=== PATIENT | male | born 1945 | race Caucasian/White ===

== ENCOUNTER 2020-10-13 17:15 | Inpatient (IN) | payer OTHER, MEDICARE, SELFPAY ==
[2020-10-13] VITALS (7 sets, daily range): BP systolic 143–167; BP diastolic 74–78; PULSE 116–124; RESP 16–38; TEMP 36.3–37.1; O2SAT 94–97; BMI 29.7
[2020-10-13 17:55] LABS: Absolute Lymphocyte Count 0.58 X10^3/uL (0.83-4.51); Basophil# 0.07 X10^3/uL; Basophil% 0.2 % (0-1); Hematocrit 46.5 % (40-54); Hemoglobin 15.1 g/dL (13.0-16.5); Lymphocyte # 0.58 X10^3/ul (0.83-4.51); Lymphocyte % 1.7 % (19-41); Mean Corp Hgb Conc 32.5 g/dL (32-36); Mean Corpuscular Volume 89.4 fL (80-94); Mean Platelet Vol. 11.7 fl (6.2-12.0); Monocyte# 2.37 X10^3/uL; Monocyte% 7.1 % (0-10); NRBC Flagged by Analyzer 0 % (0-5); Neutrophil # 29.96 X10^3/uL (2.7-7.7); Neutrophil % 89.8 % (47-70); POSITIVE COUNT YES; POSITIVE DIFFERENTIAL YES; Platelet Count 415 K/mm3 (150-450); RBC Distribution Width CV 12.9 % (11.6-14.6); RBC Distribution Width SD 42.4 fl (35.1-43.9)
[2020-10-13 18:00] LABS: Differential Indicated SCAN CRITERIA MET; White Blood Count 33.4 K/mm3 (4.4-11.0)
[2020-10-13 18:11] LABS: Anion Gap 16 (5-15); BUN 18 mg/dL (7-18); BUN/Creat Ratio 15.3 RATIO (10-20); Calcium,Total 9.9 mg/dL (8.5-10.1); Chloride 101 mmol/L (98-107); Creatinine, Serum 1.18 mg/dL (0.70-1.30); EST Glomerular Filtration Rate 64 mL/min (>60); Est Glom Filt Rate - Afr Amer 77 mL/min (>60); Estimated Creatinine Clearance 54.99 ml/min; Glucose 288 mg/dL (74-106); Potassium 3.4 mmol/L (3.5-5.1); Sodium Level 136 mmol/L (136-145)
[2020-10-13 18:32] LABS: Platelet Estimate ADEQUATE (ADEQ); Red Cell Morphology NORM C+C NORMAL (NORM C&C)
--- NOTE | 2020-10-13 18:58 | US_ITS ---
INDICATION: RUQ pain EXAMINATION: US Abdomen RUQ (limited) TECHNIQUE: Dunn-scale and color Doppler imaging was performed of the abdomen. COMPARISON: None. Findings: The liver is homogenous and normal in echogenicity and echotexture. There is no evidence of contour nodularity. No focal hepatic mass is identified. The main portal vein is normal in size and patent demonstrating hepatopetal flow. The gallbladder is distended and remarkable for mobile, layering stones and sludge, however is without evidence of wall thickening or pericholecystic fluid. Sonographic Vickers''s tenderness is not appreciated. There is no evidence of intrahepatic biliary ductal dilatation. The CBD is nondilated measuring 4 mm at the level of the oleg hepatis. The pancreas is obscured by overlying bowel gas. The right kidney measures 14.7 cm in length. It is normal in echogenicity. 3.6 cm hypoechoic well-circumscribed cyst in the lower pole. There is no evidence of hydronephrosis. There is no free intraperitoneal fluid identified. US/Gallbladder IMPRESSION: Distended gallbladder with multiple large stones and sludge. No wall thickening, pericholecystic fluid or Vickers''s tenderness. Findings are equivocal for acute cholecystitis. 3.6 cm slightly complex cyst in the lower pole of the right kidney. Electronically Signed: Jj Estes MD at 21:14 EDT Tel , Service support ,
--- NOTE | 2020-10-13 18:59 | EKG12_ITS ---
Test Reason : ABD PAIN Blood Pressure : / mmHG Vent. Rate : 118 BPM Atrial Rate : 118 BPM P-R Int : 112 ms QRS Dur : 082 ms QT Int : 444 ms P-R-T Axes : 000 -06 058 degrees QTc Int : 622 ms Sinus tachycardia Low voltage QRS Prolonged QT Abnormal ECG Confirmed by FRANCISCO BOUCHER, PRAVEEN ([id number]), editorial director DIANA SIGALA ([id number]) on 10/15/2020 9:04:57 AM Referred By: RENEA BOUCHER Confirmed By:PRAVEEN SINGH MD
[2020-10-13 19:07] LABS: Bacteria 0 SEEN /hpf (None Seen); Mucous, Urine 0 SEEN /hpf (<or=2+); Red Blood Cells-Urine 0 SEEN /hpf (0-5); Squamous Epithelial Cells - UA 0 SEEN /hpf (0-5)
[2020-10-13 19:09] LABS: Color, Urine Yellow (Yellow); Glucose, Dipstick 1000 mg/dl (Normal); Leukocyte Esterase-Dipstick Negative /ul (Negative); Nitrite-Dipstick Negative (Negative); Occult Blood-Urine Negative /ul (Negative); Protein-Dipstick 30 mg/dl (Negative); Urine Bilirubin Dipstick Negative (Negative); Urine Clarity Clear (Clear); Urine Urobilinogen Normal (Normal)
[2020-10-13 19:20] LABS: Ketone-Dipstick 150 mg/dl (Negative)
[2020-10-13 19:23] LABS: White Blood Cells 0-5 SEEN /hpf (0-5)
[2020-10-13] MEDS: Morphine 4 MG/ML Syringe IV (19:49)
[2020-10-13] MEDS: Ondansetron 4 MG/2 ML Vial IV (19:50)
[2020-10-13 20:20] LABS: AST(SGOT) 17 U/L (15-37); Alanine Aminotransfer ALT/SGPT 18 U/L (16-61); Albumin, Serum 3.2 g/dL (3.2-5.0); Alkaline Phosphatase 112 U/L (45-117); Bilirubin, Direct 0.36 mg/dL (0.00-0.30); Globulin 5.1 g/dL (2.2-4.2); Lipase 50 U/L (73-393); Protein, Total 8.3 g/dL (6.4-8.2)
[2020-10-13 20:35] LABS: Lactic Acid 2.2 mmol/L (0.4-1.9)
--- NOTE | 2020-10-13 21:46 | RAD_ITS ---
INDICATION: sob EXAMINATION/TECHNIQUE: X-RAY - XR Chest 1 View COMPARISON: None. FINDINGS: Elevation of the right hemidiaphragm with right basilar atelectasis. The lungs are clear. The cardiomediastinal silhouette is unremarkable. No pleural effusion or pneumothorax. No acute osseous abnormalities. RAD/Chest 1 View (Portable) IMPRESSION: Elevation of the right hemidiaphragm with right basilar atelectasis. Electronically Signed: Jj Estes MD at 22:19 EDT Tel , Service support ,
--- NOTE | 2020-10-13 23:05 | CT_ITS ---
We are attempting to reach an attending provider to discuss findings. An addendum with communication details will be sent when the communication is complete. INDICATION: abd pain EXAMINATION: CT Abdomen And Pelvis W/ Contrast Injection TECHNIQUE: Helically acquired images were obtained of the abdomen and pelvis after IV contrast. A radiation dose optimization technique was used for this scan. IV Contrast dosage and agent: 100 cc [id number] Oral contrast: None. COMPARISON: None. FINDINGS: Visualized lung bases: Multiple tiny calcified granulomas in the lung bases. Liver: Multiple subcentimeter hypodensities are too small to characterize. The common bile duct is not dilated however there is a slight increase in wall enhancement. No stricture or stone seen. Gallbladder: Distended with pericholecystic fat stranding and multiple large intraluminal stones. Spleen: Large splenic granuloma. Pancreas: 5 mm calcification in the head of the pancreas near the ampulla. Adrenal Glands: Unremarkable Kidneys: Multiple bilateral renal cysts. Vasculature: Moderate aortoiliac atherosclerotic disease. GI Tract: Mild circumferential wall thickening of the second portion of the duodenum. Scattered diverticula throughout the colon without evidence of inflammation. Lymphadenopathy: None Peritoneum: No ascites. Bladder: Unremarkable Reproductive organs: The prostate is mildly enlarged and contains several intraparenchymal calcifications. Bones/Soft tissues: Mild scattered degenerative changes of the visualized spine. CT/Abdomen/Pelvis WITH Contrast IMPRESSION: Acute cholecystitis with secondary inflammation of the duodenum (duodenitis) and possible ascending cholangitis. There is a 5 mm calcification in the head of the pancreas adjacent to where the ampulla is expected to be, however, there is no extra or intrahepatic biliary ductal dilation or definite choledocholithiasis. Mild prostatomegaly. Recommend correlation with PSA levels. Electronically Signed: Jj Estes MD at 23:46 EDT Tel , Service support ,
--- NOTE | 2020-10-13 23:32 | EDS_ITS ---
HPI HPI - GI History of Present Illness Chief Complaint: Abd Pain Informant: patient Narrative Narrative: 75-year-old male presenting with abdominal pain. He states this started on Tuesday. He went to urgent care and they advised him it may be his gallbladder and he would need further testing. He did not come to the ED at that time. His pain worsened throughout the weekend. Pain is worsened with eating. He complains of decreased appetite. He denies fever. He has mild shortness of breath. Denies vomiting or diarrhea. His last bowel movement was 3 days ago. Denies urinary complaints. Denies chest pain. Prior similar symptoms: No Recent Illness/Hospitalization: No PFSH PFSH Medical History Diabetes Former smoker Hypertension Non-smoker Home Medications alogliptin 25 mg DAILY 10/13/20 [History Last Taken Unknown] aspirin 81 mg PO DAILY 10/13/20 [History Last Taken Unknown] betamethasone dipropionate 1 applic TOPICAL DAILY 10/13/20 [History Last Taken Unknown] empagliflozin 25 mg PO DAILY 10/13/20 [History Last Taken Unknown] ezetimibe [Zetia] 10 mg DAILY 10/13/20 [History Last Taken Unknown] glimepiride 8 mg PO DAILY 10/13/20 [History Last Taken Unknown] hydrochlorothiazide 25 mg PO DAILY 10/13/20 [History Last Taken Unknown] lisinopril 40 mg PO DAILY 10/13/20 [History Last Taken Unknown] lovastatin 20 mg PO DAILY 10/13/20 [History Last Taken Unknown] metoprolol tartrate 50 mg PO BID 10/13/20 [History Last Taken Unknown] [id number]-[id number]-[id number] [Centrum Silver] 1 tab PO DAILY 10/13/20 [History Last Taken Unknown] niacinamide 1,000 mg PO DAILY 10/13/20 [History Last Taken Unknown] nifedipine [Nifediac CC] 90 mg PO BID 10/13/20 [History Last Taken Unknown] nitroglycerin 0.4 mg SUBLINGUAL Q5M PRN 10/13/20 [History Last Taken Unknown] Allergy/AdvReac Type Severity Reaction Status Date / Time No Known Allergies Allergy Verified 10/13/20 17:21 Surgical History (Updated 10/13/20 @ 19:56 by Bibi Dickens RN) History of coronary artery stent placement Social History Smoking Status: Former smoker ROS ROS ED Constitutional Constitutional ED: Denies fever(s) Eyes Eyes: Denies change in vision ENT ENT ED: Denies rhinorrhea or sore throat Cardiovascular Cardiovascular: Denies chest pain or palpitations Respiratory/Chest Respiratory/Chest: Denies cough or dyspnea Gastrointestinal Gastrointestinal: Reports abdominal pain and constipation; Denies diarrhea, nausea or vomiting Genitourinary Genitourinary ED: Denies dysuria Musculoskeletal Musculoskeletal: Denies myalgias Integumentary Denies rash Neurologic Neurologic: Denies headache(s) Psychiatric Psychiatric: Denies suicidal thoughts EXAM Physical Exam Const Vital Signs: 10/13/20 17:17 10/13/20 19:50 10/13/20 20:07 Temperature 97.3 F L 98.3 F 98.3 F Temperature Source Temporal Oral Oral Pulse Rate 124 H 119 H 117 H Respiratory Rate 16 29 H 28 H Blood Pressure 167/74 H 156/78 H 164/76 H Blood Pressure Mean 105 104 105 Pulse Ox 95 95 97 Oxygen Delivery Method Room Air Room Air Room Air 10/13/20 21:11 10/13/20 21:13 10/13/20 22:36 Temperature 97.6 F L 98.8 F Temperature Source Oral Oral Pulse Rate 123 H 116 H Respiratory Rate 19 H 26 H 30 H Blood Pressure 164/74 H 143/74 H Blood Pressure Mean 104 97 Pulse Ox 95 94 Oxygen Delivery Method Room Air Room Air 10/13/20 22:38 Temperature Temperature Source Pulse Rate Respiratory Rate Blood Pressure 143/74 H Blood Pressure Mean 97 Pulse Ox Oxygen Delivery Method Positive well nourished and well developed General Appearance ED: well developed HEENT Reports normocephalic and head/scalp atraumatic Eyes PERRL and EOMs intact bilaterally Neck supple General: Negative for tenderness Chest Wall inspection of chest normal Resp normal respiratory effort and clear to auscultation bilaterally Cardio regular rate and regular rhythm GI non-distended GI Narrative: Right upper quadrant tenderness Palpation: soft; Negative for guarding or rebound tenderness present no CVA tenderness Extremity normal to inspection Neuro oriented x3 Sensorium / Orientation: alert Psych mental status grossly normal MDM MDM MDM Narrative Medical decision making narrative: Patient was given morphine, Zofran, IV fluids. He was given Zosyn IV. Ultrasound and CT scan were reviewed per Dr. Baig. Discussed with hospitalist. Patient will be admitted for IV antibiotics and possible percutaneous drain. Lab Data Attestation: I reviewed the patient's lab results. Labs: Laboratory Results - last 24 hr 10/13/20 10/13/20 10/13/20 17:27 17:27 17:27 WBC 33.4 H* RBC 5.20 Hgb 15.1 Hct 46.5 MCV 89.4 MCH 29.0 MCHC 32.5 RDW Std Deviation 42.4 RDW Coeff of Oskar 12.9 Plt Count 415 MPV 11.7 Immature Gran % (Auto) 1.200 H Neut % (Auto) 89.8 H Lymph % (Auto) 1.7 L [place] % (Auto) 7.1 Eos % (Auto) 0.0 Baso % (Auto) 0.2 Absolute Neuts (auto) 30.0 H Absolute Lymphs (auto) 0.58 L Nucleated RBC % 0 Differential Comment Diff Path Review May foll Platelet Estimate ADEQUATE RBC Morphology NORM C+C Sodium 136 Potassium 3.4 L Chloride 101 Carbon Dioxide 19.0 L Anion Gap 16 H BUN 18 Creatinine 1.18 Estim Creat Clear Calc 54.99 Est GFR (MDRD) Af Amer 77 Est GFR (MDRD) Non-Af 64 BUN/Creatinine Ratio 15.3 Glucose 288 H Lactic Acid Calcium 9.9 Total Bilirubin 0.90 Direct Bilirubin 0.36 H AST 17 ALT 18 Alkaline Phosphatase 112 Troponin I < 0.015 Total Protein 8.3 H Albumin 3.2 Globulin 5.1 H Lipase 50 L Urine Color Urine Clarity Urine pH Ur Specific [place] Urine Protein Urine Glucose (UA) Urine Ketones Urine Occult Blood Urine Nitrite Urine Bilirubin Urine Urobilinogen Ur Leukocyte Esterase Urine RBC Urine WBC Ur Squamous Epith Cells Urine Bacteria Urine Mucus 10/13/20 10/13/20 19:00 19:30 WBC RBC Hgb Hct MCV MCH MCHC RDW Std Deviation RDW Coeff of Oskar Plt Count MPV Immature Gran % (Auto) Neut % (Auto) Lymph % (Auto) [place] % (Auto) Eos % (Auto) Baso % (Auto) Absolute Neuts (auto) Absolute Lymphs (auto) Nucleated RBC % Differential Comment Diff Path Review Platelet Estimate RBC Morphology Sodium Potassium Chloride Carbon Dioxide Anion Gap BUN Creatinine Estim Creat Clear Calc Est GFR (MDRD) Af Amer Est GFR (MDRD) Non-Af BUN/Creatinine Ratio Glucose Lactic Acid 2.2 H* Calcium Total Bilirubin Direct Bilirubin AST ALT Alkaline Phosphatase Troponin I Total Protein Albumin Globulin Lipase Urine Color Yellow Urine Clarity Clear Urine pH 6.0 Ur Specific [place] 1.010 Urine Protein 30 H Urine Glucose (UA) 1000 H Urine Ketones 150 A* Urine Occult Blood Negative Urine Nitrite Negative Urine Bilirubin Negative Urine Urobilinogen Normal Ur Leukocyte Esterase Negative Urine RBC 0 SEEN Urine WBC 0-5 SEEN Ur Squamous Epith Cells 0 SEEN Urine Bacteria 0 SEEN Urine Mucus 0 SEEN Radiography Diagnostic Testing: Radiology Impression Gallbladder Ultrasound 10/13/20 18:58 IMPRESSION: Distended gallbladder with multiple large stones and sludge. No wall thickening, pericholecystic fluid or Vickers''s tenderness. Findings are equivocal for acute cholecystitis. 3.6 cm slightly complex cyst in the lower pole of the right kidney. Electronically Signed: Jj Estes MD at 21:14 EDT Tel , Service support , Chest X-Ray 10/13/20 21:46 IMPRESSION: Elevation of the right hemidiaphragm with right basilar atelectasis. Electronically Signed: Jj Estes MD at 22:19 EDT Tel , Service support , Abdomen/Pelvis CT 10/13/20 23:05 IMPRESSION: Acute cholecystitis with secondary inflammation of the duodenum (duodenitis) and possible ascending cholangitis. There is a 5 mm calcification in the head of the pancreas adjacent to where the ampulla is expected to be, however, there is no extra or intrahepatic biliary ductal dilation or definite choledocholithiasis. Mild prostatomegaly. Recommend correlation with PSA levels. Electronically Signed: Jj Estes MD at 23:46 EDT Tel , Service support , EKG Initial EKG: Interpretation: Sinus Rhythm, No Acute Injury Pattern and Sinus Tachycardia Prior EKG tracings: not available for review Discharge Plan Dx/Rx/DC Orders Clinical Impression: Acute cholecystitis, Leukocytosis Disposition Disposition: Acute Care [facility]
[2020-10-13 23:54] LABS: Reflex Lactate? Y
--- NOTE | 2020-10-13 23:59 | HP.PCM_ITS ---
HPI - General HPI Narrative ALEXX RICHARDS, is a 75 M who presents to the emergency room with right upper quadrant abdominal pain. Onset of symptoms began this past May when he had a bout of cholecystitis that was treated medically and resolved. This last weekend he was seen in urgent care for recurrent right upper quadrant abdominal pain and was told if his pain did not resolve to seek help at the emergency room. Patient states he has been unable to eat solid food for the past 3 days and has significant pain in the right upper quadrant of the abdomen associated with nausea. Laboratory studies remarkable for elevated white blood cell count greater than 30,000 with a left shift. Gallbladder ultrasound is significant for distention. Surgeon was notified by ER physician and patient will be admitted with surgical consult. Patient will be n.p.o. after midnight. [facility] Medical History Diabetes Former smoker Hypertension Non-smoker Home Medications alogliptin 25 mg DAILY 10/13/20 [History Last Taken Unknown] aspirin 81 mg PO DAILY 10/13/20 [History Last Taken Unknown] betamethasone dipropionate 1 applic TOPICAL DAILY 10/13/20 [History Last Taken Unknown] empagliflozin 25 mg PO DAILY 10/13/20 [History Last Taken Unknown] ezetimibe [Zetia] 10 mg DAILY 10/13/20 [History Last Taken Unknown] glimepiride 8 mg PO DAILY 10/13/20 [History Last Taken Unknown] hydrochlorothiazide 25 mg PO DAILY 10/13/20 [History Last Taken Unknown] lisinopril 40 mg PO DAILY 10/13/20 [History Last Taken Unknown] lovastatin 20 mg PO DAILY 10/13/20 [History Last Taken Unknown] metoprolol tartrate 50 mg PO BID 10/13/20 [History Last Taken Unknown] [id number]-dacthykg-xqlfaj [Centrum Silver] 1 tab PO DAILY 10/13/20 [History Last Taken Unknown] niacinamide 1,000 mg PO DAILY 10/13/20 [History Last Taken Unknown] nifedipine [Nifediac CC] 90 mg PO BID 10/13/20 [History Last Taken Unknown] nitroglycerin 0.4 mg SUBLINGUAL Q5M PRN 10/13/20 [History Last Taken Unknown] Allergy/AdvReac Type Severity Reaction Status Date / Time No Known Allergies Allergy Verified 10/13/20 17:21 Surgical History (Updated 10/13/20 @ 19:56 by Bibi Dickens RN) History of coronary artery stent placement Social History Smoking Status: Former smoker ROS Constitutional Constitutional: Reports anorexia, fatigue and weakness ENT HEENT: Denies headache(s) Cardiovascular Cardiovascular: Denies chest pain Respiratory/Chest Respiratory/Chest: Denies shortness of breath at rest Gastrointestinal Gastrointestinal: Reports abdominal pain and nausea Genitourinary Genitourinary: Denies dysuria Musculoskeletal Musculoskeletal: Denies back pain Psychiatric Psychiatric: Denies anxiety Hematologic/Lymphatic Hematologic/Lymphatic: Denies easy bleeding Vital Signs Vital Signs Vital Signs: 10/13/20 17:17 10/13/20 19:50 10/13/20 20:07 Temperature 97.3 F L 98.3 F 98.3 F Temperature Source Temporal Oral Oral Pulse Rate 124 H 119 H 117 H Respiratory Rate 16 29 H 28 H Blood Pressure 167/74 H 156/78 H 164/76 H Blood Pressure Mean 105 104 105 Pulse Ox 95 95 97 Oxygen Delivery Method Room Air Room Air Room Air 10/13/20 21:11 10/13/20 21:13 10/13/20 22:36 Temperature 97.6 F L 98.8 F Temperature Source Oral Oral Pulse Rate 123 H 116 H Respiratory Rate 19 H 26 H 30 H Blood Pressure 164/74 H 143/74 H Blood Pressure Mean 104 97 Pulse Ox 95 94 Oxygen Delivery Method Room Air Room Air 10/13/20 22:38 Temperature Temperature Source Pulse Rate Respiratory Rate Blood Pressure 143/74 H Blood Pressure Mean 97 Pulse Ox Oxygen Delivery Method Physical Exam Const alert and oriented x3 HEENT normocephalic and head/scalp atraumatic Eyes PERRL Neck supple Lymph Lymphatic: no lymphadenopathy noted Resp normal respiratory effort and clear to auscultation bilaterally Cardio regular rhythm, S1 normal heart sound and S2 normal heart sound GI Inspection: abdominal distention Auscultation: hypoactive bowel sounds Palpation: tender RUQ Extremity normal capillary refill Skin General Skin Exam: no breakdown Neuro no sensory deficits noted Psych affect normal Lab / Micro Data Result Diagrams: 10/13/20 17:27 10/13/20 17:27 Labs: Laboratory Results - last 24 hr 10/13/20 10/13/20 10/13/20 17:27 17:27 17:27 WBC 33.4 H* RBC 5.20 Hgb 15.1 Hct 46.5 MCV 89.4 MCH 29.0 MCHC 32.5 RDW Std Deviation 42.4 RDW Coeff of Oskar 12.9 Plt Count 415 MPV 11.7 Immature Gran % (Auto) 1.200 H Neut % (Auto) 89.8 H Lymph % (Auto) 1.7 L [place] % (Auto) 7.1 Eos % (Auto) 0.0 Baso % (Auto) 0.2 Absolute Neuts (auto) 30.0 H Absolute Lymphs (auto) 0.58 L Nucleated RBC % 0 Differential Comment Diff Path Review May foll Platelet Estimate ADEQUATE RBC Morphology NORM C+C Sodium 136 Potassium 3.4 L Chloride 101 Carbon Dioxide 19.0 L Anion Gap 16 H BUN 18 Creatinine 1.18 Estim Creat Clear Calc 54.99 Est GFR (MDRD) Af Amer 77 Est GFR (MDRD) Non-Af 64 BUN/Creatinine Ratio 15.3 Glucose 288 H Lactic Acid Calcium 9.9 Total Bilirubin 0.90 Direct Bilirubin 0.36 H AST 17 ALT 18 Alkaline Phosphatase 112 Troponin I < 0.015 Total Protein 8.3 H Albumin 3.2 Globulin 5.1 H Lipase 50 L Urine Color Urine Clarity Urine pH Ur Specific [place] Urine Protein Urine Glucose (UA) Urine Ketones Urine Occult Blood Urine Nitrite Urine Bilirubin Urine Urobilinogen Ur Leukocyte Esterase Urine RBC Urine WBC Ur Squamous Epith Cells Urine Bacteria Urine Mucus 10/13/20 10/13/20 19:00 19:30 WBC RBC Hgb Hct MCV MCH MCHC RDW Std Deviation RDW Coeff of Oskar Plt Count MPV Immature Gran % (Auto) Neut % (Auto) Lymph % (Auto) [place] % (Auto) Eos % (Auto) Baso % (Auto) Absolute Neuts (auto) Absolute Lymphs (auto) Nucleated RBC % Differential Comment Diff Path Review Platelet Estimate RBC Morphology Sodium Potassium Chloride Carbon Dioxide Anion Gap BUN Creatinine Estim Creat Clear Calc Est GFR (MDRD) Af Amer Est GFR (MDRD) Non-Af BUN/Creatinine Ratio Glucose Lactic Acid 2.2 H* Calcium Total Bilirubin Direct Bilirubin AST ALT Alkaline Phosphatase Troponin I Total Protein Albumin Globulin Lipase Urine Color Yellow Urine Clarity Clear Urine pH 6.0 Ur Specific [place] 1.010 Urine Protein 30 H Urine Glucose (UA) 1000 H Urine Ketones 150 A* Urine Occult Blood Negative Urine Nitrite Negative Urine Bilirubin Negative Urine Urobilinogen Normal Ur Leukocyte Esterase Negative Urine RBC 0 SEEN Urine WBC 0-5 SEEN Ur Squamous Epith Cells 0 SEEN Urine Bacteria 0 SEEN Urine Mucus 0 SEEN Micro: Microbiology 10/13/20 19:29 SARS-CoV-2 Antigen (Rapid) - Final Interface Orders Radiology Impression Gallbladder Ultrasound 10/13/20 18:58 IMPRESSION: Distended gallbladder with multiple large stones and sludge. No wall thickening, pericholecystic fluid or Vickers''s tenderness. Findings are equivocal for acute cholecystitis. 3.6 cm slightly complex cyst in the lower pole of the right kidney. Electronically Signed: Jj Estes MD at 21:14 EDT Tel , Service support , Chest X-Ray 10/13/20 21:46 IMPRESSION: Elevation of the right hemidiaphragm with right basilar atelectasis. Electronically Signed: Jj Estes MD at 22:19 EDT Tel , Service support , Abdomen/Pelvis CT 10/13/20 23:05 IMPRESSION: Acute cholecystitis with secondary inflammation of the duodenum (duodenitis) and possible ascending cholangitis. There is a 5 mm calcification in the head of the pancreas adjacent to where the ampulla is expected to be, however, there is no extra or intrahepatic biliary ductal dilation or definite choledocholithiasis. Mild prostatomegaly. Recommend correlation with PSA levels. Electronically Signed: Jj Estes MD at 23:46 EDT Tel , Service support , ADDENDUM: 10/13/20 0399 IMPRESSION: Acute cholecystitis with secondary inflammation of the duodenum (duodenitis) and possible ascending cholangitis. There is a 5 mm calcification in the head of the pancreas adjacent to where the ampulla is expected to be, however, there is no extra or intrahepatic biliary ductal dilation or definite choledocholithiasis. Mild prostatomegaly. Recommend correlation with PSA levels. N.B. : The above information has been verbally conveyed by Jj Estes MD to Swapna Bean MD, on 10/13/2020 23:48:22 (ET). Electronically Signed: Jj Estes MD at 23:46 EDT Tel , Service support , Assessment & Plan Assessment/Plan (1) Acute cholecystitis: Status: Acute Code(s): K81.0 - Acute cholecystitis Plan: Admit patient to general medical floor, n.p.o. after midnight, consult Dr. Baig, Dilaudid 1 mg IV every 3 hours as needed pain, Zofran 4 mg IV every 4 hours as needed nausea, normal saline 125 cc/h, CBC CMP and lipase in the mo rning, IV Zosyn 3.375 mg IV every 6 hours (2) Leukocytosis: Status: Acute Code(s): D72.829 - Elevated white blood cell count, unspecified Plan: As above (3) DVT prophylaxis: Status: Acute Code(s): Z29.9 - Encounter for prophylactic measures, unspecified Plan: Low molecular weight heparin Visit Charges Inpatient E&M: 00056 Init Hosp L3
[2020-10-14] VITALS (21 sets, daily range): BP systolic 127–163; BP diastolic 53–78; PULSE 24–114; RESP 18–37; TEMP 36.4–37; O2SAT 93–97; BMI 28.5
[2020-10-14] MEDS: 0.9% Normal Saline 1,000 ML 999 ML IV (00:09)
[2020-10-14] MEDS: 0.9% Normal Saline 1,000 ML 125 ML IV ×3 (01:42→17:53)
--- NOTE | 2020-10-14 01:56 | EX.PCM.CON.S ---
Assessment & Plan Assessment/Plan (1) Acute cholecystitis: Status: Acute Code(s): K81.0 - Acute cholecystitis (2) Leukocytosis: Status: Acute Code(s): D72.829 - Elevated white blood cell count, unspecified Plan: Discussed with patient that due to increased inflammation of the gallbladder seen on CT as well as pain beginning on Tuesday he would be at increased risk for complication for surgery currently. Recommend placing a cholecystostomy tube by IR and would plan to do a laparoscopic cholecystectomy in a few weeks once inflammation has improved. Patient is agreeable with plan. Patient was started on Zosyn IV. Kamini Baig M.D. Pager: [phone] [facility] [address] [place] [address], [facility] [place], [address] [place] [address] Office: [phone] HPI Consult Data Date of Consult: 10/14/20 HPI Narrative HPI Narrative: ALEXX RICHARDS, is a 75 M who presents due to right upper quadrant pain which began on Tuesday. Patient states he has not been able to eat as much due to the pain states when he takes a deep breath his pain is a 10/10. Patient denies any right upper quadrant pain after eating prior to this. Patient's white blood cell count was 33.4 on admission and ultrasound of the gallbladder did show gallstones but did not show any wall thickening or call pericholecystic fluid with a normal common bile duct. Patient's CT abdomen pelvis did show inflammation surrounding the gallbladder. [facility] Medical History Diabetes Former smoker Hypertension Non-smoker Home Medications alogliptin 25 mg PO DAILY 10/13/20 [History Last Taken 10/13/20] aspirin 81 mg PO DAILY 10/13/20 [History Last Taken 10/13/20] betamethasone dipropionate 1 applic TOPICAL DAILY 10/13/20 [History Last Taken Unknown] empagliflozin 25 mg PO DAILY 10/13/20 [History Last Taken 10/13/20] ezetimibe [Zetia] 10 mg DAILY 10/13/20 [History Last Taken 10/13/20] glimepiride 8 mg PO DAILY 10/13/20 [History Last Taken Unknown] hydrochlorothiazide 25 mg PO DAILY 10/13/20 [History Last Taken 10/13/20] lisinopril 40 mg PO DAILY 10/13/20 [History Last Taken 10/13/20] lovastatin 20 mg PO DAILY 10/13/20 [History Last Taken Unknown] metoprolol tartrate 50 mg PO BID 10/13/20 [History Last Taken 10/13/20 0800] [id number] [Centrum Silver] 1 tab PO DAILY 10/13/20 [History Last Taken 10/13/20] niacinamide 1,000 mg PO DAILY 10/13/20 [History Last Taken Unknown] nifedipine [Nifediac CC] 90 mg PO BID 10/13/20 [History Last Taken Unknown] nitroglycerin 0.4 mg SUBLINGUAL Q5M PRN 10/13/20 [History Last Taken 06/06/20] Allergy/AdvReac Type Severity Reaction Status Date / Time No Known Allergies Allergy Verified 10/13/20 17:21 Surgical History History of coronary artery stent placement Social History Smoking Status: Former smoker ROS Constitutional Constitutional: Denies fever(s) ENT HEENT: Denies dizziness Cardiovascular Cardiovascular: Denies chest pain Respiratory/Chest Respiratory/Chest: Denies shortness of breath at rest Gastrointestinal Gastrointestinal: Reports abdominal pain and anorexia; Denies constipation, diarrhea, dysphagia, heartburn, hematemesis or melena Genitourinary Genitourinary: Denies burning urination Musculoskeletal Musculoskeletal: Denies joint pain Integumentary Integumentary: Denies rash Neurologic Neurologic: Denies focal weakness Endocrine Endocrinology: Denies palpitations Hematologic/Lymphatic Hematologic/Lymphatic: Reports anemia; Denies easy bleeding or easy bruising Physical Exam Const alert, oriented x3 and no apparent distress HEENT normocephalic and head/scalp atraumatic Resp normal respiratory effort Cardio Rate: tachycardic GI soft to palpation; Negative for non-distended Palpation: tender RUQ; Negative for guarding Extremity no clubbing, cyanosis or edema Neuro CN's II-XII intact bilaterally Psych mental status grossly normal Lab / Micro Data Result Diagrams: 10/14/20 05:25 10/14/20 05:25 Labs: Laboratory Results - last 24 hr 10/13/20 10/13/20 10/13/20 17:27 17:27 17:27 WBC 33.4 H* RBC 5.20 Hgb 15.1 Hct 46.5 MCV 89.4 MCH 29.0 MCHC 32.5 RDW Std Deviation 42.4 RDW Coeff of Oskar 12.9 Plt Count 415 MPV 11.7 Immature Gran % (Auto) 1.200 H Neut % (Auto) 89.8 H Lymph % (Auto) 1.7 L Cobb % (Auto) 7.1 Eos % (Auto) 0.0 Baso % (Auto) 0.2 Absolute Neuts (auto) 30.0 H Absolute Lymphs (auto) 0.58 L Nucleated RBC % 0 Differential Comment Diff Path Review May foll Platelet Estimate ADEQUATE RBC Morphology NORM C+C Sodium 136 Potassium 3.4 L Chloride 101 Carbon Dioxide 19.0 L Anion Gap 16 H BUN 18 Creatinine 1.18 Estim Creat Clear Calc 54.99 Est GFR (MDRD) Af Amer 77 Est GFR (MDRD) Non-Af 64 BUN/Creatinine Ratio 15.3 Glucose 288 H Lactic Acid Calcium 9.9 Total Bilirubin 0.90 Direct Bilirubin 0.36 H AST 17 ALT 18 Alkaline Phosphatase 112 Troponin I < 0.015 Total Protein 8.3 H Albumin 3.2 Globulin 5.1 H Lipase 50 L Urine Color Urine Clarity Urine pH Ur Specific [place] Urine Protein Urine Glucose (UA) Urine Ketones Urine Occult Blood Urine Nitrite Urine Bilirubin Urine Urobilinogen Ur Leukocyte Esterase Urine RBC Urine WBC Ur Squamous Epith Cells Urine Bacteria Urine Mucus 10/13/20 10/13/20 10/14/20 19:00 19:30 00:15 WBC RBC Hgb Hct MCV MCH MCHC RDW Std Deviation RDW Coeff of Oskar Plt Count MPV Immature Gran % (Auto) Neut % (Auto) Lymph % (Auto) Cobb % (Auto) Eos % (Auto) Baso % (Auto) Absolute Neuts (auto) Absolute Lymphs (auto) Nucleated RBC % Differential Comment Diff Path Review Platelet Estimate RBC Morphology Sodium Potassium Chloride Carbon Dioxide Anion Gap BUN Creatinine Estim Creat Clear Calc Est GFR (MDRD) Af Amer Est GFR (MDRD) Non-Af BUN/Creatinine Ratio Glucose Lactic Acid 2.2 H* 2.0 Calcium Total Bilirubin Direct Bilirubin AST ALT Alkaline Phosphatase Troponin I Total Protein Albumin Globulin Lipase Urine Color Yellow Urine Clarity Clear Urine pH 6.0 Ur Specific [place] 1.010 Urine Protein 30 H Urine Glucose (UA) 1000 H Urine Ketones 150 A* Urine Occult Blood Negative Urine Nitrite Negative Urine Bilirubin Negative Urine Urobilinogen Normal Ur Leukocyte Esterase Negative Urine RBC 0 SEEN Urine WBC 0-5 SEEN Ur Squamous Epith Cells 0 SEEN Urine Bacteria 0 SEEN Urine Mucus 0 SEEN Micro: Microbiology 10/13/20 19:29 SARS-CoV-2 Antigen (Rapid) - Final Interface Orders Radiology Impression Gallbladder Ultrasound 10/13/20 18:58 IMPRESSION: Distended gallbladder with multiple large stones and sludge. No wall thickening, pericholecystic fluid or Vickers''s tenderness. Findings are equivocal for acute cholecystitis. 3.6 cm slightly complex cyst in the lower pole of the right kidney. Electronically Signed: Jj Estes MD at 21:14 EDT Tel , Service support , Chest X-Ray 10/13/20 21:46 IMPRESSION: Elevation of the right hemidiaphragm with right basilar atelectasis. Electronically Signed: Jj Estes MD at 22:19 EDT Tel , Service support , Abdomen/Pelvis CT 10/13/20 23:05 IMPRESSION: Acute cholecystitis with secondary inflammation of the duodenum (duodenitis) and possible ascending cholangitis. There is a 5 mm calcification in the head of the pancreas adjacent to where the ampulla is expected to be, however, there is no extra or intrahepatic biliary ductal dilation or definite choledocholithiasis. Mild prostatomegaly. Recommend correlation with PSA levels. Electronically Signed: Jj Estes MD at 23:46 EDT Tel , Service support , ADDENDUM: 10/13/20 [id number] IMPRESSION: Acute cholecystitis with secondary inflammation of the duodenum (duodenitis) and possible ascending cholangitis. There is a 5 mm calcification in the head of the pancreas adjacent to where the ampulla is expected to be, however, there is no extra or intrahepatic biliary ductal dilation or definite choledocholithiasis. Mild prostatomegaly. Recommend correlation with PSA levels. N.B. : The above information has been verbally conveyed by Jj Estes MD to Swapna Bean MD, on 10/13/2020 23:48:22 (ET). Electronically Signed: Jj Estes MD at 23:46 EDT Tel , Service support , Charges/Coding Visit Charges Inpatient E&M: 50045 Init Hosp L3
[2020-10-14 05:55] LABS: Absolute Lymphocyte Count 0.77 X10^3/uL (0.83-4.51); Absolute Neutrophil Count 27.2 X10^3/uL (2.0-7.7); Basophil# 0.06 X10^3/uL; Basophil% 0.2 % (0-1); Hematocrit 44.4 % (40-54); Lymphocyte # 0.77 X10^3/ul (0.83-4.51); Lymphocyte % 2.5 % (19-41); Mean Corp Hgb Conc 31.5 g/dL (32-36); Mean Corpuscular Hgb 28.5 pg (27.0-32.0); Mean Corpuscular Volume 90.2 fL (80-94); Mean Platelet Vol. 11.5 fl (6.2-12.0); Monocyte% 6.6 % (0-10); NRBC Flagged by Analyzer 0 % (0-5); Neutrophil # 27.15 X10^3/uL (2.7-7.7); Neutrophil % 89.2 % (47-70); POSITIVE COUNT YES; POSITIVE DIFFERENTIAL YES; Platelet Count 342 K/mm3 (150-450); RBC Distribution Width CV 13.2 % (11.6-14.6); Red Blood Count 4.92 M/mm3 (4.6-6.2); White Blood Count 30.4 K/mm3 (4.4-11.0)
[2020-10-14 06:19] LABS: Differential Indicated SCAN CRITERIA MET
[2020-10-14 06:29] LABS: ALB/GLOB Ratio 0.6 RATIO (0.9-2.4); AST(SGOT) 23 U/L (15-37); Alanine Aminotransfer ALT/SGPT 15 U/L (16-61); Albumin, Serum 2.6 g/dL (3.2-5.0); Alkaline Phosphatase 101 U/L (45-117); Anion Gap 13 (5-15); BUN 18 mg/dL (7-18); BUN/Creat Ratio 19.5 RATIO (10-20); Calcium,Total 8.9 mg/dL (8.5-10.1); Chloride 109 mmol/L (98-107); Creatinine, Serum 0.92 mg/dL (0.70-1.30); EST Glomerular Filtration Rate 84 mL/min (>60); Est Glom Filt Rate - Afr Amer 102 mL/min (>60); Estimated Creatinine Clearance 70.53 ml/min; Globulin 4.4 g/dL (2.2-4.2); Glucose 159 mg/dL (74-106); Lipase 29 U/L (73-393); Potassium 3.3 mmol/L (3.5-5.1); Sodium Level 141 mmol/L (136-145)
--- NOTE | 2020-10-14 06:50 | PCM.PN.HOSP ---
Subjective Subjective: Patient with ongoing right upper quadrant pain although notes mildly decreased since initial presentation. Planned placement of cholecystostomy tube this a.m. per recommendation of general surgery who is been consulted and evaluated patient. Surgery had noted secondary to significant inflammation therapy risk for surgical intervention with likely planned upcoming cholecystectomy once the inflammation is improved. Patient notes mild nausea but denies any emesis. Patient denies fevers, chills, chest pain or dyspnea. Objective Data Objective Data Vital Signs: Vital Signs Temp Pulse Resp BP Pulse Ox 98.6 F 102 H 24 H 155/62 H 94 10/14/20 04:42 10/14/20 04:42 10/14/20 04:42 10/14/20 04:42 10/14/20 04:42 Oxygen Delivery Method Room Air Weight: 199 lb Body Mass Index (BMI) 28.5 Intake & Output: Intake and Output for Last 24 Hours 10/12/20 10/13/20 10/14/20 23:59 23:59 23:59 Intake Total 500 / 500 1690 / 1690 Output Total 675 / 675 Balance 500 / 500 1015 / 1015 Lab / Micro Data Result Diagrams: 10/14/20 05:25 10/14/20 05:25 Labs: Laboratory Results - last 24 hr 10/13/20 10/13/20 10/13/20 17:27 17:27 17:27 WBC 33.4 H* RBC 5.20 Hgb 15.1 Hct 46.5 MCV 89.4 MCH 29.0 MCHC 32.5 RDW Std Deviation 42.4 RDW Coeff of Oskar 12.9 Plt Count 415 MPV 11.7 Immature Gran % (Auto) 1.200 H Neut % (Auto) 89.8 H Lymph % (Auto) 1.7 L Wilcox % (Auto) 7.1 Eos % (Auto) 0.0 Baso % (Auto) 0.2 Absolute Neuts (auto) 30.0 H Absolute Lymphs (auto) 0.58 L Nucleated RBC % 0 Differential Comment Diff Path Review May foll Platelet Estimate ADEQUATE RBC Morphology NORM C+C Sodium 136 Potassium 3.4 L Chloride 101 Carbon Dioxide 19.0 L Anion Gap 16 H BUN 18 Creatinine 1.18 Estim Creat Clear Calc 54.99 Est GFR (MDRD) Af Amer 77 Est GFR (MDRD) Non-Af 64 BUN/Creatinine Ratio 15.3 Glucose 288 H Lactic Acid Calcium 9.9 Total Bilirubin 0.90 Direct Bilirubin 0.36 H AST 17 ALT 18 Alkaline Phosphatase 112 Troponin I < 0.015 Total Protein 8.3 H Albumin 3.2 Globulin 5.1 H Albumin/Globulin Ratio Lipase 50 L Urine Color Urine Clarity Urine pH Ur Specific Calcium Urine Protein Urine Glucose (UA) Urine Ketones Urine Occult Blood Urine Nitrite Urine Bilirubin Urine Urobilinogen Ur Leukocyte Esterase Urine RBC Urine WBC Ur Squamous Epith Cells Urine Bacteria Urine Mucus 10/13/20 10/13/20 10/14/20 19:00 19:30 00:15 WBC RBC Hgb Hct MCV MCH MCHC RDW Std Deviation RDW Coeff of Oskar Plt Count MPV Immature Gran % (Auto) Neut % (Auto) Lymph % (Auto) Wilcox % (Auto) Eos % (Auto) Baso % (Auto) Absolute Neuts (auto) Absolute Lymphs (auto) Nucleated RBC % Differential Comment Diff Path Review Platelet Estimate RBC Morphology Sodium Potassium Chloride Carbon Dioxide Anion Gap BUN Creatinine Estim Creat Clear Calc Est GFR (MDRD) Af Amer Est GFR (MDRD) Non-Af BUN/Creatinine Ratio Glucose Lactic Acid 2.2 H* 2.0 Calcium Total Bilirubin Direct Bilirubin AST ALT Alkaline Phosphatase Troponin I Total Protein Albumin Globulin Albumin/Globulin Ratio Lipase Urine Color Yellow Urine Clarity Clear Urine pH 6.0 Ur Specific Calcium 1.010 Urine Protein 30 H Urine Glucose (UA) 1000 H Urine Ketones 150 A* Urine Occult Blood Negative Urine Nitrite Negative Urine Bilirubin Negative Urine Urobilinogen Normal Ur Leukocyte Esterase Negative Urine RBC 0 SEEN Urine WBC 0-5 SEEN Ur Squamous Epith Cells 0 SEEN Urine Bacteria 0 SEEN Urine Mucus 0 SEEN 10/14/20 10/14/20 05:25 05:25 WBC 30.4 H* RBC 4.92 Hgb 14.0 Hct 44.4 MCV 90.2 MCH 28.5 MCHC 31.5 L RDW Std Deviation 44.0 H RDW Coeff of Oskar 13.2 Plt Count 342 MPV 11.5 Immature Gran % (Auto) 1.500 H Neut % (Auto) 89.2 H Lymph % (Auto) 2.5 L Wilcox % (Auto) 6.6 Eos % (Auto) 0.0 Baso % (Auto) 0.2 Absolute Neuts (auto) 27.2 H Absolute Lymphs (auto) 0.77 L Nucleated RBC % 0 Differential Comment Diff Path Review May foll Platelet Estimate RBC Morphology Sodium 141 Potassium 3.3 L Chloride 109 H Carbon Dioxide 19.0 L Anion Gap 13 BUN 18 Creatinine 0.92 Estim Creat Clear Calc 70.53 Est GFR (MDRD) Af Amer 102 Est GFR (MDRD) Non-Af 84 BUN/Creatinine Ratio 19.5 Glucose 159 H Lactic Acid Calcium 8.9 Total Bilirubin 0.80 Direct Bilirubin AST 23 ALT 15 L Alkaline Phosphatase 101 Troponin I Total Protein 7.0 Albumin 2.6 L Globulin 4.4 H Albumin/Globulin Ratio 0.6 L Lipase 29 L Urine Color Urine Clarity Urine pH Ur Specific Calcium Urine Protein Urine Glucose (UA) Urine Ketones Urine Occult Blood Urine Nitrite Urine Bilirubin Urine Urobilinogen Ur Leukocyte Esterase Urine RBC Urine WBC Ur Squamous Epith Cells Urine Bacteria Urine Mucus Micro: Microbiology 10/13/20 19:29 Interface Orders SARS-CoV-2 Antigen (Rapid) - Final Radiography Diagnostic Testing: Radiology Impression Gallbladder Ultrasound 10/13/20 18:58 IMPRESSION: Distended gallbladder with multiple large stones and sludge. No wall thickening, pericholecystic fluid or Vickers''s tenderness. Findings are equivocal for acute cholecystitis. 3.6 cm slightly complex cyst in the lower pole of the right kidney. Electronically Signed: Jj Estes MD at 21:14 EDT Tel , Service support , Chest X-Ray 10/13/20 21:46 IMPRESSION: Elevation of the right hemidiaphragm with right basilar atelectasis. Electronically Signed: Jj Estes MD at 22:19 EDT Tel , Service support , Abdomen/Pelvis CT 10/13/20 23:05 IMPRESSION: Acute cholecystitis with secondary inflammation of the duodenum (duodenitis) and possible ascending cholangitis. There is a 5 mm calcification in the head of the pancreas adjacent to where the ampulla is expected to be, however, there is no extra or intrahepatic biliary ductal dilation or definite choledocholithiasis. Mild prostatomegaly. Recommend correlation with PSA levels. Electronically Signed: Jj Estes MD at 23:46 EDT Tel , Service support , ADDENDUM: 10/13/20 [id number] IMPRESSION: Acute cholecystitis with secondary inflammation of the duodenum (duodenitis) and possible ascending cholangitis. There is a 5 mm calcification in the head of the pancreas adjacent to where the ampulla is expected to be, however, there is no extra or intrahepatic biliary ductal dilation or definite choledocholithiasis. Mild prostatomegaly. Recommend correlation with PSA levels. N.B. : The above information has been verbally conveyed by Jj Estes MD to Swapna Bean MD, on 10/13/2020 23:48:22 (ET). Electronically Signed: Jj Estes MD at 23:46 EDT Tel , Service support , Physical Exam Narrative Physical Examination: General: awake, alert, oriented x 3 and cooperative, seated upright in medical surgical bed, uncomfortable appearing, fatigued. Skin: normal color, turgor, no icterus, cyanosis. HEENT: AT/NC, EOMI, PERRLA, dry MM. Lungs: Mildly diminished, greater bases, appropriate effort, no rales, ronchi or wheezing. Heart: Mildly tachycardic with regular rhythm; no gallop, rub audible. Abdomen: soft, significant discomfort to palpation right upper quadrant with rebound, no obvious distention, distant normal bowel sounds. Extremities: no cyanosis, clubbing, or edema. Neurological: patient awake, alert, oriented as noted; cognitive function intact; pupils equally reactive to light and accomodation; cranial nerves II-XII grossly normal, moving all 4 extremities, no focal deficits, strength moderately to severely global decrease secondary to acute presentation and pain. Psychiatric: affect appears uncomfortable, fatigued, no acute evidence of depressive or anxiety feelings. Assessment & Plan Assessment/Plan (1) Acute cholecystitis: Status: Acute Code(s): K81.0 - Acute cholecystitis (2) Leukocytosis: Status: Acute Code(s): D72.829 - Elevated white blood cell count, unspecified Qualifiers: Leukocytosis type: unspecified Qualified Code(s): D72.829 - Elevated white blood cell count, unspecified (3) Diabetes: Status: Acute Code(s): E11.9 - Type 2 diabetes mellitus without complications Qualifiers: Diabetes mellitus type: type 2 Diabetes mellitus terminal makeup operator insulin use: without senior living use Diabetes mellitus complication status: without complication Qualified Code(s): E11.9 - Type 2 diabetes mellitus without complications (4) Hypertension: Status: Chronic Code(s): I10 - Essential (primary) hypertension Qualifiers: Hypertension type: essential hypertension Qualified Code(s): I10 - Essential (primary) hypertension (5) Former smoker: Status: Acute Code(s): Z87.891 - Personal history of nicotine dependence Plan: The patient is a 75 y/o M w/ PMHx: Diabetes mellitus type II, HTN, HLD, Former Tobacco use who presents to the [facility] ED on 10/13/20 with onset of significant right upper quadrant pain beginning the Tuesday prior with poor ability for oral intake secondary to discomfort prompting eventual ED presentation. 1. Acute severe sepsis secondary to acute cholecystitis: ED evaluation with admission CBC with WC 33.4, hemoglobin 14, platelet 342 with left shift, CMP with total bilirubin 0.80, direct bilirubin 0.36, AST/LT 17/18, lactic acid 2.2, CT abdomen pelvis with evidence of acute cholecystitis with secondary inflammation the duodenum and possibly sending cholangitis, 5 mm calcification head of the pancreas adjacent to where the ampulla is expected to be with no extra or intrahepatic biliary ductal dilatation or definitive choledocholithiasis, evident mild prostamegaly. Follow-up GB US w/ distended gallbladder with multiple large stones and sludge with no specific wall thickening, pericholecystic fluid or Vickers's tenderness however findings are consistent with equivocal nature of acute cholecystitis, incidental 3.6 cm slightly complex cyst lower pole the right kidney. Patient mated to medical surgical floor, judiciously hydrated, initial n.p.o. status, given significant concern for inflammation in the general region general surgery was consulted and following ordered cholecystostomy tube placement which was performed, clear liquids initiated following, continue pain regimen, as needed antiemetic, IV Zosyn therapy. We will continue to trend CBC, lactic acid has normalized, will eventually need cholecystectomy once inflammation is decreased per surgery discretion. 2. Hypokalemia: Admission K+ 3.3, magnesium level 2.4, supplementation given, repeat level in AM. 3. Incidental 3.6 cm slightly complex cyst lower pole of the right kidney: Noted on CT abdomen and pelvis, will need further imaging follow-up and urology evaluation if felt appropriate at that time. 4. Incidental prostamegaly: Noted on CT abdomen and pelvis, given acute presentation PSA would inappropriate order at this time but would recommend follow-up PSA at discharge once acute infection has resolved. 5. Diabetes mellitus type II: Hold oral home regimen, initially n.p.o. status, currently transition to clears, accu checks w/ ISS. 6. Hypertension: Continue home regimen including lisinopril, metoprolol, nifedipine, hydrochlorothiazide with hold parameters given #1 however these were held upon initial presentation, PRN hydralazine. 7. Hyperlipidemia: Continue home statin regimen. 8. DVT prophylaxis: SCDs, Lovenox to be reinitiated 10/15/2020 given recent cholecystostomy tube placement. 9. CODE STATUS: Full code. Visit Charges Inpatient E&M: 84553 Subs Hosp L3
--- NOTE | 2020-10-14 08:00 | CT_ITS ---
PROCEDURE: CT GUIDED percutaneous cholecystostomy. DATE: 10/14/2020. INDICATION: Male, 75 years old. Acute cholecystitis. PHYSICIAN: Nathen Sanchez M.D. RADIATION DOSAGE (If Supplied By Facility): CTDIvol = ( 27 ) mGy, DLP = ( 1017.93 ) mGycm. Individualized dose optimization techniques were utilized. PROCEDURE: The risks, benefits, and alternatives to the procedure were explained to the patient. The specific risk of hemorrhage requiring further treatment or intervention was detailed and accepted. Follow-up instructions were discussed with the patient as well. Written informed consent was obtained. The patient was brought into the CT suite and placed in the supine position. . An appropriate entry site was identified. The overlying skin was prepped and draped in the usual sterile fashion. 1% lidocaine was administered subcutaneously for local anesthesia. Conscious sedation was performed. The patient received 2 mg of VERSED and 50 mcg of FENTANYL intravenously. Conscious sedation was started 9:23 AM and demonstrate at 10:03 AM. The patient was independently monitored by the department nurse. Under CT guidance, a percutaneous cholecystostomy was performed utilizing a 8 Khmer drainage catheter. 140 cc of dark bile was removed. The catheter was secured to the patient''s skin. The patient tolerated the procedure well. Hemostasis was obtained. The patient tolerated the procedure well without immediate complications. CT/CT Guidance Abscess Drg w/Cath IMPRESSION: Successful CT guided percutaneous cholecystostomy with placement of an 8 Khmer all-purpose drainage catheter, as described above. The conscious sedation protocol was followed. Electronically Signed: Nathen Sanchez MD at 12:18 EDT , Service support ,
[2020-10-14 08:22] LABS: International Normalized Ratio 1.4; Prothrombin Time (Protime)PT. 16.5 SECONDS (11.7-14.9)
[2020-10-14 08:37] LABS: Partial Thromboplast Time 32.2 Seconds (24.1-36.2)
[2020-10-14] MEDS: Midazolam 2 MG/2 ML Syringe IV (09:53)
[2020-10-14] MEDS: fentaNYL 100 MCG/2 ML Ampul IV (09:54)
--- NOTE | 2020-10-14 10:45 | CASEMGMT ---
MICHELE CM Face to Face with patient for initial transition planning/care coordination assessment. Patient out of room at procedure, Jessica at bedside. RN ANA introduced self and role at [facility]. willing to participate in assessment and is able to answer all questions appropriately. Care providers, pharmacy, and demographics verified. wishes for patient to discharge home, denies need for home health at this time. states she has no further needs or concerns at this time. CM to follow for discharge planning needs that may arise. PCP: Sivan Specialists: [place] Chief Revenue Officer Preferred Pharmacy: [facility] Insurance: [place], [facility], [employer] Prescription Benefit: yes Living Will/HPOA: none LNOK: Living Arrangements: Patient lives with in a single story home with 3 steps and railing or ramp to enter the home. states patient is independent at home. Transportation: patient/3 sons DME/HHC: Patient has cane and walker at home. No previosu HHC or SNF Disposition Plan: Patient to discharge home with family support and follow-up plans in place. Lyndsay WONG, RN, CM
[2020-10-14 13:03] LABS: Pathologist Review Reviewed
[2020-10-14 13:07] LABS: Magnesium 2.4 mg/dL (1.6-2.6)
[2020-10-14 13:12] LABS: Pathologist Review Reviewed
[2020-10-14] MEDS: Metoprolol Tartrate 50 MG Tablet PO ×2 (13:51→22:20)
[2020-10-14] MEDS: Lisinopril 40 MG Tablet PO (13:51)
[2020-10-14] MEDS: Potassium Chloride Oral Tablet 20 MEQ 40 MEQ PO (13:55)
[2020-10-14 16:40] LABS: Bedside Glucose 137 mg/dL (70-110)
[2020-10-14] MEDS: Ensure Clear 120 ML Liquid PO (16:50)
[2020-10-14] MEDS: Ezetimibe 10 MG Tablet PO (16:51)
[2020-10-14] MEDS: NIFEdipine 90 MG Tablet PO (22:20)
[2020-10-14] MEDS: Atorvastatin Calcium 10 MG Tablet 5 MG PO (22:20)
[2020-10-14 22:46] LABS: Bedside Glucose 117 mg/dL (70-110)
[2020-10-15] VITALS (8 sets, daily range): BP systolic 119–147; BP diastolic 56–74; PULSE 74–91; RESP 18–22; TEMP 36.3–36.5; O2SAT 91–95
[2020-10-15] MEDS: 0.9% Normal Saline 1,000 ML 125 ML IV ×3 (01:34→16:39)
[2020-10-15 06:04] LABS: Absolute Lymphocyte Count 0.91 X10^3/uL (0.83-4.51); Absolute Neutrophil Count 15.1 X10^3/uL (2.0-7.7); Basophil# 0.03 X10^3/uL; Basophil% 0.2 % (0-1); Eosinophil# 0.08 X10^3/uL; Eosinophils% 0.5 % (0-5); Hematocrit 39.2 % (40-54); Hemoglobin 12.5 g/dL (13.0-16.5); Lymphocyte # 0.91 X10^3/ul (0.83-4.51); Lymphocyte % 5.3 % (19-41); Mean Corp Hgb Conc 31.9 g/dL (32-36); Mean Corpuscular Hgb 29.1 pg (27.0-32.0); Mean Corpuscular Volume 91.2 fL (80-94); Mean Platelet Vol. 11.5 fl (6.2-12.0); Monocyte# 0.98 X10^3/uL; Monocyte% 5.7 % (0-10); NRBC Flagged by Analyzer 0 % (0-5); Neutrophil # 15.06 X10^3/uL (2.7-7.7); Neutrophil % 87.4 % (47-70); Platelet Count 315 K/mm3 (150-450); RBC Distribution Width CV 13.4 % (11.6-14.6); RBC Distribution Width SD 45.9 fl (35.1-43.9); White Blood Count 17.2 K/mm3 (4.4-11.0)
[2020-10-15] MEDS: Acetaminophen 325 MG Tablet 650 MG PO (06:27)
--- NOTE | 2020-10-15 06:31 | PCM.PN.HOSP ---
Subjective Subjective: Patient overnight with no acute events per self and per nursing report. Patient status post cholecystostomy tube with serosanguineous drainage. Patient remains afebrile. Patient notes less abdominal discomfort to the right upper quadrant and appetite has improved, currently on clears which been tolerated and requesting transition. Discussed patient status with general surgery and plan to continue clear liquids until 10/17/2019 AM and at that time transition to more broad diet with possible discharge to home pending clinical reevaluation. Patient denies fevers, chills, nausea, emesis, chest pain or dyspnea. Objective Data Objective Data Vital Signs: Vital Signs Temp Pulse Resp BP Pulse Ox 97.6 F L 85 22 H 137/65 H 93 10/15/20 04:27 10/15/20 04:27 10/15/20 04:27 10/15/20 04:27 10/15/20 04:27 Oxygen Flow Rate (L/min) [3] 2 Oxygen Flow Rate (L/min) 2 Oxygen Delivery Method [3] Nasal Cannula Oxygen Delivery Method [2] Room Air Oxygen Delivery Method [1 ( Room Air Initial Baseline)] Oxygen Delivery Method Room Air Weight: 199 lb Body Mass Index (BMI) 28.5 Intake & Output: Intake and Output for Last 24 Hours 10/13/20 10/14/20 10/15/20 23:59 23:59 23:59 Intake Total 500 / 500 4785.84 / 5105.84 1330.42 / 1330.42 Output Total 1435 / 1465 30 / 30 Balance 500 / 500 3350.84 / 3640.84 1300.42 / 1300.42 Lab / Micro Data Result Diagrams: 10/15/20 05:50 10/15/20 05:50 Labs: Laboratory Results - last 24 hr 10/13/20 10/14/20 10/14/20 17:27 05:25 05:25 WBC RBC Hgb Hct MCV MCH MCHC RDW Std Deviation RDW Coeff of Oskar Plt Count MPV Immature Gran % (Auto) Neut % (Auto) Lymph % (Auto) [place] % (Auto) Eos % (Auto) Baso % (Auto) Absolute Neuts (auto) Absolute Lymphs (auto) Nucleated RBC % Diff Path Review Reviewed Reviewed PT INR APTT Magnesium 2.4 POC Glucose 10/14/20 10/14/20 10/14/20 08:00 16:22 22:14 WBC RBC Hgb Hct MCV MCH MCHC RDW Std Deviation RDW Coeff of Oskar Plt Count MPV Immature Gran % (Auto) Neut % (Auto) Lymph % (Auto) [place] % (Auto) Eos % (Auto) Baso % (Auto) Absolute Neuts (auto) Absolute Lymphs (auto) Nucleated RBC % Diff Path Review PT 16.5 H INR 1.4 APTT 32.2 Magnesium POC Glucose 137 H 117 H 10/15/20 05:50 WBC 17.2 H RBC 4.30 L Hgb 12.5 L Hct 39.2 L MCV 91.2 MCH 29.1 MCHC 31.9 L RDW Std Deviation 45.9 H RDW Coeff of Oskar 13.4 Plt Count 315 MPV 11.5 Immature Gran % (Auto) 0.900 Neut % (Auto) 87.4 H Lymph % (Auto) 5.3 L [place] % (Auto) 5.7 Eos % (Auto) 0.5 Baso % (Auto) 0.2 Absolute Neuts (auto) 15.1 H Absolute Lymphs (auto) 0.91 Nucleated RBC % 0 Diff Path Review PT INR APTT Magnesium POC Glucose Micro: Microbiology 10/13/20 19:29 Interface Orders SARS-CoV-2 Antigen (Rapid) - Final Radiography Diagnostic Testing: Radiology Impression Abscess Drainage CT 10/14/20 08:00 IMPRESSION: Successful CT guided percutaneous cholecystostomy with placement of an 8 Lithuanian all-purpose drainage catheter, as described above. The conscious sedation protocol was followed. Electronically Signed: Nathen Sanchez MD at 12:18 EDT , Service support , Physical Exam Narrative Physical Examination: General: awake, alert, oriented x 3 and cooperative, seated upright in the medical surgical bed in no apparent distress, significantly improved appearance and more comfortable appearing the day prior. Skin: normal color, turgor, no icterus, cyanosis except noted recent placement cholecystostomy tube, see abdomen. HEENT: AT/NC, EOMI, PERRLA, MMM, no carotid bruits or JVD noted. Lungs: Mildly diminished, greater bases, appropriate effort, no rales, ronchi or wheezing. Heart: Improved, currently regular rate and rhythm; no gallop, rub audible. Abdomen: soft, still some discomfort in the right upper quadrant but no rebound or guarding as prior, cholecystostomy tube in place with serosanguineous drainage, still mildly distended, mildly hyperactive bowel sounds. Extremities: no cyanosis, clubbing, or edema. Neurological: patient awake, alert, oriented as noted; cognitive function intact; pupils equally reactive to light and accomodation; cranial nerves II-XII grossly normal, moving all 4 extremities, no focal deficits, strength improved, moderately global decrease. Psychiatric: affect appears more comfortable, less fatigued, no acute evidence of depressive or anxiety feelings. Assessment & Plan Assessment/Plan (1) Acute cholecystitis: Status: Acute Code(s): K81.0 - Acute cholecystitis (2) Leukocytosis: Status: Acute Code(s): D72.829 - Elevated white blood cell count, unspecified Qualifiers: Leukocytosis type: unspecified Qualified Code(s): D72.829 - Elevated white blood cell count, unspecified (3) Diabetes: Status: Acute Code(s): E11.9 - Type 2 diabetes mellitus without complications Qualifiers: Diabetes mellitus type: type 2 Diabetes mellitus ad terminal makeup operator insulin use: without ad terminal makeup operator use Diabetes mellitus complication status: without complication Qualified Code(s): E11.9 - Type 2 diabetes mellitus without complications (4) Hypertension: Status: Chronic Code(s): I10 - Essential (primary) hypertension Qualifiers: Hypertension type: essential hypertension Qualified Code(s): I10 - Essential (primary) hypertension (5) Former smoker: Status: Acute Code(s): Z87.891 - Personal history of nicotine dependence Plan: The patient is a 75 y/o M w/ PMHx: Diabetes mellitus type II, HTN, HLD, Former Tobacco use who presents to the [facility] ED on 10/13/20 with onset of significant right upper quadrant pain beginning the Tuesday prior with poor ability for oral intake secondary to discomfort prompting eventual ED presentation. 1. Acute severe sepsis secondary to acute cholecystitis: ED evaluation with admission CBC with WC 33.4, hemoglobin 14, platelet 342 with left shift, CMP with total bilirubin 0.80, direct bilirubin 0.36, AST/LT 17/18, lactic acid 2.2, CT abdomen pelvis with evidence of acute cholecystitis with secondary inflammation the duodenum and possibly sending cholangitis, 5 mm calcification head of the pancreas adjacent to where the ampulla is expected to be with no extra or intrahepatic biliary ductal dilatation or definitive choledocholithiasis, evident mild prostamegaly. Follow-up GB US w/ distended gallbladder with multiple large stones and sludge with no specific wall thickening, pericholecystic fluid or Vickers's tenderness however findings are consistent with equivocal nature of acute cholecystitis, incidental 3.6 cm slightly complex cyst lower pole the right kidney. Patient admitted to [place], continued on IVFs, PRN pain/antiemetic regimen, maintained on IV zosyn, 10/14/20 cholecystostomy tube placed per recommendation of general surgeon, 10/14/2020 following the procedure initiated on clear liquids which has been well-tolerated. CBC, lactic acid continue to improve, 10/15/2020 CBC with WBC 17.2, hemoglobin 12.5, platelet 315 with improving shift. Patient has remained afebrile. Per discussion with general surgery will plan possible transition to regular diet 10/17/2019 AM, if well tolerated and continue WBC resolution with no significant fevers transition from Zosyn to Augmentin to complete 10-day course with continued PARKER drain in place to gravity with follow-up with general surgery in 1 week with discharge pending clinical reevaluation. 2. Hypokalemia: Admission K+ 3.3, magnesium level 2.4, supplementation given, repeat level 10/15/20 K 3.5. 3. Incidental 3.6 cm slightly complex cyst lower pole of the right kidney: Noted on CT abdomen and pelvis, will need further imaging follow-up and urology evaluation if felt appropriate at that time. 4. Incidental prostamegaly: Noted on CT abdomen and pelvis, given acute presentation PSA would inappropriate order at this time but would recommend follow-up PSA at discharge once acute infection has resolved. 5. Diabetes mellitus type II: Hold oral home regimen, currently on clears, possible 10/16/20 ADA transition, accu checks w/ ISS. 6. Hypertension: Continue home regimen including lisinopril, metoprolol, nifedipine, hydrochlorothiazide with hold parameters, PRN hydralazine. 7. Hyperlipidemia: Continue home statin regimen. 8. DVT prophylaxis: SCDs, Lovenox. 9. CODE STATUS: Full code. Visit Charges Inpatient E&M: 55158 Subs Hosp L2
[2020-10-15 06:35] LABS: Bedside Glucose 133 mg/dL (70-110)
[2020-10-15 06:35] LABS: ALB/GLOB Ratio 0.5 RATIO (0.9-2.4); AST(SGOT) 32 U/L (15-37); Alanine Aminotransfer ALT/SGPT 23 U/L (16-61); Albumin, Serum 2.1 g/dL (3.2-5.0); Alkaline Phosphatase 87 U/L (45-117); Anion Gap 7 (5-15); BUN 22 mg/dL (7-18); BUN/Creat Ratio 33.7 RATIO (10-20); Calcium,Total 8.1 mg/dL (8.5-10.1); Chloride 114 mmol/L (98-107); Creatinine, Serum 0.65 mg/dL (0.70-1.30); EST Glomerular Filtration Rate 126 mL/min (>60); Est Glom Filt Rate - Afr Amer 153 mL/min (>60); Estimated Creatinine Clearance 64.89 ml/min; Glucose 132 mg/dL (74-106); Potassium 3.5 mmol/L (3.5-5.1); Protein, Total 6.1 g/dL (6.4-8.2); Sodium Level 143 mmol/L (136-145)
--- NOTE | 2020-10-15 07:44 | PN.SURG_ITS ---
Subjective Subjective: Patient did get cholecystostomy tube yesterday. Patient states pain is improved still has some epigastric discomfort. Patient is tolerating clears. Objective Data Objective Data Vital Signs: Vital Signs Temp Pulse Resp BP Pulse Ox 97.6 F L 85 22 H 137/65 H 93 10/15/20 04:27 10/15/20 04:27 10/15/20 04:27 10/15/20 04:27 10/15/20 04:27 Oxygen Flow Rate (L/min) [3] 2 Oxygen Flow Rate (L/min) 2 Oxygen Delivery Method [3] Nasal Cannula Oxygen Delivery Method [2] Room Air Oxygen Delivery Method [1 ( Room Air Initial Baseline)] Oxygen Delivery Method Room Air Weight: 199 lb Body Mass Index (BMI) 28.5 Intake & Output: Intake and Output for Last 24 Hours 10/13/20 10/14/20 10/15/20 23:59 23:59 23:59 Intake Total 500 / 500 4785.84 / 5105.84 1543.42 / 1543.42 Output Total 1435 / 1465 45 / 45 Balance 500 / 500 3350.84 / 3640.84 1498.42 / 1498.42 Lab / Micro Data Result Diagrams: 10/15/20 05:50 10/15/20 05:50 Labs: Laboratory Results - last 24 hr 10/13/20 10/14/20 10/14/20 17:27 05:25 05:25 WBC RBC Hgb Hct MCV MCH MCHC RDW Std Deviation RDW Coeff of Oskar Plt Count MPV Immature Gran % (Auto) Neut % (Auto) Lymph % (Auto) [place] % (Auto) Eos % (Auto) Baso % (Auto) Absolute Neuts (auto) Absolute Lymphs (auto) Nucleated RBC % Diff Path Review Reviewed Reviewed PT INR APTT Sodium Potassium Chloride Carbon Dioxide Anion Gap BUN Creatinine Estim Creat Clear Calc Est GFR (MDRD) Af Amer Est GFR (MDRD) Non-Af BUN/Creatinine Ratio Glucose Calcium Magnesium 2.4 Total Bilirubin AST ALT Alkaline Phosphatase Total Protein Albumin Globulin Albumin/Globulin Ratio POC Glucose 10/14/20 10/14/20 10/14/20 08:00 16:22 22:14 WBC RBC Hgb Hct MCV MCH MCHC RDW Std Deviation RDW Coeff of Oskar Plt Count MPV Immature Gran % (Auto) Neut % (Auto) Lymph % (Auto) [place] % (Auto) Eos % (Auto) Baso % (Auto) Absolute Neuts (auto) Absolute Lymphs (auto) Nucleated RBC % Diff Path Review PT 16.5 H INR 1.4 APTT 32.2 Sodium Potassium Chloride Carbon Dioxide Anion Gap BUN Creatinine Estim Creat Clear Calc Est GFR (MDRD) Af Amer Est GFR (MDRD) Non-Af BUN/Creatinine Ratio Glucose Calcium Magnesium Total Bilirubin AST ALT Alkaline Phosphatase Total Protein Albumin Globulin Albumin/Globulin Ratio POC Glucose 137 H 117 H 10/15/20 10/15/20 10/15/20 05:50 05:50 06:22 WBC 17.2 H RBC 4.30 L Hgb 12.5 L Hct 39.2 L MCV 91.2 MCH 29.1 MCHC 31.9 L RDW Std Deviation 45.9 H RDW Coeff of Oskar 13.4 Plt Count 315 MPV 11.5 Immature Gran % (Auto) 0.900 Neut % (Auto) 87.4 H Lymph % (Auto) 5.3 L [place] % (Auto) 5.7 Eos % (Auto) 0.5 Baso % (Auto) 0.2 Absolute Neuts (auto) 15.1 H Absolute Lymphs (auto) 0.91 Nucleated RBC % 0 Diff Path Review PT INR APTT Sodium 143 Potassium 3.5 Chloride 114 H Carbon Dioxide 22.0 Anion Gap 7 BUN 22 H Creatinine 0.65 L Estim Creat Clear Calc 64.89 Est GFR (MDRD) Af Amer 153 Est GFR (MDRD) Non-Af 126 BUN/Creatinine Ratio 33.7 H Glucose 132 H Calcium 8.1 L Magnesium Total Bilirubin 0.40 AST 32 ALT 23 Alkaline Phosphatase 87 Total Protein 6.1 L Albumin 2.1 L Globulin 4.0 Albumin/Globulin Ratio 0.5 L POC Glucose 133 H Micro: Microbiology 10/13/20 19:29 Interface Orders SARS-CoV-2 Antigen (Rapid) - Final Radiography Diagnostic Testing: Radiology Impression Abscess Drainage CT 10/14/20 08:00 IMPRESSION: Successful CT guided percutaneous cholecystostomy with placement of an 8 Romanian all-purpose drainage catheter, as described above. The conscious sedation protocol was followed. Electronically Signed: Nathen Sanchez MD at 12:18 EDT , Service support , Physical Exam Const oriented x3 and no apparent distress GI soft to palpation GI Narrative: PARKER in place draining bilious fluid Palpation: tender epigastric and RUQ Assessment & Plan Assessment/Plan (1) Acute cholecystitis: Status: Acute Code(s): K81.0 - Acute cholecystitis (2) Leukocytosis: Status: Acute Code(s): D72.829 - Elevated white blood cell count, unspecified Qualifiers: Leukocytosis type: unspecified Qualified Code(s): D72.829 - Elevated white blood cell count, unspecified Plan: Continue clears for today Patient did get cholecystostomy tube. Continue drainage will change to gravity later today. Continue IV Zosyn. Kamini Baig M.D. Pager: [phone] [facility] [address] [place] [address], [facility] [address], [address] [place] [address] Office: [phone] Visit Charges Inpatient E&M: 15657 Subs Hosp L2
[2020-10-15] MEDS: Aspirin 81 MG TAB.CHEW PO (08:45)
[2020-10-15] MEDS: Ensure Clear 120 ML Liquid PO ×3 (08:47→17:25)
[2020-10-15] MEDS: NIFEdipine 90 MG Tablet PO ×2 (09:38→21:38)
[2020-10-15] MEDS: Metoprolol Tartrate 50 MG Tablet PO ×2 (09:38→21:38)
[2020-10-15] MEDS: hydroCHLOROthiazide 25 MG Tablet PO (09:38)
[2020-10-15] MEDS: Enoxaparin 40 MG/0.4 ML Syringe SC ×2 (09:38→21:39)
[2020-10-15] MEDS: Lisinopril 40 MG Tablet PO (09:38)
[2020-10-15] MEDS: Insulin Lispro 100 UNIT/ML INSULN.PEN SC (11:47)
[2020-10-15] MEDS: Potassium Chloride Oral Tablet 20 MEQ 40 MEQ PO (11:48)
[2020-10-15 12:11] LABS: Bedside Glucose 217 mg/dL (70-110)
[2020-10-15 17:00] LABS: Bedside Glucose 135 mg/dL (70-110)
[2020-10-15] MEDS: Ezetimibe 10 MG Tablet PO (17:25)
[2020-10-15] MEDS: oxyCODONE 5 MG Tablet PO (19:59)
[2020-10-15] MEDS: Atorvastatin Calcium 10 MG Tablet 5 MG PO (21:38)
[2020-10-15 21:55] LABS: Bedside Glucose 108 mg/dL (70-110)
[2020-10-16] MEDS: 0.9% Normal Saline 1,000 ML 125 ML IV (00:34)
[2020-10-16] MEDS: oxyCODONE 5 MG Tablet PO (00:39)
[2020-10-16 03:13] VITALS: BP 150/72; PULSE 87; RESP 18; TEMP 36.7; O2SAT 94
[2020-10-16 06:42] LABS: Absolute Lymphocyte Count 1.31 X10^3/uL (0.83-4.51); Basophil# 0.03 X10^3/uL; Basophil% 0.3 % (0-1); Eosinophil# 0.27 X10^3/uL; Eosinophils% 2.6 % (0-5); Hematocrit 41.1 % (40-54); Hemoglobin 13.2 g/dL (13.0-16.5); Lymphocyte # 1.31 X10^3/ul (0.83-4.51); Lymphocyte % 12.5 % (19-41); Mean Corp Hgb Conc 32.1 g/dL (32-36); Mean Corpuscular Hgb 29.3 pg (27.0-32.0); Mean Corpuscular Volume 91.3 fL (80-94); Mean Platelet Vol. 11.6 fl (6.2-12.0); Monocyte% 6.7 % (0-10); NRBC Flagged by Analyzer 0 % (0-5); Neutrophil # 8.03 X10^3/uL (2.7-7.7); Neutrophil % 76.6 % (47-70); Platelet Count 365 K/mm3 (150-450); RBC Distribution Width CV 13.3 % (11.6-14.6); RBC Distribution Width SD 45.3 fl (35.1-43.9); White Blood Count 10.5 K/mm3 (4.4-11.0)
[2020-10-16 06:51] LABS: Bedside Glucose 133 mg/dL (70-110)
[2020-10-16 07:07] LABS: ALB/GLOB Ratio 0.6 RATIO (0.9-2.4); AST(SGOT) 38 U/L (15-37); Alanine Aminotransfer ALT/SGPT 36 U/L (16-61); Albumin, Serum 2.2 g/dL (3.2-5.0); Alkaline Phosphatase 94 U/L (45-117); Anion Gap 8 (5-15); BUN 14 mg/dL (7-18); BUN/Creat Ratio 20.6 RATIO (10-20); Calcium,Total 7.8 mg/dL (8.5-10.1); Chloride 113 mmol/L (98-107); Creatinine, Serum 0.68 mg/dL (0.70-1.30); EST Glomerular Filtration Rate 121 mL/min (>60); Est Glom Filt Rate - Afr Amer 146 mL/min (>60); Estimated Creatinine Clearance 64.89 ml/min; Globulin 3.9 g/dL (2.2-4.2); Glucose 130 mg/dL (74-106); Potassium 3.4 mmol/L (3.5-5.1); Protein, Total 6.1 g/dL (6.4-8.2); Sodium Level 142 mmol/L (136-145)
[2020-10-16 07:11] VITALS: O2SAT 92
--- NOTE | 2020-10-16 07:38 | PCM.DC ---
Discharge Instructions Diet Discharge Diet: - (1800 ADA diet/low fat and low cholesterol) Activity Discharge Activity: - (Avoid activity which may cause your drain to be compromised. Regular movement encouraged.) May resume sexual activity in: 10-14 days Weight Bearing Status: Weight bearing as tolerated Dressing / Incision Call your doctor if your incision/area has: Continuous Slow Oozing, Sudden Increased Bleeding, Increased Pain/ Swelling, Increased Redness, Foul Smelling Discharge and Swelling at the incision site Call your doctor if you observe: Fever of 101 or Higher, Shortness of breath, Dizziness, Chest pain, Uncontrolled pain and - (Any change in drainage from your PARKER drain.) Drain: [place] (Please continue the PARKER drainage care per nursing staff education while inpatient. If any concerns or questions call .) Discharge Plan Admission Admit Date/Time: 10/14/20 00:16 Primary Reason for Your Visit: Acute Cholecystitis Attending Provider: Jaclyn Nickerson Primary Care Provider: Santino Finnegan Consulting Providers: Kamini Baig Instructions Patient Instructions: Caring for a Drainage Tube, Caring for Your Miko Hoang Drainage Tube, ED Cholecystitis, Confirmed Additional Instructions / Restrictions: During your admission incidental findings that will need to be followed with your primary care physician included: 1.? Incidental 3.6 cm slightly complex cyst lower pole of the right kidney: Noted on CT abdomen and pelvis, will need further imaging follow-up and urology evaluation if felt appropriate at that time. 2.? Incidental prostamegaly: Noted on CT abdomen and pelvis, given acute presentation PSA would inappropriate order at this time but would recommend follow-up PSA at discharge once acute infection has resolved. Discharge Orders/Prescriptions Prescriptions: New oxycodone 5 mg Tablet 5 mg PO Q4H PRN PRN (Reason: Pain Score 4-5) 5 Days Qty: 30 RF: 0 amoxicillin-pot clavulanate [Augmentin] 875-125 mg tablet 1 tab PO BID 10 Days Qty: 20 RF: 0 ondansetron HCl [Zofran] 4 mg tablet 4 mg PO Q8H PRN (Reason: nausea and vomiting) Qty: 20 RF: 0 Continued betamethasone dipropionate 0.05 % Cream 1 applic TOPICAL DAILY RF: 0 ezetimibe [Zetia] 10 mg Tablet 10 mg DAILY RF: 0 nifedipine 90 mg Tablet Extended Release 90 mg PO BID RF: 0 niacinamide 500 mg Tablet 1,000 mg PO DAILY RF: 0 [id number] Tablet 1 tab PO DAILY RF: 0 metoprolol tartrate 50 mg Tablet 50 mg PO BID RF: 0 lisinopril 40 mg Tablet 40 mg PO DAILY RF: 0 glimepiride 4 mg Tablet 8 mg PO DAILY RF: 0 nitroglycerin 0.4 mg Tablet, Sublingual 0.4 mg SUBLINGUAL Q5M PRN (Reason: Chest Pain) RF: 0 aspirin 81 mg Tablet 81 mg PO DAILY RF: 0 hydrochlorothiazide 25 mg Tablet 25 mg PO DAILY RF: 0 lovastatin 20 mg Tablet 20 mg PO DAILY RF: 0 alogliptin 25 mg Tablet 25 mg PO DAILY RF: 0 empagliflozin 25 mg Tablet 25 mg PO DAILY RF: 0 Referrals / Follow Up: Santino Finnegan MD [Primary Care Provider] - (Follow-up in 3-5 days to review admission.) Kamini Baig MD [STAFF PHYSICIAN] - (Follow-up 1 week.) Disposition Disposition (needs filled in before D/C Order can be placed): Home, self care
--- NOTE | 2020-10-16 07:48 | DS.PCM_ITS ---
Providers Date of Admission: 10/14/20 Primary Care Physician: Dr. Santino Finnegan MD Consultations 10/14/20 01:33 Consult: General Surgery Routine Consulting Provider: Kamini Baig Reason for Consult: RUQ abdominal pain EMERGENT Consult: Yes MD Notified: Yes Date Notified:: 10/14/20 Time Notified: 00:15 Method of Notification: Verbal Reason For Visit: CHOLECYSTITIS Diagnosis Discharge Diagnosis (1) Acute cholecystitis: Status: Acute Code(s): K81.0 - Acute cholecystitis (2) Leukocytosis: Status: Acute Code(s): D72.829 - Elevated white blood cell count, unspecified Qualifiers: Leukocytosis type: unspecified Qualified Code(s): D72.829 - Elevated white blood cell count, unspecified Plan: Discharge Diagnoses: 1.? Acute severe sepsis secondary to acute cholecystitis 2.? Hypokalemia 3.? Incidental 3.6 cm slightly complex cyst lower pole of the right kidney 4.? Incidental prostamegaly 5.? Diabetes mellitus type II 6.? Hypertension 7.? Hyperlipidemia Medications at Discharge Home Medications alogliptin 25 mg PO DAILY 10/13/20 aspirin 81 mg PO DAILY 10/13/20 betamethasone dipropionate 1 applic TOPICAL DAILY 10/13/20 empagliflozin 25 mg PO DAILY 10/13/20 ezetimibe [Zetia] 10 mg DAILY 10/13/20 glimepiride 8 mg PO DAILY 10/13/20 hydrochlorothiazide 25 mg PO DAILY 10/13/20 lisinopril 40 mg PO DAILY 10/13/20 lovastatin 20 mg PO DAILY 10/13/20 metoprolol tartrate 50 mg PO BID 10/13/20 zkyevyyrhunt-qybbnzkl-awthor 1 tab PO DAILY 10/13/20 niacinamide 1,000 mg PO DAILY 10/13/20 nifedipine 90 mg PO BID 10/13/20 nitroglycerin 0.4 mg SUBLINGUAL Q5M PRN 10/13/20 amoxicillin-pot clavulanate [Augmentin] 1 tab PO BID 10 Days #20 tab 10/16/20 ondansetron HCl [Zofran] 4 mg PO Q8H PRN #20 tab 10/16/20 oxycodone 5 mg PO Q4H PRN PRN 5 Days #30 tab 10/16/20 Hospital Course Operations - (Cholecystostomy tube placement.) Procedures - (Cholecystostomy tube placement.) Summary of Care Provided Minutes Spent on Discharge: 35 Hospital Course: The patient is a 75 y/o M w/ PMHx: Diabetes mellitus type II, HTN, HLD, Former Tobacco use who presented to the [facility] ED on 10/13/20 with onset of significant right upper quadrant pain beginning the Tuesday prior with poor ability for oral intake secondary to discomfort prompting eventual ED presentation. ED evaluation with admission CBC with WC 33.4, hemoglobin 14, platelet 342 with left shift, CMP with total bilirubin 0.80, direct bilirubin 0.36, AST/LT 17/18, lactic acid 2.2, CT abdomen pelvis with evidence of acute cholecystitis with secondary inflammation the duodenum and possibly sending cholangitis, 5 mm calcification head of the pancreas adjacent to where the ampulla is expected to be with no extra or intrahepatic biliary ductal dilatation or definitive choledocholithiasis, evident mild prostamegaly. Follow- up GB US w/ distended gallbladder with multiple large stones and sludge with no specific wall thickening, pericholecystic fluid or Vickers's tenderness however findings are consistent with equivocal nature of acute cholecystitis, incidental 3.6 cm slightly complex cyst lower pole the right kidney. Patient admitted to OR, continued on IVFs, PRN pain/antiemetic regimen, maintained on IV zosyn, 10/14/20 cholecystostomy tube placed per recommendation of general surgeon, 10/14/2020 following the procedure initiated on clear liquids which has been well-tolerated.? CBC, lactic acid continue to improve, 10/15/2020 CBC with WBC 17.2, hemoglobin 12.5, platelet 315 with improving shift.? Given WBC improvement, tolerated clears, pain improved, patient 10/16/20 per discussion with Surgery transitioned to ADA/cardiac diet w/ discharge transition from Zosyn to Augmentin to complete 10-day course with continued PARKER drain in place to gravity with follow-up with general surgery in 1 week with discharge pending clinical reevaluation as well as close PCP follow-up. DAY OF DISCHARGE PROGRESS NOTE: Subjective: Patient without acute event overnight per self and nursing report. Patient with improved RUQ discomfort, tolerated clears and amenable to transition. No marked PARKER drainage noted. Patient denies fever, chills, nausea, emesis, abdominal pain, chest pain or dyspnea. Patient agreeable to discharge to home. Patient will be discharged with follow-up with primary care physician within 3-5 days in addition to follow-up with surgery in 1 week. Objective: T 98.1, heart rate 87, BP 150/72, respiratory rate 18, 94% on room air. Physical Examination: General: awake, alert, oriented x 3 and cooperative, seated upright in the medical surgical bed, improved appearance. Skin: normal color, turgor, no icterus, cyanosis except noted recent placement cholecystostomy tube, see abdomen. HEENT: AT/NC, EOMI, PERRLA, MMM. Lungs: Mildly diminished, greater bases, appropriate effort, no rales, ronchi or wheezing. Heart: Improved, currently regular rate and rhythm; no gallop, rub audible. Abdomen: soft, notably lessened abdominal discomfort without rebound or gua rding, moving in bed without grimacing, cholecystostomy tube in place with minimal serosanguineous drainage, non-distended, normalized bowel sounds. Extremities: no cyanosis, clubbing, or edema. Neurological: patient awake, alert, oriented as noted; cognitive function intact; pupils equally reactive to light and accomodation; cranial nerves II-XII grossly normal, moving all 4 extremities, no focal deficits, strength improved, mildly globally decreased. Psychiatric: affect appears normal, no acute evidence of depressive or anxiety feelings. Assessment and Plan: Please see hospital summary above. ABG / Lab / Microbiology Data Result Diagrams: 10/16/20 06:33 10/16/20 06:33 Laboratory: Laboratory Results - last 24 hr 10/15/20 10/15/20 10/15/20 11:44 16:41 21:37 WBC RBC Hgb Hct MCV MCH MCHC RDW Std Deviation RDW Coeff of Oskar Plt Count MPV Immature Gran % (Auto) Neut % (Auto) Lymph % (Auto) [place] % (Auto) Eos % (Auto) Baso % (Auto) Absolute Neuts (auto) Absolute Lymphs (auto) Nucleated RBC % Sodium Potassium Chloride Carbon Dioxide Anion Gap BUN Creatinine Estim Creat Clear Calc Est GFR (MDRD) Af Amer Est GFR (MDRD) Non-Af BUN/Creatinine Ratio Glucose Calcium Total Bilirubin AST ALT Alkaline Phosphatase Total Protein Albumin Globulin Albumin/Globulin Ratio POC Glucose 217 H 135 H 108 0510/16/20 10/16/20 06:33 06:33 06:46 WBC 10.5 RBC 4.50 L Hgb 13.2 Hct 41.1 MCV 91.3 MCH 29.3 MCHC 32.1 RDW Std Deviation 45.3 H RDW Coeff of Oskar 13.3 Plt Count 365 MPV 11.6 Immature Gran % (Auto) 1.300 H Neut % (Auto) 76.6 H Lymph % (Auto) 12.5 L [place] % (Auto) 6.7 Eos % (Auto) 2.6 Baso % (Auto) 0.3 Absolute Neuts (auto) 8.0 H Absolute Lymphs (auto) 1.31 Nucleated RBC % 0 Sodium 142 Potassium 3.4 L Chloride 113 H Carbon Dioxide 21.0 Anion Gap 8 BUN 14 Creatinine 0.68 L Estim Creat Clear Calc 64.89 Est GFR (MDRD) Af Amer 146 Est GFR (MDRD) Non-Af 121 BUN/Creatinine Ratio 20.6 H Glucose 130 H Calcium 7.8 L Total Bilirubin 0.60 AST 38 H ALT 36 Alkaline Phosphatase 94 Total Protein 6.1 L Albumin 2.2 L Globulin 3.9 Albumin/Globulin Ratio 0.6 L POC Glucose 133 H Microbiology: Microbiology 10/13/20 19:29 Interface Orders SARS-CoV-2 Antigen (Rapid) - Final D/C Instructions Discharge Diet: - (1800 ADA diet/low fat and low cholesterol) Discharge Activity: - (Avoid activity which may cause your drain to be compromised. Regular movement encouraged.) May resume sexual activity in: 10-14 days Weight Bearing Status: Weight bearing as tolerated Call your doctor if your incision/area has: Continuous Slow Oozing, Sudden Increased Bleeding, Increased Pain/ Swelling, Increased Redness, Foul Smelling Discharge and Swelling at the incision site Call your doctor if you observe: Fever of 101 or Higher, Shortness of breath, Dizziness, Chest pain, Uncontrolled pain and - (Any change in drainage from your PARKER drain.) Drain: [place] (Please continue the PARKER drainage care per nursing staff education while inpatient. If any concerns or questions call .) Meaningful Use Info Meaningful Use Diagnoses (Choose all that apply): None applicable Discharge Plan Admission Admit Date/Time: 10/14/20 00:16 Primary Reason for Your Visit: Acute Cholecystitis Attending Provider: Jaclyn Nickerson Primary Care Provider: Santino Finnegan Consulting Providers: Kamini Baig Instructions Patient Instructions: Caring for a Drainage Tube, Caring for Your Miko Hoang Drainage Tube, ED Cholecystitis, Confirmed Additional Instructions / Restrictions: During your admission incidental findings that will need to be followed with your primary care physician included: 1.? Incidental 3.6 cm slightly complex cyst lower pole of the right kidney: Noted on CT abdomen and pelvis, will need further imaging follow-up and urology evaluation if felt appropriate at that time. 2.? Incidental prostamegaly: Noted on CT abdomen and pelvis, given acute presentation PSA would inappropriate order at this time but would recommend follow-up PSA at discharge once acute infection has resolved. Discharge Orders/Prescriptions Prescriptions: New oxycodone 5 mg Tablet 5 mg PO Q4H PRN PRN (Reason: Pain Score 4-5) 5 Days Qty: 30 RF: 0 amoxicillin-pot clavulanate [Augmentin] 875-125 mg tablet 1 tab PO BID 10 Days Qty: 20 RF: 0 ondansetron HCl [Zofran] 4 mg tablet 4 mg PO Q8H PRN (Reason: nausea and vomiting) Qty: 20 RF: 0 Continued betamethasone dipropionate 0.05 % Cream 1 applic TOPICAL DAILY RF: 0 ezetimibe [Zetia] 10 mg Tablet 10 mg DAILY RF: 0 nifedipine 90 mg Tablet Extended Release 90 mg PO BID RF: 0 niacinamide 500 mg Tablet 1,000 mg PO DAILY RF: 0 bcatnmsgssxx-qsppjaya-syusiu Tablet 1 tab PO DAILY RF: 0 metoprolol tartrate 50 mg Tablet 50 mg PO BID RF: 0 lisinopril 40 mg Tablet 40 mg PO DAILY RF: 0 glimepiride 4 mg Tablet 8 mg PO DAILY RF: 0 nitroglycerin 0.4 mg Tablet, Sublingual 0.4 mg SUBLINGUAL Q5M PRN (Reason: Chest Pain) RF: 0 aspirin 81 mg Tablet 81 mg PO DAILY RF: 0 hydrochlorothiazide 25 mg Tablet 25 mg PO DAILY RF: 0 lovastatin 20 mg Tablet 20 mg PO DAILY RF: 0 alogliptin 25 mg Tablet 25 mg PO DAILY RF: 0 empagliflozin 25 mg Tablet 25 mg PO DAILY RF: 0 Referrals / Follow Up: Santino Finnegan MD [Primary Care Provider] - (Follow-up in 3-5 days to review admission.) Kamini Baig MD [STAFF PHYSICIAN] - (Follow-up 1 week.) Disposition Disposition (needs filled in before D/C Order can be placed): Home, self care Visit Charges Inpatient E&M: 41754 Disch Hosp
[2020-10-16 08:06] VITALS: BP 146/73; PULSE 87; RESP 18; TEMP 36.6; O2SAT 95
[2020-10-16] MEDS: Ensure Clear 120 ML Liquid PO (08:10)
[2020-10-16] MEDS: Lisinopril 40 MG Tablet PO (08:10)
[2020-10-16] MEDS: Aspirin 81 MG TAB.CHEW PO (08:11)
--- NOTE | 2020-10-16 09:57 | PN.SURG_ITS ---
Subjective Subjective: pt doing well ko PO, +BM, WBC 10.5 Objective Data Objective Data Vital Signs: Vital Signs Temp Pulse Resp BP Pulse Ox 97.8 F 87 18 146/73 H 95 10/16/20 08:06 10/16/20 08:06 10/16/20 08:06 10/16/20 08:06 10/16/20 08:06 Oxygen Flow Rate (L/min) [3] 2 Oxygen Flow Rate (L/min) 2 Oxygen Delivery Method [3] Nasal Cannula Oxygen Delivery Method [2] Room Air Oxygen Delivery Method [1 ( Room Air Initial Baseline)] Oxygen Delivery Method Room Air Weight: 199 lb Body Mass Index (BMI) 28.5 Intake & Output: Intake and Output for Last 24 Hours 10/14/20 10/15/20 10/16/20 23:59 23:59 23:59 Intake Total 4785.84 / 5105.84 5443.84 / 5443.84 1701.83 / 1701.83 Output Total 1435 / 1465 85 / 85 10 / 10 Balance 3350.84 / 3640.84 5358.84 / 5358.84 1691.83 / 1691.83 Lab / Micro Data Result Diagrams: 10/16/20 06:33 10/16/20 06:33 Labs: Laboratory Results - last 24 hr 10/15/20 10/15/20 10/15/20 11:44 16:41 21:37 WBC RBC Hgb Hct MCV MCH MCHC RDW Std Deviation RDW Coeff of Oskar Plt Count MPV Immature Gran % (Auto) Neut % (Auto) Lymph % (Auto) [place] % (Auto) Eos % (Auto) Baso % (Auto) Absolute Neuts (auto) Absolute Lymphs (auto) Nucleated RBC % Sodium Potassium Chloride Carbon Dioxide Anion Gap BUN Creatinine Estim Creat Clear Calc Est GFR (MDRD) Af Amer Est GFR (MDRD) Non-Af BUN/Creatinine Ratio Glucose Calcium Total Bilirubin AST ALT Alkaline Phosphatase Total Protein Albumin Globulin Albumin/Globulin Ratio POC Glucose 217 H 135 H 108 10/16/20 10/16/20 10/16/20 06:33 06:33 06:46 WBC 10.5 RBC 4.50 L Hgb 13.2 Hct 41.1 MCV 91.3 MCH 29.3 MCHC 32.1 RDW Std Deviation 45.3 H RDW Coeff of Oskar 13.3 Plt Count 365 MPV 11.6 Immature Gran % (Auto) 1.300 H Neut % (Auto) 76.6 H Lymph % (Auto) 12.5 L [place] % (Auto) 6.7 Eos % (Auto) 2.6 Baso % (Auto) 0.3 Absolute Neuts (auto) 8.0 H Absolute Lymphs (auto) 1.31 Nucleated RBC % 0 Sodium 142 Potassium 3.4 L Chloride 113 H Carbon Dioxide 21.0 Anion Gap 8 BUN 14 Creatinine 0.68 L Estim Creat Clear Calc 64.89 Est GFR (MDRD) Af Amer 146 Est GFR (MDRD) Non-Af 121 BUN/Creatinine Ratio 20.6 H Glucose 130 H Calcium 7.8 L Total Bilirubin 0.60 AST 38 H ALT 36 Alkaline Phosphatase 94 Total Protein 6.1 L Albumin 2.2 L Globulin 3.9 Albumin/Globulin Ratio 0.6 L POC Glucose 133 H Micro: Microbiology 10/13/20 19:34 Blood Culture (Wb) - Anticubital Left Blood Culture - Preliminary No growth in 48 hours. 10/13/20 19:30 Blood Culture (Wb) - Anticubital Right Blood Culture - Prel iminary No growth in 48 hours. 10/13/20 19:29 Interface Orders SARS-CoV-2 Antigen (Rapid) - Final Physical Exam Const alert, oriented x3 and no apparent distress Resp normal respiratory effort Cardio regular rate GI soft to palpation; Negative for non-distended Inspection: other Other Details: PARKER bilious Palpation: Negative for tender or guarding Psych mental status grossly normal Assessment & Plan Assessment/Plan (1) Acute cholecystitis: (2) Leukocytosis: QUALIFIERS: Leukocytosis type: unspecified Qualified Code(s): D72.829 - Elevated white blood cell count, unspecified PLAN: ko PO, ok for d/c minimal bilious drainage Change to augmentin for d/c x 10 days.f/u in office in 1 week Kamini Baig M.D. Pager: [phone] [facility] [address] [place] [address], Outpatient [facility]ilion, [address] [place] [address] Office: [phone]
[2020-10-16 10:18] VITALS: BP 146/71; PULSE 90
[2020-10-16] MEDS: Metoprolol Tartrate 50 MG Tablet PO (10:18)
[2020-10-16] MEDS: hydroCHLOROthiazide 25 MG Tablet PO (10:18)
[2020-10-16] MEDS: NIFEdipine 90 MG Tablet PO (10:21)
[2020-10-16 11:45] VITALS: BP 148/78; PULSE 86; RESP 18; TEMP 36.5; O2SAT 97
[2020-10-16 11:50] LABS: Bedside Glucose 195 mg/dL (70-110)
== END 2020-10-16 12:20 | disposition home or self-care (01) | DRG 872 ==
LOC: ED 23:46 → MS3 10-14 00:47
PROVIDERS: Admitting Provider Family Medicine; Emergency Provider Emergency Medicine; PCP Family Medicine; Visit Provider Family Medicine
DX: A41.9 Sepsis, unspecified organism (principal); K83.09 Other cholangitis; K80.00 Calculus of gallbladder with acute cholecystitis without obstruction; K29.80 Duodenitis without bleeding; R65.20 Severe sepsis without septic shock; E87.6 Hypokalemia; N28.1 Cyst of kidney, acquired; E11.9 Type 2 diabetes mellitus without complications; I10 Essential (primary) hypertension; E78.5 Hyperlipidemia, unspecified; N40.0 Benign prostatic hyperplasia without lower urinary tract symptoms; Z95.5 Presence of coronary angioplasty implant and graft; Z79.84 Long term (current) use of oral hypoglycemic drugs; Z79.82 Long term (current) use of aspirin; Z79.899 Other long term (current) drug therapy; Z87.891 Personal history of nicotine dependence
CPT/HCPCS: 36415; 71045; 74177; 75989; 76705; 80048; 80053; 80076; 81001; 82962; 83605; 83690; 83735; 84484; 85025; 85610; 85730; 87040; 87426; 93005; 99155; 99156; 99157; 99283; J7030; J7040; J7050; Q9967; A4216; J2405

== ENCOUNTER 2020-10-28 06:25 | Day surgery (SDC) | payer MEDICARE, OTHER, SELFPAY ==
[2020-10-21 12:29] VITALS: BMI 28.5
[2020-10-28] VITALS (10 sets, daily range): BP systolic 98–159; BP diastolic 59–87; PULSE 63–84; RESP 14–18; TEMP 36.1–36.3; O2SAT 88–98; BMI 28.3
--- NOTE | 2020-10-28 | COLBX_PTH ---
PATIENT: ALEXX RICHARDS LOC: EN U#:[id number] AGE/SX: 75/M ROOM: RE10/28/[address]: Dr. Kamini Baig MD : 1945 BED: DIS: 10/28/2020 SPEC #: [id number] RECD: 10/28/20 08:22 STATUS: JOHNSON REYg #: [id number] LUCRECIA: 10/28/20 00:[address]: Kamini Baig DEPT: SURGICAL PATHOLOGY RECD BY: Yue Perez ENTERED: 10/28/20 09:23 SP TYPE: COLON BX OT DR: Dr. Santino Finnegan MD Tissues: A - Sigmoid colon biopsy B - Descending colon C - Sigmoid colon biopsy Procedures: Frozen Section (charge) Surgery Specimen Level IV HEADER OPERATION: Colonoscopy ([facility] [place]) PRE-OP DIAGNOSIS: Bright red blood per rectum TISSUE SUBMITTED: A - Sigmoid mass biopsy, FS, B - Descending polyp biopsy, C - Sigmoid mass biopsy FROZEN SECTION DIAGNOSIS A. Sigmoid mass, biopsy: Invasive adenocarcinoma. SJ:sadie 10/28/2020 MICROSCOPIC DIAGNOSIS A. Sigmoid mass, biopsy: Invasive well differentiated adenocarcinoma. B. Descending colon polyp, biopsy: Fragments of colonic mucosa, no pathologic diagnosis. C. Sigmoid mass, biopsy: Invasive well differentiated adenocarcinoma. See comment. RUTH:sadie 10/29/2020 COMMENT C. Immunohistochemistry ([id number]) for microsatellite instability will be performed and the results will be reported separately. Case has been reviewed in consultation with Dr. Pierson who concurs with the above diagnosis. IDC:AM MICROSCOPIC DESCRIPTION Slides are reviewed. GROSS DESCRIPTION A - Received fresh for frozen section diagnosis labeled with the patient's name is a specimen designated sigmoid mass. The specimen consists of three pieces of white soft tissue that in aggregate measure 0.5 x 0.1 x 0.1 cm. The entire specimen is submitted for frozen section diagnosis in one cassette. B - Received in fixative is one container labeled with the patient's name and designated descending polyp. The specimen consists of two irregular fragments of light white soft tissue that in aggregate measure 0.3 x 0.2 x 0.1 cm. The specimen is totally submitted in one cassette. C - Received in fixative is one container labeled with the patient's name and designated sigmoid mass biopsy. The specimen consists of multiple irregular fragments of light white soft tissue that in aggregate measure 1.5 x 0.3 x 0.1 cm. The specimen is totally submitted in one cassette. / SJ:rg 10/28/20 TC:0 CPT: 65235 x3, 90625
--- NOTE | 2020-10-28 | IMM_PTH ---
PATIENT: ALEXX RICHARDS LOC: EN U#:[id number] AGE/SX: 75/M ROOM: RE10/28/[address]: Dr. Kamini Baig MD : 1945 BED: DIS: 10/28/2020 SPEC #: [id number] RECD: 10/29/20 12:01 STATUS: JOHNSON REQ #: [id number] LUCRECIA: 10/28/20 00:[address]: Kamini Baig DEPT: IMMUNOHISTOCHEMISTRY RECD BY: Yue Perez ENTERED: 10/29/20 12:02 SP TYPE: IMMUNO OTHR DR: Dr. Santino Finnegan MD Tissues: C - Sigmoid colon biopsy Procedures: MSH2 (add) MLH-1 (add) MSH6 (add) Anti-PMS2 (add) NAM-2 (add) KI-67 (add) P53 (add) HER-2-CLAUDIA (initial) PHYSICIAN & INSTITUTION [address] [address] SPECIMEN INFORMATION: Tissue Source: C ? Sigmoid mass biopsy Clinical Info: Bright red blood per rectum Specimen Number: [id number] [facility] code: [id number], 69470 x7 METHODOLOGY: Deparaffinized sections of prefer/formalin-fixed tissue or PAP/DQ stained slides are incubated with monoclonal/polyclonal antibodies/oligonucleotide probes. Localization is made via biotin free immunoperoxidase method. Appropriate controls are performed and reacted as expected. Results on target cell population are indicated in the following table: RESULTS: ANTIBODY / CLONE RESULT Block C Ki-67 (30-9) positive, high P53 (DO-7) positive (100%) NAM-2 (SP21) positive MLH-1 (M1) positive MSH2 (25D12) positive MSH6 (44) positive PMS2 (EDJ0339) positive Her-2neu (CB11) negative (0) These tests were developed and their performance characteristics determined by [facility]. They may not have been cleared or approved by the U.[place]. Food and Drug Administration. The FDA has determined that such clearance or approval is not necessary. The above immunohistochemical/dualISH markers are ordered and reviewed by the Pathologist. INTERPRETATION: C. Sigmoid mass, biopsy: Invasive adenocarcinoma. Result of Microsatellite Instability Study: Negative (no loss of mismatch protein; no microsatellite instability detected). SJ:sadie 10/30/2020
[2020-10-28] MEDS: Lactated Ringers 1,000 ML 100 ML IV (06:58)
--- NOTE | 2020-10-28 07:24 | HP.PCM_ITS ---
History and Physical Date of Admission: 10/28/20 Date of Service: 10/21/20 MR#:[id number] Name: ALEXX RICHARDS Rep #:[id number]:1945 Age/Sex: 75/M Provider:Dr. Kamini Baig MD [facility] Intake Vital Signs 10/21/20 12:28 10/21/20 12:29 Height 5 ft 10 in Weight: 205 lb BMI 29.4 28.5 BP 133/73 H Blood Pressure Location Rt brachial Position Sitting Respiration 18 Intake Visit Reasons: DISCUSS CSCOPE Chief Complaint: c-scope [employer] Required: No Allergies No Known Allergies Allergy (Verified 10/21/20 12:29) Medications alogliptin 25 mg PO DAILY 10/13/20 [History Confirmed 10/21/20] aspirin 81 mg PO DAILY 10/13/20 [History Confirmed 10/21/20] betamethasone dipropionate 1 applic TOPICAL DAILY 10/13/20 [History Confirmed 10/21/20] empagliflozin 25 mg PO DAILY 10/13/20 [History Confirmed 10/21/20] ezetimibe [Zetia] 10 mg DAILY 10/13/20 [History Confirmed 10/21/20] glimepiride 8 mg PO DAILY 10/13/20 [History Confirmed 10/21/20] hydrochlorothiazide 25 mg PO DAILY 10/13/20 [History Confirmed 10/21/20] lisinopril 40 mg PO DAILY 10/13/20 [History Confirmed 10/21/20] lovastatin 20 mg PO DAILY 10/13/20 [History Confirmed 10/21/20] metoprolol tartrate 50 mg PO BID 10/13/20 [History Confirmed 10/21/20] jtpfqnurgnsb-zfaykzpn-ljqkfv 1 tab PO DAILY 10/13/20 [History Confirmed 10/21/20] niacinamide 1,000 mg PO DAILY 10/13/20 [History Confirmed 10/21/20] nifedipine 90 mg PO BID 10/13/20 [History Confirmed 10/21/20] nitroglycerin 0.4 mg SUBLINGUAL Q5M PRN 10/13/20 [History Confirmed 10/21/20] ondansetron HCl [Zofran] 4 mg PO Q8H PRN #20 tab 10/16/20 [Rx Confirmed 10/21/20] oxycodone 5 mg PO Q4H PRN PRN 5 Days #30 tab 10/16/20 [Rx Confirmed 10/21/20] PFSH Medical History Diabetes Former smoker Hypertension Non-smoker Surgical History History of coronary artery stent placement Family History (Updated 10/21/20 @ 12:28 by Savanah Ohara) Mother Asthma Diabetes Heart disease Hypertension Social History (Updated 10/21/20 @ 12:28 by Savanah Ohara) Smoking Status: Former smoker alcohol intake: never HPI HPI HPI: ALEXX RICHARDS, is a 75 M who presents to the office today for bright red blood per rectum. Patient also status post cholecystostomy tube on 10/14/2020 due to acute cholecystitis. Patient states that he has been taking the antibiotic twice a day and having diarrhea ever since he left the hospital. Patient does admit to having hemorrhoids. Denies ever having a colonoscopy previously. Patient denies any family history of colon cancer. Patient denies any abdominal pain other than right at where the tube is inserted. Patient did stop the antibiotics on Tuesday still still having some diarrhea but also some looser formed stools. Patient denies any further bleeding since Tuesday. ROS General General: Yes weight change; No appetite, fatigue, colon cancer, breast cancer or weakness HEENT HEENT: No difficulty swallowing, eye injury, eye surgery, swollen glands or hoarseness Endo Endocrine: Yes diabetes mellitus; No thyroid disease, thyroid cancer, Hair loss, heat intolerance or cold intolerance Skin Skin: No rash or changing moles Breast Breast: No left breast lump, right breast lump, nipple discharge, breast pain, abnormal mammogram, abnormal US or breast enlargement Musc Musculoskeletal: No back problems, arthritis, rheumatoid arthritis, gout or joint pain Cardio Cardiovascular: Yes murmur, high blood pressure and heart stent; No pacemaker, heart disease, atrial fibrillation, heart attack, palpitations, shortness of breat with exertion or chest pain Psych Psychiatric: No depression, anxiety or hearing voices Resp Respiratory: No shortness of breath, No sleep apnea, No cough, No COPD, No asthma, No emphysema and No wheezing Gastro Gastrointestinal: Yes abdominal pain, Yes nausea or vomiting, Yes diarrhea, No constipation, Yes blood in stool, No acid reflux, Yes hemorrhoids, No ulcers, Yes gallbladder problem and No black,tarry stools [place] Hematologic: No blood thinners, No blood disorders, No bleeding, No anemia and No blood clots Neuro Neurologic: No system reviewed and no additional complaints, except as documented, No as per HPI, No abnormal gait, No abnormal hearing, No abnormal movements, No abnormal speech, No behavioral changes, No burning sensations, No confusion, No convulsions, No disequilibrium, No dizziness, No localized weakness, No frequent falls, No headache(s), No lack of coordination, No loss of vision, No memory loss, No numbness, No other visual disturbances, No radicular pain, No restless legs, No sensory deficit, No syncope, No tingling, No tremor(s), No weakness and No other Exam Const General: cooperative, healthy appearing, comfortable and no acute distress Neck Neck: normal visual inspection Resp Effort & Inspection: normal respiratory effort Cardio Rate: regular rate GI Inspection: non-distended and other (corina tube in place- resecured in office, PARKER is bilious) Palpation: soft and no guarding Rectal Exam: hemorrhoids (large external mainly on right, No gross bleeding) Skin General: no rashes or lesions noted Neuro General: patient oriented x3 Psych Affect: normal affect COVID (Procedure Consent) Procedure Criteria Procedure Criteria: Yes Elective The surgeon/proceduralist and patient have discussed in detail the risk of exposure to and/or potential harm posed by the COVID-19 virus with having a surgery/procedure at this time versus the risk of delaying the surgery/procedure. It is not possible to know either the risk of delaying the surgery or procedure or chance of getting an infection with perfect accuracy, but a joint decision was made between the patient and the surgeon/pro ceduralist to proceed at this time with the scheduled surgery/procedure as indicated on the consent form. Patient has had both doses of the Covid vaccine. Assessment and Plan Assessment and Plan (1) BRBPR (bright red blood per rectum): (2) Cholecystostomy care: Plan - Dr. Kamini Baig MD: Discussed with patient would plan for colonoscopy prior to laparoscopic cholecystectomy. On exam patient does have large external hemorrhoids. The patient hydrocortisone and lidocaine cream to apply and also encourage sitz bath's. Hopefully with the antibiotics being completed patient's diarrhea will improve.Patient also states he has not had much of an appetite. Encourage patient to continue eating orally is taking protein shakes as this will help with surgery in the future as well. Hopefully patient's decreased appetite is due to the inflammation of the gallbladder and then also the antibiotics as those have been stopped. I have discussed the above with the patient. I have offered the patient colonoscopy for evaluation. I have explained the risks/benefits of the procedure and described the procedure. I have discussed the risks with the patient, including but not limited to: infection, bleeding, perforation of the GI tract requiring emergency surgery, inability to complete the procedure, injury to any internal organs, complications of anesthesia, etc. - the patient understands and agrees to proceed. I have answered all the patient's questions to the patient's satisfaction and the patient has no further questions. The patient has been given instructions for the colon cleansing preparation.1 day of clears, MiraLAX Dulcolax split prep. We will schedule Interval cholecystectomy towards the end of October. Reviewed the anatomy with the patient and discussed the procedure: laparoscopic cholecystectomy with cholangiograms, possible open. Review risks including but not limited to bleeding, infection, hernia, bile leak, retained gallstones requiring another procedure ERCP- Endoscopic Retrograde Cholangiopancreatography, injury to another organ (bile ducts, common bile duct, small bowel, etc.)Which may require transfer to tertiary care facility and conversion to an open procedure. All questions were answered. Kamini Baig M.D. Pager: [phone] [facility] [address] [place] [address], [address] [place] [address] Office: [phone] Plan Details Other Orders: Orders: Colonoscopy Today Coding Level of Care Code Off vis,est,level 3 Diagnoses BRBPR (bright red blood per rectum) K62.5 Cholecystostomy care Z43.4 10/21/20 1412<Electronically signed by Kamini Baig MD>Date Kamini Baig MD
--- NOTE | 2020-10-28 08:27 | CT_ITS ---
STUDY: CT CHEST, ABDOMEN T PELVIS WITH CONTRAST REASON FOR EXAM: Male, 75 years old. Diffuse abdominal pain, nausea and vomiting RADIATION DOSAGE (If Supplied By Facility): CTDIvol = ( 18.00 ) mGy, DLP = ( 1836.19 ) mGycm TECHNIQUE: Transaxial imaging was performed following intravenous administration of IV 100mL Isovue-300. Individualized dose optimization techniques were used for this CT. COMPARISON: 10/13/2020 FINDINGS: CHEST Lung windows show underlying emphysema with bleb formation in the apices. Chronic interstitial changes noted in both lung artis without organized infiltrate or suspicious groundglass opacifications. Dependent atelectasis noted in the lung bases. Normal heart and pericardium. There are calcifications of the coronary arteries. Normal mediastinum. Normal hilar regions. Normal unenhanced pulmonary arteries. Normal aorta arch and descending thoracic aorta. There are multi-level degenerative changes of the thoracic spine. ABDOMEN There is decreased attenuation of the liver consistent with steatosis. Gallbladder contains multiple gallstones with pericholecystic fluid and wall thickening. A percutaneous tube has been placed into the gallbladder, the pigtail is within the lumen of the gallbladder. Spleen is unremarkable aside from a peripherally calcified cyst Normal pancreas. Normal bilateral adrenal glands. Stable simple renal cysts. Normal visualized stomach. Normal small intestine. There are multiple colonic diverticula consistent with diverticulosis. The appendix is visualized and appears normal. Appendix best seen on coronal recon images 53 through 59 There is diffuse atherosclerotic calcification of the abdominal aorta, without a demonstrated aneurysm. Normal inferior vena cava. Normal retroperitoneum. Normal abdominal wall. There are diffuse degenerative changes of the visualized lumbar spine. PELVIS Normal urinary bladder. Calcifications noted within the prostate. Normal visualized small intestine. There are multiple colonic diverticula of the sigmoid colon consistent with chronic diverticulosis. There is no pelvic fluid. There is no pelvic lymphadenopathy or mass lesion. Normal visualized pelvic arteries. Normal abdominal wall. There are diffuse degenerative changes of the visualized lumbar spine. CT/CT Chest, Abd, Pel w/Contrast IMPRESSION: The gallbladder contains multiple gallstones, there is wall thickening, pericholecystic fluid and inflammatory changes as well as borderline extrahepatic common bile duct dilatation. However, there has been percutaneous placement of a tube within the gallbladder, it is in satisfactory position, the pigtail tip is coiled within the lumen of the gallbladder. Fatty liver, no discrete lesion stable simple cysts, no specific follow-up needed Stable bilateral renal cysts, no specific follow-up needed Stable colonic diverticulosis Degenerative bony changes Diffuse atherosclerosis Electronically Signed: Forrest Chang MD at 11:33 EDT , Service support ,
[2020-10-28 09:38] LABS: Absolute Lymphocyte Count 1.33 X10^3/uL (0.83-4.51); Basophil# 0.03 X10^3/uL; Basophil% 0.3 % (0-1); Eosinophil# 0.25 X10^3/uL; Eosinophils% 2.2 % (0-5); Hemoglobin 12.5 g/dL (13.0-16.5); Lymphocyte # 1.33 X10^3/ul (0.83-4.51); Lymphocyte % 11.5 % (19-41); Mean Corp Hgb Conc 32.1 g/dL (32-36); Mean Corpuscular Hgb 28.9 pg (27.0-32.0); Mean Corpuscular Volume 90.1 fL (80-94); Mean Platelet Vol. 11.1 fl (6.2-12.0); Monocyte# 0.84 X10^3/uL; Monocyte% 7.3 % (0-10); NRBC Flagged by Analyzer 0 % (0-5); Neutrophil # 8.99 X10^3/uL (2.7-7.7); Neutrophil % 77.8 % (47-70); Platelet Count 450 K/mm3 (150-450); RBC Distribution Width CV 13.1 % (11.6-14.6); RBC Distribution Width SD 43.2 fl (35.1-43.9); Red Blood Count 4.33 M/mm3 (4.6-6.2); White Blood Count 11.5 K/mm3 (4.4-11.0)
[2020-10-28 09:53] LABS: ALB/GLOB Ratio 0.6 RATIO (0.9-2.4); AST(SGOT) 24 U/L (15-37); Alanine Aminotransfer ALT/SGPT 30 U/L (16-61); Albumin, Serum 2.7 g/dL (3.2-5.0); Alkaline Phosphatase 82 U/L (45-117); Anion Gap 5 (5-15); BUN 13 mg/dL (7-18); BUN/Creat Ratio 13.7 RATIO (10-20); Calcium,Total 8.8 mg/dL (8.5-10.1); Chloride 104 mmol/L (98-107); Creatinine, Serum 0.95 mg/dL (0.70-1.30); EST Glomerular Filtration Rate 82 mL/min (>60); Est Glom Filt Rate - Afr Amer 99 mL/min (>60); Globulin 4.4 g/dL (2.2-4.2); Glucose 167 mg/dL (74-106); Potassium 3.6 mmol/L (3.5-5.1); Protein, Total 7.1 g/dL (6.4-8.2); Sodium Level 138 mmol/L (136-145)
--- NOTE | 2020-10-28 13:41 | OP.CCLET_ITS ---
10/28/2020 Santino Finnegan [address] [place] [address] Re : Colonoscopy procedure for Popeye Landis Dear Dr. Finnegan This procedure was performed on Wednesday, October 28, 2020. My impressions and recommendations are as follows: Impressions : - Hemorrhoids found on perianal exam. - Non-bleeding external and internal hemorrhoids. - One less than 5 mm polyp in the descending colon. Biopsied. - Likely malignant partially obstructing tumor in the sigmoid colon. Biopsied. Injected. - The examination was otherwise normal. - Diverticulosis in the sigmoid colon and in the descending colon. Recommendations : - Discharge patient to home. - Perform a CT scan (computed tomography) of chest with contrast, abdomen with contrast and pelvis with contrast today. - Full liquid diet [Duration]. - Check hemogram with white blood cell count and platelets, electrolyte panel and CEA today. 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 - Repeat colonoscopy is recommended. The colonoscopy date will be determined after pathology results from today's exam become available for review. - Continue present medications. My findings are described in the full procedure note, which is enclosed. If I can be of further assistance, please feel free to contact me at Doctor phone number(s): , Work: . Sincerely, MD Kamini Bunn MD 10/28/2020 10:07:00 AM This report has been signed electronically.
--- NOTE | 2020-10-28 13:41 | OP.COLON_ITS ---
Patient Name: Popeye Landis Procedure Date: 10/28/2020 7:09 AM Date of : 1945 Age: 75 Procedure: Colonoscopy Indications: Rectal bleeding Providers: Kamini Baig MD Medicines: Monitored Anesthesia Care Patient Profile: This is a 75 year old male. Last Colonoscopy: none. The patient's first colonoscopy is today. Complications: No immediate complications. Procedure: Pre-Anesthesia Assessment: - Prior to the procedure, a History and Physical was performed, and patient medications and allergies were reviewed. The patient's tolerance of previous anesthesia was also reviewed. The risks and benefits of the procedure and the sedation options and risks were discussed with the patient. All questions were answered, and informed consent was obtained. Prior Anticoagulants: The patient has taken aspirin, last dose was 3 days prior to procedure. ASA Grade Assessment: Per anesthesia. After reviewing the risks and benefits, the patient was deemed in satisfactory condition to undergo the procedure. After I obtained informed consent, the scope was passed under direct vision. Throughout the procedure, the patient's blood pressure, pulse, and oxygen saturations were monitored continuously. The pediatric colonoscope was introduced through the anus and advanced to the cecum, identified by the appendiceal orifice, ileocecal valve and palpation. The colonoscopy was technically difficult and complex due to a partially obstructing mass. The patient tolerated the procedure well. The quality of the bowel preparation was adequate to identify polyps 6 mm and larger in size. Scope In: 7:35:21 AM Scope Withdrawal Time 0 hours 29 minutes 30 seconds Scope Out: 8:21:31 AM Total Procedure Duration Time 0 hours 46 minutes 10 seconds Findings: Hemorrhoids were found on perianal exam. Non-bleeding external and internal hemorrhoids were found. The hemorrhoids were Grade II (internal hemorrhoids that prolapse but reduce spontaneously). A less than 5 mm polyp was found in the descending colon. The polyp was sessile. Biopsies were taken with a cold forceps for histology. Biopsies were taken with a cold forceps for histology. A partially obstructing mass was found in the sigmoid colon. The mass was circumferential. The mass measured seven cm in length. No bleeding was present. Biopsies were taken with a cold forceps for histology. Area was successfully injected with Monica ink for tattooing-proximal and distal to the mass. The exam was otherwise without abnormality. A few small-mouthed diverticula were found in the sigmoid colon and descending colon. Impression: - Hemorrhoids found on perianal exam. - Non-bleeding external and internal hemorrhoids. - One less than 5 mm polyp in the descending colon. Biopsied. - Likely malignant partially obstructing tumor in the sigmoid colon. Biopsied. Injected. - The examination was otherwise normal. - Diverticulosis in the sigmoid colon and in the descending colon. Recommendation: - Discharge patient to home. - Perform a CT scan (computed tomography) of chest with contrast, abdomen with contrast and pelvis with contrast today. - Full liquid diet [Duration]. - Check hemogram with white blood cell count and platelets, electrolyte panel and CEA today. 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 - Repeat colonoscopy is recommended. The colonoscopy date will be determined after pathology results from today's exam become available for review. - Continue present medications. Procedure Code(s): --- Professional --- 31087, PT, Colonoscopy, flexible; with biopsy, single or multiple 71276, Colonoscopy, flexible; with directed submucosal injection(s), any substance Diagnosis Code(s): --- Professional --- K64.1, Second degree hemorrhoids D12.4, Benign neoplasm of descending colon D49.0, Neoplasm of unspecified behavior of digestive system K56.690, Other partial intestinal obstruction K62.5, Hemorrhage of anus and rectum CPT copyright 2017 [employer]. All rights reserved. The codes documented in this report are preliminary and upon pododermatologist review may be revised to meet current compliance requirements. MD Kamini Bunn MD 10/28/2020 10:07:00 AM This report has been signed electronically. Number of Addenda: 0 Note Initiated On: 10/28/2020 7:09 AM
[2020-10-29 08:52] LABS: Carcinoembryonic Antigen 6.1 ng/mL (0.0-4.7)
== END 2020-10-28 12:11 ==
LOC: EN 06:27 → AC 06:28
PROVIDERS: Anesthesiology; PCP Family Medicine; Referring Provider Family Medicine; Visit Provider Surgery
PROC: 0DJD8ZZ Inspection of Lower Intestinal Tract, Via Natural or Artificial Opening Endoscopic (ICD-10-PCS; CPT 45378; principal; 2020-10-28 07:25)
DX: C18.7 Malignant neoplasm of sigmoid colon (principal); K56.690 Other partial intestinal obstruction; D12.4 Benign neoplasm of descending colon; K64.1 Second degree hemorrhoids; K64.4 Residual hemorrhoidal skin tags; K57.30 Diverticulosis of large intestine without perforation or abscess without bleeding; K62.5 Hemorrhage of anus and rectum; K80.00 Calculus of gallbladder with acute cholecystitis without obstruction; K76.0 Fatty (change of) liver, not elsewhere classified; I10 Essential (primary) hypertension; E11.9 Type 2 diabetes mellitus without complications; I25.10 Atherosclerotic heart disease of native coronary artery without angina pectoris; H91.93 Unspecified hearing loss, bilateral; Z95.5 Presence of coronary angioplasty implant and graft; Z79.82 Long term (current) use of aspirin; Z79.899 Other long term (current) drug therapy; Z87.891 Personal history of nicotine dependence
CPT/HCPCS: 45380; 45381; 71260; 74177; 80053; 82378; 83036; 85025; 88305; 88331; 88341; 88342; J7120; Q9967; A4216; A4648

== ENCOUNTER 2020-10-30 12:07 | Inpatient (IN) | payer MEDICARE, OTHER, SELFPAY ==
[2020-10-28 06:43] VITALS: BMI 28.3
[2020-10-30] VITALS (14 sets, daily range): BP systolic 118–151; BP diastolic 53–71; PULSE 71–109; RESP 14–16; TEMP 35.9–36.9; O2SAT 92–100; BMI 27.9
[2020-10-30] MEDS: Gabapentin 600 MG Tablet PO (06:16)
[2020-10-30] MEDS: Acetaminophen 500 MG Tablet 1000 MG PO ×3 (06:16→23:41)
[2020-10-30] MEDS: Lactated Ringers 1,000 ML 40 ML IV ×3 (06:17→13:13)
--- NOTE | 2020-10-30 07:09 | HP.PCM_ITS ---
HPI - General HPI Narrative ALEXX RICHARDS, is a 75 M who presents presents for laparoscopic cholecystectomy, sigmoidectomy, possible open. Patient previously came into the hospital with acute cholecystitis and white blood count 35. That time cholecystostomy tube is placed as patient has been having pain for about 4 days prior to presenting to the ER. In the interval before having the laparoscopic cholecystectomy patient had some bright red rectal bleeding. Patient was scheduled for a colonoscopy 2 days ago. Sigmoid adenocarcinoma was found during colonoscopy. Patient preoperative CT chest abdomen pelvis not show any evidence of metastatic disease. Patient CEA was 6.1. [facility] Medical History (Updated 10/30/20 @ 07:[address] Kamini Baig MD) Alcohol use Cancer Cardiology follow-up encounter Coronary artery disease Diabetes Former smoker Hearing loss, left Hearing loss, right History of alcohol use Hx of cardiovascular stress test Hx of diarrhea Hx of echocardiogram Hypertension Loose, teeth Wears glasses Home Medications alogliptin 25 mg PO DAILY 10/13/20 [History Last Taken 10/13/20] aspirin 81 mg PO DAILY 10/13/20 [History Last Taken 10/13/20] betamethasone dipropionate 1 applic TOPICAL DAILY 10/13/20 [History Last Taken Unknown] empagliflozin 25 mg PO DAILY 10/13/20 [History Last Taken 10/30/20] ezetimibe [Zetia] 10 mg DAILY 10/13/20 [History Last Taken 10/13/20] glimepiride 8 mg PO DAILY 10/13/20 [History Last Taken Unknown] hydrochlorothiazide 25 mg PO DAILY 10/13/20 [History Last Taken 10/13/20] lisinopril 40 mg PO DAILY 10/13/20 [History Last Taken 10/30/20] lovastatin 20 mg PO DAILY 10/13/20 [History Last Taken Unknown] metoprolol tartrate 50 mg PO BID 10/13/20 [History Last Taken 10/30/20] fnvuatddqlsm-aocrmozi-ocljbx 1 tab PO DAILY 10/13/20 [History Last Taken 10/13/20] niacinamide 1,000 mg PO QHS 10/13/20 [History Last Taken Unknown] nifedipine 90 mg PO BID 10/13/20 [History Last Taken 10/28/20 05:00] nitroglycerin 0.4 mg SUBLINGUAL Q5M PRN 10/13/20 [History Last Taken 06/06/20] ondansetron HCl [Zofran] 4 mg PO Q8H PRN #20 tab 10/16/20 [Rx Last Taken Unknown] oxycodone 5 mg PO Q4H PRN PRN 5 Days #30 tab 10/16/20 [Rx Last Taken Unknown] Allergy/AdvReac Type Severity Reaction Status Date / Time No Known Allergies Allergy Verified 10/30/20 05:30 Family History (Updated 10/21/20 @ 12:28 by Savanah Ohara) Mother Asthma Diabetes Heart disease Hypertension Surgical History (Updated 10/29/20 @ 09:44 by Maribel Abraham) History of coronary artery stent placement Hx of colonoscopy Hx of heart artery stent Social History (Updated 10/21/20 @ 12:28 by Savanah Ohara) Smoking Status: Former smoker alcohol intake: never ROS Cardiovascular Cardiovascular: Denies chest pain Gastrointestinal Gastrointestinal: Reports hemorrhoids; Denies abdominal pain, constipation, cramping or diarrhea Vital Signs Vital Signs Vital Signs: 10/30/20 06:18 Temperature 98.5 F Temperature Source Temporal Pulse Rate 82 Respiratory Rate 16 Respiratory Pattern Normal Blood Pressure 143/71 H Blood Pressure Mean 95 Blood Pressure Source Monitor Blood Pressure Position Semi-Fowlers Blood Pressure Location Right Arm Pulse Ox 92 Oxygen Delivery Method Room Air Physical Exam Const alert, oriented x3 and no apparent distress HEENT normocephalic and head/scalp atraumatic Resp normal respiratory effort Cardio regular rate GI soft to palpation, non-tender and non-distended GI Narrative: Right upper quadrant cholecystostomy tube in place Palpation: Negative for guarding Extremity no clubbing, cyanosis or edema Neuro CN's II-XII intact bilaterally Psych mental status grossly normal Assessment & Plan Assessment/Plan (1) Adenocarcinoma of sigmoid colon: (2) Acute cholecystitis: (3) Cholecystostomy care: PLAN: Reviewed the anatomy with the patient and discussed the procedure: laparoscopic cholecystectomy with possible cholangiograms, possible open. Review risks including but not limited to bleeding, infection, hernia, bile leak, retained gallstones requiring another procedure ERCP- Endoscopic Retrograde Cholangiopancreatography, injury to another organ (bile ducts, common bile duct, small bowel, etc.) and conversion to an open procedure. All questions were answered. Did discuss the anatomy and procedure: laparoscopic sigmoidectomy, possible open with the patient. Including risks, but not limited to, bleeding, infection (superficial or intraabdominal), injury to another organ (small bowel, colon, ureter, etc.) requiring additional procedures, and blood clots. Also, discussed the pre-op, colon prep and antibiotics. All questions were answered. Kamini Baig M.D. Pager: [phone] [facility] [address] [place] [address] Office: [phone] Procedure Criteria Type of Procedure Procedure Type: Elective Elective Risks - COVID COVID Risk Discussion: The surgeon/proceduralist and patient have discussed in detail the risk of exposure to and/or potential harm posed by the COVID-19 virus with having a surgery/procedure at this time versus the risk of delaying the maria del carmen yamilet/procedure. It is not possible to know either the risk of delaying the surgery or procedure or chance of getting an infection with perfect accuracy, but a joint decision was made between the patient and the surgeon/proceduralist to proceed at this time with the scheduled surgery/procedure as indicated on the consent form.
--- NOTE | 2020-10-30 07:30 | COL._PTH ---
PATIENT: ALEXX RICHARDS LOC: MS3 U#:[id number] AGE/SX: 75/M ROOM: [facility] [place] RE10/30/[address]: Dr. Kamini Baig MD : [id number] BED: 1 DIS: 11/02/2020 SPEC #: [id number] RECD: 10/30/20 12:23 STATUS: JOHNSON RUBIO #: [id number] LUCRECIA: 10/30/20 07:[address]: Kamini Baig DEPT: SURGICAL PATHOLOGY RECD BY: Precious Brewster ENTERED: 10/30/20 13:05 SP TYPE: COLON OTHR DR: Dr. Santino Finnegan MD Tissues: A - Gallbladder, NOS B - Colon, NOS C - Colon Donuts D - Colon Donuts Procedures: Surgery Specimen Level III Surgery Specimen Level HEADER OPERATION: Laparoscopic sigmoid colectomy PRE-OP DIAGNOSIS: Adenocarcinoma of sigmoid colon TISSUE SUBMITTED: A ? Gallbladder, B ? Sigmoid colon, stitch deleon distal end, C ? Distal rectal donut, D ? Proximal sigmoid donut with stitch MICROSCOPIC DIAGNOSIS A. Gallbladder, subtotal cholecystectomy: Acute gangrenous cholecystitis and cholelithiasis. B. Sigmoid colon, colectomy: Invasive well differentiated adenocarcinoma. 29 out of 29 lymph nodes are negative for metastatic carcinoma. Tumor deposits x3. See cancer summary in the comment section. C. Distal donut: Colonic donut, no pathologic diagnosis. D. Proximal sigmoid donut: Colonic donut, no pathologic diagnosis. SJ:sadie 11/03/2020 COMMENT COLON CANCER SUMMARY Procedure: Sigmoidectomy Tumor site: Sigmoid colon Tumor size: 5.5 x 5 x 1 cm Macroscopic tumor perforation: Not identified Histologic type: Adenocarcinoma Histologic grade: G1 (well differentiated) Tumor extension: Tumor invades through muscularis propria into pericolonic adipose tissue. Margins: Margins are uninvolved by invasive carcinoma, high grade dysplasia, intramucosal carcinoma and adenoma. - The tumor is 9 cm away from the proximal margin. Treatment effect: No known presurgical therapy. Lymphvascular invasion: Not identified Perineural invasion: Not identified Type of polyp in which invasive carcinoma arose: None identified Tumor deposits: Present Number of deposits: 3 Regional lymph nodes: Number of lymph nodes examined: 29 Number of lymph nodes involved: 0 Distant metastasis: Not applicable Additional pathologic findings: Diverticulosis Ancillary studies: Previously performed on section of tumor ([id number] / [id number]) For microsatellite instability, please refer to IHC ([id number]) for complete details. Results of microsatellite instability by IHC: Negative (no loss of mismatch protein; no microsatellite instability detected). Please make reference to previous specimen ([id number], specimens A & C) sigmoid mass, biopsy with diagnosis of invasive well differentiated adenocarcinoma. PATHOLOGIC STAGE: pT3 pN1c Mx The above summary is in compliance with [employer] (CAP) Cancer Protocols Checklist and [place] Joint Committee on Cancer (AJCC), Staging Manual, 8th Ed. Tumor deposits are noted in the pericolonic adipose tissue. This case was discussed with Dr. Dudley and Dr. Baig on 11/03/20. Case has been reviewed in consultation with Dr. Pierson who concurs with the above diagnosis. IDC:AM MICROSCOPIC DESCRIPTION Slides are reviewed. GROSS DESCRIPTION A - Received is one container labeled with the patient's name and designated gallbladder. The specimen consists of a previously, partially opened portion of gallbladder. This does not appear to be a completely excised gallbladder. It measures 7 x 3.5 x 1 cm. A small piece of soft tissue is also noted measuring 2 x 1 x 0.7 cm. The serosal surface is congested. The mucosa is extensively ulcerated. Also present in the container are four brownish-black multifaceted stones measuring in aggregate 4 x 4 x 2 cm and 2 to 2.5 cm in greatest dimension. Sections of the gallbladder wall reveal edematous cut surfaces and measures up to 1 cm in thickness. Car Repairer sections from the gallbladder are submitted in three cassettes. / SJ:sadie 10/30/20 B - Received in fixative is one container labeled with the patient's name and designated sigmoid colon, stitch deleon distal end. The specimen consists of a segment of colon with attached pericolonic adipose tissue measuring 22 cm in length. The distal end is marked with a suture and stapled. The proximal end is not stapled. The serosal surface shows two areas of blue dye discoloration. The lumen contains a small amount of fecal material. 9 cm away from proximal end and 10 cm away from distal end is an ulcerated circumferential tumor mass measuring 5.5 x 5 x 1 cm. The serosal surface overlying the mass is inked black. Sections of the tumor reveal it involves full thickness of the bowel wall. No additional mucosal lesion is identified. The pericolonic adipose tissue is fixed in lymph node revealing solution. More dictation will follow after overnight fixation. / SJ:sadie 10/30/20 Sections reveal multiple diverticula. No obviously ruptured diverticular are noted. Sections of pericolonic adipose tissue reveal multiple lymph nodes. The largest lymph node measures 1.5 cm. Car Repairer sections are submitted as follows: 1 - resection margins, distal resection margin inked black, 2 & 3 - diverticula, 4-8 - tumor, 9 - multiple lymph nodes, 10 - one bisected lymph node, 11??one bisected lymph node, 12 - one serially sectioned lymph node, 13 - multiple lymph nodes, 14??one bisected lymph node, 15 - one bisected lymph node, 16 - multiple lymph nodes, 17 - one bisected lymph node, 18 - one bisected lymph node, 19 - one serially sectioned lymph node, 20 - one serially sectioned lymph node, 21??multiple lymph nodes, 22 - one lymph node. / SJ:sadie 10/31/20 C - Received in fixative is one container labeled with the patient's name and designated distal donut. The specimen consists of a donut-shaped piece of colonic tissue measuring 2 x 2 x 1 cm. Multiple nathanael are noted. Car Repairer sections are submitted in one cassette. / SJ:sadie 10/30/20 D - Received in fixative is one container labeled with the patient's name and designated proximal sigmoid donut with stitch. The specimen consists of a donut-shaped piece of colonic tissue measuring 2 x 2 x 1.5 cm. Multiple sutures are noted. Car Repairer sections are submitted in one cassette. / SJ:sadie 10/30/20 TC:0 CPT: 14308 x3, 21882
[2020-10-30] MEDS: Lubricating Jelly 60 GM Tube 30 GM TOPICAL (07:50)
[2020-10-30 07:51] LABS: Bedside Glucose 253 mg/dL (70-110)
[2020-10-30] MEDS: BUPIVACAINE LIPOSOME/PF 20 ML VIAL OPERA.SITE (08:00)
[2020-10-30] MEDS: Bupivacaine 0.25% 30 ML Vial (08:00)
--- NOTE | 2020-10-30 12:00 | PCM.OPRPT ---
Report of Operation Date of Procedure: 10/30/20 Pre-Operative Diagnosis: Acute cholecystitis status post Cholecystostomy tube, sigmoid adenocarcinoma Post-Operative Diagnosis: Gangrenous cholecystitis, sigmoid adenocarcinoma Surgery/Procedure Performed:: Laparoscopic subtotal cholecystectomy with PARKER placement, lap converted to open sigmoid colectomy Surgeon: Kamini Baig instructor ballroom dancing: Michael Mendoza Type of Anesthesia: General/Supplemental Anesthesiologist: Rohan Dubon Special Medications: Cefotetan 2 g IV x1 Specimen's removed: Gallstones and gallbladder wall, sigmoid colon, distal and proximal donuts Drains: 15 Ukrainian PARKER, 300 urine output Steel Estimated Blood Loss (mL): 20 cc Fluids Replaced: Per anesthesia Description of Procedure: Indications this is a 75 year-old male who developed abdominal pain/nausea/vomiting and on workup was found to have acute cholecystitis and cholecystostomy tube was placed at that time. Planning for an interval cholecystectomy. Patient did have some rectal bleeding and had a colonoscopy in the meantime as patient is never had a previous colonoscopy which showed about a 7 cm segment of sigmoid adenocarcinoma. Laparoscopic cholecystectomy, laparoscopic sigmoid colectomy, possible open was elected. Description procedure: The patient was placed on operating table in supine position. General Anesthesia was induced. A timeout was completed verifying correct patient, procedure, site, position and special equipment prior to beginning procedure. Steel catheter was placed. Betadine irrigation was used in the rectum. The abdomen and perineum were prepped and draped in usual sterile fashion. An incision was made in the natural skin line above the umbilicus. The fascia was elevated and incised. The peritoneum was elevated and incised. Entry into the peritoneum was confirmed visually and no bowel was noted in the vicinity of the incision. Krishna trocar was placed. The abdomen was insufflated with carbon dioxide to a pressure of 12-15 mmHg. Patient tolerated insufflation well. The laparoscope was then inserted and abdomen inspected. No injuries from initial trocar placement were noted. Tap block was completed using mixture of Exparel 20 cc, 0.25% bupivacaine 30 cc and saline for a total of 100 cc, under direct visualization. Additional trochars were then inserted in the following locations 5 mm trocar in the epigastrium and 2 more 5 mm trochars along the right costal margin. The abdomen was inspected no abnormalities were found. The table is placed in reverse Trendelenburg position with the right side up. Dense adhesions right upper quadrant. The Enseal was used to expose the fundus of the gallbladder. However due to the thick gallbladder wall is very difficult to grasp the gallbladder. There is noted to be dense adhesions at the neck of the gallbladder as well. Did attempt to do dome down. Did enter into the gallbladder during dissection as it appeared to be intrahepatic and the posterior gallbladder wall appeared to be gangrenous. Due to the dense adhesions near the fundus did plan to do subtotal cholecystectomy. The Enseal was used to remove the anterior gallbladder wall. 12 mm port was placed in the right lower quadrant under direct visualization. The endoscopic retrieval bag was placed through this port and the gallbladder wall and gallstones were removed. On inspection it appeared that the cystic duct had been obliterated due to inflammation. Argon beam was used on the remaining gallbladder wall and gallbladder mucosa. 15 Ukrainian PARKER was placed through the lateral 5 mm trocar site and placed in the gallbladder fossa. Hemostasis was assured. Next attention was turned to the sigmoid colon. Tattoos to distal and proximal to the sigmoid mass were easily seen. The peritoneum of the distal sigmoid/rectal colon was incised with cautery as tension was placed on the sigmoid colon to delineate the inferior mesenteric artery. The lateral attachments to the sigmoid and descending colon were also taken down with the Enseal. The left ureter was identified and protected from harm. When the sigmoid was felt to be adequately mobilized. Inferior midline incision was made with a 10 blade scalpel and deepened to fascia with electrocautery. Entry into the abdomen was confirmed visually, no injury to surrounding structures. Wound protector was placed. The rectosigmoid junction was identified and a 60 Gates stapler was used to divide the colon. The inferior mesenteric artery was also cleared and a high ligation was performed using 0 silk suture ligation. Inferior mesenteric vein was taken using 5 mm hemolock clips. Enseal was used to divide the rest of the mesentery of the sigmoid colon. Division between the descending and sigmoid colon with marked and divided using Metzenbaum scissors. Stitch was placed on the distal sigmoid colon. Colon was sent to pathology. The distal sigmoid colon reached the pelvis without tension. Sizers were placed in the rectum and the 33 EEA stapler was used for the anastomosis. Anvil placed in the distal colon and secured with a pursestring suture of 2-0 Prolene. EEA stapler was placed and the spike deployed. Anvil was placed on the spike. Mesentery was assured not to be twisted and laying flat/without tension. EEA stapler was fired. After removal of the stapler proximal and distal donuts were intact. Irrigation was placed in the pelvis for leak test. Leak test for insufflation was used which did not show any bubbles. Irrigation was suction. Wound protector was removed. Gowns gloves were changed. The 12 mm trocar site in the right lower quadrant fascia was closed with 0 Vicryl suture. The midline incision was closed with running 1-0 PDS suture. Betadine miller were placed in the incision and skin was loosely closed with 4-0 Monocryl interrupted sutures. Other 5 mm trocar sites were also closed with 4-0 Monocryl sutures. Patient was extubated Patient tolerated procedure well and patient was taken to the PACU in stable condition. Complications none
[2020-10-30] MEDS: Mupirocin Ointment 22gm Tube 1 APPLIC (12:18)
[2020-10-30 12:45] LABS: Bedside Glucose 210 mg/dL (70-110)
[2020-10-30] MEDS: Insulin Lispro 100 UNIT/ML INSULN.PEN SC ×2 (12:59→22:14)
[2020-10-30] MEDS: Lidocaine/D5W 2,000 MG/250 ML IV.SOLN 2000 MG (14:45)
--- NOTE | 2020-10-30 15:15 | PCM.PN.HOSP ---
Documented by User: Letitia Acosta NP, [facility] 10/30/20 15:33 Subjective Subjective Patient seen and examined. Requesting pain medication. Reports postoperative abdominal pain. Denies other symptoms or complaints. Objective Data Objective Data Vital Signs: Vital Signs Temp Pulse Resp BP Pulse Ox 97.4 F L 77 16 127/62 H 100 10/30/20 13:59 10/30/20 13:59 10/30/20 13:59 10/30/20 13:59 10/30/20 13:59 Oxygen Flow Rate (L/min) 6 Oxygen Delivery Method Simple Mask Weight: 194 lb 14.218 oz Body Mass Index (BMI) 27.9 Intake & Output: Intake and Output for Last 24 Hours 10/28/20 10/29/20 10/30/20 23:59 23:59 23:59 Intake Total 1364.17 / 1364.17 Output Total 760 / 760 Balance 604.17 / 604.17 Lab / Micro Data Labs: Laboratory Results - last 24 hr 10/30/20 10/30/20 05:52 12:38 POC Glucose 253 H 210 H Physical Exam Const alert, oriented x3 and no apparent distress Orientation / Consciousness: awake, oriented to person, oriented to place and oriented to time HEENT normocephalic and moist oral mucous membranes Eyes PERRL, EOMs intact bilaterally and conjunctivae normal Neck no lymphadenopathy Resp normal respiratory effort and clear to auscultation bilaterally Cardio regular rate, regular rhythm and no murmurs Peripheral Pulses: pulses 2+ throughout GI normal to inspection, nondistended, normoactive bowel sounds, non-tender and non-distended Extremity normal to inspection Skin no rashes or lesions noted Lesions: no lesions Rashes: no rashes Trauma: no lacerations or abrasions Neuro oriented x3 Sensorium / Orientation: awake and alert Psych affect normal Assessment & Plan Assessment/Plan (1) Hypertension: QUALIFIERS: Hypertension type: essential hypertension Qualified Code(s): I10 - Essential (primary) hypertension (2) Diabetes: QUALIFIERS: Diabetes mellitus complication status: without complication Diabetes mellitus roasterman insulin use: without skilled nursing use Diabetes mellitus type: type 2 Qualified Code(s): E11.9 - Type 2 diabetes mellitus without complications PLAN: 1. Acute cholecystitis, sigmoid adenocarcinoma-status post laparoscopic subtotal cholecystectomy with PARKER placement and lap converted to open sigmoid colectomy. Management per general surgery. 2. Type 2 diabetes mellitus-hemoglobin A1c 7%. Accu-Cheks with sliding scale insulin. Oral regimen on hold. 3. Hypertension-stable, continue lisinopril, HCTZ, metoprolol, nifedipine. 4. Hyperlipidemia-continue statin, Zetia. DVT prophylaxis- Lovenox sc This patient was seen by ANDREW Ambrosio under the supervision of Dr. Brito. Documented by User: Dr. Pratibha Brito MD 10/30/20 16:10 Addendum Addendum: Patient seen by Letitia MORALES under my supervision Patient is 75-year-old male admitted to the service of general surgery for cholecystectomy on account of acute cholecystitis as well as laparoscopic sigmoid colectomy on account of sigmoid adenocarcinoma. He had surgery today. Hospitalist service consulted for management of diabetes and hypertension. Patient seen and examined. He was resting comfortably bed. He rated his abdominal pain as 5 out of 10 but had no other complaints. He has remained hemodynamically stable. O/E: Const mildly lethargic after surgery, and no apparent distress Orientation / Consciousness: awake, oriented to person, oriented to place and oriented to time HEENT normocephalic and moist oral mucous membranes Eyes PERRL, EOMs intact bilaterally and conjunctivae normal Neck no lymphadenopathy Resp normal respiratory effort and clear to auscultation bilaterally Cardio regular rate, regular rhythm and no murmurs Peripheral Pulses: pulses 2+ throughout GI normal to inspection, nondistended, normoactive bowel sounds, non-tender and non-distended, abdominal dressing in place. Extremity normal to inspection Skin no rashes or lesions noted Lesions: no lesions Rashes: no rashes Trauma: no lacerations or abrasions Neuro oriented x3 Sensorium / Orientation: awake and alert Psych affect normal Today's postop day 1 for laparoscopic subtotal cholecystectomy with PARKER drain placement and laparotomy converted to open sigmoid colectomy. Plan is to continue hydrochlorothiazide and lisinopril as well as metoprolol for blood pressure. IV hydralazine as needed for blood pressure elevation. On insulin sliding scale right now for diabetes. Once he resumes diet per primary team recommendation, will resume his home blood pressure medications of alogliptin, empagliflozin and glimepiride. Continue statin and Zetia for hyperlipidemia. DVT prophylaxis as per primary team. Rest as per ANDREW Ambrosio's note which I have reviewed and endorsed. Thank you for the courtesy of the consult. Please do not hesitate to contact the hospitalist service if you have any questions or concerns. Visit Charges Inpatient E&M: 46881 Subs Hosp L2
[2020-10-30] MEDS: Morphine 2 MG/ML Syringe IV (15:53)
[2020-10-30 16:11] LABS: Bedside Glucose 207 mg/dL (70-110)
[2020-10-30] MEDS: Metoprolol Tartrate 50 MG Tablet PO (22:07)
[2020-10-30 22:26] LABS: Bedside Glucose 165 mg/dL (70-110)
[2020-10-31] VITALS (7 sets, daily range): BP systolic 130–143; BP diastolic 63–67; PULSE 79–87; RESP 14–18; TEMP 36.6–36.8; O2SAT 93–96; BMI 27.9
[2020-10-31 05:43] LABS: Hematocrit 34.4 % (40-54); Hemoglobin 10.8 g/dL (13.0-16.5); Mean Corp Hgb Conc 31.4 g/dL (32-36); Mean Corpuscular Hgb 28.1 pg (27.0-32.0); Mean Corpuscular Volume 89.6 fL (80-94); Mean Platelet Vol. 11.1 fl (6.2-12.0); Platelet Count 414 K/mm3 (150-450); RBC Distribution Width CV 13.3 % (11.6-14.6); RBC Distribution Width SD 43.7 fl (35.1-43.9); Red Blood Count 3.84 M/mm3 (4.6-6.2); White Blood Count 17.5 K/mm3 (4.4-11.0)
[2020-10-31] MEDS: Acetaminophen 500 MG Tablet 1000 MG PO ×4 (05:55→23:25)
[2020-10-31 06:09] LABS: Absolute Lymphocyte Count 1.25 X10^3/uL (0.83-4.51); Absolute Neutrophil Count 14.8 X10^3/uL (2.0-7.7); Basophil# 0.02 X10^3/uL; Basophil% 0.1 % (0-1); Eosinophil# 0.04 X10^3/uL; Eosinophils% 0.2 % (0-5); Lymphocyte # 1.25 X10^3/ul (0.83-4.51); Lymphocyte % 7.3 % (19-41); Mean Corp Hgb Conc 31.4 g/dL (32-36); Mean Corpuscular Hgb 28.6 pg (27.0-32.0); Mean Corpuscular Volume 90.9 fL (80-94); Mean Platelet Vol. 11.4 fl (6.2-12.0); Monocyte# 0.97 X10^3/uL; Monocyte% 5.7 % (0-10); NRBC Flagged by Analyzer 0 % (0-5); Neutrophil # 14.79 X10^3/uL (2.7-7.7); Neutrophil % 86.2 % (47-70); Platelet Count 415 K/mm3 (150-450); RBC Distribution Width CV 13.3 % (11.6-14.6); RBC Distribution Width SD 44.7 fl (35.1-43.9); Red Blood Count 3.85 M/mm3 (4.6-6.2); White Blood Count 17.2 K/mm3 (4.4-11.0)
[2020-10-31 06:19] LABS: ALB/GLOB Ratio 0.7 RATIO (0.9-2.4); AST(SGOT) 29 U/L (15-37); Alanine Aminotransfer ALT/SGPT 34 U/L (16-61); Albumin, Serum 2.3 g/dL (3.2-5.0); Alkaline Phosphatase 67 U/L (45-117); Anion Gap 7 (5-15); BUN 13 mg/dL (7-18); BUN/Creat Ratio 13.6 RATIO (10-20); Bilirubin, Direct 0.14 mg/dL (0.00-0.30); Calcium,Total 7.9 mg/dL (8.5-10.1); Chloride 105 mmol/L (98-107); Creatinine, Serum 0.96 mg/dL (0.70-1.30); EST Glomerular Filtration Rate 81 mL/min (>60); Est Glom Filt Rate - Afr Amer 98 mL/min (>60); Estimated Creatinine Clearance 67.59 ml/min; Globulin 3.3 g/dL (2.2-4.2); Glucose 156 mg/dL (74-106); Potassium 3.9 mmol/L (3.5-5.1); Protein, Total 5.6 g/dL (6.4-8.2); Sodium Level 139 mmol/L (136-145)
--- NOTE | 2020-10-31 06:30 | PN.SURG_ITS ---
Subjective Subjective Patient had about 10 out of the PARKER overnight serosanguineous this morning. Patient states he had some soreness in the abdomen was up to the chair does state he is a little hungry. Patient white blood count is 17 question of some is reactive from surgery, good urine output Objective Data Objective Data Vital Signs: Vital Signs Temp Pulse Resp BP Pulse Ox 98.2 F 80 16 143/63 H 96 10/31/20 04:16 10/31/20 04:16 10/31/20 04:16 10/31/20 04:16 10/31/20 04:16 Oxygen Flow Rate (L/min) 2 Oxygen Delivery Method Nasal Cannula Weight: 194 lb 14.218 oz Body Mass Index (BMI) 27.9 Intake & Output: Intake and Output for Last 24 Hours 10/29/20 10/30/20 10/31/20 23:59 23:59 23:59 Intake Total 2164.17 / 2164.17 150 / 150 Output Total 1495 / 1495 405 / 405 Balance 669.17 / 669.17 -255 / -255 Lab / Micro Data Result Diagrams: 10/31/20 05:00 10/31/20 05:00 Labs: Laboratory Results - last 24 hr 10/30/20 10/30/20 10/30/20 05:52 12:38 16:07 WBC RBC Hgb Hct MCV MCH MCHC RDW Std Deviation RDW Coeff of Oskar Plt Count MPV Immature Gran % (Auto) Neut % (Auto) Lymph % (Auto) [place] % (Auto) Eos % (Auto) Baso % (Auto) Absolute Neuts (auto) Absolute Lymphs (auto) Nucleated RBC % Sodium Potassium Chloride Carbon Dioxide Anion Gap BUN Creatinine Estim Creat Clear Calc Est GFR (MDRD) Af Amer Est GFR (MDRD) Non-Af BUN/Creatinine Ratio Glucose Calcium Total Bilirubin Direct Bilirubin AST ALT Alkaline Phosphatase Total Protein Albumin Globulin Albumin/Globulin Ratio POC Glucose 253 H 210 H 207 H 10/30/20 10/31/20 10/31/20 22:11 05:00 05:00 WBC 17.5 H RBC 3.84 L Hgb 10.8 L Hct 34.4 L MCV 89.6 MCH 28.1 MCHC 31.4 L RDW Std Deviation 43.7 RDW Coeff of Oskar 13.3 Plt Count 414 MPV 11.1 Immature Gran % (Auto) Neut % (Auto) Lymph % (Auto) [place] % (Auto) Eos % (Auto) Baso % (Auto) Absolute Neuts (auto) Absolute Lymphs (auto) Nucleated RBC % Sodium 139 Potassium 3.9 Chloride 105 Carbon Dioxide 27.0 Anion Gap 7 BUN 13 Creatinine 0.96 Estim Creat Clear Calc 67.59 Est GFR (MDRD) Af Amer 98 Est GFR (MDRD) Non-Af 81 BUN/Creatinine Ratio 13.6 Glucose 156 H Calcium 7.9 L Total Bilirubin 0.30 Direct Bilirubin 0.14 AST 29 ALT 34 Alkaline Phosphatase 67 Total Protein 5.6 L Albumin 2.3 L Globulin 3.3 Albumin/Globulin Ratio 0.7 L POC Glucose 165 H 10/31/20 05:00 WBC 17.2 H RBC 3.85 L Hgb 11.0 L Hct 35.0 L MCV 90.9 MCH 28.6 MCHC 31.4 L RDW Std Deviation 44.7 H RDW Coeff of Oskar 13.3 Plt Count 415 MPV 11.4 Immature Gran % (Auto) 0.500 Neut % (Auto) 86.2 H Lymph % (Auto) 7.3 L [place] % (Auto) 5.7 Eos % (Auto) 0.2 Baso % (Auto) 0.1 Absolute Neuts (auto) 14.8 H Absolute Lymphs (auto) 1.25 Nucleated RBC % 0 Sodium Potassium Chloride Carbon Dioxide Anion Gap BUN Creatinine Estim Creat Clear Calc Est GFR (MDRD) Af Amer Est GFR (MDRD) Non-Af BUN/Creatinine Ratio Glucose Calcium Total Bilirubin Direct Bilirubin AST ALT Alkaline Phosphatase Total Protein Albumin Globulin Albumin/Globulin Ratio POC Glucose Physical Exam Narrative Regular rate and rhythm Abdomen: Soft, nondistended, tender near incision, incisions dressed. PARKER sanguinous, no peritoneal signs Assessment & Plan Assessment/Plan (1) S/P laparoscopic cholecystectomy: (2) S/P colon resection: PLAN: Patient's PARKER is sanguinous. We will continue to monitor if it does turn bilious patient may need ERCP. Continue clears await bowel function. Encourage ambulation up in chair. Await pathology Kamini Baig M.D. Pager: [phone] [facility] [address] [place] [address], Outpatient [place], [address] [place] [address] Office: [phone]
[2020-10-31] MEDS: Insulin Lispro 100 UNIT/ML INSULN.PEN SC ×4 (06:39→21:51)
[2020-10-31 06:45] LABS: Bedside Glucose 157 mg/dL (70-110)
[2020-10-31] MEDS: Lisinopril 40 MG Tablet PO (07:46)
[2020-10-31] MEDS: hydroCHLOROthiazide 25 MG Tablet PO (07:47)
[2020-10-31] MEDS: Docusate Sodium 100 MG Capsule PO ×2 (07:47→21:48)
[2020-10-31] MEDS: Metoprolol Tartrate 50 MG Tablet PO ×2 (07:47→21:48)
[2020-10-31] MEDS: Enoxaparin 40 MG/0.4 ML Syringe SC (07:48)
--- NOTE | 2020-10-31 10:10 | CASEMGMT ---
RN CM Face to Face with patient for initial transition planning/care coordination assessment. RN CM introduced self and role at [facility]. Patient lying in bed, alert and oriented. Patient willing to participate in assessment and is able to answer all questions appropriately. Care providers, pharmacy, and demographics verified. Patient wishes to discharge home, denies need for home health at this time. Patient states he has no further needs or concerns at this time. CM to follow for discharge planning needs that may arise. PCP: Sivan Specialists: [place] school supervisor Preferred Pharmacy: [facility] Insurance: Martin GARSIA Prescription Benefit: yes Living Will/HPOA: none LNOK: Living Arrangements: Patient lives with in a single story home with 3 steps and railing to enter the home. Patient is independent at home. Transportation: self/son DME/HHC: Pat[place] states he has glucometer and testing supplies at home. Patient denies further DME or HHC. Disposition Plan: Patient to discharge home with family support and follow-up plans in place. Lyndsay WONG, RN, CM
[2020-10-31] MEDS: 0.9% Saline Lock 10 ML Syringe IV (10:59)
[2020-10-31] MEDS: Ketorolac 15 MG/ML Vial IV (10:59)
[2020-10-31 11:11] LABS: Bedside Glucose 224 mg/dL (70-110)
[2020-10-31] MEDS: Lactated Ringers 1,000 ML 40 ML IV (11:12)
--- NOTE | 2020-10-31 11:22 | NT.THERAPY_ITS ---
Nutrition Therapy Report - History Nutrition Services has been consulted to:: Manage nutrient details of diet order Current diet / nutrition support order:: clear liquids - Anthropometric Measurements Height:: 5 ft 10 in Weight:: 88.4 kg Body Mass Index (BMI):: 27.9 - Relevant Labs Relevant Labs:: WBC 17.2 K/mm3 (4.4-11.0) H 10/31/20 05:00 WBC 17.5 K/mm3 (4.4-11.0) H 10/31/20 05:00 RBC 3.84 M/mm3 (4.6-6.2) L 10/31/20 05:00 RBC 3.85 M/mm3 (4.6-6.2) L 10/31/20 05:00 Hgb 10.8 g/dL (13.0-16.5) L 10/31/20 05:00 Hgb 11.0 g/dL (13.0-16.5) L 10/31/20 05:00 Hct 34.4 % (40-54) L 10/31/20 05:00 Hct 35.0 % (40-54) L 10/31/20 05:00 MCHC 31.4 g/dL (32-36) L 10/31/20 05:00 MCHC 31.4 g/dL (32-36) L 10/31/20 05:00 RDW Std Deviation 44.7 fl (35.1-43.9) H 10/31/20 05:00 Neut % (Auto) 86.2 % (47-70) H 10/31/20 05:00 Lymph % (Auto) 7.3 % (19-41) L 10/31/20 05:00 Absolute Neuts (auto) 14.8 X10^3/uL (2.0-7.7) H 10/31/20 05:00 Glucose 156 mg/dL (74-106) H 10/31/20 05:00 Calcium 7.9 mg/dL (8.5-10.1) L 10/31/20 05:00 Total Protein 5.6 g/dL (6.4-8.2) L 10/31/20 05:00 Albumin 2.3 g/dL (3.2-5.0) L 10/31/20 05:00 Albumin/Globulin Ratio 0.7 RATIO (0.9-2.4) L 10/31/20 05:00 - Assessment Food / Nutrition-Related History:: Pt usually w/ good appetite - has had only broth and jello today d/t on clear liquids diet - spouse states pt po intake poo r since Tuesday d/t not feeling well. Pt agreeable to ONS for increased nutrition if consumed. Last year was 113.6 kg - intentionally lost wt by cutting out snacks, beer and bread - also watching portion sizes - weight 95.45 kg x 2 wks ago - lost 7.2% unintentionally d/t poor po intake (sig for malnutrition). Sugar free diet at home - checks fasting bld gluc daily w/ readings ~130. Declines need for diet education at this time. 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 88-106 gm pro/day (1- 1.2 gm/kg). 2360 ml fluid/day (per ASPEN guidelines) - Food / Nutrient Delivery Interventions Summary of nutrition intervention:: Will order ensure clear w/ meals for increased nutrition if consumed (will d/c ONS w/ medpass). As medically able, rec KOLBY to CHO Control/Cardiac d/t pmhx Nutrition education provided?: No - MNT Monitoring Further MNT monitoring and evaluation required?: Yes MNT Follow-up in:: 3-5 days - please call RD/LD @ [phone] if questions/concerns
--- NOTE | 2020-10-31 15:02 | PCM.PN.HOSP ---
Subjective Subjective seen and examined. Patient did not to pass flatus or bowel movement. Mild abdominal discomfort otherwise no pain. Objective Data Objective Data Vital Signs: Vital Signs Temp Pulse Resp BP Pulse Ox 97.8 F 79 14 130/67 H 93 10/31/20 07:45 10/31/20 07:47 10/31/20 07:45 10/31/20 07:45 10/31/20 07:45 Oxygen Flow Rate (L/min) 2 Oxygen Delivery Method Room Air Weight: 194 lb 14.218 oz Body Mass Index (BMI) 27.9 Intake & Output: Intake and Output for Last 24 Hours 10/29/20 10/30/20 10/31/20 23:59 23:59 23:59 Intake Total 2164.17 / 2164.17 550 / 550 Output Total 1495 / 1495 625 / 625 Balance 669.17 / 669.17 -75 / -75 Lab / Micro Data Result Diagrams: 10/31/20 05:00 10/31/20 05:00 Labs: Laboratory Results - last 24 hr 10/30/20 10/30/20 10/31/20 16:07 22:11 05:00 WBC 17.5 H RBC 3.84 L Hgb 10.8 L Hct 34.4 L MCV 89.6 MCH 28.1 MCHC 31.4 L RDW Std Deviation 43.7 RDW Coeff of Oskar 13.3 Plt Count 414 MPV 11.1 Immature Gran % (Auto) Neut % (Auto) Lymph % (Auto) [place] % (Auto) Eos % (Auto) Baso % (Auto) Absolute Neuts (auto) Absolute Lymphs (auto) Nucleated RBC % Sodium Potassium Chloride Carbon Dioxide Anion Gap BUN Creatinine Estim Creat Clear Calc Est GFR (MDRD) Af Amer Est GFR (MDRD) Non-Af BUN/Creatinine Ratio Glucose Calcium Total Bilirubin Direct Bilirubin AST ALT Alkaline Phosphatase Total Protein Albumin Globulin Albumin/Globulin Ratio POC Glucose 207 H 165 H 10/31/20 10/31/20 10/31/20 05:00 05:00 06:37 WBC 17.2 H RBC 3.85 L Hgb 11.0 L Hct 35.0 L MCV 90.9 MCH 28.6 MCHC 31.4 L RDW Std Deviation 44.7 H RDW Coeff of Oskar 13.3 Plt Count 415 MPV 11.4 Immature Gran % (Auto) 0.500 Neut % (Auto) 86.2 H Lymph % (Auto) 7.3 L [place] % (Auto) 5.7 Eos % (Auto) 0.2 Baso % (Auto) 0.1 Absolute Neuts (auto) 14.8 H Absolute Lymphs (auto) 1.25 Nucleated RBC % 0 Sodium 139 Potassium 3.9 Chloride 105 Carbon Dioxide 27.0 Anion Gap 7 BUN 13 Creatinine 0.96 Estim Creat Clear Calc 67.59 Est GFR (MDRD) Af Amer 98 Est GFR (MDRD) Non-Af 81 BUN/Creatinine Ratio 13.6 Glucose 156 H Calcium 7.9 L Total Bilirubin 0.30 Direct Bilirubin 0.14 AST 29 ALT 34 Alkaline Phosphatase 67 Total Protein 5.6 L Albumin 2.3 L Globulin 3.3 Albumin/Globulin Ratio 0.7 L POC Glucose 157 H 10/31/20 11:05 WBC RBC Hgb Hct MCV MCH MCHC RDW Std Deviation RDW Coeff of Oskar Plt Count MPV Immature Gran % (Auto) Neut % (Auto) Lymph % (Auto) [place] % (Auto) Eos % (Auto) Baso % (Auto) Absolute Neuts (auto) Absolute Lymphs (auto) Nucleated RBC % Sodium Potassium Chloride Carbon Dioxide Anion Gap BUN Creatinine Estim Creat Clear Calc Est GFR (MDRD) Af Amer Est GFR (MDRD) Non-Af BUN/Creatinine Ratio Glucose Calcium Total Bilirubin Direct Bilirubin AST ALT Alkaline Phosphatase Total Protein Albumin Globulin Albumin/Globulin Ratio POC Glucose 224 H Physical Exam Narrative General: Alert, Oriented x3, Cooperative HEENT: Atraumatic, PERRLA, EOMI, Normocephalic Oral: No Gingival or Mucosal Lesions/ Ulcerations Neck: Supple, No JVD, Negative Carotid Bruits Lungs: Air entry diminished in bilateral lung bases. No crepitation/rhonchi Cardiovascular: Regular rate, Regular Rhythm, Normal S1, Normal S2, No murmurs Abdomen: Mild tenderness. Bowel sounds sluggish but present. PARKER drain present serosanguineous 10 mL. Mild stain on the surgical dressing. : No renal angle tenderness. No suprapubic tenderness. Extremities: No edema, Capillary Refill Less than 3 Seconds Skin: No rashes, No breakdown Musculoskeletal: No Tenderness to Palpation of Joints or Extremities Neurological: Cranial nerves II-XII grossly intact, Deep Tendon Reflexes 2+/4 and Symmetrical, Neuro grossly intact Psych/Mental Status: Normal Affect, Appropriate. Assessment & Plan Assessment/Plan (1) S/P colon resection: (2) S/P laparoscopic cholecystectomy: (3) Adenocarcinoma of sigmoid colon: (4) Acute cholecystitis: PLAN: This is a 75-year-old gentleman was diagnosed sigmoid adenocarcinoma on colonoscopy and acute cholecystitis on previous admission in first week of October 31 and was admitted for laparoscopic cholecystectomy and sigmoidectomy. Intra-Op note reviewed states gangrenous cholecystitis with sigmoid adenocarcinoma and had laparoscopic subtotal cholecystectomy with PARKER placement and lap converted to open sigmoid colectomy. Patient does not have cardiopulmonary chronic disease. 1.? Subacute gangrenous cholecystitis, sigmoid adenocarcinoma-status post laparoscopic subtotal cholecystectomy with PARKER placement and lap converted to open sigmoid colectomy.? Management per general surgery. Patient has bowel sound but has not passed flatus. 2. Type 2 diabetes mellitus-hemoglobin A1c 7%.? Accu-Cheks with sliding scale insulin.? Oral regimen on hold. 3. Hypertension-stable, continue lisinopril, HCTZ, metoprolol, nifedipine. 4. Hyperlipidemia-continue statin, Zetia. DVT prophylaxis- Lovenox sc Visit Charges Inpatient E&M: 68344 Subs Hosp L2
[2020-10-31 16:30] LABS: Bedside Glucose 300 mg/dL (70-110)
[2020-10-31] MEDS: Ibuprofen 400 MG Tablet PO (21:51)
[2020-10-31 22:05] LABS: Bedside Glucose 201 mg/dL (70-110)
[2020-11-01] VITALS (8 sets, daily range): BP systolic 130–166; BP diastolic 70–88; PULSE 77–92; RESP 18; TEMP 36.6–37.1; O2SAT 93–98
[2020-11-01] MEDS: Acetaminophen 500 MG Tablet 1000 MG PO ×4 (06:10→23:51)
[2020-11-01 06:26] LABS: Bedside Glucose 139 mg/dL (70-110)
[2020-11-01 06:54] LABS: Absolute Lymphocyte Count 1.09 X10^3/uL (0.83-4.51); Absolute Neutrophil Count 11.1 X10^3/uL (2.0-7.7); Basophil# 0.02 X10^3/uL; Basophil% 0.1 % (0-1); Eosinophil# 0.38 X10^3/uL; Eosinophils% 2.8 % (0-5); Hematocrit 34.1 % (40-54); Hemoglobin 10.6 g/dL (13.0-16.5); Lymphocyte # 1.09 X10^3/ul (0.83-4.51); Lymphocyte % 8.1 % (19-41); Mean Corp Hgb Conc 31.1 g/dL (32-36); Mean Corpuscular Hgb 28.3 pg (27.0-32.0); Mean Corpuscular Volume 91.2 fL (80-94); Mean Platelet Vol. 11.5 fl (6.2-12.0); Monocyte# 0.81 X10^3/uL; NRBC Flagged by Analyzer 0 % (0-5); Neutrophil # 11.11 X10^3/uL (2.7-7.7); Neutrophil % 82.6 % (47-70); Platelet Count 349 K/mm3 (150-450); RBC Distribution Width CV 13.4 % (11.6-14.6); RBC Distribution Width SD 45.1 fl (35.1-43.9); Red Blood Count 3.74 M/mm3 (4.6-6.2); White Blood Count 13.5 K/mm3 (4.4-11.0)
[2020-11-01 07:12] LABS: Anion Gap 8 (5-15); BUN 13 mg/dL (7-18); BUN/Creat Ratio 15.5 RATIO (10-20); Chloride 105 mmol/L (98-107); Creatinine, Serum 0.84 mg/dL (0.70-1.30); EST Glomerular Filtration Rate 94 mL/min (>60); Est Glom Filt Rate - Afr Amer 114 mL/min (>60); Estimated Creatinine Clearance 77.25 ml/min; Glucose 128 mg/dL (74-106); Magnesium 1.8 mg/dL (1.6-2.6); Potassium 3.8 mmol/L (3.5-5.1); Sodium Level 138 mmol/L (136-145)
--- NOTE | 2020-11-01 08:06 | PCM.PN.SRG ---
Subjective Subjective Patient white blood cell count is coming down from 17-13 without any antibiotics. Patient has tolerated clears currently on transitional, patient did have flatus no current bowel movement., PARKER minimal drainage serosanguineous Objective Data Objective Data Vital Signs: Vital Signs Temp Pulse Resp BP Pulse Ox 98.1 F 77 18 130/70 H 93 11/01/20 03:12 11/01/20 03:12 11/01/20 03:12 11/01/20 03:12 11/01/20 07:32 Oxygen Flow Rate (L/min) 2 Oxygen Delivery Method Room Air Weight: 194 lb 14.218 oz Body Mass Index (BMI) 27.9 Intake & Output: Intake and Output for Last 24 Hours 10/30/20 10/31/20 11/01/20 23:59 23:59 23:59 Intake Total 2164.17 / 2164.17 1831.33 / 1831.33 Output Total 1495 / 1495 1005 / 1005 720 / 720 Balance 669.17 / 669.17 826.33 / 826.33 -720 / -720 Lab / Micro Data Result Diagrams: 11/01/20 05:38 11/01/20 05:33 Labs: Laboratory Results - last 24 hr 10/31/20 10/31/20 10/31/20 11:05 16:18 21:47 WBC RBC Hgb Hct MCV MCH MCHC RDW Std Deviation RDW Coeff of Oskar Plt Count MPV Immature Gran % (Auto) Neut % (Auto) Lymph % (Auto) [place] % (Auto) Eos % (Auto) Baso % (Auto) Absolute Neuts (auto) Absolute Lymphs (auto) Nucleated RBC % Sodium Potassium Chloride Carbon Dioxide Anion Gap BUN Creatinine Estim Creat Clear Calc Est GFR (MDRD) Af Amer Est GFR (MDRD) Non-Af BUN/Creatinine Ratio Glucose Calcium Magnesium POC Glucose 224 H 300 H 201 H 11/01/20 11/01/20 11/01/20 05:33 05:38 06:08 WBC 13.5 H RBC 3.74 L Hgb 10.6 L Hct 34.1 L MCV 91.2 MCH 28.3 MCHC 31.1 L RDW Std Deviation 45.1 H RDW Coeff of Oskar 13.4 Plt Count 349 MPV 11.5 Immature Gran % (Auto) 0.400 Neut % (Auto) 82.6 H Lymph % (Auto) 8.1 L [place] % (Auto) 6.0 Eos % (Auto) 2.8 Baso % (Auto) 0.1 Absolute Neuts (auto) 11.1 H Absolute Lymphs (auto) 1.09 Nucleated RBC % 0 Sodium 138 Potassium 3.8 Chloride 105 Carbon Dioxide 25.0 Anion Gap 8 BUN 13 Creatinine 0.84 Estim Creat Clear Calc 77.25 Est GFR (MDRD) Af Amer 114 Est GFR (MDRD) Non-Af 94 BUN/Creatinine Ratio 15.5 Glucose 128 H Calcium 8.0 L Magnesium 1.8 POC Glucose 139 H Physical Exam Narrative Regular rate and rhythm Abdomen: Soft, nondistended, tender near incision, incision clean dry and intact, Betadine miller removed and Steri-Strips placed. PARKER sanguinous, no peritoneal signs Assessment & Plan Assessment/Plan (1) S/P laparoscopic cholecystectomy: (2) S/P colon resection: PLAN: Patient's PARKER is serosanguineous. We will continue to monitor PARKER output as patient's diet is currently transitional. Likely DC tomorrow. Okay for transitional diet Continue ambulation and up in chair Await pathology Kamini Baig M.D. Pager: [phone] [facility] [address] [place] [address], [facility], [address] [place] [address] Office: [phone]
[2020-11-01] MEDS: Ibuprofen 400 MG Tablet PO ×2 (09:10→22:26)
[2020-11-01] MEDS: Docusate Sodium 100 MG Capsule PO ×2 (11:21→22:22)
[2020-11-01] MEDS: Enoxaparin 40 MG/0.4 ML Syringe SC (11:22)
[2020-11-01] MEDS: hydroCHLOROthiazide 25 MG Tablet PO (11:22)
[2020-11-01] MEDS: Insulin Lispro 100 UNIT/ML INSULN.PEN SC (11:22)
[2020-11-01] MEDS: Metoprolol Tartrate 50 MG Tablet PO ×2 (11:22→22:23)
[2020-11-01] MEDS: 0.9% Saline Lock 10 ML Syringe IV (11:24)
[2020-11-01] MEDS: Lisinopril 40 MG Tablet PO (11:24)
[2020-11-01 11:36] LABS: Bedside Glucose 156 mg/dL (70-110)
--- NOTE | 2020-11-01 14:40 | PN.HOSP_ITS ---
Subjective Subjective Patient moved his bowel. Mild abdominal discomfort. PARKER drain not much collection. Objective Data Objective Data Vital Signs: Vital Signs Temp Pulse Resp BP Pulse Ox 98.7 F 92 18 165/84 H 95 11/01/20 11:19 11/01/20 11:22 11/01/20 11:19 11/01/20 11:19 11/01/20 11:19 Oxygen Flow Rate (L/min) 2 Oxygen Delivery Method Room Air Weight: 194 lb 14.218 oz Body Mass Index (BMI) 27.9 Intake & Output: Intake and Output for Last 24 Hours 10/30/20 10/31/20 11/01/20 23:59 23:59 23:59 Intake Total 2164.17 / 2164.17 1831.33 / 1831.33 968 / 968 Output Total 1495 / 1495 1005 / 1005 720 / 720 Balance 669.17 / 669.17 826.33 / 826.33 248 / 248 Lab / Micro Data Result Diagrams: 11/01/20 05:38 11/01/20 05:33 Labs: Laboratory Results - last 24 hr 10/31/20 10/31/20 11/01/20 16:18 21:47 05:33 WBC RBC Hgb Hct MCV MCH MCHC RDW Std Deviation RDW Coeff of Oskar Plt Count MPV Immature Gran % (Auto) Neut % (Auto) Lymph % (Auto) [place] % (Auto) Eos % (Auto) Baso % (Auto) Absolute Neuts (auto) Absolute Lymphs (auto) Nucleated RBC % Sodium 138 Potassium 3.8 Chloride 105 Carbon Dioxide 25.0 Anion Gap 8 BUN 13 Creatinine 0.84 Estim Creat Clear Calc 77.25 Est GFR (MDRD) Af Amer 114 Est GFR (MDRD) Non-Af 94 BUN/Creatinine Ratio 15.5 Glucose 128 H Calcium 8.0 L Magnesium 1.8 POC Glucose 300 H 201 H 11/01/20 11/01/20 11/01/20 05:38 06:08 11:17 WBC 13.5 H RBC 3.74 L Hgb 10.6 L Hct 34.1 L MCV 91.2 MCH 28.3 MCHC 31.1 L RDW Std Deviation 45.1 H RDW Coeff of Oskar 13.4 Plt Count 349 MPV 11.5 Immature Gran % (Auto) 0.400 Neut % (Auto) 82.6 H Lymph % (Auto) 8.1 L [place] % (Auto) 6.0 Eos % (Auto) 2.8 Baso % (Auto) 0.1 Absolute Neuts (auto) 11.1 H Absolute Lymphs (auto) 1.09 Nucleated RBC % 0 Sodium Potassium Chloride Carbon Dioxide Anion Gap BUN Creatinine Estim Creat Clear Calc Est GFR (MDRD) Af Amer Est GFR (MDRD) Non-Af BUN/Creatinine Ratio Glucose Calcium Magnesium POC Glucose 139 H 156 H Physical Exam Narrative General: Alert, Oriented x3, Cooperative HEENT: Atraumatic, PERRLA, EOMI, Normocephalic Oral: No Gingival or Mucosal Lesions/ Ulcerations Neck: Supple, No JVD, Negative Carotid Bruits Lungs: Air entry diminished in bilateral lung bases. No crepitation/rhonchi Cardiovascular: Regular rate, Regular Rhythm, Normal S1, Normal S2, No murmurs Abdomen: Mild tenderness in left lower quadrant. Dressing was changed today. PARKER drain about 10 ml. Bowel sounds present. : No renal angle tenderness. No suprapubic tenderness. Extremities: No edema, Capillary Refill Less than 3 Seconds Skin: No rashes, No breakdown Musculoskeletal: No Tenderness to Palpation of Joints or Extremities Neurological: Cranial nerves II-XII grossly intact, Deep Tendon Reflexes 2+/4 and Symmetrical, Neuro grossly intact Psych/Mental Status: Normal Affect, Appropriate. Assessment & Plan Assessment/Plan (1) S/P colon resection: (2) S/P laparoscopic cholecystectomy: (3) Adenocarcinoma of sigmoid colon: (4) Acute cholecystitis: PLAN: This is a 75-year-old gentleman was diagnosed sigmoid adenocarcinoma on colonoscopy and acute cholecystitis on previous admission in first week of October 31 and was admitted for laparoscopic cholecystectomy and sigmoidectomy. Intra-Op note reviewed states gangrenous cholecystitis with sigmoid adenocarcinoma and had laparoscopic subtotal cholecystectomy with PARKER placement and lap converted to open sigmoid colectomy. Patient does not have cardiopu lmonary chronic disease. 1.? Subacute gangrenous cholecystitis, sigmoid adenocarcinoma-status post laparoscopic subtotal cholecystectomy with PARKER placement and lap converted to open sigmoid colectomy.? Management per general surgery. 11/01: Patient moved bowel twice. On transitional soft diet. Discussed with the surgeon. Plan for discharge tomorrow. 2. Type 2 diabetes mellitus-hemoglobin A1c 7%.? Accu-Cheks with sliding scale insulin.? Oral regimen on hold. 3. Hypertension-stable, continue lisinopril, HCTZ, metoprolol, nifedipine. 4. Hyperlipidemia-continue statin, Zetia. DVT prophylaxis- Lovenox sc Visit Charges Inpatient E&M: 34727 Subs Hosp L2
[2020-11-01 17:05] LABS: Bedside Glucose 137 mg/dL (70-110)
[2020-11-02 00:11] LABS: Bedside Glucose 129 mg/dL (70-110)
[2020-11-02 04:22] VITALS: BP 157/84; PULSE 74; RESP 18; TEMP 36.9; O2SAT 98
[2020-11-02] MEDS: Acetaminophen 500 MG Tablet 1000 MG PO (06:29)
[2020-11-02 06:47] LABS: Absolute Lymphocyte Count 0.99 X10^3/uL (0.83-4.51); Absolute Neutrophil Count 7.9 X10^3/uL (2.0-7.7); Basophil# 0.02 X10^3/uL; Basophil% 0.2 % (0-1); Eosinophil# 0.56 X10^3/uL; Eosinophils% 5.6 % (0-5); Hematocrit 33.2 % (40-54); Hemoglobin 10.4 g/dL (13.0-16.5); Lymphocyte # 0.99 X10^3/ul (0.83-4.51); Lymphocyte % 9.8 % (19-41); Mean Corp Hgb Conc 31.3 g/dL (32-36); Mean Corpuscular Hgb 28.4 pg (27.0-32.0); Mean Corpuscular Volume 90.7 fL (80-94); Mean Platelet Vol. 11.1 fl (6.2-12.0); Monocyte# 0.56 X10^3/uL; Monocyte% 5.6 % (0-10); NRBC Flagged by Analyzer 0 % (0-5); Neutrophil # 7.88 X10^3/uL (2.7-7.7); Neutrophil % 78.2 % (47-70); Platelet Count 351 K/mm3 (150-450); RBC Distribution Width CV 13.3 % (11.6-14.6); Red Blood Count 3.66 M/mm3 (4.6-6.2); White Blood Count 10.1 K/mm3 (4.4-11.0)
[2020-11-02 07:00] VITALS: O2SAT 94
[2020-11-02 07:06] LABS: Bedside Glucose 130 mg/dL (70-110)
[2020-11-02 07:12] LABS: Anion Gap 8 (5-15); BUN 7 mg/dL (7-18); BUN/Creat Ratio 10.7 RATIO (10-20); Calcium,Total 8.1 mg/dL (8.5-10.1); Chloride 103 mmol/L (98-107); Creatinine, Serum 0.65 mg/dL (0.70-1.30); EST Glomerular Filtration Rate 126 mL/min (>60); Est Glom Filt Rate - Afr Amer 153 mL/min (>60); Estimated Creatinine Clearance 64.89 ml/min; Glucose 127 mg/dL (74-106); Potassium 3.5 mmol/L (3.5-5.1); Sodium Level 139 mmol/L (136-145)
--- NOTE | 2020-11-02 08:38 | PN.SURG_ITS ---
Subjective Subjective Patient is doing well at higher transitional diet. Patient did have bowel movements which were loose patient's white blood cell count came down from 13-10 without antibiotics. Objective Data Objective Data Vital Signs: Vital Signs Temp Pulse Resp BP Pulse Ox 98.4 F 74 18 157/84 H 98 11/02/20 04:22 11/02/20 04:22 11/02/20 04:22 11/02/20 04:22 11/02/20 04:22 Oxygen Flow Rate (L/min) 2 Oxygen Delivery Method Room Air Weight: 194 lb 14.218 oz Body Mass Index (BMI) 27.9 Intake & Output: Intake and Output for Last 24 Hours 10/31/20 11/01/20 11/02/20 23:59 23:59 23:59 Intake Total 1831.33 / 1831.33 1168 / 1168 150 / 150 Output Total 1005 / 1005 732 / 732 5 / 5 Balance 826.33 / 826.33 436 / 436 145 / 145 Lab / Micro Data Result Diagrams: 11/02/20 06:16 11/02/20 06:11 Labs: Laboratory Results - last 24 hr 11/01/20 11/01/20 11/01/20 11:17 16:27 22:28 WBC RBC Hgb Hct MCV MCH MCHC RDW Std Deviation RDW Coeff of Oskar Plt Count MPV Immature Gran % (Auto) Neut % (Auto) Lymph % (Auto) [place] % (Auto) Eos % (Auto) Baso % (Auto) Absolute Neuts (auto) Absolute Lymphs (auto) Nucleated RBC % Sodium Potassium Chloride Carbon Dioxide Anion Gap BUN Creatinine Estim Creat Clear Calc Est GFR (MDRD) Af Amer Est GFR (MDRD) Non-Af BUN/Creatinine Ratio Glucose Calcium POC Glucose 156 H 137 H 129 H 11/02/20 11/02/20 11/02/20 06:11 06:16 06:33 WBC 10.1 RBC 3.66 L Hgb 10.4 L Hct 33.2 L MCV 90.7 MCH 28.4 MCHC 31.3 L RDW Std Deviation 44.0 H RDW Coeff of Oskar 13.3 Plt Count 351 MPV 11.1 Immature Gran % (Auto) 0.600 Neut % (Auto) 78.2 H Lymph % (Auto) 9.8 L [place] % (Auto) 5.6 Eos % (Auto) 5.6 H Baso % (Auto) 0.2 Absolute Neuts (auto) 7.9 H Absolute Lymphs (auto) 0.99 Nucleated RBC % 0 Sodium 139 Potassium 3.5 Chloride 103 Carbon Dioxide 28.0 Anion Gap 8 BUN 7 Creatinine 0.65 L Estim Creat Clear Calc 64.89 Est GFR (MDRD) Af Amer 153 Est GFR (MDRD) Non-Af 126 BUN/Creatinine Ratio 10.7 Glucose 127 H Calcium 8.1 L POC Glucose 130 H Physical Exam Narrative Abdomen: Soft, nondistended, tender near incisions, incisions clean dry and intact with Steri's. Patient's PARKER serosanguineous?removed at bedside Resp normal respiratory effort Cardio regular rate Assessment & Plan Assessment/Plan (1) S/P laparoscopic cholecystectomy: (2) S/P colon resection: PLAN: Patient tolerated traditional diet. PARKER still serosanguineous. Removed at bedside. DC home outpatient follow-up in 1 to 2 weeks. Await pathology Kamini Baig M.D. Pager: [phone] [facility] [address] [place] [address], [facility], [address] [place] [address] Office: [phone]
--- NOTE | 2020-11-02 08:38 | PCM.DC.SUM ---
Providers Date of Admission: 10/30/20 Primary Care Physician: Dr. Santino Finnegan MD Consultations 10/30/20 14:21 Consult: Hospitalist Routine Consulting Provider: Pratibha Brito Reason for Consult: medical management EMERGENT Consult: No MD Notified: Yes Date Notified:: 10/30/20 Time Notified: 14:21 Method of Notification: Text Diagnosis Discharge Diagnosis (1) S/P colon resection: Status: Acute Code(s): Z90.49 - Acquired absence of other specified parts of digestive tract (2) S/P laparoscopic cholecystectomy: Status: Acute Code(s): Z90.49 - Acquired absence of other specified parts of digestive tract (3) Adenocarcinoma of sigmoid colon: Status: Acute Code(s): C18.7 - Malignant neoplasm of sigmoid colon (4) Acute cholecystitis: Status: Resolved Code(s): K81.0 - Acute cholecystitis Medications at Discharge Home Medications alogliptin 25 mg PO DAILY 10/13/20 aspirin 81 mg PO DAILY 10/13/20 betamethasone dipropionate 1 applic TOPICAL DAILY 10/13/20 empagliflozin 25 mg PO DAILY 10/13/20 ezetimibe [Zetia] 10 mg DAILY 10/13/20 glimepiride 8 mg PO DAILY 10/13/20 hydrochlorothiazide 25 mg PO DAILY 10/13/20 lisinopril 40 mg PO DAILY 10/13/20 lovastatin 20 mg PO DAILY 10/13/20 metoprolol tartrate 50 mg PO BID 10/13/20 feiejkeiayuq-riihwjpn-fbbxaq 1 tab PO DAILY 10/13/20 niacinamide 1,000 mg PO QHS 10/13/20 nifedipine 90 mg PO BID 10/13/20 nitroglycerin 0.4 mg SUBLINGUAL Q5M PRN 10/13/20 ondansetron HCl [Zofran] 4 mg PO Q8H PRN #20 tab 10/16/20 acetaminophen 500 - 1,000 mg PO Q6 PRN #0 tab 11/02/20 ibuprofen 200 - 600 mg PO Q6H PRN PRN #0 tab 11/02/20 Hospital Course Operations cholecystecomy (Subtotal cholecystectomy) and colectomy (Sigmoid due to cancer) Procedures None Summary of Care Provided Minutes Spent on Discharge: 15 Hospital Course: Patient was admitted after laparoscopic subtotal cholecystectomy and laparoscopic converted to open sigmoidectomy due to sigmoid cancer and acute cholecystitis status post cholecystostomy tube. After surgery patient did have a PARKER in the gallbladder fossa has patient had a subtotal cholecystectomy due to difficult gallbladder due to inflammation/gangrenous posterior gallbladder wall. Postoperatively patient was on clear liquids until he began to have bowel function. Once patient had flatus/bowel movement he was able to be advanced to a transitional diet. Initially after surgery patient's white blood count was 17 which did come down on its own without antibiotics to 10 by D/C. Patient's PARKER drain remained sanguinous/serosanguineous and was able to be removed prior to discharge. Physical Exam Const alert, oriented x3 and no apparent distress HEENT normocephalic and head/scalp atraumatic Resp normal respiratory effort Cardio regular rate GI soft to palpation and non-distended Palpation: tender other (Near incisions, clean dry and intact, PARKER serosanguineous-removed); Negative for guarding Extremity no clubbing, cyanosis or edema Neuro CN's II-XII intact bilaterally Psych mental status grossly normal ABG / Lab / Microbiology Data Result Diagrams: 11/02/20 06:16 11/02/20 06:11 Laboratory: Laboratory Results - last 24 hr 11/01/20 11/01/20 11/01/20 11:17 16:27 22:28 WBC RBC Hgb Hct MCV MCH MCHC RDW Std Deviation RDW Coeff of Oskar Plt Count MPV Immature Gran % (Auto) Neut % (Auto) Lymph % (Auto) [place] % (Auto) Eos % (Auto) Baso % (Auto) Absolute Neuts (auto) Absolute Lymphs (auto) Nucleated RBC % Sodium Potassium Chloride Carbon Dioxide Anion Gap BUN Creatinine Estim Creat Clear Calc Est GFR (MDRD) Af Amer Est GFR (MDRD) Non-Af BUN/Creatinine Ratio Glucose Calcium POC Glucose 156 H 137 H 129 H 11/02/20 11/02/20 11/02/20 06:11 06:16 06:33 WBC 10.1 RBC 3.66 L Hgb 10.4 L Hct 33.2 L MCV 90.7 MCH 28.4 MCHC 31.3 L RDW Std Deviation 44.0 H RDW Coeff of Oskar 13.3 Plt Count 351 MPV 11.1 Immature Gran % (Auto) 0.600 Neut % (Auto) 78.2 H Lymph % (Auto) 9.8 L [place] % (Auto) 5.6 Eos % (Auto) 5.6 H Baso % (Auto) 0.2 Absolute Neuts (auto) 7.9 H Absolute Lymphs (auto) 0.99 Nucleated RBC % 0 Sodium 139 Potassium 3.5 Chloride 103 Carbon Dioxide 28.0 Anion Gap 8 BUN 7 Creatinine 0.65 L Estim Creat Clear Calc 64.89 Est GFR (MDRD) Af Amer 153 Est GFR (MDRD) Non-Af 126 BUN/Creatinine Ratio 10.7 Glucose 127 H Calcium 8.1 L POC Glucose 130 H D/C Instructions Discharge Diet: Light diet - advance as tolerated Discharge Activity: May Not Drive (If you are having too much pain in your belly, you cannot slam on the brakes) and May Shower May shower in (days): 0 Lifting Restricted to (Lbs): 20 (no lifting >20 lb for 2 wks, no strenuous exercise for 4 wk) Call your doctor if your incision/area has: Continuous Slow Oozing, Sudden Increased Bleeding, Increased Pain/ Swelling, Increased Redness, Foul Smelling Discharge and Swelling at the incision site Call your doctor if you observe: Fever of 101 or Higher Change Dressing in: 1 day (ok to stop dressing when no longer draining) Cleanse incision/area with: Soap & Water Additional Dressing/Incision Instructions: Steri-Strips will fall off in 7 to 10 days, if they do not fall off okay to remove after 10 days. Please Follow Up With: Kamini Baig MD When: Call the office for a follow-up appointment 2 weeks; after 5 PM and on the weekends call [phone] with any concerns. Meaningful Use Info Meaningful Use Diagnoses (Choose all that apply): None applicable Discharge Plan Admission Admit Date/Time: 10/30/20 12:07 Attending Provider: Kamini Baig Primary Care Provider: Santino Finnegan Consulting Providers: Pratibha Brito Discharge Orders/Prescriptions Prescriptions: New ibuprofen 400 mg Tablet 200 - 600 mg PO Q6H PRN PRN (Reason: Pain Score 1-10) Qty: 0 RF: 0 acetaminophen 500 mg Tablet 500 - 1,000 mg PO Q6 PRN (Reason: Pain, Mild) Qty: 0 RF: 0 Continued betamethasone dipropionate 0.05 % Cream 1 applic TOPICAL DAILY RF: 0 ezetimibe [Zetia] 10 mg Tablet 10 mg DAILY RF: 0 nifedipine 90 mg Tablet Extended Release 90 mg PO BID RF: 0 niacinamide 500 mg Tablet 1,000 mg PO QHS RF: 0 ijfxdylavxvr-fhcapltm-dwkati Tablet 1 tab PO DAILY RF: 0 metoprolol tartrate 50 mg Tablet 50 mg PO BID RF: 0 lisinopril 40 mg Tablet 40 mg PO DAILY RF: 0 glimepiride 4 mg Tablet 8 mg PO DAILY RF: 0 nitroglycerin 0.4 mg Tablet, Sublingual 0.4 mg SUBLINGUAL Q5M PRN (Reason: Chest Pain) RF: 0 aspirin 81 mg Tablet 81 mg PO DAILY RF: 0 hydrochlorothiazide 25 mg Tablet 25 mg PO DAILY RF: 0 lovastatin 20 mg Tablet 20 mg PO DAILY RF: 0 alogliptin 25 mg Tablet 25 mg PO DAILY RF: 0 empagliflozin 25 mg Tablet 25 mg PO DAILY RF: 0 ondansetron HCl [Zofran] 4 mg tablet 4 mg PO Q8H PRN (Reason: nausea and vomiting) Qty: 20 RF: 0 Referrals / Follow Up: Santino Finnegan MD [Primary Care Provider] -
[2020-11-02 09:39] VITALS: BP 159/79; PULSE 85; RESP 18; TEMP 37.1; O2SAT 98
[2020-11-02 09:43] VITALS: PULSE 85
[2020-11-02] MEDS: Metoprolol Tartrate 50 MG Tablet PO (09:43)
[2020-11-02] MEDS: Enoxaparin 40 MG/0.4 ML Syringe SC (09:43)
[2020-11-02] MEDS: hydroCHLOROthiazide 25 MG Tablet PO (09:43)
[2020-11-02] MEDS: Lisinopril 40 MG Tablet PO (09:43)
[2020-11-02] MEDS: Docusate Sodium 100 MG Capsule PO (09:44)
--- NOTE | 2020-11-02 11:06 | PCM.PN.HOSP ---
Subjective Subjective Patient is doing good he had moved bowel yesterday. PARKER drain content remains same about 10 mL. Mild abdominal discomfort. Objective Data Objective Data Vital Signs: Vital Signs Temp Pulse Resp BP Pulse Ox 98.7 F 85 18 159/79 H 98 11/02/20 09:39 11/02/20 09:43 11/02/20 09:39 11/02/20 09:39 11/02/20 09:39 Oxygen Flow Rate (L/min) 2 Oxygen Delivery Method Room Air Weight: 194 lb 14.218 oz Body Mass Index (BMI) 27.9 Intake & Output: Intake and Output for Last 24 Hours 10/31/20 11/01/20 11/02/20 23:59 23:59 23:59 Intake Total 1831.33 / 1831.33 1168 / 1168 150 / 150 Output Total 1005 / 1005 732 / 732 5 / 5 Balance 826.33 / 826.33 436 / 436 145 / 145 Lab / Micro Data Result Diagrams: 11/02/20 06:16 11/02/20 06:11 Labs: Laboratory Results - last 24 hr 11/01/20 11/01/20 11/01/20 11:17 16:27 22:28 WBC RBC Hgb Hct MCV MCH MCHC RDW Std Deviation RDW Coeff of Oskar Plt Count MPV Immature Gran % (Auto) Neut % (Auto) Lymph % (Auto) [place] % (Auto) Eos % (Auto) Baso % (Auto) Absolute Neuts (auto) Absolute Lymphs (auto) Nucleated RBC % Sodium Potassium Chloride Carbon Dioxide Anion Gap BUN Creatinine Estim Creat Clear Calc Est GFR (MDRD) Af Amer Est GFR (MDRD) Non-Af BUN/Creatinine Ratio Glucose Calcium POC Glucose 156 H 137 H 129 H 11/02/20 11/02/20 11/02/20 06:11 06:16 06:33 WBC 10.1 RBC 3.66 L Hgb 10.4 L Hct 33.2 L MCV 90.7 MCH 28.4 MCHC 31.3 L RDW Std Deviation 44.0 H RDW Coeff of Oskar 13.3 Plt Count 351 MPV 11.1 Immature Gran % (Auto) 0.600 Neut % (Auto) 78.2 H Lymph % (Auto) 9.8 L [place] % (Auto) 5.6 Eos % (Auto) 5.6 H Baso % (Auto) 0.2 Absolute Neuts (auto) 7.9 H Absolute Lymphs (auto) 0.99 Nucleated RBC % 0 Sodium 139 Potassium 3.5 Chloride 103 Carbon Dioxide 28.0 Anion Gap 8 BUN 7 Creatinine 0.65 L Estim Creat Clear Calc 64.89 Est GFR (MDRD) Af Amer 153 Est GFR (MDRD) Non-Af 126 BUN/Creatinine Ratio 10.7 Glucose 127 H Calcium 8.1 L POC Glucose 130 H Physical Exam Narrative General: Alert, Oriented x3, Cooperative HEENT: Atraumatic, PERRLA, EOMI, Normocephalic Oral: No Gingival or Mucosal Lesions/ Ulcerations Neck: Supple, No JVD, Negative Carotid Bruits Lungs: Air entry diminished in bilateral lung bases. No crepitation/rhonchi Cardiovascular: Regular rate, Regular Rhythm, Normal S1, Normal S2, No murmurs Abdomen: No tenderness. Small listed on midline dressing. PARKER drain about 10 ml. Bowel sounds present. : No renal angle tenderness. No suprapubic tenderness. Extremities: No edema, Capillary Refill Less than 3 Seconds Skin: No rashes, No breakdown Musculoskeletal: No Tenderness to Palpation of Joints or Extremities Neurological: Cranial nerves II-XII grossly intact, Deep Tendon Reflexes 2+/4 and Symmetrical, Neuro grossly intact Psych/Mental Status: Normal Affect, Appropriate. Assessment & Plan Assessment/Plan (1) S/P colon resection: (2) S/P laparoscopic cholecystectomy: (3) Adenocarcinoma of sigmoid colon: (4) Acute cholecystitis: PLAN: This is a 75-year-old gentleman was diagnosed sigmoid adenocarcinoma on colonoscopy and acute cholecystitis on previous admission in first week of October 31 and was admitted for laparoscopic cholecystectomy and sigmoidectomy. Intra-Op note reviewed states gangrenous cholecystitis with sigmoid adenocarcinoma and had laparoscopic subtotal cholecystectomy with PARKER placement and lap converted to open sigmoid colectomy. Patient does not have cardiopulmonary chronic disease. 1.? Subacute gangrenous cholecystitis, sigmoid adenocarcinoma-status post laparoscopic subtotal cholecystectomy with PARKER placement and lap converted to open sigmoid colectomy.? Management per general surgery. 11/01: Patient moved bowel twice. On transitional soft diet. Discussed with the surgeon. 11/02: On transitional diet. Drain removed by the surgeon. Patient able to go home today. 2. Type 2 diabetes mellitus-hemoglobin A1c 7%.? Accu-Cheks with sliding scale insulin.? Oral regimen on hold. Continue home medications. 3. Hypertension-stable, continue lisinopril, HCTZ, metoprolol, nifedipine. 4. Hyperlipidemia-continue statin, Zetia. DVT prophylaxis- Lovenox sc Patient is discharged home. Visit Charges Inpatient E&M: 42213 Subs Hosp L2
== END 2020-11-02 11:58 | disposition home or self-care (01) | DRG 330 ==
LOC: SDC 13:17 → MS3 13:17
PROVIDERS: Internal Medicine; Admitting Provider Surgery; PCP Family Medicine; Referring Provider Surgery; Visit Provider Surgery
PROC: 0DTN0ZZ Resection of Sigmoid Colon, Open Approach (ICD-10-PCS; CPT 44204; principal; 2020-10-30 07:05)
PROC: 0DTN0ZZ Resection of Sigmoid Colon, Open Approach (ICD-10-PCS; CPT 47610; 2020-10-30 07:05)
DX: C18.7 Malignant neoplasm of sigmoid colon (principal); K80.00 Calculus of gallbladder with acute cholecystitis without obstruction; K82.A1 Gangrene of gallbladder in cholecystitis; K66.0 Peritoneal adhesions (postprocedural) (postinfection); D12.4 Benign neoplasm of descending colon; K64.1 Second degree hemorrhoids; K64.4 Residual hemorrhoidal skin tags; K57.30 Diverticulosis of large intestine without perforation or abscess without bleeding; K76.0 Fatty (change of) liver, not elsewhere classified; I25.10 Atherosclerotic heart disease of native coronary artery without angina pectoris; I10 Essential (primary) hypertension; E11.9 Type 2 diabetes mellitus without complications; E78.5 Hyperlipidemia, unspecified; H91.93 Unspecified hearing loss, bilateral; Z53.31 Laparoscopic surgical procedure converted to open procedure; Z95.5 Presence of coronary angioplasty implant and graft; Z90.49 Acquired absence of other specified parts of digestive tract; Z93.4 Other artificial openings of gastrointestinal tract status; Z79.4 Long term (current) use of insulin; Z79.82 Long term (current) use of aspirin; Z79.899 Other long term (current) drug therapy; Z85.038 Personal history of other malignant neoplasm of large intestine; Z87.891 Personal history of nicotine dependence
CPT/HCPCS: 36415; 71260; 74177; 80048; 80053; 82248; 82378; 82962; 83036; 83735; 85025; 85027; 88304; 88305; 88309; 88331; 88341; 88342; 94762; 97802; 99251; J7120; Q9967; A4216; A4648; C1760; G0463; J2405

== ENCOUNTER 2020-12-30 22:48 | Inpatient (IN) | payer MEDICARE, OTHER, SELFPAY ==
[2020-12-30 09:38] VITALS: BMI 29.2
[2020-12-30 22:49] VITALS: BP 159/69; PULSE 117; RESP 16; TEMP 36.6; O2SAT 93; BMI 29.3
--- NOTE | 2020-12-30 23:12 | CT_ITS ---
STUDY: CT ABDOMEN AND PELVIS WITH CONTRAST REASON FOR EXAM: Male, 75 years old. abd pain -- IV PO Contrast RADIATION DOSAGE (If Supplied By Facility): CTDIvol = ( 18.01 ) mGy, DLP = ( 1383.22 ) mGycm TECHNIQUE: Transaxial images were obtained from the dome of the diaphragm to the symphysis pubis without oral contrast. Oral and amp; IV Gastrografin and amp; 100mL Isovue-300 was administered. Sagittal and coronal images were reconstructed. Individualized dose optimization techniques were used for this CT. COMPARISON: 10/28/2020 FINDINGS: Calcified granulomas in the left lower lobe. Combination of platelike atelectasis versus linear scars in the lung bases, more prominent on the right. Coronary artery calcifications. Subcentimeter stable hypodensities in the left lobe of the liver, likely cysts or small hemangiomas. Unremarkable pancreas and adrenals. Rim calcified small cysts in the spleen, unchanged. Bilateral renal cortical cysts redemonstrated. The patient''s known gallbladder stones better seen on the prior study. Marked wall thickening and mucosal hyperenhancement of the loop of ileum in the right mid to lower abdomen, surrounded by fat stranding. Findings are consistent with acute ileitis. Small bowel loops proximal to this abnormal loop of bowel are dilated and fluid-filled, suggestive of high-grade partial small bowel obstruction. Air is noted in the colon and rectum. Status post partial sigmoidectomy and anastomosis. Diffuse colonic diverticulosis. No acute diverticulitis. Normal appendix. No free air or free fluid. No adenopathy. Vascular calcification with no abdominal aortic aneurysm. Sections through the pelvis demonstrate an enlarged prostate gland. Correlation with rectal examination and serum PSA levels is recommended. Urinary bladder is grossly unremarkable. Small fat and fluid containing right inguinal hernia. Tiny fat-containing left inguinal hernia. Multilevel thoracolumbar spondylosis. CT/Abdomen/Pelvis WITH Contrast IMPRESSION: Findings compatible with acute infectious/inflammatory ileitis involving a loop of ileum in the mid to lower abdomen on the right. Associated high-grade partial small bowel obstruction proximal to this abnormal loop of bowel. Colonic diverticulosis. No acute diverticulitis. Normal appendix. Electronically Signed: Yoni Valente MD at 3:08 EDT Tel , Service support ,
--- NOTE | 2020-12-30 23:14 | ED.VIS.GI ---
HPI HPI - GI History of Present Illness Chief Complaint: Abd Pain Informant: patient Narrative Narrative: Patient reports increasing abdominal pain cramping distention since 4 PM today. Nausea without vomiting. Took a Zofran. Able to tolerate oral fluids. He states he had a bowel movement at that time. He is status post cholecystectomy and partial colectomy this past October. States he had a gangrenous gallbladder, during admission at that time reported had rectal bleeding, had a colonoscopy finding mass in his colon with resection done at the same time by Dr. Baig. He started on chemotherapy in November last treatment was 2 weeks ago. He is followed by Dr. Baker. States he did have a office visit this morning prior to symptoms starting. No history of bowel obstruction. No urinary symptoms. Prior similar symptoms: No PFSH PFSH Medical History Alcohol use Cancer Cardiology follow-up encounter Coronary artery disease Diabetes Encounter for education Former smoker Hearing loss, left Hearing loss, right History of alcohol use Hx of cardiovascular stress test Hx of diarrhea Hx of echocardiogram Hypertension Loose, teeth Wears glasses Home Medications alogliptin 25 mg PO DAILY 10/13/20 [History Last Taken 10/13/20] aspirin 81 mg PO DAILY 10/13/20 [History Last Taken 10/13/20] betamethasone dipropionate 1 applic TOPICAL DAILY 10/13/20 [History Last Taken Unknown] empagliflozin 25 mg PO DAILY 10/13/20 [History Last Taken 10/30/20] ezetimibe [Zetia] 10 mg DAILY 10/13/20 [History Last Taken 10/13/20] glimepiride 8 mg PO DAILY 10/13/20 [History Last Taken Unknown] hydrochlorothiazide 25 mg PO DAILY 10/13/20 [History Last Taken 10/13/20] lisinopril 40 mg PO DAILY 10/13/20 [History Last Taken 10/30/20] lovastatin 20 mg PO DAILY 10/13/20 [History Last Taken Unknown] metoprolol tartrate 50 mg PO BID 10/13/20 [History Last Taken 10/30/20] ohgkgimqqhsi-ifkjfeie-odbklw 1 tab PO DAILY 10/13/20 [History Last Taken 10/13/20] niacinamide 1,000 mg PO QHS 10/13/20 [History Last Taken Unknown] nifedipine 90 mg PO BID 10/13/20 [History Last Taken 10/28/20 05:00] nitroglycerin 0.4 mg SUBLINGUAL Q5M PRN 10/13/20 [History Last Taken 06/06/20] ibuprofen 200 - 600 mg PO Q6H PRN PRN #0 tab 11/02/20 [Rx Last Taken Unknown] ondansetron HCl 4 mg tablet 4 mg PO Q8H PRN #20 tab 12/03/20 [Rx Last Taken Unknown] polysaccharide iron complex 150 mg iron capsule 150 mg PO BID #180 cap 12/03/20 [Rx Last Taken Unknown] Hydrocortisone 2.5% / Lidocaine 5% ointment (cmpd) #1 ea 12/16/20 [Rx Last Taken Unknown] acetaminophen 500 mg tablet 500 mg PO Q6H PRN 12/30/20 [History Last Taken Unknown] Allergy/AdvReac Type Severity Reaction Status Date / Time No Known Allergies Allergy Verified 12/30/20 22:49 Family History Mother Asthma Diabetes Heart disease Hypertension Surgical History History of coronary artery stent placement Hx of colonoscopy Hx of heart artery stent Social History Smoking Status: Former smoker quit date: 06/13/71 pack-years: 1 Tobacco: How many years used: 7 second hand exposure: No alcohol intake: current alcohol intake frequency: holidays/special occasions only Alcohol type: beer substance use type: does not use rahul/adventist: Holiness seatbelt use: always do you feel safe at home: Yes ROS ROS ED Constitutional Constitutional ED: Denies chills, fever(s) or sweats Eyes Eyes: Denies change in vision ENT ENT ED: Denies dysphagia or sore throat Cardiovascular Cardiovascular: Denies chest pain, leg edema, palpitations or racing heartbeat Respiratory/Chest Respiratory/Chest: Denies cough, dyspnea or dyspnea on exertion Gastrointestinal Gastrointestinal: Reports abdominal pain and nausea; Denies diarrhea or vomiting Genitourinary Genitourinary ED: Denies dysuria, hematuria or urinary frequency Musculoskeletal Musculoskeletal: Denies back pain, extremity pain or neck pain Integumentary Denies rash or wounds Neurologic Neurologic: Denies headache(s), paresthesias or weakness EXAM Physical Exam Const Vital Signs: 12/30/20 22:49 12/31/20 01:46 Temperature 97.8 F 97.4 F L Temperature Source Temporal Temporal Pulse Rate 117 H 108 H Respiratory Rate 16 16 Blood Pressure 159/69 H 155/67 H Blood Pressure Mean 99 96 Pulse Ox 93 95 Oxygen Delivery Method Room Air Room Air Positive well nourished and well developed General Appearance ED: well developed and NAD HEENT Reports moist mucous membranes normocephalic and atraumatic Eyes PERRL, EOMs intact bilaterally and conjunctivae normal General Eye ED: Yes normal appearance of both eyes Neck no lymphadenopathy and supple General: Negative for tenderness Chest Wall Chest: Negative for tenderness Resp normal respiratory effort and normal air movement Effort and Inspection: symmetric chest movement; Negative for respiratory distress Cardio regular rhythm and no murmurs Rate: tachycardic Peripheral Pulses: pulses 2+ throughout GI normal to inspection, nondistended, normoactive bowel sounds GI Narrative: Abdomen slightly distended, mild tenderness upper quadrants. Hypoactive bowel sounds. Healed inferior umbilical surgical scar. Palpation: Negative for guarding or rebound tenderness present Back/Spine no CVA tenderness and no thoracic nor lumbar tenderness Extremity normal to inspection General Extremety ED: Negative for edema or tenderness General Extremity: Negative for edema Neuro oriented x3 and no sensory deficits noted Sensorium / Orientation: awake and alert Skin no rashes or lesions noted and no wounds MDM MDM MDM Narrative Medical decision making narrative: Patient presents with pain distention nausea. Postop cholecystectomy and partial colectomy 2 months ago. Treated for pain and nausea. IVF fluids given. Work-up with labs white count of 13.3. Potassium 3.3. Lipase 50. Liver enzymes normal. Contrast CT results per radiology notes partial high-grade small bowel obstruction with an ileitis. I spoke with patient's surgeon Dr. Biag, knows the patient, discuss his chemotherapy initiation. We will try antibiotics due to the ileitis. Zosyn ordered, blood cultures and lactic acid ordered prior due to meeting SIRS criteria with white count and heart rate. NG tube ordered for placement. She requests admission to medicine due to being cancer patient on chemotherapy. I spoke with hospitalist Dr. Rai who will admit to [facility] for further management. Lab Data Attestation: I reviewed the patient's lab results. Labs: Laboratory Results - last 24 hr 12/30/20 12/30/20 23:40 23:40 WBC 13.3 H RBC 5.19 Hgb 15.2 Hct 47.9 MCV 92.3 MCH 29.3 MCHC 31.7 L RDW Std Deviation 63.5 H RDW Coeff of Oskar 18.8 H Plt Count 244 MPV 10.9 Immature Gran % (Auto) 0.500 Neut % (Auto) 80.8 H Lymph % (Auto) 6.6 L [place] % (Auto) 11.3 H Eos % (Auto) 0.5 Baso % (Auto) 0.3 Absolute Neuts (auto) 10.8 H Absolute Lymphs (auto) 0.88 Nucleated RBC % 0 Differential Comment SCANNED Diff Path Review May foll Platelet Estimate ADEQUATE Anisocytosis RARE Macrocytosis RARE Sodium 141 Potassium 3.3 L Chloride 108 H Carbon Dioxide 23.0 Anion Gap 10 BUN 14 Creatinine 0.83 Estim Creat Clear Calc 78.18 Est GFR (MDRD) Af Amer 115 Est GFR (MDRD) Non-Af 95 BUN/Creatinine Ratio 16.8 Glucose 187 H Calcium 7.8 L Total Bilirubin 0.70 AST 9 L ALT 19 Alkaline Phosphatase 56 Total Protein 5.1 L Albumin 2.3 L Globulin 2.8 Albumin/Globulin Ratio 0.8 L Lipase 50 L Radiography Diagnostic Testing: Radiology Impression Abdomen/Pelvis CT 12/30/20 23:12 IMPRESSION: Findings compatible with acute infectious/inflammatory ileitis involving a loop of ileum in the mid to lower abdomen on the right. Associated high-grade partial small bowel obstruction proximal to this abnormal loop of bowel. Colonic diverticulosis. No acute diverticulitis. Normal appendix. Electronically Signed: Yoni Valente MD at 3:08 EDT Tel , Service support , Discharge Plan Triage Chief Complaint: Abd Pain ED Provider: Tyshawn Zee Dx/Rx/DC Orders Clinical Impression: Ileitis, Partial small bowel obstruction, History of colon cancer Prescriptions: No Action ondansetron HCl [Zofran] 4 mg tablet 4 mg PO Q8H PRN (Reason: nausea and vomiting) Qty: 20 RF: 0 polysaccharide iron complex [Ferrex 150] 150 mg iron capsule 150 mg PO BID Qty: 180 RF: 1 acetaminophen [Tylenol Extra Strength] 500 mg tablet 500 mg PO Q6H PRNRF: 0 betamethasone dipropionate 0.05 % Cream 1 applic TOPICAL DAILY RF: 0 ezetimibe [Zetia] 10 mg Tablet 10 mg DAILY RF: 0 nifedipine 90 mg Tablet Extended Release 90 mg PO BID RF: 0 niacinamide 500 mg Tablet 1,000 mg PO QHS RF: 0 ibeutmbtzzyl-odottngf-aqnvgq Tablet 1 tab PO DAILY RF: 0 metoprolol tartrate 50 mg Tablet 50 mg PO BID RF: 0 lisinopril 40 mg Tablet 40 mg PO DAILY RF: 0 glimepiride 4 mg Tablet 8 mg PO DAILY RF: 0 nitroglycerin 0.4 mg Tablet, Sublingual 0.4 mg SUBLINGUAL Q5M PRN (Reason: Chest Pain) RF: 0 aspirin 81 mg Tablet 81 mg PO DAILY RF: 0 hydrochlorothiazide 25 mg Tablet 25 mg PO DAILY RF: 0 lovastatin 20 mg Tablet 20 mg PO DAILY RF: 0 alogliptin 25 mg Tablet 25 mg PO DAILY RF: 0 empagliflozin 25 mg Tablet 25 mg PO DAILY RF: 0 ibuprofen 400 mg Tablet 200 - 600 mg PO Q6H PRN PRN (Reason: Pain Score 1-10) Qty: 0 RF: 0 (DME) Hydrocortisone 2.5%/lidocaine 5% ointment (compound) Ointment See Rx Instructions .ROUTE .MEDSUPPLY Qty: 1 RF: 1 Primary Care Provider: Santino Finnegan Referrals: Santino Finnegan MD [Primary Care Provider] - Disposition Disposition: Acute Care Hospital [facility]
[2020-12-30] MEDS: Morphine 4 MG/ML Syringe IV (23:34)
[2020-12-30] MEDS: 0.9% Normal Saline 1,000 ML 125 ML IV (23:34)
[2020-12-30] MEDS: Ondansetron 4 MG/2 ML Vial IV (23:34)
[2020-12-30 23:43] LABS: Absolute Lymphocyte Count 0.88 X10^3/uL (0.83-4.51); Absolute Neutrophil Count 10.8 X10^3/uL (2.0-7.7); Basophil# 0.04 X10^3/uL; Basophil% 0.3 % (0-1); Eosinophil# 0.07 X10^3/uL; Eosinophils% 0.5 % (0-5); Hematocrit 47.9 % (40-54); Hemoglobin 15.2 g/dL (13.0-16.5); Lymphocyte # 0.88 X10^3/ul (0.83-4.51); Lymphocyte % 6.6 % (19-41); Mean Corp Hgb Conc 31.7 g/dL (32-36); Mean Corpuscular Hgb 29.3 pg (27.0-32.0); Mean Corpuscular Volume 92.3 fL (80-94); Mean Platelet Vol. 10.9 fl (6.2-12.0); Monocyte# 1.51 X10^3/uL; Monocyte% 11.3 % (0-10); NRBC Flagged by Analyzer 0 % (0-5); Neutrophil # 10.75 X10^3/uL (2.7-7.7); Neutrophil % 80.8 % (47-70); POSITIVE DIFFERENTIAL YES; Platelet Count 244 K/mm3 (150-450); RBC Distribution Width CV 18.8 % (11.6-14.6); RBC Distribution Width SD 63.5 fl (35.1-43.9); Red Blood Count 5.19 M/mm3 (4.6-6.2); White Blood Count 13.3 K/mm3 (4.4-11.0)
[2020-12-30 23:46] LABS: Differential Indicated SCAN CRITERIA MET
[2020-12-31] VITALS (15 sets, daily range): BP systolic 142–157; BP diastolic 66–82; PULSE 96–108; RESP 16–18; TEMP 35.9–36.9; O2SAT 86–97; BMI 29.3
[2020-12-31 00:27] LABS: ALB/GLOB Ratio 0.8 RATIO (0.9-2.4); AST(SGOT) 9 U/L (15-37); Alanine Aminotransfer ALT/SGPT 19 U/L (16-61); Albumin, Serum 2.3 g/dL (3.2-5.0); Alkaline Phosphatase 56 U/L (45-117); Anion Gap 10 (5-15); BUN 14 mg/dL (7-18); BUN/Creat Ratio 16.8 RATIO (10-20); Calcium,Total 7.8 mg/dL (8.5-10.1); Chloride 108 mmol/L (98-107); Creatinine, Serum 0.83 mg/dL (0.70-1.30); Differential Comment SCANNED; EST Glomerular Filtration Rate 95 mL/min (>60); Est Glom Filt Rate - Afr Amer 115 mL/min (>60); Estimated Creatinine Clearance 78.18 ml/min; Globulin 2.8 g/dL (2.2-4.2); Glucose 187 mg/dL (74-106); Lipase 50 U/L (73-393); Potassium 3.3 mmol/L (3.5-5.1); Protein, Total 5.1 g/dL (6.4-8.2); Sodium Level 141 mmol/L (136-145)
[2020-12-31 00:28] LABS: Anisocytosis RARE; Macrocytosis RARE
[2020-12-31 00:29] LABS: Platelet Estimate ADEQUATE (ADEQ)
[2020-12-31] MEDS: Morphine 4 MG/ML Syringe IV (03:04)
--- NOTE | 2020-12-31 03:30 | RAD_ITS ---
STUDY: X-RAY - ABDOMEN/PELVIS REASON FOR EXAM: Male, 75 years old. NG Insertion TECHNIQUE: Single AP view of the abdomen / pelvis. COMPARISON: None. FINDINGS: Normal visualized lung bases. There is an unremarkable bowel gas pattern. NG tube noted with tip and side-port in the stomach. There is no demonstrated free abdominal air. The visualized liver, spleen and kidneys are grossly normal in size and morphology. Normal soft tissue structures. Normal visualized osseous structures. RAD/Abdomen Single View (Portable) IMPRESSION: NG tube with tip and side-port in the stomach. Electronically Signed: Sanford Whitt DO at 5:20 EDT Tel , Service support ,
[2020-12-31] MEDS: Oxymetazoline 0.05% 1 SPRAY SPRAY.BTL 2 SPRAY NASAL (03:51)
[2020-12-31] MEDS: Lidocaine 4% 5 ML Ampul 2 ML INHALATION (03:52)
--- NOTE | 2020-12-31 03:56 | PCM.HP.STD ---
HPI - General General Date of Admission: 12/31/20 Date of Service: 12/31/20 Chief Complaint: Abdominal pain HPI Narrative ALEXX RICHARDS, is a 75 M with significant history of CAD status post stents in 2001; colon cancer status post partial colectomy; and cholecystectomy who presents with excruciating cramping abdominal pain. His pain is located at the upper abdomen; spanning from left to right. The pain is nonradiating. He denies any aggravating or ameliorating factors to the pain. Associated with symptoms is nausea. He denies vomiting. His pain worsens with eating and drinking. His pain improves with rest. His symptoms started about 6 hours prior to presentation. Recently had his symptoms his bowels moved. His stool was well formed. He reported about a week ago he had diarrhea but in the past 2 days his stool is well formed. [facility] Medical History Alcohol use Cancer Cardiology follow-up encounter Coronary artery disease Diabetes Encounter for education Former smoker Hearing loss, left Hearing loss, right History of alcohol use Hx of cardiovascular stress test Hx of diarrhea Hx of echocardiogram Hypertension Loose, teeth Wears glasses Home Medications alogliptin 25 mg PO DAILY 10/13/20 [History Last Taken 10/13/20] aspirin 81 mg PO DAILY 10/13/20 [History Last Taken 10/13/20] betamethasone dipropionate 1 applic TOPICAL DAILY 10/13/20 [History Last Taken Unknown] empagliflozin 25 mg PO DAILY 10/13/20 [History Last Taken 10/30/20] ezetimibe [Zetia] 10 mg DAILY 10/13/20 [History Last Taken 10/13/20] glimepiride 8 mg PO DAILY 10/13/20 [History Last Taken Unknown] hydrochlorothiazide 25 mg PO DAILY 10/13/20 [History Last Taken 10/13/20] lisinopril 40 mg PO DAILY 10/13/20 [History Last Taken 10/30/20] lovastatin 20 mg PO DAILY 10/13/20 [History Last Taken Unknown] metoprolol tartrate 50 mg PO BID 10/13/20 [History Last Taken 10/30/20] jggcnszwpcxu-wkaoxrck-jsoyks 1 tab PO DAILY 10/13/20 [History Last Taken 10/13/20] niacinamide 1,000 mg PO QHS 10/13/20 [History Last Taken Unknown] nifedipine 90 mg PO BID 10/13/20 [History Last Taken 10/28/20 05:00] nitroglycerin 0.4 mg SUBLINGUAL Q5M PRN 10/13/20 [History Last Taken 06/06/20] ibuprofen 200 - 600 mg PO Q6H PRN PRN #0 tab 11/02/20 [Rx Last Taken Unknown] ondansetron HCl 4 mg tablet 4 mg PO Q8H PRN #20 tab 12/03/20 [Rx Last Taken Unknown] polysaccharide iron complex 150 mg iron capsule 150 mg PO BID #180 cap 12/03/20 [Rx Last Taken Unknown] Hydrocortisone 2.5% / Lidocaine 5% ointment (cmpd) #1 ea 12/16/20 [Rx Last Taken Unknown] acetaminophen 500 mg tablet 500 mg PO Q6H PRN 12/30/20 [History Last Taken Unknown] Allergy/AdvReac Type Severity Reaction Status Date / Time No Known Allergies Allergy Verified 12/30/20 22:49 Family History Mother Asthma Diabetes Heart disease Hypertension Surgical History History of coronary artery stent placement Hx of colonoscopy Hx of heart artery stent Social History Smoking Status: Former smoker quit date: 06/13/71 pack-years: 1 Tobacco: How many years used: 7 second hand exposure: No alcohol intake: current alcohol intake frequency: holidays/special occasions only Alcohol type: beer substance use type: does not use rahul/religious: Congregation seatbelt use: always do you feel safe at home: Yes ROS ROS Narrative 12 point review of system is negative except as stated in HPI. Vital Signs Vital Signs Vital Signs: 12/30/20 22:49 12/31/20 01:46 12/31/20 03:52 Temperature 97.8 F 97.4 F L 97.4 F L Temperature Source Temporal Temporal Temporal Pulse Rate 117 H 108 H 108 H Respiratory Rate 16 16 16 Blood Pressure 159/69 H 155/67 H 156/78 H Blood Pressure Mean 99 96 104 Pulse Ox 93 95 96 Oxygen Delivery Method Room Air Room Air Room Air Weight Weight: 92.9 kg Body Mass Index (BMI) 29.3 Results Lab / Micro Data Result Diagrams: 12/30/20 23:40 12/30/20 23:40 Labs: Laboratory Results - last 24 hr 12/30/20 23:40: WBC 13.3 H, RBC 5.19, Hgb 15.2, Hct 47.9, MCV 92.3, MCH 29.3, MCHC 31.7 L, RDW Std Deviation 63.5 H, RDW Coeff of Oskar 18.8 H, Plt Count 244, MPV 10.9, Immature Gran % (Auto) 0.500, Neut % (Auto) 80.8 H, Lymph % (Auto) 6.6 L, [place] % (Auto) 11.3 H, Eos % (Auto) 0.5, Baso % (Auto) 0.3, Absolute Neuts (auto) 10.8 H, Absolute Lymphs (auto) 0.88, Nucleated RBC % 0, Differential Comment SCANNED, Diff Path Review May foll, Platelet Estimate ADEQUATE, Anisocytosis RARE, Macrocytosis RARE 12/30/20 23:40: Sodium 141, Potassium 3.3 L, Chloride 108 H, Carbon Dioxide 23.0, Anion Gap 10, BUN 14, Creatinine 0.83, Estim Creat Clear Calc 78.18, Est GFR (MDRD) Af Amer 115, Est GFR (MDRD) Non-Af 95, BUN/Creatinine Ratio 16.8, Glucose 187 H, Calcium 7.8 L, Total Bilirubin 0.70, AST 9 L, ALT 19, Alkaline Phosphatase 56, Total Protein 5.1 L, Albumin 2.3 L, Globulin 2.8, Albumin/Globulin Ratio 0.8 L, Lipase 50 L Radiology Impression Abdomen/Pelvis CT 12/30/20 23:12 IMPRESSION: Findings compatible with acute infectious/inflammatory ileitis involving a loop of ileum in the mid to lower abdomen on the right. Associated high-grade partial small bowel obstruction proximal to this abnormal loop of bowel. Colonic diverticulosis. No acute diverticulitis. Normal appendix. Electronically Signed: Yoni Valente MD at 3:08 EDT Tel , Service support , Assessment & Plan Assessment/Plan (1) Ileitis: (2) Partial small bowel obstruction: PLAN: Sepsis secondary to ileitis Emergency department labs reviewed showed a white count of 13.3. Heart rate is more than 90. Abdomen and pelvis CT finding of ileitis. Received Zosyn in the emergency department. Ceftriaxone and azithromycin ordered. Gentle IV hydration ordered. Trend CBC and BMP. High-grade partial small bowel obstruction NG tube was placed in the emergency department. Keep patient n.p.o. Emergency department doctor discussed the case with general surgery. General surgery consult. Hypokalemia Potassium is 3.3. Normal saline with 40 mEq of potassium ordered. Trend BMP. Diabetes mellitus Patient with hyperglycemia on presentation Hold all home oral hypoglycemic regimen. Accu-Chek QA CHS with correction scale insulin ordered. Hypertension Blood pressure is not within goal In the setting of patient being n.p.o. hold all home blood pressure medication. Scheduled IV Vasotec ordered. Trend blood pressure and adjust blood pressure medications. Colon cancer Status post partial colectomy. Patient reported that on December 03, 2020 he was started on chemotherapy for 14 days. He has been off acute therapy for about 2 weeks. DVT prophylaxis SCD ordered. Charges/Coding Multi Select Codes Visit Charges Visit Charges: 09793 Init Hosp L3
[2020-12-31 04:59] LABS: Lactic Acid 1.3 mmol/L (0.4-1.9)
[2020-12-31] MEDS: Potassium Chloride 40 MEQ in 0.9% Normal Saline 1,000 ML 75 MEQ IV ×2 (05:02→18:10)
[2020-12-31] MEDS: metroNIDAZOLE 500 MG/100 ML BAG 100 MG IV ×3 (05:12→21:54)
[2020-12-31] MEDS: Enalaprilat 1.25 MG/ML Vial IV ×2 (05:12→13:10)
[2020-12-31] MEDS: 0.9% Saline Lock 10 ML Syringe IV ×4 (05:17→13:14)
[2020-12-31] MEDS: Insulin Lispro 100 UNIT/ML INSULN.PEN SC (05:17)
[2020-12-31 05:36] LABS: Bedside Glucose 176 mg/dL (70-110)
[2020-12-31 06:37] LABS: Absolute Lymphocyte Count 1.03 X10^3/uL (0.83-4.51); Absolute Neutrophil Count 5.1 X10^3/uL (2.0-7.7); Basophil# 0.02 X10^3/uL; Basophil% 0.3 % (0-1); Eosinophil# 0.15 X10^3/uL; Hematocrit 45.5 % (40-54); Hemoglobin 14.8 g/dL (13.0-16.5); Lymphocyte # 1.03 X10^3/ul (0.83-4.51); Lymphocyte % 13.5 % (19-41); Mean Corp Hgb Conc 32.5 g/dL (32-36); Mean Corpuscular Hgb 29.8 pg (27.0-32.0); Mean Corpuscular Volume 91.5 fL (80-94); Monocyte# 1.33 X10^3/uL; Monocyte% 17.5 % (0-10); NRBC Flagged by Analyzer 0 % (0-5); Neutrophil # 5.05 X10^3/uL (2.7-7.7); Neutrophil % 66.2 % (47-70); Platelet Count 246 K/mm3 (150-450); RBC Distribution Width CV 19.2 % (11.6-14.6); RBC Distribution Width SD 63.9 fl (35.1-43.9); Red Blood Count 4.97 M/mm3 (4.6-6.2); White Blood Count 7.6 K/mm3 (4.4-11.0)
[2020-12-31 07:00] LABS: Anion Gap 8 (5-15); BUN 11 mg/dL (7-18); BUN/Creat Ratio 16.8 RATIO (10-20); Calcium,Total 7.5 mg/dL (8.5-10.1); Chloride 110 mmol/L (98-107); Creatinine, Serum 0.66 mg/dL (0.70-1.30); EST Glomerular Filtration Rate 126 mL/min (>60); Est Glom Filt Rate - Afr Amer 152 mL/min (>60); Estimated Creatinine Clearance 64.89 ml/min; Glucose 160 mg/dL (74-106); Magnesium 1.7 mg/dL (1.6-2.6); Potassium 3.5 mmol/L (3.5-5.1); Sodium Level 142 mmol/L (136-145)
--- NOTE | 2020-12-31 07:19 | CON.PCM.SX_ITS ---
Assessment & Plan Assessment/Plan (1) Ileitis: (2) Partial small bowel obstruction: PLAN: Continue conservative management NG/IV fluids, IV antibiotics. We will continue to follow. Kamini Baig M.D. Pager: [phone] [facility] [address] [place] [address], [facility], [address] [place] [address] Office: [phone] HPI Consult Data Date of Consult: 12/31/20 HPI Narrative HPI Narrative: ALEXX RICHARDS, is a 75 M who presents to the ER due to abdominal pain. Patient states pain started about 4:00?mid abdomen. Patient did have bowel movement at that time which was normal no blood. Patient denies having previous issues with abdominal pain since his surgery cholecystectomy and sigmoidectomy for colon cancer. Patient is currently on oral chemotherapy colon cancer last dose was 2 weeks ago. Patient NG placed in the ER unsure of the exact amount of drainage at that time. Currently patient only has about 200 in the canister. Patient states his abdomen feels much better. Patient currently denies any flatus. CT abdomen pelvis did show clearing of the ileum. Patient white blood count 13.3 started on IV antibiotics in the ER [facility] Medical History Alcohol use Cancer Cardiology follow-up encounter Coronary artery disease Diabetes Encounter for education Former smoker Hearing loss, left Hearing loss, right History of alcohol use Hx of cardiovascular stress test Hx of diarrhea Hx of echocardiogram Hypertension Loose, teeth Wears glasses Home Medications alogliptin 25 mg PO DAILY 10/13/20 [History Last Taken 10/13/20] aspirin 81 mg PO DAILY 10/13/20 [History Last Taken 10/13/20] betamethasone dipropionate 1 applic TOPICAL DAILY PRN 10/13/20 [History Last Taken Unknown] empagliflozin 25 mg PO DAILY 10/13/20 [History Last Taken 10/30/20] ezetimibe [Zetia] 10 mg DAILY 10/13/20 [History Last Taken 10/13/20] glimepiride 8 mg PO DAILY 10/13/20 [History Last Taken Unknown] hydrochlorothiazide 25 mg PO DAILY 10/13/20 [History Last Taken 10/13/20] lisinopril 40 mg PO DAILY 10/13/20 [History Last Taken 10/30/20] lovastatin 20 mg PO QHS 10/13/20 [History Last Taken Unknown] metoprolol tartrate 50 mg PO BID 10/13/20 [History Last Taken 10/30/20] amxgphwocyvr-cvtkmwuq-xfyzyz 1 tab PO DAILY 10/13/20 [History Last Taken 10/13/20] niacinamide 1,000 mg PO QHS 10/13/20 [History Last Taken Unknown] nifedipine 90 mg PO BID 10/13/20 [History Last Taken 10/28/20 05:00] nitroglycerin 0.4 mg SUBLINGUAL Q5M PRN 10/13/20 [History Last Taken 06/06/20] ibuprofen 200 - 600 mg PO Q6H PRN PRN #0 tab 11/02/20 [Rx Last Taken Unknown] ondansetron HCl 4 mg tablet 4 mg PO Q8H PRN #20 tab 12/03/20 [Rx Last Taken Unknown] Hydrocortisone 2.5% / Lidocaine 5% ointment (cmpd) #1 ea 12/16/20 [Rx Last Taken Unknown] acetaminophen 500 mg tablet 500 mg PO Q6H PRN 12/30/20 [History Last Taken Unknown] polysaccharide iron complex [Ferrex 150] 150 mg PO DAILY 12/31/20 [History Last Taken Unknown] Allergy/AdvReac Type Severity Reaction Status Date / Time No Known Allergies Allergy Verified 12/30/20 22:49 Family History Mother Asthma Diabetes Heart disease Hypertension Surgical History History of coronary artery stent placement Hx of colonoscopy Hx of heart artery stent Social History Smoking Status: Former smoker quit date: 06/13/71 pack-years: 1 Tobacco: How many years used: 7 second hand exposure: No alcohol intake: current alcohol intake frequency: holidays/special occasions only Alcohol type: beer substance use type: does not use rahul/cheondoism: [employer]eterian seatbelt use: always do you feel safe at home: Yes Lab / Micro Data Result Diagrams: 12/31/20 06:32 12/31/20 06:32 Labs: Laboratory Results - last 24 hr 12/30/20 23:40: WBC 13.3 H, RBC 5.19, Hgb 15.2, Hct 47.9, MCV 92.3, MCH 29.3, MCHC 31.7 L, RDW Std Deviation 63.5 H, RDW Coeff of Oskar 18.8 H, Plt Count 244, MPV 10.9, Immature Gran % (Auto) 0.500, Neut % (Auto) 80.8 H, Lymph % (Auto) 6.6 L, Sumner % (Auto) 11.3 H, Eos % (Auto) 0.5, Baso % (Auto) 0.3, Absolute Neuts (auto) 10.8 H, Absolute Lymphs (auto) 0.88, Nucleated RBC % 0, Differential Comment SCANNED, Diff Path Review October, Platelet Estimate ADEQUATE, Anisocytosis RARE, Macrocytosis RARE 12/30/20 23:40: Sodium 141, Potassium 3.3 L, Chloride 108 H, Carbon Dioxide 23.0, Anion Gap 10, BUN 14, Creatinine 0.83, Estim Creat Clear Calc 78.18, Est GFR (MDRD) Af Amer 115, Est GFR (MDRD) Non-Af 95, BUN/Creatinine Ratio 16.8, Glucose 187 H, Calcium 7.8 L, Total Bilirubin 0.70, AST 9 L, ALT 19, Alkaline Phosphatase 56, Total Protein 5.1 L, Albumin 2.3 L, Globulin 2.8, A lbumin/Globulin Ratio 0.8 L, Lipase 50 L 12/31/20 03:30: Lactic Acid 1.3 12/31/20 05:17: POC Glucose 176 H 12/31/20 06:32: WBC 7.6, RBC 4.97, Hgb 14.8, Hct 45.5, MCV 91.5, MCH 29.8, MCHC 32.5, RDW Std Deviation 63.9 H, RDW Coeff of Oskar 19.2 H, Plt Count 246, MPV 11.0, Immature Gran % (Auto) 0.500, Neut % (Auto) 66.2, Lymph % (Auto) 13.5 L, Sumner % (Auto) 17.5 H, Eos % (Auto) 2.0, Baso % (Auto) 0.3, Absolute Neuts (auto) 5.1, Absolute Lymphs (auto) 1.03, Nucleated RBC % 0 12/31/20 06:32: Sodium 142, Potassium 3.5, Chloride 110 H, Carbon Dioxide 24.0, Anion Gap 8, BUN 11, Creatinine 0.66 L, Estim Creat Clear Calc 64.89, Est GFR (MDRD) Af Amer 152, Est GFR (MDRD) Non-Af 126, BUN/Creatinine Ratio 16.8, Glucose 160 H, Calcium 7.5 L, Magnesium 1.7 Radiology Impression Abdomen/Pelvis CT 12/30/20 23:12 IMPRESSION: Findings compatible with acute infectious/inflammatory ileitis involving a loop of ileum in the mid to lower abdomen on the right. Associated high-grade partial small bowel obstruction proximal to this abnormal loop of bowel. Colonic diverticulosis. No acute diverticulitis. Normal appendix. Electronically Signed: Yoni Valente MD at 3:08 EDT Tel , Service support , KUB X-Ray 12/31/20 03:30 IMPRESSION: NG tube with tip and side-port in the stomach. Electronically Signed: Sanford Whitt DO at 5:20 EDT Tel , Service support ,
[2020-12-31] MEDS: Ceftriaxone 1 GM/50 ML BAG IV (09:26)
--- NOTE | 2020-12-31 10:45 | CASEMGMT ---
Addendum entered by Keila Gee 12/31/20 15:01: Reviewed [facility] declination form w/pt and form signed by pt. Pt states he does not wish to transfer to [facility] and elects to have his MCR billed for this hospitalization. Form faxed to [facility], copy made and placed on chart, and original given to pt. Original Note: RN ANA YOUTH AGENT CM to room to meet with patient for initial transition planning/care coordination assessment. MICHELE PEREZ introduced self and role at [facility]. Pt voices understanding and consents to assessment at this time. Pt resting in bed in no distress at this time. Pt is A/O at this time and answers all questions appropriately. Care providers, pharmacy, and demographics verified/updated at this time. PCP: Dr Finnegan Specialists: Dr Montejo-inspector crystal, Dr Baker--oncologist, Dr Baig--Surgeon Preferred Pharmacy: [facility] retail pharmacy. Usually gets meds @ [facility] in [place] or the [place]. Insurance: [facility], [employer] Prescription Benefit: yes Living Will/HPOA: Pt does not currently have LW/HCPOA and declines info at this time. Pt made aware that he can contact as an out-pt and make appt in the future if he decides he would like to talk with someone about this or would like to utilize [facility] social work for advanced directive completion. Given [employer] card with information and contact number. Pt expresses understanding. LNOK: , 3 adult sons. Pt's daughter just recently . Living Arrangements: Patient lives with and granddaughter in a one-story home with 3 steps and railing to enter the home. Patient is independent. Transportation: self and son. does not drive. DME: has a functioning glucometer and BP machine. Denies need for further DME. SNF/HHC: Pt wishes to return home and denies need for HHC or OP therapy. Pt denies concerns with going home at time of discharge. CM to follow for any discharge planning/needs. Pt voices no concerns/needs at this time. Advised pt to ask for CM if any questions/concerns/needs arise. Voices understanding. PLAN: Home w/family support and discharge plans in place. Olivier WONG RN, CM
[2020-12-31 11:55] LABS: Bedside Glucose 133 mg/dL (70-110)
[2020-12-31 12:49] LABS: Pathologist Review Reviewed
--- NOTE | 2020-12-31 13:27 | RAD_ITS ---
STUDY: X-RAY CHEST REASON FOR EXAM: Male, 75 years old. hypoxia TECHNIQUE: AP COMPARISON: 12/31/2020 FINDINGS: Esophagogastric tube identified with distal tip not included on this exam but appears to be extending into the proximal duodenum. Elevation of the right hemidiaphragm with atelectasis the right lung base. There is no demonstrated pleural abnormality. Normal size heart. Normal mediastinum and evelyn. Normal visualized pulmonary arteries. There is atherosclerotic calcification of the aortic arch with tortuosity. No acute bony process. There is no demonstrated abnormality of the visualized soft tissue structures of the upper abdomen. RAD/Chest 1 View (Portable) IMPRESSION: 1. Mild atelectasis in the right lung base. 2. Terminal portion of esophagogastric tube not included but possibly in the proximal duodenum. Electronically Signed: Vincent Pedroza MD (Brooks) at 16:31 EDT , Service support ,
--- NOTE | 2020-12-31 15:05 | CHAPLAIN ---
Type of Pastoral Visit _x__ Initial Visit ___ Follow-up Visit ___ On-call Visit ___ General Patient Visit ___ Spiritual Assessment ___ Family Conference ___ Bereavement ___ Rapid Response ___ Code Blue ___ Other (describe below) Pastoral Care Referral From _x__ Patient _x__ Family _x__ Nurse ___ Physician ___ Industrial Gas Fitter ___ Batter Depositor ___ Other (describe below) Sacrament/Intervention _x__ Active listening ___ Anointing ___ Christianity _x__ Bereavement ___ Communion ___ Alie exploration ___ _x__ Life review _x__ Prayer ___ Reconciliation ___ Sacrament of Sick _x__ Supportive presence ___ Wedding ___ Other (describe below) Pastoral Comments patient acknowledges his grief in recent of his only daughter; pt also suffering from several health issues; spouse and [id number] in the room; pt is tearful in talking about of daughter; spouse intervenes and talks for him at times; exploration of grief feelings and any coping habits; pt is member of [employer] alie and finds help there and by family time and outdoors activity; presence and prayer welcomed
--- NOTE | 2020-12-31 17:18 | PCM.HOSP.N ---
Hospitalist Note Patient was seen and examined briefly today, he was admitted early this morning with ileitis, during the time of my brief exam today, it was noted that the patient had hypoxia and he is currently on nasal cannula oxygen, patient denies any history of lung disease, I got a chest x-ray which showed mild right lung base atelectasis-no evidence of pneumonia or CHF. I will add aerosol treatments 3 times daily to the patient's medications, I talked with general surgery about his care (Dr. Baig). Patient's pulse ox will be monitored, auscultation of the lung reveals some scattered inspiratory rales at the bases which diminished with repeated inspiration.
[2020-12-31 17:55] LABS: Bedside Glucose 120 mg/dL (70-110)
[2020-12-31] MEDS: Metoprolol Tartrate 5 MG/5 ML Vial IV (18:11)
[2020-12-31] MEDS: Enalaprilat 1.25 MG/ML Vial 2.5 MG IV (18:19)
--- NOTE | 2020-12-31 18:58 | NURSING ---
Pt ambulated in hallway x1 assist with no difficulty. Pt stated he was able to pass flatus x1 and denies abdominal pain. NG placed back to LIWS.
[2020-12-31] MEDS: Albuterol 2.5 MG/3 ML VIAL.NEB. INHALATION (19:13)
[2021-01-01] VITALS (13 sets, daily range): BP systolic 119–153; BP diastolic 57–74; PULSE 85–109; RESP 16–20; TEMP 36.1–36.9; O2SAT 93–98
[2021-01-01] MEDS: Metoprolol Tartrate 5 MG/5 ML Vial IV ×3 (00:17→13:47)
[2021-01-01] MEDS: Enalaprilat 1.25 MG/ML Vial 2.5 MG IV ×3 (00:17→13:47)
[2021-01-01 00:21] LABS: Bedside Glucose 122 mg/dL (70-110)
[2021-01-01] MEDS: 0.9% Saline Lock 10 ML Syringe IV ×3 (00:31→22:04)
--- NOTE | 2021-01-01 05:55 | RAD_ITS ---
STUDY: X-RAY - ABDOMEN/PELVIS REASON FOR EXAM: Male, 75 years old. psbo TECHNIQUE: Two AP supine views of the abdomen and pelvis. COMPARISON: None. FINDINGS: Normal visualized lung bases. NG tube with tip and side-port in the stomach. There is an unremarkable bowel gas pattern. No evidence of bowel obstruction. There is no demonstrated free abdominal air. The visualized liver, spleen and kidneys are grossly normal in size and morphology. Normal soft tissue structures. Normal visualized osseous structures. RAD/Abdomen Single View IMPRESSION: No evidence of bowel obstruction. NG tube with tip and side-port in the stomach. Electronically Signed: Sanford Whitt DO at 6:54 EDT Tel , Service support ,
[2021-01-01] MEDS: metroNIDAZOLE 500 MG/100 ML BAG 100 MG IV ×3 (06:31→22:03)
[2021-01-01 06:41] LABS: Bedside Glucose 125 mg/dL (70-110)
[2021-01-01] MEDS: Potassium Chloride 40 MEQ in 0.9% Normal Saline 1,000 ML 75 MEQ IV (07:06)
[2021-01-01] MEDS: Albuterol 2.5 MG/3 ML VIAL.NEB. INHALATION ×3 (07:10→19:31)
--- NOTE | 2021-01-01 08:08 | PCM.PN.SRG ---
Subjective Subjective Patient denies any abdominal pain, and she did not put anything overnight. Patient's KUB does show contrast in the colon from his previous CAT scan with p.o. contrast. Objective Data Objective Data Vital Signs: Vital Signs Temp Pulse Resp BP Pulse Ox 98.5 F 92 18 151/70 H 94 01/01/21 05:29 01/01/21 06:51 01/01/21 05:29 01/01/21 06:51 01/01/21 05:29 Oxygen Flow Rate (L/min) 2 Oxygen Delivery Method Nasal Cannula Weight: 204 lb 12.951 oz Body Mass Index (BMI) 29.3 Intake & Output: Intake and Output for Last 24 Hours 12/30/20 12/31/20 01/01/21 23:59 23:59 23:59 Intake Total 2760 / 2760 970 / 970 Output Total 2375 / 2375 400 / 400 Balance 385 / 385 570 / 570 Medical Nutrition Assessment Dietitian: Nutrition Therapy Diagnosis Start: 12/31/20 11:33 Freq: Status: Active Protocol: Document 12/31/20 15:20 RMA (Rec: 12/31/20 15:20 RMA [id number]) Nutrition Malnutrition Evidence of Malnutrition Exists No Clinical Problem Altered GI Function Etiology related to inflammation/ infection Signs/Symptoms as evidenced by NPO status and NG tube Status Active Problem Recommendation Dietitian Recommendations/Changes Rec advance diet as tolerated when medically able to Transitional/Consistent- Carbohydrate with goal of 2200 calorie/Carbohydrate- Controlled as tolerated. Pt refuses any oral nutrition supplements at this time; monitor need once diet advanced. Lab / Micro Data Result Diagrams: 01/01/21 09:22 01/01/21 09:22 Labs: Laboratory Results - last 24 hr 12/30/20 23:40: Diff Path Review Reviewed 12/31/20 11:13: POC Glucose 133 H 12/31/20 17:30: POC Glucose 120 H 01/01/21 00:13: POC Glucose 122 H 01/01/21 06:34: POC Glucose 125 H Radiography Diagnostic Testing: Radiology Impression Chest X-Ray 12/31/20 13:27 IMPRESSION: 1. Mild atelectasis in the right lung base. 2. Terminal portion of esophagogastric tube not included but possibly in the proximal duodenum. Electronically Signed: Vincent Pedroza MD (Brooks) at 16:31 EDT , Service support , KUB X-Ray 01/01/21 05:55 IMPRESSION: No evidence of bowel obstruction. NG tube with tip and side-port in the stomach. Electronically Signed: Sanford Whitt DO at 6:54 EDT Tel , Service support , Physical Exam Const alert, oriented x3 and no apparent distress HEENT normocephalic and head/scalp atraumatic Resp normal respiratory effort Cardio regular rate GI soft to palpation and non-tender; Negative for non-distended Palpation: Negative for guarding Extremity no clubbing, cyanosis or edema Neuro CN's II-XII intact bilaterally Psych mental status grossly normal Assessment & Plan Assessment/Plan (1) Ileitis: (2) Partial small bowel obstruction: PLAN: Patient did have some flatus. Patient's KUB this morning does show contrast throughout the colon (from CT scan) with no evidence of a bowel obstruction. NG put out nothing overnight. Removed NG at bedside. Okay for clears if tolerates okay to advance. Would plan to have patient on about total of 5-day course of antibiotics. Kamini Baig M.D. Pager: [phone] [facility] [address] [place] [address], [address] [place] [address] Office: [phone]
[2021-01-01 09:29] LABS: Absolute Neutrophil Count 4.1 X10^3/uL (2.0-7.7); Basophil# 0.03 X10^3/uL; Basophil% 0.5 % (0-1); Eosinophil# 0.17 X10^3/uL; Eosinophils% 2.8 % (0-5); Hematocrit 42.3 % (40-54); Hemoglobin 13.3 g/dL (13.0-16.5); Lymphocyte % 13.4 % (19-41); Mean Corp Hgb Conc 31.4 g/dL (32-36); Mean Corpuscular Hgb 30.1 pg (27.0-32.0); Mean Corpuscular Volume 95.7 fL (80-94); Mean Platelet Vol. 11.1 fl (6.2-12.0); Monocyte# 0.77 X10^3/uL; Monocyte% 12.9 % (0-10); NRBC Flagged by Analyzer 0 % (0-5); Neutrophil # 4.09 X10^3/uL (2.7-7.7); Neutrophil % 68.2 % (47-70); POSITIVE MORPHOLOGY YES; Platelet Count 229 K/mm3 (150-450); RBC Distribution Width CV 19.7 % (11.6-14.6); RBC Distribution Width SD 69.7 fl (35.1-43.9); Red Blood Count 4.42 M/mm3 (4.6-6.2)
[2021-01-01 09:33] LABS: Differential Indicated SCAN CRITERIA MET
[2021-01-01] MEDS: Ceftriaxone 1 GM/50 ML BAG IV (09:45)
[2021-01-01] MEDS: Bisacodyl 10 MG Suppository RC (09:48)
[2021-01-01 09:52] LABS: Anion Gap 8 (5-15); BUN 15 mg/dL (7-18); BUN/Creat Ratio 15.8 RATIO (10-20); Calcium,Total 7.7 mg/dL (8.5-10.1); Chloride 115 mmol/L (98-107); Creatinine, Serum 0.95 mg/dL (0.70-1.30); EST Glomerular Filtration Rate 82 mL/min (>60); Est Glom Filt Rate - Afr Amer 99 mL/min (>60); Glucose 192 mg/dL (74-106); Magnesium 1.9 mg/dL (1.6-2.6); Phosphorus 2.7 mg/dL (2.5-4.9); Potassium 3.7 mmol/L (3.5-5.1); Sodium Level 145 mmol/L (136-145)
[2021-01-01 10:07] LABS: Anisocytosis 1+
[2021-01-01 11:30] LABS: Bedside Glucose 142 mg/dL (70-110)
--- NOTE | 2021-01-01 14:26 | PCM.PN.HOSP ---
Documented by User: Elias DOCKERY 01/01/21 14:35 Subjective Subjective Patient is a 75-year-old male comfortably resting in bed, alert and oriented x3. Patient denies any change or progression in symptoms from yesterday. Denies chest pain, shortness of breath, palpitations, hemoptysis, sputum production, fever, chills, N/V/D. Objective Data Objective Data Vital Signs: Vital Signs Temp Pulse Resp BP Pulse Ox 97 F L 109 H 20 H 147/68 H 96 01/01/21 11:28 01/01/21 13:47 01/01/21 12:54 01/01/21 13:47 01/01/21 11:28 Oxygen Flow Rate (L/min) 2 Oxygen Delivery Method Room Air Weight: 204 lb 12.951 oz Body Mass Index (BMI) 29.3 Intake & Output: Intake and Output for Last 24 Hours 12/30/20 12/31/20 01/01/21 23:59 23:59 23:59 Intake Total 2760 / 2760 2400 / 2400 Output Total 2375 / 2375 550 / 550 Balance 385 / 385 1850 / 1850 Medical Nutrition Assessment Dietitian: Nutrition Therapy Diagnosis Start: 12/31/20 11:33 Freq: Status: Active Protocol: Document 12/31/20 15:20 RMA (Rec: 12/31/20 15:20 RMA [id number]) Nutrition Malnutrition Evidence of Malnutrition Exists No Clinical Problem Altered GI Function Etiology related to inflammation/ infection Signs/Symptoms as evidenced by NPO status and NG tube Status Active Problem Recommendation Dietitian Recommendations/Changes Rec advance diet as tolerated when medically able to Transitional/Consistent- Carbohydrate with goal of 2200 calorie/Carbohydrate- Controlled as tolerated. Pt refuses any oral nutrition supplements at this time; monitor need once diet advanced. Lab / Micro Data Result Diagrams: 01/01/21 09:22 01/01/21 09:22 Labs: Laboratory Results - last 24 hr 12/31/20 17:30: POC Glucose 120 H 01/01/21 00:13: POC Glucose 122 H 01/01/21 06:34: POC Glucose 125 H 01/01/21 09:22: WBC 6.0, RBC 4.42 L, Hgb 13.3, Hct 42.3, MCV 95.7 H, MCH 30.1, MCHC 31.4 L, RDW Std Deviation 69.7 H, RDW Coeff of Oskar 19.7 H, Plt Count 229, MPV 11.1, Immature Gran % (Auto) 2.200 H, Neut % (Auto) 68.2, Lymph % (Auto) 13.4 L, Sutter % (Auto) 12.9 H, Eos % (Auto) 2.8, Baso % (Auto) 0.5, Absolute Neuts (auto) 4.1, Absolute Lymphs (auto) 0.80 L, Nucleated RBC % 0, Anisocytosis 1+ 01/01/21 09:22: Sodium 145, Potassium 3.7, Chloride 115 H, Carbon Dioxide 22.0, Anion Gap 8, BUN 15, Creatinine 0.95, Estim Creat Clear Calc 68.30, Est GFR (MDRD) Af Amer 99, Est GFR (MDRD) Non-Af 82, BUN/Creatinine Ratio 15.8, Glucose 192 H, Calcium 7.7 L, Phosphorus 2.7, Magnesium 1.9 01/01/21 11:27: POC Glucose 142 H Radiography Diagnostic Testing: Radiology Impression Chest X-Ray 12/31/20 13:27 IMPRESSION: 1. Mild atelectasis in the right lung base. 2. Terminal portion of esophagogastric tube not included but possibly in the proximal duodenum. Electronically Signed: Vincent Pedroza MD (Brooks) at 16:31 EDT , Service support , KUB X-Ray 01/01/21 05:55 IMPRESSION: No evidence of bowel obstruction. NG tube with tip and side-port in the stomach. Electronically Signed: Sanford Whitt DO at 6:54 EDT Tel , Service support , Physical Exam Const alert, oriented x3 and no apparent distress HEENT head/scalp atraumatic and moist oral mucous membranes Head and Scalp: normocephalic Eyes PERRL, EOMs intact bilaterally and conjunctivae normal Neck no lymphadenopathy, supple and no JVD Resp normal respiratory effort, no retractions, no use of accessory muscles and clear to auscultation bilaterally Cardio regular rate, regular rhythm, no murmurs and no JVD GI normal to inspection, nondistended, normoactive bowel sounds, soft to palpation and non-tender Extremity normal to inspection, full ROM and no clubbing, cyanosis or edema Skin no rashes or lesions noted, no wounds and skin turgor normal Neuro CN's II-XII intact bilaterally Psych affect normal Assessment & Plan Assessment/Plan (1) Ileitis: (2) Partial small bowel obstruction: PLAN: Day 2: See subjective. Discharge planning: Patient to be discharged home when medically ready, no additional therapy or home health care needs identified. 1) ileitis General surgery following. KUB showed some contrast at the colon from prior CT scan, with no evidence of bowel obstruction, NG tube removed diet advanced to clears. If patient tolerates clears will advance diet to regular. Patient does endorse some flatus, however has not had a bowel movement yet, does not report any abdominal pain. Plan; remain admitted overnight, continue ceftriaxone and metronidazole. 2) partial small bowel obstruction Resolved, as above. 3) hypokalemia Resolved, currently 3.7. 4) colon cancer Status post partial colectomy. Patient was initiated on 2 weeks of chemotherapy starting December 03, 2020. Patient has been off of acute therapy for about 2 weeks. 5) DM2 Continue sliding scale with Accu-Cheks. Patient seen by Elias Valentino PA-C, under the supervision of Dr. Reis. Documented by User: Dr. Segundo Reis MD 01/01/21 14:46 Subjective Subjective Patient has history of colon cancer. 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 This time admitted for ileitis/ileus. Patient passed flatus but had not bowel movement since 12/30. Patient is on chemotherapy MsEdenilson Baker, first cycle of 2 weeks duration, 2 weeks ago Had severe neuropathy symptoms, paresthesia in feet and peeling of skin in the palm Objective Data Lab / Micro Data Result Diagrams: 01/01/21 09:22 01/01/21 09:22 Physical Exam Narrative Physical exam General: Alert, Oriented x3, Cooperative HEENT: Atraumatic, PERRLA, EOMI, Normocephalic Oral: No Gingival or Mucosal Lesions/ Ulcerations Neck: Supple, No JVD, Negative Carotid Bruits Lungs: Air entry diminished in bilateral lung bases. No crepitation/rhonchi Cardiovascular: Regular rate, Regular Rhythm, Normal S1, Normal S2, No murmurs Abdomen: Bowel movement sluggish, Soft, Non Tender, Non-Distended. Surgical incision is well-healed : No renal angle tenderness. No suprapubic tenderness. Extremities: No edema, Capillary Refill Less than 3 Seconds Skin: No rashes, No breakdown Musculoskeletal: No Tenderness to Palpation of Joints or Extremities Neurological: Cranial nerves II-XII grossly intact, Deep Tendon Reflexes 2+/4 and Symmetrical, paresthesia/neuropathy in plantar aspect of feet Psych/Mental Status: Normal Affect, Appropriate. Assessment & Plan Assessment/Plan (1) Ileitis: (2) Partial small bowel obstruction: PLAN: This patient was seen in conjunction with SARKIS Alonzo. I have independently interviewed and examined the patient and reviewed pertinent history, examination findings, laboratory and plan of management. I have reviewed the note and agree with the documented findings with the few additional points. In brief, patient is admitted for small bowel ileus secondary to ileitis. Patient had CT abdomen with oral contrast and then follow-up KUB which showed contrast in descending colon. Passed flatus in the morning. NG tube was removed. Patient started on clear liquid. On ceftriaxone and metronidazole. Hypokalemia corrected. CA sigmoid colon status post partial colectomy on chemotherapy Other comorbidities: Diabetes mellitus type 2, hypertension: Blood pressure and glucose are controlled. I have discussed my assessment with SARKIS Alonzo and orders have been reviewed. Charges/Coding Visit Charges Inpatient E&M: 62456 Subs Hosp L2
[2021-01-01] MEDS: NIFEdipine 90 MG Tablet PO ×2 (16:11→22:06)
[2021-01-01 17:06] LABS: Bedside Glucose 108 mg/dL (70-110)
--- NOTE | 2021-01-01 19:18 | NURSING ---
Charting by Amanda Grimes student nurse reviewed by this RN
[2021-01-01] MEDS: Metoprolol Tartrate 50 MG Tablet PO (22:06)
[2021-01-01] MEDS: Atorvastatin Calcium 10 MG Tablet 5 MG PO (22:06)
[2021-01-01] MEDS: Insulin Lispro 100 UNIT/ML INSULN.PEN SC (22:10)
[2021-01-01 22:41] LABS: Bedside Glucose 179 mg/dL (70-110)
[2021-01-02 03:05] VITALS: BP 115/57; PULSE 76; RESP 16; TEMP 36.8; O2SAT 96
[2021-01-02] MEDS: 0.9% Saline Lock 10 ML Syringe IV (05:17)
[2021-01-02] MEDS: metroNIDAZOLE 500 MG/100 ML BAG 100 MG IV (05:17)
[2021-01-02 05:37] LABS: Absolute Lymphocyte Count 1.46 X10^3/uL (0.83-4.51); Absolute Neutrophil Count 5.8 X10^3/uL (2.0-7.7); Basophil# 0.04 X10^3/uL; Basophil% 0.4 % (0-1); Eosinophil# 0.87 X10^3/uL; Eosinophils% 9.2 % (0-5); Hematocrit 41.1 % (40-54); Hemoglobin 12.9 g/dL (13.0-16.5); Lymphocyte # 1.46 X10^3/ul (0.83-4.51); Lymphocyte % 15.5 % (19-41); Mean Corp Hgb Conc 31.4 g/dL (32-36); Mean Corpuscular Hgb 29.1 pg (27.0-32.0); Mean Corpuscular Volume 92.8 fL (80-94); Mean Platelet Vol. 10.8 fl (6.2-12.0); Monocyte# 1.01 X10^3/uL; Monocyte% 10.7 % (0-10); NRBC Flagged by Analyzer 0 % (0-5); Neutrophil # 5.78 X10^3/uL (2.7-7.7); Neutrophil % 61.5 % (47-70); POSITIVE MORPHOLOGY YES; Platelet Count 249 K/mm3 (150-450); RBC Distribution Width CV 19.2 % (11.6-14.6); RBC Distribution Width SD 65.7 fl (35.1-43.9); Red Blood Count 4.43 M/mm3 (4.6-6.2); White Blood Count 9.4 K/mm3 (4.4-11.0)
[2021-01-02 05:43] LABS: Differential Indicated SCAN CRITERIA MET
[2021-01-02 05:55] LABS: Anion Gap 5 (5-15); BUN 12 mg/dL (7-18); BUN/Creat Ratio 17.9 RATIO (10-20); Calcium,Total 7.5 mg/dL (8.5-10.1); Chloride 112 mmol/L (98-107); Creatinine, Serum 0.67 mg/dL (0.70-1.30); EST Glomerular Filtration Rate 122 mL/min (>60); Est Glom Filt Rate - Afr Amer 148 mL/min (>60); Estimated Creatinine Clearance 64.89 ml/min; Glucose 135 mg/dL (74-106); Potassium 3.7 mmol/L (3.5-5.1); Sodium Level 143 mmol/L (136-145)
[2021-01-02 06:15] LABS: Differential Comment SCANNED
[2021-01-02 06:16] LABS: Anisocytosis RARE; Microcytosis RARE
[2021-01-02 06:46] LABS: Bedside Glucose 130 mg/dL (70-110)
[2021-01-02] MEDS: Albuterol 2.5 MG/3 ML VIAL.NEB. INHALATION (08:02)
[2021-01-02 08:04] VITALS: PULSE 86; RESP 12; O2SAT 96
--- NOTE | 2021-01-02 08:12 | PCM.PN.SRG ---
Subjective Subjective Patient is tolerating diet, denies any abdominal pain, is off oxygen Objective Data Objective Data Vital Signs: Vital Signs Temp Pulse Resp BP Pulse Ox 98.3 F 86 12 115/57 L 96 01/02/21 03:05 01/02/21 08:04 01/02/21 08:04 01/02/21 03:05 01/02/21 08:04 Oxygen Flow Rate (L/min) 2 Oxygen Delivery Method Room Air Weight: 204 lb 12.951 oz Body Mass Index (BMI) 29.3 Intake & Output: Intake and Output for Last 24 Hours 12/31/20 01/01/21 01/02/21 23:59 23:59 23:59 Intake Total 2760 / 2760 4702.5 / 4702.5 100 / 100 Output Total 2375 / 2375 550 / 550 Balance 385 / 385 4152.5 / 4152.5 100 / 100 Medical Nutrition Assessment Dietitian: Nutrition Therapy Diagnosis Start: 12/31/20 11:33 Freq: Status: Active Protocol: Document 12/31/20 15:20 RMA (Rec: 12/31/20 15:20 RMA [id number]) Nutrition Malnutrition Evidence of Malnutrition Exists No Clinical Problem Altered GI Function Etiology related to inflammation/ infection Signs/Symptoms as evidenced by NPO status and NG tube Status Active Problem Recommendation Dietitian Recommendations/Changes Rec advance diet as tolerated when medically able to Transitional/Consistent- Carbohydrate with goal of 2200 calorie/Carbohydrate- Controlled as tolerated. Pt refuses any oral nutrition supplements at this time; monitor need once diet advanced. Lab / Micro Data Result Diagrams: 01/02/21 05:19 01/02/21 05:19 Labs: Laboratory Results - last 24 hr 01/01/21 09:22: WBC 6.0, RBC 4.42 L, Hgb 13.3, Hct 42.3, MCV 95.7 H, MCH 30.1, MCHC 31.4 L, RDW Std Deviation 69.7 H, RDW Coeff of Oskar 19.7 H, Plt Count 229, MPV 11.1, Immature Gran % (Auto) 2.200 H, Neut % (Auto) 68.2, Lymph % (Auto) 13.4 L, [place] % (Auto) 12.9 H, Eos % (Auto) 2.8, Baso % (Auto) 0.5, Absolute Neuts (auto) 4.1, Absolute Lymphs (auto) 0.80 L, Nucleated RBC % 0, Anisocytosis 1+ 01/01/21 09:22: Sodium 145, Potassium 3.7, Chloride 115 H, Carbon Dioxide 22.0, Anion Gap 8, BUN 15, Creatinine 0.95, Estim Creat Clear Calc 68.30, Est GFR (MDRD) Af Amer 99, Est GFR (MDRD) Non-Af 82, BUN/Creatinine Ratio 15.8, Glucose 192 H, Calcium 7.7 L, Phosphorus 2.7, Magnesium 1.9 01/01/21 11:27: POC Glucose 142 H 01/01/21 16:58: POC Glucose 108 01/01/21 22:09: POC Glucose 179 H 01/02/21 05:19: Sodium 143, Potassium 3.7, Chloride 112 H, Carbon Dioxide 26.0, Anion Gap 5, BUN 12, Creatinine 0.67 L, Estim Creat Clear Calc 64.89, Est GFR (MDRD) Af Amer 148, Est GFR (MDRD) Non-Af 122, BUN/Creatinine Ratio 17.9, Glucose 135 H, Calcium 7.5 L 01/02/21 05:19: WBC 9.4, RBC 4.43 L, Hgb 12.9 L, Hct 41.1, MCV 92.8, MCH 29.1, MCHC 31.4 L, RDW Std Deviation 65.7 H, RDW Coeff of Oskar 19.2 H, Plt Count 249, MPV 10.8, Immature Gran % (Auto) 2.700 H, Neut % (Auto) 61.5, Lymph % (Auto) 15.5 L, [place] % (Auto) 10.7 H, Eos % (Auto) 9.2 H, Baso % (Auto) 0.4, Absolute Neuts (auto) 5.8, Absolute Lymphs (auto) 1.46, Nucleated RBC % 0, Differential Comment SCANNED, Anisocytosis RARE, Microcytosis RARE 01/02/21 06:33: POC Glucose 130 H Physical Exam Const alert, oriented x3 and no apparent distress HEENT normocephalic and head/scalp atraumatic Resp normal respiratory effort Cardio regular rate GI soft to palpation and non-tender; Negative for non-distended Palpation: Negative for guarding Extremity no clubbing, cyanosis or edema Neuro CN's II-XII intact bilaterally Psych mental status grossly normal Assessment & Plan Assessment/Plan (1) Ileitis: (2) Partial small bowel obstruction: PLAN: Patient tolerating diet. Did have a bowel movement with the Dulcolax suppository. Patient is off supplemental O2, okay for patient to be DC'd home. Would plan to have patient on about total of 5-day course of antibiotics. Kamini Baig M.D. Pager: [phone] [facility] [address] [place] [address], [facility], [address] [place] [address] Office: [phone]
[2021-01-02 09:55] VITALS: BP 131/59; PULSE 97; RESP 16; TEMP 36.4; O2SAT 94
[2021-01-02 09:57] VITALS: BP 131/59; PULSE 97
[2021-01-02] MEDS: NIFEdipine 90 MG Tablet PO (09:57)
[2021-01-02] MEDS: Metoprolol Tartrate 50 MG Tablet PO (09:57)
[2021-01-02] MEDS: hydroCHLOROthiazide 25 MG Tablet PO (09:57)
[2021-01-02] MEDS: Ceftriaxone 1 GM/50 ML BAG IV (10:00)
--- NOTE | 2021-01-02 10:20 | PCM.DC ---
Discharge Instructions Diet Discharge Diet: No restrictions Activity Discharge Activity: Return to Normal Activity Weight Bearing Status: Weight bearing as tolerated Dressing / Incision Call your doctor if you observe: Fever of 101 or Higher, Numbness or Tingling, Shortness of breath, Dizziness, Chest pain, Increased palpitations (irregular heartbeat) and Calf discomfort Follow Up Care Please Follow Up With: Primary care provider When: Within the next two weeks. Test Results: Test results from this visit will be discussed in further detail at your follow-up appointment, if applicable. Discharge Plan Admission Admit Date/Time: 12/31/20 03:53 Primary Reason for Your Visit: Bowel obstruction Attending Provider: Segundo Reis Primary Care Provider: Santino Finnegan Consulting Providers: Kamini Baig Discharge Orders/Prescriptions Prescriptions: New senna 8.6 mg capsule 8.6 mg PO DAILY Qty: 7 RF: 0 polyethylene glycol 3350 [Miralax] 17 gram powder in packet 17 g PO DAILY Qty: 7 RF: 0 ciprofloxacin HCl 500 mg tablet 500 mg PO BID Qty: 10 RF: 0 metronidazole 500 mg tablet 500 mg PO TID Qty: 15 RF: 0 Continued ondansetron HCl [Zofran] 4 mg tablet 4 mg PO Q8H PRN (Reason: nausea and vomiting) Qty: 20 RF: 0 acetaminophen [Tylenol Extra Strength] 500 mg tablet 500 mg PO Q6H PRN (Reason: Pain) RF: 0 betamethasone dipropionate 0.05 % Cream 1 applic TOPICAL DAILY PRN (Reason: Itching) RF: 0 ezetimibe [Zetia] 10 mg Tablet 10 mg DAILY RF: 0 nifedipine 90 mg Tablet Extended Release 90 mg PO BID RF: 0 niacinamide 500 mg Tablet 1,000 mg PO QHS RF: 0 feaqxypfbomc-jgtculmd-nxrhgg Tablet 1 tab PO DAILY RF: 0 metoprolol tartrate 50 mg Tablet 50 mg PO BID RF: 0 lisinopril 40 mg Tablet 40 mg PO DAILY RF: 0 glimepiride 4 mg Tablet 8 mg PO DAILY RF: 0 nitroglycerin 0.4 mg Tablet, Sublingual 0.4 mg SUBLINGUAL Q5M PRN (Reason: Chest Pain) RF: 0 aspirin 81 mg Tablet 81 mg PO DAILY RF: 0 hydrochlorothiazide 25 mg Tablet 25 mg PO DAILY RF: 0 lovastatin 20 mg Tablet 20 mg PO QHS RF: 0 alogliptin 25 mg Tablet 25 mg PO DAILY RF: 0 empagliflozin 25 mg Tablet 25 mg PO DAILY RF: 0 ibuprofen 400 mg Tablet 200 - 600 mg PO Q6H PRN PRN (Reason: Pain Score 1-10) Qty: 0 RF: 0 polysaccharide iron complex [Ferrex 150] 150 mg iron capsule 150 mg PO DAILY RF: 0 (DME) Hydrocortisone 2.5%/lidocaine 5% ointment (compound) Ointment See Rx Instructions .ROUTE .MEDSUPPLY Qty: 1 RF: 1 Referrals / Follow Up: Santino Finnegan MD [Primary Care Provider] - Within 2 Weeks Disposition Disposition (needs filled in before D/C Order can be placed): Home, Self Care
--- NOTE | 2021-01-02 11:17 | DS.PCM_ITS ---
Documented by User: Elias DOCKERY 01/02/21 11:23 Providers Date of Admission: 12/31/20 Primary Care Physician: Dr. Santino Finnegan MD Consultations 12/31/20 04:46 Consult: General Surgery Routine Consulting Provider: Kamini Baig Reason for Consult: sbo EMERGENT Consult: Yes MD Notified: Yes Date Notified: 12/31/20 Time Notified: 03:51 Method of Notification: ED DOC DISCUSSED Comments:: ED doc discussed with General Surgeon Reason For Visit: SBO; ILEITIS; SEPSIS Diagnosis Discharge Diagnosis (1) Ileitis: Status: Acute Code(s): K52.9 - Noninfective gastroenteritis and colitis, unspecified (2) Partial small bowel obstruction: Status: Acute Code(s): K56.600 - Partial intestinal obstruction, unspecified as to cause Medications at Discharge Home Medications alogliptin 25 mg PO DAILY 10/13/20 aspirin 81 mg PO DAILY 10/13/20 betamethasone dipropionate 1 applic TOPICAL DAILY PRN 10/13/20 empagliflozin 25 mg PO DAILY 10/13/20 ezetimibe [Zetia] 10 mg DAILY 10/13/20 glimepiride 8 mg PO DAILY 10/13/20 hydrochlorothiazide 25 mg PO DAILY 10/13/20 lisinopril 40 mg PO DAILY 10/13/20 lovastatin 20 mg PO QHS 10/13/20 metoprolol tartrate 50 mg PO BID 10/13/20 vvvswspcdqng-iilbkcjs-sjqgvj 1 tab PO DAILY 10/13/20 niacinamide 1,000 mg PO QHS 10/13/20 nifedipine 90 mg PO BID 10/13/20 nitroglycerin 0.4 mg SUBLINGUAL Q5M PRN 10/13/20 ibuprofen 200 - 600 mg PO Q6H PRN PRN #0 tab 11/02/20 ondansetron HCl 4 mg tablet 4 mg PO Q8H PRN #20 tab 12/03/20 Hydrocortisone 2.5% / Lidocaine 5% ointment (cmpd) #1 ea 12/16/20 acetaminophen 500 mg tablet 500 mg PO Q6H PRN 12/30/20 polysaccharide iron complex [Ferrex 150] 150 mg PO DAILY 12/31/20 ciprofloxacin HCl 500 mg PO BID #10 tab 01/02/21 metronidazole 500 mg PO TID #15 tab 01/02/21 polyethylene glycol 3350 [Miralax] 17 g PO DAILY #7 ea 01/02/21 sennosides [senna] 8.6 mg PO DAILY #7 cap 01/02/21 Hospital Course Summary of Care Provided Minutes Spent on Discharge: 35 Hospital Course: Disposition: Patient to be discharged home, no additional therapy or home healthcare needs identified. 1) ileitis Diet advanced on the afternoon of 01/01, patient tolerated well with no complaints. Patient endorses flatus, however has only had 1 bowel movement since diet has been advanced. Vital signs stable and patient is afebrile. CBC and BMP unremarkable. plan; ciprofloxacin 500 mg p.o. twice daily x5 days initiated on discharge, metronidazole 500 mg p.o. 3 times daily continued at discharge, follow-up with primary care provider within the next 2 weeks, senna and miralax given for constipation. 2) partial small bowel obstruction Resolved, as above. 3) hypokalemia Resolved, currently 3.7. 4) colon cancer Status post partial colectomy. Patient was initiated on 2 weeks of chemotherapy starting December 03, 2020. Patient has been off of acute therapy for about 2 weeks. 5) DM2 Continue sliding scale with Accu-Cheks. Patient seen by Elias Valentino PA-C, under the supervision of Dr. Reis. Physical Exam Narrative Patient is a 75-year-old male comfortably resting in bed, alert and oriented x3. Patient denies any change or progression in symptoms from yesterday. Denies chest pain, shortness of breath, palpitations, hemoptysis, sputum production, fever, chills, N/V/D. Const alert, oriented x3 and no apparent distress HEENT normocephalic, head/scalp atraumatic and hearing grossly normal bilaterally Eyes EOMs intact bilaterally and conjunctivae normal Neck no lymphadenopathy, supple and no JVD Resp normal respiratory effort, no retractions, no use of accessory muscles and clear to auscultation bilaterally Cardio regular rate, regular rhythm, no murmurs and no JVD GI normal to inspection, nondistended, normoactive bowel sounds, soft to palpation and non-tender Extremity normal to inspection, full ROM and no clubbing, cyanosis or edema Skin no rashes or lesions noted, no wounds and skin turgor normal Neuro CN's II-XII intact bilaterally Psych affect normal Medical Records Data Medical Nutrition Assessment Dietitian: Nutrition Therapy Diagnosis Start: 12/31/20 11:33 Freq: Status: Active Protocol: Document 12/31/20 15:20 RMA (Rec: 12/31/20 15:20 RMA [id number]) Nutrition Malnutrition Evidence of Malnutrition Exists No Clinical Problem Altered GI Function Etiology related to inflammation/ infection Signs/Symptoms as evidenced by NPO status and NG tube Status Active Problem Recommendation Dietitian Recommendations/Changes Rec advance diet as tolerated when medically able to Transitional/Consistent- Carbohydrate with goal of 2200 calorie/Carbohydrate- Controlled as tolerated. Pt refuses any oral nutrition supplements at this time; monitor need once diet advanced. Weight / BMI Weight Weight: 204 lb 12.951 oz Body Mass Index (BMI) 29.3 ABG / Lab / Microbiology Data Result Diagrams: 01/02/21 05:19 01/02/21 05:19 Laboratory: Laboratory Results - last 24 hr 01/01/21 11:27: POC Glucose 142 H 01/01/21 16:58: POC Glucose 108 01/01/21 22:09: POC Glucose 179 H 01/02/21 05:19: Sodium 143, Potassium 3.7, Chloride 112 H, Carbon Dioxide 26.0, Anion Gap 5, BUN 12, Creatinine 0.67 L, Estim Creat Clear Calc 64.89, Est GFR (MDRD) Af Amer 148, Est GFR (MDRD) Non-Af 122, BUN/Creatinine Ratio 17.9, Glucose 135 H, Calcium 7.5 L 01/02/21 05:19: WBC 9.4, RBC 4.43 L, Hgb 12.9 L, Hct 41.1, MCV 92.8, MCH 29.1, MCHC 31.4 L, RDW Std Deviation 65.7 H, RDW Coeff of Oskar 19.2 H, Plt Count 249, MPV 10.8, Immature Gran % (Auto) 2.700 H, Neut % (Auto) 61.5, Lymph % (Auto) 15.5 L, [place] % (Auto) 10.7 H, Eos % (Auto) 9.2 H, Baso % (Auto) 0.4, Absolute Neuts (auto) 5.8, Absolute Lymphs (auto) 1.46, Nucleated RBC % 0, Differential Comment SCANNED, Anisocytosis RARE, Microcytosis RARE 01/02/21 06:33: POC Glucose 130 H Microbiology: Microbiology 12/31/20 03:30 Blood Culture (Wb) - Anticubital Left Blood Culture - Preliminary No growth in 48 hours. 12/31/20 03:45 Blood Culture (Wb) - Left Wrist Blood Culture - Preliminary No growth in 48 hours. D/C Instructions Discharge Diet: No restrictions Weight Bearing Status: Weight bearing as tolerated Call your doctor if you observe: Fever of 101 or Higher, Numbness or Tingling, Shortness of breath, Dizziness, Chest pain, Increased palpitations (irregular heartbeat) and Calf discomfort Please Follow Up With: Primary care provider When: Within the next two weeks. Meaningful Use Info Meaningful Use Diagnoses (Choose all that apply): None applicable Discharge Plan Admission Admit Date/Time: 12/31/20 03:53 Primary Reason for Your Visit: Bowel obstruction Attending Provider: Segundo Reis Primary Care Provider: Santino Finnegan Consulting Providers: Kamini Baig Instructions Additional Instructions / Restrictions: Patient Problems: Altered Health Status related to Hospitalization Patient Goals: *Optimal Level of Health *Keep Appointments *Medication Compliance *Remain Safe Discharge Orders/Prescriptions Prescriptions: New senna 8.6 mg capsule 8.6 mg PO DAILY Qty: 7 RF: 0 polyethylene glycol 3350 [Miralax] 17 gram powder in packet 17 g PO DAILY Qty: 7 RF: 0 ciprofloxacin HCl 500 mg tablet 500 mg PO BID Qty: 10 RF: 0 metronidazole 500 mg tablet 500 mg PO TID Qty: 15 RF: 0 Continued ondansetron HCl [Zofran] 4 mg tablet 4 mg PO Q8H PRN (Reason: nausea and vomiting) Qty: 20 RF: 0 acetaminophen [Tylenol Extra Strength] 500 mg tablet 500 mg PO Q6H PRN (Reason: Pain) RF: 0 betamethasone dipropionate 0.05 % Cream 1 applic TOPICAL DAILY PRN (Reason: Itching) RF: 0 ezetimibe [Zetia] 10 mg Tablet 10 mg DAILY RF: 0 nifedipine 90 mg Tablet Extended Release 90 mg PO BID RF: 0 niacinamide 500 mg Tablet 1,000 mg PO QHS RF: 0 pcgufxvuctbw-vmbadshu-feujom Tablet 1 tab PO DAILY RF: 0 metoprolol tartrate 50 mg Tablet 50 mg PO BID RF: 0 lisinopril 40 mg Tablet 40 mg PO DAILY RF: 0 glimepiride 4 mg Tablet 8 mg PO DAILY RF: 0 nitroglycerin 0.4 mg Tablet, Sublingual 0.4 mg SUBLINGUAL Q5M PRN (Reason: Chest Pain) RF: 0 aspirin 81 mg Tablet 81 mg PO DAILY RF: 0 hydrochlorothiazide 25 mg Tablet 25 mg PO DAILY RF: 0 lovastatin 20 mg Tablet 20 mg PO QHS RF: 0 alogliptin 25 mg Tablet 25 mg PO DAILY RF: 0 empagliflozin 25 mg Tablet 25 mg PO DAILY RF: 0 ibuprofen 400 mg Tablet 200 - 600 mg PO Q6H PRN PRN (Reason: Pain Score 1-10) Qty: 0 RF: 0 polysaccharide iron complex [Ferrex 150] 150 mg iron capsule 150 mg PO DAILY RF: 0 (DME) Hydrocortisone 2.5%/lidocaine 5% ointment (compound) Ointment See Rx Instructions .ROUTE .MEDSUPPLY Qty: 1 RF: 1 Referrals / Follow Up: Santino Finnegan MD [Primary Care Provider] - Within 2 Weeks (Please call to schedule follow up appointment) Disposition Disposition (needs filled in before D/C Order can be placed): Home, Self Care Documented by User: Dr. Segundo Reis MD 01/02/21 14:14 Providers Date of Admission: 12/31/20 Reason For Visit: SBO; ILEITIS; SEPSIS Medications at Discharge Home Medications alogliptin 25 mg PO DAILY 10/13/20 aspirin 81 mg PO DAILY 10/13/20 betamethasone dipropionate 1 applic TOPICAL DAILY PRN 10/13/20 empagliflozin 25 mg PO DAILY 10/13/20 ezetimibe [Zetia] 10 mg DAILY 10/13/20 glimepiride 8 mg PO DAILY 10/13/20 hydrochlorothiazide 25 mg PO DAILY 10/13/20 lisinopril 40 mg PO DAILY 10/13/20 lovastatin 20 mg PO QHS 10/13/20 metoprolol tartrate 50 mg PO BID 10/13/20 cwuultfpneit-gyufcicp-hknubl 1 tab PO DAILY 10/13/20 niacinamide 1,000 mg PO QHS 10/13/20 nifedipine 90 mg PO BID 10/13/20 nitroglycerin 0.4 mg SUBLINGUAL Q5M PRN 10/13/20 ibuprofen 200 - 600 mg PO Q6H PRN PRN #0 tab 11/02/20 ondansetron HCl 4 mg tablet 4 mg PO Q8H PRN #20 tab 12/03/20 Hydrocortisone 2.5% / Lidocaine 5% ointment (cmpd) #1 ea 12/16/20 acetaminophen 500 mg tablet 500 mg PO Q6H PRN 12/30/20 polysaccharide iron complex [Ferrex 150] 150 mg PO DAILY 12/31/20 ciprofloxacin HCl 500 mg PO BID #10 tab 01/02/21 metronidazole 500 mg PO TID #15 tab 01/02/21 polyethylene glycol 3350 [Miralax] 17 g PO DAILY #7 ea 01/02/21 sennosides [senna] 8.6 mg PO DAILY #7 cap 01/02/21 Hospital Course Summary of Care Provided Hospital Course: This patient was seen in conjunction with SARKIS Alonzo. I have independently interviewed and examined the patient and reviewed pertinent history, examination findings, laboratory and plan of management. I have reviewed the note and agree with the documented findings with the few additional points. In brief, patient is admitted for small bowel ileus secondary to ileitis. Patient had CT abdomen with oral contrast and then follow-up KUB which showed contrast in descending colon. Passed flatus in the morning. NG tube was removed. Patient started on clear liquid. On ceftriaxone and metronidazole. H ypokalemia corrected. Discussed with the surgeon. On 5 more days of Cipro and Flagyl. Advised to continue soft diet. MiraLAX daily and senna S2 tablets twice daily as needed. CA sigmoid colon status post partial colectomy on chemotherapy: Follow with oncologist Dr. Baker. Other comorbidities: Diabetes mellitus type 2, hypertension: Blood pressure and glucose are controlled. Discharge medication reconciliation done. Discharge follow-up instructions completed. Discharge process discussed with the patient and all questions were answered to patient's satisfaction. Total time spent, exact 35 minutes on discharge meds reconciliation, examination, coordination of care with nurses and ancillary staff, review of imaging and blood test and discussion with the patient on follow-up instruct ions I have discussed my assessment with SARKIS Alonzo and orders have been reviewed. Physical Exam Narrative Patient had 2 bowel movements yesterday. Regular diet. Advised to avoid hard meat. Continue MiraLAX and senna-s as needed Physical exam General: Alert, Oriented x3, Cooperative HEENT: Atraumatic, PERRLA, EOMI, Normocephalic Oral: No Gingival or Mucosal Lesions/ Ulcerations Neck: Supple, No JVD, Negative Carotid Bruits Lungs: Air entry diminished in bilateral lung bases. No crepitation/rhonchi Cardiovascular: Regular rate, Regular Rhythm, Normal S1, Normal S2, No murmurs Abdomen: Bowel movement good, Soft, Non Tender, Non-Distended. Surgical incision is well-healed : No renal angle tenderness. No suprapubic tenderness. Extremities: No edema, Capillary Refill Less than 3 Seconds Skin: No rashes, No breakdown Musculoskeletal: No Tenderness to Palpation of Joints or Extremities Neurological: Cranial nerves II-XII grossly intact, Deep Tendon Reflexes 2+/4 and Symmetrical, paresthesia/neuropathy in plantar aspect of feet Psych/Mental Status: Normal Affect, Appropriate. ABG / Lab / Microbiology Data Result Diagrams: 01/02/21 05:19 01/02/21 05:19 Discharge Plan Admission Admit Date/Time: 12/31/20 03:53 Primary Reason for Your Visit: Bowel obstruction Attending Provider: Segundo Reis Primary Care Provider: Santino Finnegan Consulting Providers: Kamini Baig Instructions Additional Instructions / Restrictions: Patient Problems: Altered Health Status related to Hospitalization Patient Goals: *Optimal Level of Health *Keep Appointments *Medication Compliance *Remain Safe Discharge Orders/Prescriptions Prescriptions: New senna 8.6 mg capsule 8.6 mg PO DAILY Qty: 7 RF: 0 polyethylene glycol 3350 [Miralax] 17 gram powder in packet 17 g PO DAILY Qty: 7 RF: 0 ciprofloxacin HCl 500 mg tablet 500 mg PO BID Qty: 10 RF: 0 metronidazole 500 mg tablet 500 mg PO TID Qty: 15 RF: 0 Continued ondansetron HCl [Zofran] 4 mg tablet 4 mg PO Q8H PRN (Reason: nausea and vomiting) Qty: 20 RF: 0 acetaminophen [Tylenol Extra Strength] 500 mg tablet 500 mg PO Q6H PRN (Reason: Pain) RF: 0 betamethasone dipropionate 0.05 % Cream 1 applic TOPICAL DAILY PRN (Reason: Itching) RF: 0 ezetimibe [Zetia] 10 mg Tablet 10 mg DAILY RF: 0 nifedipine 90 mg Tablet Extended Release 90 mg PO BID RF: 0 niacinamide 500 mg Tablet 1,000 mg PO QHS RF: 0 xzjwqrjhctha-boqnaqkz-vczzrj Tablet 1 tab PO DAILY RF: 0 metoprolol tartrate 50 mg Tablet 50 mg PO BID RF: 0 lisinopril 40 mg Tablet 40 mg PO DAILY RF: 0 glimepiride 4 mg Tablet 8 mg PO DAILY RF: 0 nitroglycerin 0.4 mg Tablet, Sublingual 0.4 mg SUBLINGUAL Q5M PRN (Reason: Chest Pain) RF: 0 aspirin 81 mg Tablet 81 mg PO DAILY RF: 0 hydrochlorothiazide 25 mg Tablet 25 mg PO DAILY RF: 0 lovastatin 20 mg Tablet 20 mg PO QHS RF: 0 alogliptin 25 mg Tablet 25 mg PO DAILY RF: 0 empagliflozin 25 mg Tablet 25 mg PO DAILY RF: 0 ibuprofen 400 mg Tablet 200 - 600 mg PO Q6H PRN PRN (Reason: Pain Score 1-10) Qty: 0 RF: 0 polysaccharide iron complex [Ferrex 150] 150 mg iron capsule 150 mg PO DAILY RF: 0 (DME) Hydrocortisone 2.5%/lidocaine 5% ointment (compound) Ointment See Rx Instructions .ROUTE .MEDSUPPLY Qty: 1 RF: 1 Referrals / Follow Up: Santino Finnegan MD [Primary Care Provider] - Within 2 Weeks (Please call to schedule follow up appointment) Disposition Disposition (needs filled in before D/C Order can be placed): Home, Self Care Charges/Coding Visit Charges Inpatient E&M: 34096 Disch Hosp
--- NOTE | 2021-01-05 15:16 | CASEMGMT ---
MICHELE PEREZ Discharge Follow-Up Phone Call. Corinne: Michael Strata: 3 Discharge Date: 01/02/21 Adm Dx: SBO, Ileitis, Sepsis Call to pt to inquire about how he has been doing since being discharged from the hospital. Pt states he is doing okay and states, I finally got rid of all the stomach aches and everything else but I still have the diarrhea. They told me it would take about 7 days for that to go away, so I'm hoping. He states he did get the 4 new medications and denies having any questions about them. He states the metronidazole was causing stomach cramps and that he talked w/Dr Finnegan about it and has stopped taking it. He states he is also not taking the iron, Miralax, or senna right now and that he has spoken w/a doctor about these as well and they are aware. He states, I'm feeling better..almost human again and then chuckled. He denies having any questions about the discharge instructions or other medications. He has an appt scheduled w/Sivan for 01/16. Olivier WONG RN, CM
== END 2021-01-02 11:19 | disposition home or self-care (01) | DRG 392 ==
LOC: ED 12-31 03:52 → PCU 12-31 04:08
PROVIDERS: Internal Medicine; Physician Assistant; Admitting Provider Hospitalist; Emergency Provider Emergency Medicine; PCP Family Medicine; Visit Provider Internal Medicine
DX: A09 Infectious gastroenteritis and colitis, unspecified (principal); C18.7 Malignant neoplasm of sigmoid colon; K57.30 Diverticulosis of large intestine without perforation or abscess without bleeding; I25.10 Atherosclerotic heart disease of native coronary artery without angina pectoris; I10 Essential (primary) hypertension; E11.9 Type 2 diabetes mellitus without complications; E87.6 Hypokalemia; H91.93 Unspecified hearing loss, bilateral; R09.02 Hypoxemia; Z95.5 Presence of coronary angioplasty implant and graft; Z90.49 Acquired absence of other specified parts of digestive tract; Z79.82 Long term (current) use of aspirin; Z79.899 Other long term (current) drug therapy; Z79.84 Long term (current) use of oral hypoglycemic drugs; Z87.891 Personal history of nicotine dependence
CPT/HCPCS: 36415; 71045; 74018; 74177; 80048; 80053; 82962; 83605; 83615; 83690; 83735; 84100; 85025; 87040; 94640; 99285; J7030; J7050; Q9967; A4216; J2405

== ENCOUNTER 2021-08-20 07:45 | Outpatient (CLI) | payer MEDICARE, OTHER, SELFPAY ==
--- NOTE | 2021-08-20 07:47 | CT_ITS ---
STUDY: CT CHEST, ABDOMEN T PELVIS WITH CONTRAST REASON FOR EXAM: Male, 76 years old. MONITOR COLON CANCER following partial colectomy and chemotherapy. RADIATION DOSAGE (If Supplied By Facility): CTDIvol = ( 18.85 ) mGy, DLP = ( 2101.95 ) mGycm TECHNIQUE: Transaxial imaging was performed following intravenous administration of Oral and amp; IV Readi-CAT and amp; 100mL Isovue-300. Individualized dose optimization techniques were used for this CT. COMPARISON: Comparison is made with prior study dated 10/28/2020. FINDINGS: CHEST Stable small bilateral benign-appearing axillary lymph nodes. Stable mild elevation of the right hemidiaphragm. Increased linear markings at the left lung base suggestive of left basilar atelectasis and/or scarring. There is no demonstrated pleural abnormality. There are calcifications of the coronary arteries. Normal mediastinum. Normal hilar regions. Normal unenhanced pulmonary arteries. There is atherosclerotic calcification of the aortic arch . There are mild degenerative changes of the thoracic spine. The patient is status post cholecystectomy. 2 small cysts are seen in the left lobe of the liver. ABDOMEN There is decreased attenuation of the liver consistent with steatosis. 2 small cysts are seen in the left lobe of the liver. The patient is status post cholecystectomy. Stable 1 cm calcified nodule in the posterior medial aspect of the spleen. Normal pancreas. Normal bilateral adrenal glands. Stable 2.1 cm cyst in the upper pole of the right kidney. Stable left renal cysts. Normal visualized stomach. Normal small intestine. Surgical anastomosis is seen in the region of the sigmoid colon. Scattered sigmoid diverticula. The appendix is visualized and appears normal. There is diffuse atherosclerotic calcification of the abdominal aorta, without a demonstrated aneurysm. Normal inferior vena cava. Normal retroperitoneum. Normal abdominal wall. There are diffuse degenerative changes of the visualized lumbar spine. PELVIS Normal urinary bladder. Prostatic calcifications. There is diffuse atherosclerotic calcification of the pelvic arteries. Normal abdominal wall. Normal osseous structures. CT/CT Chest, Abd, Pel w/Contrast IMPRESSION: Status post cholecystectomy. Stable examination. Electronically Signed: Nathen Sanchez MD at 14:00 EST ,
[2021-08-20 07:55] LABS: CREATININE FINGERSTICK 0.9 mg/dL (0.70-1.30); EGFR FINGERSTICK > 60.0000 mL/min (>60)
== END 2021-08-20 23:59 | disposition home or self-care (01) ==
PROVIDERS: PCP Family Medicine; Visit Provider Internal Medicine Medical Oncology
DX: C18.7 Malignant neoplasm of sigmoid colon (principal); Z90.49 Acquired absence of other specified parts of digestive tract
CPT/HCPCS: 71260; 74177; Q9967

== ENCOUNTER 2021-10-26 09:08 | Day surgery (SDC) | payer MEDICARE, OTHER, SELFPAY ==
[2021-10-26] VITALS (7 sets, daily range): BP systolic 97–140; BP diastolic 58–89; PULSE 60–71; RESP 16; TEMP 36.1–36.6; O2SAT 94–98; BMI 31.6
--- NOTE | 2021-10-26 09:33 | HP.PCM_ITS ---
History and Physical Date of Admission: 10/26/21 Date of Service: 10/19/21 MR#:[id number]:[id number]: ALEXX RICHARDSRep #:[id number] Provider:Aron Negro/Sex: 76/M [facility] Int[facility] Vital Signs 10/19/21 08:26 Height 5 ft 10 in Weight: 225 lb BMI 32.3 BP 153/77 H Blood Pressure Location Rt brachial Position Sitting Respiration 18 Intake Visit Reasons: UPDATE FOR CSCOPE Chief Complaint: c-scope Remotely Piloted Vehicle Controller Required: No Is patient in pain?: No Allergies No Known Allergies Allergy (Verified 10/19/21 08:25) Medications alogliptin 25 mg PO DAILY 10/13/20 [History Confirmed 10/19/21] aspirin 81 mg PO DAILY 10/13/20 [History Confirmed 10/19/21] betamethasone dipropionate 1 applic TOPICAL DAILY PRN 10/13/20 [History Confirmed 10/19/21] empagliflozin 25 mg PO DAILY 10/13/20 [History Confirmed 10/19/21] ezetimibe [Zetia] 10 mg DAILY 10/13/20 [History Confirmed 10/19/21] glimepiride 8 mg PO DAILY 10/13/20 [History Confirmed 10/19/21] hydrochlorothiazide 25 mg PO DAILY 10/13/20 [History Confirmed 10/19/21] lisinopril 40 mg PO DAILY 10/13/20 [History Confirmed 10/19/21] lovastatin 20 mg PO QHS 10/13/20 [History Confirmed 10/19/21] metoprolol tartrate 50 mg PO BID 10/13/20 [History Confirmed 10/19/21] lnxsokytpled-aylljsvl-cvcdqf 1 tab PO DAILY 10/13/20 [History Confirmed 10/19/21] niacinamide 1,000 mg PO QHS 10/13/20 [History Confirmed 10/19/21] nifedipine 90 mg PO BID 10/13/20 [History Confirmed 10/19/21] nitroglycerin 0.4 mg SUBLINGUAL Q5M PRN 10/13/20 [History Confirmed 10/19/21] ibuprofen 200 - 600 mg PO Q6H PRN PRN #0 tab 11/02/20 [Rx Confirmed 10/19/21] ondansetron HCl 4 mg tablet 4 mg PO Q8H PRN #20 tab 12/03/20 [Rx Confirmed 10/19/21] Hydrocortisone 2.5% / Lidocaine 5% ointment (cmpd) #1 ea 12/16/20 [Rx Confirmed 10/19/21] acetaminophen 500 mg tablet 500 mg PO Q6H PRN 12/30/20 [History Confirmed 10/19/21] polyethylene glycol 3350 [Miralax] 17 g PO DAILY #7 ea 01/02/21 [Rx Confirmed 10/19/21] sennosides [senna] 8.6 mg PO DAILY #7 cap 01/02/21 [Rx Confirmed 10/19/21] PFSH Medical History Alcohol use Bowel obstruction Cancer Cardiology follow-up encounter Coronary artery disease Diabetes Encounter for education Former smoker Hearing loss, left Hearing loss, right History of alcohol use Hx of cardiovascular stress test Hx of diarrhea Hx of echocardiogram Hypertension Loose, teeth Wears glasses Surgical History History of coronary artery stent placement History of tooth extraction Hx of colonoscopy Hx of heart artery stent Family History Mother Asthma Diabetes Heart disease Hypertension Social History Smoking Status: Former smoker quit date: 06/13/71 pack-years: 1 Tobacco: How many years used: 7 second hand exposure: No alcohol intake: current alcohol intake frequency: holidays/special occasions only Alcohol type: beer substance use type: does not use rahul/methodist: Temple seatbelt use: always do you feel safe at home: Yes HPI HPI HPI: ALEXX RICHARDS, is a 76 M who presents to the office today for 1 year follow-up from sigmoidectomy due to colon cancer as well as scheduling 1 year colonoscopy. Patient states he is doing well tolerating diet and having bowel function. ROS General General: Yes weight change and colon cancer; No appetite, fatigue or breast cancer HEENT HEENT: No difficulty swallowing, eye injury, eye surgery, swollen glands or hoarseness Endo Endocrine: Yes diabetes mellitus; No thyroid disease, thyroid cancer, Hair loss, heat intolerance or cold intolerance Skin Skin: Yes rash; No changing moles Musc Musculoskeletal: No back problems, arthritis, rheumatoid arthritis, gout or joint pain Cardio Cardiovascular: Yes murmur, high blood pressure and heart stent; No pacemaker, heart disease, atrial fibrillation, heart attack, palpitations, shortness of breat with exertion or chest pain Psych Psychiatric: No depression, anxiety or hearing voices Resp Respiratory: No shortness of breath, No sleep apnea, No cough, No COPD, Yes asthma, No emphysema and No wheezing Gastro Gastrointestinal: No abdominal pain, No nausea or vomiting, No diarrhea, No constipation, No blood in stool, No acid reflux, Yes hemorrhoids, No ulcers, No gallbladder problem and No black,tarry stools [place] Hematologic: Yes blood thinners, No blood disorders, No bleeding, No anemia and No blood clots Neuro Neurologic: No abnormal speech and No confusion Exam Const General: cooperative, healthy appearing, comfortable and no acute distress Neck Neck: normal visual inspection Resp Effort & Inspection: normal respiratory effort Cardio Rate: regular rate GI Inspection: non-distended and incision (Previous midline incision well-healed) Palpation: soft, no guarding and nontender Skin General: no rashes or lesions noted Neuro General: patient oriented x3 Psych Affect: normal affect COVID (Procedure Consent) Procedure Criteria Procedure Criteria: Yes Elective The surgeon/proceduralist and patient have discussed in detail the risk of exposure to and/or potential harm posed by the COVID-19 virus with having a surgery/procedure at this time versus the risk of delaying the surgery/procedure. It is not possible to know either the risk of delaying the surgery or procedure or chance of getting an infection with perfect accuracy, but a joint decision was made between the patient and the surgeon/proceduralist to proceed at this time with the scheduled surgery/procedure as indicated on the consent form. Assessment and Plan Assessment and Plan (1) Colon cancer: Status: Acute Qualifiers: Colon location: sigmoid Qualified Code(s): C18.7 - Malignant neoplasm of sigmoid colon Comment: S/P Sigmoid resection on 10/30/2020. Stage IIIB(pT3 pN1c M0). Began adjuvant adjuvant Xeloda 12/03/20 at 2000mg bid, experienced grade 2 Hand/Foot syndrome- erythema and diarrhea after C1. So now on Xeloda 1000mg bid x 14 days. Started C4 on 02/25/2021. Developing Hand foot syndrome so stopped on 03/02/2021. Circulating tumor cells are positive on 06/17/2021. CT c/a/p on 08/20/2021 shows no evidence of disease. Discussed findings with Pt and , to continue observation. (2) S/P colon resection: Status: Acute Comment: sigmoidectomy 10/30/2020 for cancer Plan - Dr. Kamini Biag MD: Patient is doing well with his diet having bowel function is incision is well- healed. We will plan for repeat colonoscopy. I have discussed the above with the patient. I have offered the patient colonoscopy for evaluation. I have explained the risks/benefits of the procedure and described the procedure. I have discussed the risks with the patient, including but not limited to: infection, bleeding, perforation of the GI tract requiring emergency surgery, inability to complete the procedure, injury to any internal organs, complications of anesthesia, etc. - the patient understands and agrees to proceed. I have answered all the patient's questions to the patient's satisfaction and the patient has no further questions. The patient has been given instructions for the colon cleansing preparation. 1 day of clears, MiraLAX Dulcolax split prep. Kamini Baig M.D. Pager: [phone] [facility] [address] [place] [address], [address] [place] [address] Office: [phone] Coding Level of Care Code Off vis,est,level 3 Diagnoses Colon cancer C18.7 Colon location: sigmoid S/P colon resection Z90.49 10/19/21 0917<Electronically signed by Kamini Baig MD>Date Kamini Baig MD
[2021-10-26] MEDS: Lactated Ringers 1,000 ML 15 ML IV (09:49)
[2021-10-26 09:55] LABS: Bedside Glucose 209 mg/dL (74-106)
--- NOTE | 2021-10-26 11:00 | OP.CCLET_ITS ---
10/26/2021 Santino Finnegan [address] [place] [address] Re : Colonoscopy procedure for Popeye Sabiha Dear Dr. Finnegan This procedure was performed on Tuesday, October 26, 2021. My impressions and recommendations are as follows: Impressions : - Hemorrhoids found on perianal exam. - Non-bleeding external and internal hemorrhoids. - Diverticulosis in the descending colon. - No specimens collected. Recommendations : - Discharge patient to home. - Resume previous diet. - Continue present medications. - Repeat colonoscopy in 3 years for surveillance. My findings are described in the full procedure note, which is enclosed. If I can be of further assistance, please feel free to contact me at Doctor phone number(s): , Work: . Sincerely, MD Kamini Bunn MD 10/26/2021 10:59:27 AM This report has been signed electronically.
--- NOTE | 2021-10-26 11:00 | OP.COLON_ITS ---
Patient Name: Popeye Landis Procedure Date: 10/26/2021 10:29 AM Date of : 1945 Age: 76 Procedure: Colonoscopy Indications: High risk colon cancer surveillance: Personal history of colon cancer Providers: Kamini Baig MD Medicines: Monitored Anesthesia Care Patient Profile: This is a 76 year old male. Last Colonoscopy: 1 year ago. Complications: No immediate complications. Procedure: Pre-Anesthesia Assessment: - Prior to the procedure, a History and Physical was performed, and patient medications and allergies were reviewed. The patient's tolerance of previous anesthesia was also reviewed. The risks and benefits of the procedure and the sedation options and risks were discussed with the patient. All questions were answered, and informed consent was obtained. Prior Anticoagulants: The patient has taken no previous anticoagulant or antiplatelet agents. ASA Grade Assessment: Per anesthesia. After reviewing the risks and benefits, the patient was deemed in satisfactory condition to undergo the procedure. After I obtained informed consent, the scope was passed under direct vision. Throughout the procedure, the patient's blood pressure, pulse, and oxygen saturations were monitored continuously. The pediatric colonoscope was introduced through the anus and advanced to the cecum, identified by the appendiceal orifice, ileocecal valve and palpation. The colonoscopy was performed without difficulty. The patient tolerated the procedure well. The quality of the bowel preparation was good. Scope In: 10:35:25 AM Scope Withdrawal Time 0 hours 11 minutes 11 seconds Scope Out: 10:51:05 AM Total Procedure Duration Time 0 hours 15 minutes 40 seconds Findings: Hemorrhoids were found on perianal exam. Non-bleeding external and internal hemorrhoids were found. The hemorrhoids were Grade I (internal hemorrhoids that do not prolapse). Multiple small-mouthed diverticula were found in the descending colon. colorectal anastomatosis widely patent s/p sigmoidectomy Impression: - Hemorrhoids found on perianal exam. - Non-bleeding external and internal hemorrhoids. - Diverticulosis in the descending colon. - No specimens collected. Recommendation: - Discharge patient to home. - Resume previous diet. - Continue present medications. - Repeat colonoscopy in 3 years for surveillance. Procedure Code(s): --- Professional --- G0105, PT, Colorectal cancer screening; colonoscopy on individual at high risk Diagnosis Code(s): --- Professional --- Z85.038, Personal history of other malignant neoplasm of large intestine K64.0, First degree hemorrhoids K57.30, Diverticulosis of large intestine without perforation or abscess without bleeding CPT copyright 2017 [employer]. All rights reserved. The codes documented in this report are preliminary and upon plate maker review may be revised to meet current compliance requirements. MD Kamini Bunn MD 10/26/2021 10:59:27 AM This report has been signed electronically. Number of Addenda: 0 Note Initiated On: 10/26/2021 10:29 AM
== END 2021-10-26 11:50 | disposition home or self-care (01) ==
LOC: EN 09:09 → AC 09:13
PROVIDERS: PCP Family Medicine; Referring Provider Family Medicine; Visit Provider Surgery
PROC: 0DJD8ZZ Inspection of Lower Intestinal Tract, Via Natural or Artificial Opening Endoscopic (ICD-10-PCS; CPT 45378; principal; 2021-10-26 10:25)
DX: Z12.11 Encounter for screening for malignant neoplasm of colon (principal); E11.9 Type 2 diabetes mellitus without complications; K57.30 Diverticulosis of large intestine without perforation or abscess without bleeding; Z79.84 Long term (current) use of oral hypoglycemic drugs; K64.0 First degree hemorrhoids; I10 Essential (primary) hypertension; K64.9 Unspecified hemorrhoids; I25.10 Atherosclerotic heart disease of native coronary artery without angina pectoris; E78.00 Pure hypercholesterolemia, unspecified; Z79.82 Long term (current) use of aspirin; Z79.899 Other long term (current) drug therapy; Z95.5 Presence of coronary angioplasty implant and graft; Z87.891 Personal history of nicotine dependence; Z85.038 Personal history of other malignant neoplasm of large intestine
CPT/HCPCS: 82962; J7120; J2405

== ENCOUNTER → 2022-02-22 | Outpatient (CLI) | payer MEDICARE, OTHER, SELFPAY ==
--- NOTE | 2022-02-22 07:40 | CT_ITS ---
STUDY: CT CHEST, ABDOMEN T PELVIS WITH CONTRAST REASON FOR EXAM: Male, 77 years old. MONITOR HX OF COLON CANCER. RADIATION DOSAGE (If Supplied By Facility): CTDIvol = ( 19.51 ) mGy, DLP = ( 1881.83 ) mGycm TECHNIQUE: Transaxial imaging was performed following intravenous administration of IV 100mL Isovue-370. Multiplanar coronal and sagittal images were reformatted. Individualized dose optimization techniques were used for this CT. COMPARISON: Comparison is made with prior study dated 08/20/2021. FINDINGS: CHEST Stable small benign-appearing bilateral axillary lymph nodes. Mild degree of bullous changes in the right upper lobe. Mild degree of increased linear markings at the lung bases suggestive of bibasilar atelectasis and/or scarring. There is no demonstrated pleural abnormality. There are calcifications of the coronary arteries. Normal mediastinum. Normal hilar regions. Normal unenhanced pulmonary arteries. Normal aorta arch and descending thoracic aorta. There are degenerative changes of the thoracic spine. The patient is status post cholecystectomy. ABDOMEN There is decreased attenuation of the liver consistent with steatosis. Stable small hepatic cysts in the left lobe. The patient is status post cholecystectomy. Stable 1 cm calcified nodule in the posterior inferior medial aspect of the spleen. Normal pancreas. Normal bilateral adrenal glands. 2.6 cm cyst in the anterior superior pole of the right kidney. 1 cm cyst in the inferior pole of the right kidney as well as a 3.5 cm cyst in the lower pole of the right kidney. 3.5 cm cyst in the lateral inferior pole of the left kidney. 1 cm cyst in the midportion of the lateral aspect of the left kidney. Normal visualized stomach. Normal small intestine. Moderate amount of fecal material is seen in the colon. Surgical anastomosis seen in the sigmoid colon. The appendix is visualized and appears normal. There is diffuse atherosclerotic calcification of the abdominal aorta, without a demonstrated aneurysm. Normal inferior vena cava. Normal retroperitoneum. There is a small umbilical hernia containing fat. There are diffuse degenerative changes of the visualized lumbar spine. PELVIS Normal urinary bladder. Central prostatic calcifications. Normal visualized small intestine. Normal visualized colon. There is no pelvic fluid. There is no pelvic lymphadenopathy or mass lesion. There is diffuse atherosclerotic calcification of the pelvic arteries. CT/CT Chest, Abd, Pel w/Contrast IMPRESSION: Stable examination. Electronically Signed: Nathen Sanchez MD at 13:45 EDT ,
[2022-02-22 08:40] LABS: CREATININE FINGERSTICK < 0.9 mg/dL (0.70-1.30); EGFR FINGERSTICK > 60.0000 mL/min (>60)
== END | disposition home or self-care (01) ==
LOC: CT 07:36
PROVIDERS: PCP Family Medicine; Referring Provider Internal Medicine Medical Oncology; Visit Provider Internal Medicine Medical Oncology
DX: N28.1 Cyst of kidney, acquired (principal); I70.0 Atherosclerosis of aorta; I25.10 Atherosclerotic heart disease of native coronary artery without angina pectoris; R91.8 Other nonspecific abnormal finding of lung field; Z90.49 Acquired absence of other specified parts of digestive tract
CPT/HCPCS: 71260; 74177; Q9967

== ENCOUNTER → 2022-08-23 | Outpatient (CLI) | payer MEDICARE, OTHER, SELFPAY ==
--- NOTE | 2022-08-23 07:46 | CT_ITS ---
STUDY: CT CHEST, ABDOMEN T PELVIS WITH CONTRAST REASON FOR EXAM: Male, 77 years old. Known colon CA, restaging RADIATION DOSAGE (If Supplied By Facility): CTDIvol = ( 19.87 ) mGy, DLP = ( 2030.51 ) mGycm TECHNIQUE: Transaxial imaging was performed following intravenous administration of IV 100mL Isovue-300. Individualized dose optimization techniques were used for this CT. COMPARISON: CT chest from 02/22/2022, CT abdomen from 12/31/2020 FINDINGS: CHEST Lungs are expanded, stable pneumatoceles in the right upper lobe. No suspicious noncalcified mass or nodule. Stable fibrotic scarring in the right lower lobe. Thyroid gland is unremarkable. Scattered subcentimeter in short axis dimension, physiologic axillary lymph nodes. Normal heart and pericardium. There are calcifications of the coronary arteries. No suspicious mediastinal or perihilar adenopathy. No filling defects in the pulmonary arteries to suspect PE.. Normal aorta arch and descending thoracic aorta. Degenerative changes in the thoracic spine. ABDOMEN Liver is unremarkable aside from stable simple cysts. There is non-visualization of the gallbladder, which may be secondary to either contraction or a prior cholecystectomy. Stable 1 cm partly calcified cyst within the spleen. Normal pancreas. Normal bilateral adrenal glands. No obstructive uropathy or suspicious solid renal lesion, stable simple renal cysts. Normal visualized stomach. Normal small intestine. Retained stool in the colon, sigmoid anastomosis free of leak. There are few scattered diverticula without CT evidence of acute diverticulitis. The appendix is visualized and appears normal. Appendix seen on coronal recon images 55 through 70 There is diffuse atherosclerotic calcification of the abdominal aorta, without a demonstrated aneurysm. Normal inferior vena cava. Normal retroperitoneum. Small fat-containing ventral hernia. There are diffuse degenerative changes of the visualized lumbar spine, and pelvis. PELVIS Normal urinary bladder. Prostate calcifications noted There is no pelvic fluid. There is no pelvic lymphadenopathy or mass lesion. There is diffuse atherosclerotic calcification of the pelvic arteries. CT/CT Chest, Abd, Pel w/Contrast IMPRESSION: No suspicious solid organ abnormality, stable simple hepatic and renal cysts, no specific follow-up needed No acute pulmonary process, no suspicious noncalcified mass or nodule. No suspicious axillary, mediastinal, perihilar, retroperitoneal or inguinal adenopathy No free peritoneal fluid, or air. Normal appendix visualized Degenerative bony changes Stable peripherally calcified cyst within the spleen, no specific follow-up needed Electronically Signed: Forrest Chang MD at 8:30 EDT ,
[2022-08-23 08:15] LABS: CREATININE FINGERSTICK < 0.9 mg/dL (0.70-1.30); EGFR FINGERSTICK > 60.0000 mL/min (>60)
== END | disposition home or self-care (01) ==
PROVIDERS: PCP Family Medicine; Visit Provider Internal Medicine Medical Oncology
DX: C18.7 Malignant neoplasm of sigmoid colon (principal)
CPT/HCPCS: 71260; 74177; Q9967

== ENCOUNTER → 2023-02-23 | Outpatient (CLI) | payer MEDICARE, OTHER, SELFPAY ==
--- NOTE | 2023-02-23 08:08 | CT_ITS ---
STUDY: CT CHEST, ABDOMEN T PELVIS WITH CONTRAST REASON FOR EXAM: Male, 78 years old. IV ONLY-MONITOR COLON CA RADIATION DOSAGE (If Supplied By Facility): CTDIvol = ( 18.02 ) mGy, DLP = ( 2053.20 ) mGycm TECHNIQUE: Transaxial imaging was performed following intravenous administration of IV 100mL Isovue-300. Multiplanar coronal and sagittal images were reformatted. Individualized dose optimization techniques were used for this CT. COMPARISON: Comparison is made with prior study August 23, 2022. FINDINGS: CHEST Stable small bilateral axillary lymph nodes. Elevation of the right hemidiaphragm. Stable mild increased linear markings in the right lower lobe suggestive of scarring. Since prior study, there is increased markings with air bronchograms in the anterior aspect of the right lower lobe adjacent to the right lobe of the liver. There is no demonstrated pleural abnormality. There are calcifications of the coronary arteries. Normal mediastinum. Normal hilar regions. Normal unenhanced pulmonary arteries. Normal aorta arch and descending thoracic aorta. There are degenerative changes of the thoracic spine. 8 mm cyst is seen in the anterior aspect of the right lobe of the liver. This is unchanged. ABDOMEN Stable scattered small cysts in both lobes of the liver. The patient is status post cholecystectomy. Stable 1 cm calcified cyst in the inferior aspect of the spleen. Lateral Normal spleen. Normal pancreas. Normal bilateral adrenal glands. Stable benign appearing bilateral renal cysts. More prominent on the right side. Normal visualized stomach. Normal small intestine. Surgical anastomosis is seen in the sigmoid colon. The appendix is visualized and appears normal. There is diffuse atherosclerotic calcification of the abdominal aorta, without a demonstrated aneurysm. Normal inferior vena cava. Normal retroperitoneum. There is a small umbilical hernia containing fat. There are diffuse degenerative changes of the visualized lumbar spine. PELVIS Diffuse bladder wall thickening with trabeculations. Prostatic enlargement with central prostatic calcifications. There is no pelvic fluid. There is no pelvic lymphadenopathy or mass lesion. There is diffuse atherosclerotic calcification of the pelvic arteries. CT/CT Chest, Abd, Pel w/Contrast IMPRESSION: Essentially stable examination except for increased markings in the anterior aspect of the right lower lobe adjacent to the right hemidiaphragm suggestive of atelectasis. Electronically Signed: Nathen Sanchez MD at 15:18 EDT ,
[2023-02-23 08:33] LABS: EGFR FINGERSTICK > 60.0000 mL/min (>60)
== END | disposition home or self-care (01) ==
PROVIDERS: PCP Family Medicine; Referring Provider Internal Medicine Medical Oncology; Visit Provider Internal Medicine Medical Oncology
DX: C18.7 Malignant neoplasm of sigmoid colon (principal)
CPT/HCPCS: 71260; 74177; Q9967

== ENCOUNTER → 2024-01-04 | Outpatient (CLI) | payer MEDICARE, OTHER, SELFPAY ==
--- NOTE | 2024-01-04 07:53 | ECHOD_ITS ---
Version 2 Reason For Study: CORONARY ARTERY DISEASE Procedure This was a 2D Doppler, Color Flow transthoracic echocardiogram. Exam performed in department. Left Ventricle Normal LV size. The left ventricular ejection fraction is 70 %. Stage 1 diastolic dysfunction. No regional wall motion abnormalities noted. Right Ventricle Normal RV size. Normal systolic function. Tricuspid Valve Normal tricuspid valve. Mild (1+) tricuspid valve insufficiency. Pulmonary artery systolic pressure is 32 mmHg. Aortic Valve Trisinus/trileaflet aortic valve. Moderate diffuse aortic valve calcification. Peak aortic valve gradient 50 mmHg. Mean aortic valve gradient 31 mmHg. Moderate aortic stenosis. Calculated aortic valve area (continuity equation) is 0.9 cm2. Pulmonic Valve Normal pulmonic valve. Great Vessels Normal aortic root. The pulmonary artery is normal size. Inferior vena cava collapse with respiration. Pericardium/Pleural No pericardial effusion. MMode/2D Measurements & Calculations LVIDd: 4.3 cm IVSd: 1.2 cm LVOT diam: 2.0 cm LVIDs: 2.7 cm LVPWd: 1.0 cm LVOT area: 3.1 cm2 RVDd: 3.0 cm FS: 35.7 % Ao root diam: 3.8 cm LAV(MOD-bp): 41.4 ml LVAd ap4: 23.1 cm2 LAV(MOD-bp) Indexed: 19.2 ml/m2 LVLd ap4: 8.1 cm LAV(MOD-sp2): 42.1 ml EDV(MOD-sp4): 54.2 ml LAV(MOD-sp4): 40.6 ml EDV(sp4-el): 55.8 ml LVAs ap4: 12.6 cm2 LVLs ap4: 7.2 cm ESV(MOD-sp4): 19.6 ml ESV(sp4-el): 18.6 ml EF(MOD-sp4): 63.9 % EF(sp4-el): 66.7 % SV(MOD-sp4): 34.6 ml SV(MOD-sp2): 36.1 ml LVAd ap2: 22.5 cm2 LVLd ap2: 7.8 cm EDV(MOD-sp2): 52.2 ml EDV(sp2-el): 54.8 ml LVAs ap2: 11.1 cm2 LVLs ap2: 6.3 cm ESV(MOD-sp2): 16.1 ml ESV(sp2-el): 16.5 ml EF(MOD-sp2): 69.1 % SV(sp4-el): 37.2 ml LA A4 area: 16.8 cm2 LA dimension(2D): 4.6 cm TAPSE: 1.7 cm RA A4 area: 6.7 cm2 Time Measurements MV dec time: 0.26 sec Doppler Measurements & Calculations MV E max bogdan: 103.0 cm/sec Lat Peak E' Bogdan: 8.3 cm/sec Med Peak E' Bogdan: 7.4 cm/sec MV A max bogdan: 127.3 cm/sec E/E' lat: 12.3 E/E' med: 13.8 MV E/A: 0.81 MV dec slope: 402.4 cm/sec2 Ao V2 max: 352.0 cm/sec LV V1 max: 98.7 cm/sec Ao max P.6 mmHg LV V1 max P.9 mmHg Ao V2 mean: 270.1 cm/sec LV V1 mean P.3 mmHg Ao mean P.1 mmHg LV V1 mean: 72.3 cm/sec Ao V2 VTI: 87.4 cm LV V1 VTI: 29.1 cm AV (velocity ratio): 0.33 MIRNA(I,D): 1.0 cm2 MIRNA(V,D): 0.86 cm2 SV(LVOT): 89.2 ml PA V2 max: 83.7 cm/sec TR max bogdan: 268.4 cm/sec PA max PG (full): 1.3 mmHg TR max P.8 mmHg ECHO/Echo Complete Interpretation Summary Normal LV size. The left ventricular ejection fraction is 70 %. Stage 1 diastolic dysfunction. Moderate diffuse aortic valve calcification. Moderate aortic stenosis. Calculated aortic valve area (continuity equation) is 0.9 cm2. Ordering Physician: Kenny Torres Referring Physician: MD Santino Finnegan Performed By: Alida Grimaldo RDCS
--- NOTE | 2024-01-04 07:53 | CDU_ITS ---
Reason For Study: bruit Rt. Velocities/BP Lt. Velocities/BP Prox CCA 66.4/12.6 cm/sec. Prox CCA 88.8/15.1 cm/sec. Mid CCA 92.9/15.4 cm/sec. Mid CCA 67.4/14.5 cm/sec. Dist CCA 72.1/14.5 cm/sec. Dist CCA 75.9/16.3 cm/sec. Prox ICA 233.7/55.9 cm/sec. Prox ICA 121.1/33.4 cm/sec. Mid ICA 74.9/18.2 cm/sec. Mid ICA 78.4/19.0 cm/sec. Dist ICA 66.4/19.2 cm/sec. Dist ICA 62.8/13.0 cm/sec. Rt. ICA/CCA = 2.5. Prox ECA 186.8/11.5 cm/sec. Prox ECA 174.1/9.7 cm/sec. Lt. Vert. 35.4/4.7 cm/sec. Rt. Vert. 63.6/10.2 cm/sec. Right Extracranial There is homogeneous, irregular atherosclerotic plaque noted in the right common carotid artery. There is heterogeneous, irregular atherosclerotic plaque noted in the right internal carotid artery. There is heterogeneous, irregular atherosclerotic plaque noted in the right external carotid artery. Antegrade flow is noted in the right vertebral artery. There is heterogeneous, irregular atherosclerotic plaque noted in the right bulb. Left Extracranial There is heterogeneous, irregular atherosclerotic plaque noted in the left common carotid artery. There is heterogeneous, irregular atherosclerotic plaque noted in the left internal carotid artery. There is heterogeneous, irregular atherosclerotic plaque noted in the left external carotid artery. Antegrade flow is noted in the left vertebral artery. There is heterogeneous, irregular atherosclerotic plaque noted in the left bulb. Procedure Carotid Duplex [id number]. This is a Carotid Duplex examination using B-mode, color flow and specral Doppler. The exam was diagnostic. [facility] of >70% stenosis of the right ICA. 01/03 9:30 AM. VL/Carotid Duplex Ultrasound Interpretation Summary Severe (>70%) stenosis right extracranial internal carotid. Mild (<50%) stenosis left extracranial internal carotid. Patent and antegrade vertebrals bilaterally. Ordering Physician: Kenny Torres Referring Physician: Kenny Torres MD Performed By: Nimo Lerner RVT
== END | disposition home or self-care (01) ==
PROVIDERS: PCP Family Medicine; Visit Provider Internal Medicine Cardiovascular Disease
DX: R09.89 Other specified symptoms and signs involving the circulatory and respiratory systems (principal); I25.10 Atherosclerotic heart disease of native coronary artery without angina pectoris
CPT/HCPCS: 93306; 93880

== ENCOUNTER → 2024-02-20 | Outpatient (CLI) | payer MEDICARE, OTHER, SELFPAY ==
--- NOTE | 2024-02-20 07:13 | CT_ITS ---
STUDY: CT CHEST, ABDOMEN T PELVIS WITH CONTRAST REASON FOR EXAM: Male, 79 years old. MONITOR HX OF COLON CA RADIATION DOSAGE (If Supplied By Facility): CTDIvol = ( 19.73 ) mGy, DLP = ( 2048.68 ) mGycm TECHNIQUE: Transaxial imaging was performed following intravenous administration of IV 100mL Isovue-300. Multiplanar coronal and sagittal images were reformatted. Individualized dose optimization techniques were used for this CT. COMPARISON: Comparison is made with prior study February 23, 2023. FINDINGS: CHEST Stable elevation of the right hemidiaphragm. Stable mild increased linear markings in the right lower lobe suggestive of scarring. There is no demonstrated pleural abnormality. There are calcifications of the coronary arteries. Normal mediastinum. Calcified left hilar lymph nodes. Normal unenhanced pulmonary arteries. Normal aorta arch and descending thoracic aorta. There are degenerative changes of the thoracic spine. ABDOMEN Stable small cysts in the liver. There are surgical clips in the gallbladder fossa consistent with a prior cholecystectomy. Stable 1 cm calcified nodule in the inferior medial aspect of the spleen. Normal pancreas. Normal bilateral adrenal glands. Stable bilateral renal cysts. Normal visualized stomach. Normal small intestine. Once again, a surgical anastomosis seen at the level of the sigmoid colon. The appendix is visualized and appears normal. There is diffuse atherosclerotic calcification of the abdominal aorta and its major visceral branches, without a demonstrated aneurysm. Normal inferior vena cava. Normal retroperitoneum. There is a small umbilical hernia containing fat. There are degenerative changes of the visualized lumbar spine. Stable 4.2 mm sclerotic density along the posterior superior aspect of the L1 vertebrae suggestive of a small bone island. PELVIS Normal urinary bladder. Stable mild prostatic enlargement with aortic central calcifications. There is no pelvic fluid. There is no pelvic lymphadenopathy or mass lesion. There is diffuse atherosclerotic calcification of the pelvic arteries. CT/CT Chest, Abd, Pel w/Contrast IMPRESSION: Stable examination. Electronically Signed: Nathen Sanchez MD at 14:31 EDT ,
[2024-02-20 07:38] LABS: CREATININE FINGERSTICK < 1.0 mg/dL (0.70-1.30); EGFR FINGERSTICK > 60.0000 mL/min (>60)
[2024-02-21 04:07] LABS: Carcinoembryonic Antigen 4.6 ng/mL (0.0-4.7)
== END | disposition home or self-care (01) ==
LOC: CT 06:52
PROVIDERS: PCP Family Medicine; Referring Provider Internal Medicine Medical Oncology; Visit Provider Internal Medicine Medical Oncology
DX: C18.7 Malignant neoplasm of sigmoid colon (principal)
CPT/HCPCS: 36415; 71260; 74177; 82378; Q9967

== ENCOUNTER → 2024-08-10 | Outpatient (CLI) | payer MEDICARE, OTHER, SELFPAY ==
--- NOTE | 2024-08-10 08:46 | CDU_ITS ---
Reason For Study Reason For Study: Rt ICA Stenosis Rt. Velocities/BP Lt. Velocities/BP Prox CCA 94/15 cm/sec. Prox CCA 82/10 cm/sec. Mid CCA 78/11 cm/sec. Mid CCA 57/10 cm/sec. Dist CCA 64/11 cm/sec. Dist CCA 75/17 cm/sec. Prox ICA 311/53 cm/sec. Prox ICA 160/30 cm/sec. Mid ICA 105/19 cm/sec. Mid ICA 107/23 cm/sec. Dist ICA 104/18 cm/sec. Dist ICA 68/19 cm/sec. Rt. ICA/CCA = 4.0. Lt. ICA/CCA = 2.81. Prox ECA 190/8 cm/sec. Prox ECA 190/10 cm/sec. Rt. Vert. 49/8 cm/sec. Lt. Vert. 56/10 cm/sec. Right Extracranial There is heterogeneous, irregular atherosclerotic plaque noted in the right common carotid artery. There is heterogeneous, irregular atherosclerotic plaque noted in the right internal carotid artery. There is heterogeneous, irregular atherosclerotic plaque noted in the right external carotid artery. Antegrade flow is noted in the right vertebral artery. Left Extracranial There is heterogeneous, irregular atherosclerotic plaque noted in the left common carotid artery. There is heterogeneous, irregular atherosclerotic plaque noted in the left internal carotid artery. There is heterogeneous, irregular atherosclerotic plaque noted in the left external carotid artery. Antegrade flow is noted in the left vertebral artery. Procedure Carotid Duplex [id number]. This is a Carotid Duplex examination using B-mode, color flow and specral Doppler. Exam performed in department. VL/Carotid Duplex Ultrasound Interpretation Summary Severe (>70%) stenosis right extracranial internal carotid. Moderate (50-69%) stenosis left extracranial internal carotid. Patent and antegrade vertebrals bilaterally. Ordering Physician: Carly Mon Referring Physician: Santino Finnegan Performed By: Amna Rordiguez, NORRISCS, RVT
== END | disposition home or self-care (01) ==
LOC: CVS 08:40
PROVIDERS: PCP Family Medicine; Referring Provider Physician Assistant; Visit Provider Physician Assistant
DX: I65.21 Occlusion and stenosis of right carotid artery (principal)
CPT/HCPCS: 93880

== ENCOUNTER → 2024-08-22 | Outpatient (CLI) | payer MEDICARE, OTHER, SELFPAY ==
--- NOTE | 2024-08-22 12:50 | CT_ITS ---
PROCEDURE: CTA HEAD AND NECK W/ CONTRAST REASON FOR EXAM: SEVERE R ICA STENOSIS TECHNIQUE: CTA imaging of the head and neck from the aortic arch to the skull vertex with intravenous contrast. 3D reconstructions. CONTRAST: 100 cc of Isovue 370. COMPARISON: None. FINDINGS: Aortic Arch: Normal size and branching pattern. Mild atherosclerotic plaque. Brachiocephalic and Subclavians: Mild atherosclerotic plaque without significant stenosis. RIGHT Carotid: Right CCA: Mild calcified and soft plaque. Right ICA: High-grade stenosis due to calcified plaques. Maximum stenosis (NASCET): Greater than 90%. Right ECA: Unremarkable. LEFT Carotid: Left CCA: Unremarkable. Left ICA: High-grade stenosis due to calcified plaques. Maximum stenosis (NASCET): > 80 % Left ECA: Unremarkable. Vertebrals: Codominant. Arise from the subclavians. Both vertebrals form the basilar. RIGHT Vertebral: Unremarkable. LEFT Vertebral: Unremarkable. No intracranial aneurysms or large vascular malformations are identified.. Atherosclerotic calcification of the cavernous portions of the internal carotid arteries bilaterally. Anterior cerebral arteries: Unremarkable. Middle cerebral arteries: Unremarkable. Basilar artery: Unremarkable. Posterior cerebral arteries: Unremarkable. Other major branches of the posterior circulation: Unremarkable. Major venous structures: Unremarkable. Other findings: No lymphadenopathy. Lung apices are clear. Bones are unremarkable. CT/CTA Head AND Neck W/ Contrast IMPRESSION: RIGHT CAROTID: High-grade stenosis at the origin of the right internal carotid artery. LEFT CAROTID: High-grade stenosis at the origin of the left internal carotid ar amanda. VERTEBRALS: Unremarkable INTRACRANIAL: Unremarkable One or more dose reduction techniques were used (e.g., Automated exposure contr ol, adjustment of the mA and/or kV according to patient size, use of iterative reconstruction technique). Reading Location: [place] [id number]
[2024-08-22 13:23] LABS: CREATININE FINGERSTICK < 1.0 mg/dL (0.70-1.30); EGFR FINGERSTICK > 60.0000 mL/min (>60)
== END | disposition home or self-care (01) ==
LOC: CT 12:40
PROVIDERS: PCP Family Medicine; Referring Provider Physician Assistant; Visit Provider Physician Assistant
DX: I65.21 Occlusion and stenosis of right carotid artery (principal)
CPT/HCPCS: 70496; 70498; Q9967

== ENCOUNTER 2024-10-22 14:02 | Inpatient (IN) | payer MEDICARE, OTHER, SELFPAY ==
[2024-10-10 13:00] LABS: Hematocrit 47.3 % (40-54); Hemoglobin 15.5 g/dL (13.0-16.5); Mean Corp Hgb Conc 32.8 g/dL (32-36); Mean Corpuscular Hgb 30.5 pg (27.0-32.0); Mean Corpuscular Volume 93.1 fL (80-94); Mean Platelet Vol. 11.7 fl (6.2-12.0); Platelet Count 228 K/mm3 (150-450); RBC Distribution Width CV 13.1 % (11.6-14.6); RBC Distribution Width SD 44.8 fl (35.1-43.9); Red Blood Count 5.08 M/mm3 (4.6-6.2); White Blood Count 9.5 K/mm3 (4.4-11.0)
[2024-10-10 13:18] LABS: Hemoglobin A1c 8.4 % (<=5.6)
[2024-10-10 13:41] LABS: Anion Gap 11 (5-15); BUN 14 mg/dL (4-19); BUN/Creat Ratio 13.6 RATIO (10-20); Calcium,Total 8.8 mg/dL (7.6-11.0); Carbon Dioxide 23.8 mmol/L (21.0-32.0); Chloride 107 mmol/L (98-108); Creatinine, Serum 1.05 mg/dL (0.70-1.20); EST Glomerular Filtration Rate 72 (>60); Glucose 209 mg/dL (70-99); Potassium 4.6 mmol/L (3.3-5.1); Sodium Level 141 mmol/L (133-145)
--- NOTE | 2024-10-10 15:20 | PAT.ANESEVAL ---
Pre-Assessment Diagnosis/Proposed Procedure Planned Operative Procedure(s): RIGHT CAROTID ENDARTERECTOMY Anesthesia History Anesthesia History - ribbon inker: Anesthesia History - ribbon inker Hx Hospitalization No 10/09/24 08:24 Any Problems With Anesthesia No 10/09/24 08:24 Cholinesterase deficiency No 10/09/24 08:24 You/Your Family Experience No 10/09/24 08:24 fever (hyperthermia) with Relationship Recent Exposure to Contagious No 10/26/21 09:40 Disease Does patient have nerve No 10/09/24 08:24 stimulator Patient instructed to have device shut off --Does patient have Pacemaker or ICD? When Was Last Pacemaker Check QUESTION #4 FULL TEXT: You/Your Family Experience fever (hyperthermia) with Anesthesia Last Oral Intake Last Oral intake: Last Oral Intake NPO since Meds taken in AM with sips of water? Meds patient instructed to take am of surgery PONV PONV - ribbon inker: PONV - ribbon inker Female No 10/09/24 08:24 HX of Motion Sickness No 10/09/24 08:24 HX of N/V After Surgery No 10/09/24 08:24 Non-Smoker Yes 10/09/24 08:24 Duration of Surgery greater Yes 10/09/24 08:24 than 60 minutes Number of Risk Factors 2 10/09/24 08:24 PONV Score Moderate Risk 10/09/24 08:24 Height & Weight Height & Weight: Anesthesia: Height & Weight Height 5 ft 10 in 08/07/24 09:51 Respiratory Assessment Respiratory Assessment - ribbon inker: Respiratory Tract Infection Hx - ribbon inker Hx Respiratory Tract Infection No 10/09/24 08:24 STOP Sleep Apnea STOP Sleep Apnea - ribbon inker: STOP Sleep Apnea - ribbon inker Hx Hypertension Yes: CONTROLLED WITH MEDS 10/09/24 08:24 Hx Sleep Apnea No 10/09/24 08:24 CPAP BIPAP Do you snore loudly (louder No 10/09/24 08:24 than talking or can be heard Do you often feel tired/ No 10/09/24 08:24 fatigued/ sleepy during daytime? Has anyone observed you stop No 10/09/24 08:24 breathing during sleep? STOP Results Negative 10/09/24 08:24 QUESTION #5 FULL TEXT : Do you snore loudly (louder than talking or can be heard through closed doors)? 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 Specify any problems Hx of Preganancy in last 3 N/A 10/09/24 08:24 Months Nurse Filling Out Transfusion DSCHRIBER 10/09/24 08:24 & Questions: Date: 10/09/24 10/09/24 08:24 Time: 08:26 10/09/24 08:24 Patient unable to answer at this time (ie. confused, unrespo /Reproduction History /Reproductive History - ribbon inker: /Reproductive Hx- ribbon inker Hx Now No 10/09/24 08:24 Gestational Age (in weeks): EDC: Hx Hx Para Hx Section SAB No 10/09/24 08:24 PFSH Medical History Bladder disease Shortness of breath on exertion History of pain when walking History of edema Bilateral carotid bruits CAD (coronary atherosclerotic disease) Wears dentures Wears hearing aid High cholesterol Dietary restriction History of heart attack Bowel obstruction Encounter for education Cardiology follow-up encounter Cancer Wears glasses History of alcohol use Hx of diarrhea Hx of echocardiogram Coronary artery disease Hx of cardiovascular stress test Diabetes Former smoker Hypertension Home Medications ?Medication ?Instructions ?Recorded ?Last Taken ?Type aspirin 81 mg tablet 81 mg PO DAILY heart health 10/13/20 10/13/20 History betamethasone dipropionate 0.05 % 1 applic topical DAILY PRN Itching 10/13/20 Unknown History topical cream ezetimibe 10 mg tablet (Zetia) 10 mg PO DAILY cholesterol 10/13/20 10/13/20 History glimepiride 4 mg tablet 8 mg PO DAILY DM 10/13/20 Unknown History lovastatin 20 mg tablet 20 mg PO QHS cholesterol 10/13/20 Unknown History metoprolol tartrate 50 mg tablet 50 mg PO BID bp 10/13/20 10/26/21 07:00 History dbbdfympjynh-xmdvkdhs-zogdwp tablet 1 tab PO DAILY supplement 10/13/20 10/13/20 History niacinamide 500 mg tablet 1,000 mg PO QHS supplement 10/13/20 Unknown History nifedipine 90 mg tablet,extended 90 mg PO BID BP 10/13/20 10/26/21 07:00 History release nitroglycerin 0.4 mg sublingual 0.4 mg sublingual Q5M PRN Chest 10/13/20 06/06/20 History tablet Pain ibuprofen 400 mg tablet 200 - 600 mg (0.5 - 1.5 x 400 mg) 11/02/20 Unknown Rx PO Q6H PRN PRN Pain Score 1-10 #0 tabs acetaminophen 500 mg tablet 500 mg PO Q6H PRN Pain 12/30/20 Unknown History (Tylenol Extra Strength) sitagliptin 25 mg tablet 25 mg PO DAILY DIABETES 02/08/24 Unknown History metformin 500 mg tablet,extended 500 mg PO DAILY diabetes 08/07/24 Unknown History release 24 hr Allergy/AdvReac Type Severity Reaction Status Date / Time metformin Allergy Hives Verified 10/10/24 11:01 repaglinide (From Prandin) AdvReac Other Verified 10/10/24 11:01 Family History Mother Asthma Diabetes Heart disease Hypertension Surgical History History of cholecystectomy History of bilateral cataract extraction History of colectomy History of tooth extraction Hx of colonoscopy History of coronary artery stent placement Social History Smoking Status: Former smoker quit date: 06/13/71 pack-years: 1 Tobacco: How many years used: 7 second hand exposure: No alcohol intake: current alcohol intake frequency: holidays/special occasions only Alcohol type: beer substance use type: does not use caffeine: Yes rahul/methodist: [employer] seatbelt use: always do you feel safe at home: Yes Audit: Pertinent Findings Pertinent Findings EKG Perinent findings: 10/10/2024. Sinus rhythm. Echo (EF%) pertinent findings: 01/04/2024. EF 70%. Moderate diffuse aortic valve calcification. Moderate aortic stenosis. Valve area equivalent to 0.9 cm?. Consult pertinent findings: Cardiology 10/10/2024. Aortic valve stenosis. Last echo December 2023. Showed peak gradient of 50. Mean of 31. No symptoms. No repeat echocardiogram warranted unless symptoms. Coronary artery disease. Stenting of circumflex in 2001. No change in exercise tolerance. Hypertension chronic. Controlled. Recommendation Anesthesia Recommendation Anesthesia recommendation: OPTIMIZED for anesthesia
[2024-10-22] VITALS (26 sets, daily range): BP systolic 121–156; BP diastolic 56–84; PULSE 60–85; RESP 11–21; TEMP 35.9–36.6; O2SAT 85–100; BMI 30.7; BMI 31.7
[2024-10-22] MEDS: Lactated Ringers 1,000 ML 15 ML IV (10:12)
--- NOTE | 2024-10-22 10:31 | PCM.HP.BLA ---
History and Physical Allergies metformin Allergy (Verified 10/01/24 10:06) Hivesrepaglinide (From Prandin) Adverse Reaction (Verified 10/01/24 10:06) Other Medications ?Medication ?Instructions ?Recorded ?Confirmed ?Type aspirin 81 mg tablet 81 mg PO DAILY heart health 10/13/20 10/01/24 History betamethasone dipropionate 0.05 % 1 applic topical DAILY PRN Itching 10/13/20 10/01/24 History topical cream ezetimibe 10 mg tablet (Zetia) 10 mg DAILY cholesterol 10/13/20 10/01/24 History glimepiride 4 mg tablet 8 mg PO DAILY DM 10/13/20 10/01/24 History lovastatin 20 mg tablet 20 mg PO QHS cholesterol 10/13/20 10/01/24 History metoprolol tartrate 50 mg tablet 50 mg PO BID bp 10/13/20 10/01/24 History jgnkzysrluwt-qdblvqii-dhfpsz tablet 1 tab PO DAILY supplement 10/13/20 10/01/24 History niacinamide 500 mg tablet 1,000 mg PO QHS supplement 10/13/20 10/01/24 History nifedipine 90 mg tablet,extended 90 mg PO BID BP 10/13/20 10/01/24 History release nitroglycerin 0.4 mg sublingual 0.4 mg sublingual Q5M PRN Chest 10/13/20 10/01/24 History tablet Pain ibuprofen 400 mg tablet 200 - 600 mg (0.5 - 1.5 x 400 mg) 11/02/20 10/01/24 Rx PO Q6H PRN PRN Pain Score 1-10 #0 tabs acetaminophen 500 mg tablet 500 mg PO Q6H PRN Pain 12/30/20 10/01/24 History (Tylenol Extra Strength) sitagliptin 25 mg tablet 25 mg PO DAILY 02/08/24 10/01/24 History metformin 500 mg tablet,extended mg PO DAILY 08/07/24 10/01/24 History release 24 hr Have you fallen in the past year?: No PFSH Medical History Bilateral carotid bruits CAD (coronary atherosclerotic disease) Wears dentures Wears hearing aid High cholesterol Dietary restriction History of heart attack Bowel obstruction Encounter for education Cardiology follow-up encounter Alcohol use Cancer Loose, teeth Wears glasses History of alcohol use Hx of diarrhea Hx of echocardiogram Coronary artery disease Hx of cardiovascular stress test Diabetes Former smoker Hypertension Surgical History History of cholecystectomy History of bilateral cataract extraction History of colectomy History of tooth extraction Hx of heart artery stent Hx of colonoscopy History of coronary artery stent placement Family History Mother Asthma Diabetes Heart disease Hypertension Social History Smoking Status: Former smoker quit date: 06/13/71 pack-years: 1 Tobacco: How many years used: 7 second hand exposure: No alcohol intake: current alcohol intake frequency: holidays/special occasions only Alcohol type: beer substance use type: does not use caffeine: Yes rahul/taoism: Tenriism seatbelt use: always do you feel safe at home: Yes HPI HPI HPI: ALEXX RICHARDS, is a 79 M who presents to the office today for follow up of right carotid stenosis initially found last year. Recent duplex revealed further increase in velocities and he has had a CTA to further evaluate. He denies numbness/weakness/vision loss/speech difficulty. No prior neck surgery/XRT/limited ROM. ROS General General: Yes colon cancer; No weight change, appetite, fatigue, breast cancer or weakness HEENT HEENT: Yes eye surgery; No difficulty swallowing, eye injury, swollen glands or hoarseness Endo Endocrine: Yes diabetes mellitus; No thyroid disease, thyroid cancer, Hair loss, heat intolerance or cold intolerance Skin Skin: No rash or changing moles Musc Musculoskeletal: Yes joint pain; No back problems, arthritis, rheumatoid arthritis or gout Cardio Cardiovascular: Yes murmur, high blood pressure and heart stent; No pacemaker, heart disease, atrial fibrillation, heart attack, palpitations, shortness of breath with exertion or chest pain Psych Psychiatric: No depression, anxiety or hearing voices Resp Respiratory: No shortness of breath, No sleep apnea, Yes cough (comes and goes), No COPD, No asthma, No emphysema and No wheezing Gastro Gastrointestinal: No abdominal pain, No nausea or vomiting, No diarrhea, No constipation, No blood in stool, No acid reflux, Yes hemorrhoids, No ulcers, No gallbladder problem and No black,tarry stools [place] Hematologic: Yes blood thinners, No blood disorders, No bleeding, No anemia and No blood clots Neuro Neurologic: No system reviewed and no additional complaints, except as documented, No as per HPI, No abnormal gait, Yes abnormal hearing, No abnormal movements, No abnormal speech, No behavioral changes, No burning sensations, No confusion, No convulsions, No disequilibrium, No dizziness, No localized weakness, No frequent falls, No headache(s), No lack of coordination, No loss of vision, No memory loss, No numbness, No other visual disturbances, No radicular pain, No restless legs, No sensory deficit, No syncope, No tingling, No tremor(s), No weakness and No other Exam Const General: cooperative, healthy appearing, comfortable, no acute distress and well developed Nutritional Appearance: well nourished Orientation: alert, awake and oriented x3 HENMT Head: normocephalic and atraumatic Ears: hearing grossly normal bilaterally Nose: external nose normal Eyes General: appearance normal, both eyes and all related structures EOM: EOM intact bilaterally Neck Neck: normal visual inspection, full ROM, no lymphadenopathy and trachea midline Thyroid: thyroid normal Lymphatic: no lymphadenopathy noted Resp Effort & Inspection: normal respiratory effort, able to speak in complete sentences, symmetric chest movement, no audible wheezes, not labored, no stridor and no use of accessory muscles Auscultation: clear to auscultation bilaterally Cardio Rate: regular rate Rhythm: regular rhythm Heart Sounds: murmur systolic Bruits: carotid bruit on the right Pulses: brachial pulses present, radial pulses present, posterior tibial pulses present and dorsalis pedis present Skin General: no rashes or lesions noted and no erythema Wounds: no wounds Neuro Cranial Nerves: CN's II-XI intact bilaterally and EOM intact bilaterally Speech: speech normal Gait: normal gait Motor: strength 5/5 throughout Sensory Exam: no sensory deficits noted Psych Appearance: grossly normal and well kempt Mental Status: mental status grossly normal Mood: congruent mood Speech and Movement: speech and movement normal Thought Content: normal Judgment: judgment good Coding Level of Care Code Off vis,est,level 3 Diagnoses Stenosis of right internal carotid artery I65.21 Assessment and Plan Assessment and Plan (1) Stenosis of right internal carotid artery: Status: Chronic Comment: CTA images reviewed, 77% right ICA stenosis with calcification; left ICA 49% stenosis Plan: -right CEA
[2024-10-22 10:36] LABS: Bedside Glucose 206 mg/dL (74-106)
--- NOTE | 2024-10-22 10:40 | PRE.ANES_ITS ---
ASA Classification* ASA Classification ASA Classification: 3 Assessment & Plan Anesthesia* Anesthesia Assessment Anesthesia Assessment: Discussed sedation and/or anesthesia options, risks, benefits, and alternatives with patient/parents/legal guardian/POA. Questions invited. The patient/parents/legal guardian/POA seems to understand and agrees to proceed with anesthesia plan. Reviewed the physical assessment, medical history, allergy history and patient home medications list prior to surgery/procedure/anesthetic and documented any changes. Performed airway and anesthesia risk assessments. Anesthesia Type Anesthesia Type: General (Patient has moderate aortic stenosis. Avoid increased heart rate or decrease in blood pressure. Phenylephrine is drug of choice.) History Source History Obtained from:: Patient and Chart Anesthesia Focused Assessment* Temperature: 96.9 F Pulse Rate: 63 Blood Pressure: 147/60 Respiratory Rate: 18 Pulse Ox: 96 Oxygen Delivery Method: Room Air Airway Assessment Mouth opens: >3 cm Mallampati Score: IV Teeth Condition: Chipped/Broken (Patient has upper right molar that is broken.), Missing (Missing several teeth on the lower jaw. Rest are tight.) and Partial (Patient upper partial is out.) Neck Range of motion (ROM): Full ROM Focused Labs Anesthesia Preop lab: CBC WBC 9.5 K/mm3 (4.4-11.0) 10/10/24 12:04 10/10/24 RBC 5.08 M/mm3 (4.6-6.2) 10/10/24 12:04 10/10/24 Hgb 15.5 g/dL (13.0-16.5) 10/10/24 12:04 10/10/24 Hct 47.3 % (40-54) 10/10/24 12:04 10/10/24 Plt Count 228 K/mm3 (150-450) 10/10/24 12:04 10/10/24 CHEMISTRY Potassium 4.6 mmol/L (3.3-5.1) 10/10/24 12:04 10/10/24 Sodium 141 mmol/L (133-145) 10/10/24 12:04 10/10/24 Magnesium 1.9 mg/dL (1.6-2.6) 01/01/21 09:01/01/21 Phosphorus 2.7 mg/dL (2.5-4.9) 01/01/21 09:22 01/01/21 BUN 14 mg/dL (4-19) 10/10/24 12:04 10/10/24 Creatinine 1.05 mg/dL (0.70-1.20) 10/10/24 12:04 10/10/24 Glucose 209 mg/dL (70-99) H 10/10/24 12:04 10/10/24 POC Glucose 206 mg/dL (74-106) H 10/22/24 09:52 10/22/24 COAG PT 16.5 SECONDS (11.7-14.9) H 10/14/20 08:00 05/0 10/01 Pre-Assessment Diagnosis/Proposed Procedure Planned Operative Procedure(s): RIGHT CAROTID ENDARTERECTOMY Anesthesia History Anesthesia History - golf professional: Anesthesia History - golf professional Hx Hospitalization No 10/09/24 08:24 Any Problems With Anesthesia No 10/09/24 08:24 Cholinesterase deficiency No 10/09/24 08:24 You/Your Family Experience No 10/09/24 08:24 fever (hyperthermia) with Relationship Recent Exposure to Contagious No 10/22/24 10:12 Disease Does patient have nerve No 10/09/24 08:24 stimulator Patient instructed to have device shut off --Does patient have Pacemaker No 10/22/24 10:12 or ICD? When Was Last Pacemaker Check QUESTION #4 FULL TEXT: You/Your Family Experience fever (hyperthermia) with Anesthesia Last Oral Intake Last Oral intake: Last Oral Intake NPO since 06:30 10/22/24 10:12 Meds taken in AM with sips of Yes 10/22/24 10:12 water? Meds patient instructed to nifedipine, metoprolol 10/22/24 10:12 take am of surgery Any additional information?: Yes Meds taken in AM with sips of water?: Yes PONV PONV - golf professional: PONV - golf professional Female No 10/09/24 08:24 HX of Motion Sickness No 10/09/24 08:24 HX of N/V After Surgery No 10/09/24 08:24 Non-Smoker Yes 10/09/24 08:24 Duration of Surgery greater Yes 10/09/24 08:24 than 60 minutes Number of Risk Factors 2 10/09/24 08:24 PONV Score Moderate Risk 10/09/24 08:24 Height & Weight Height & Weight: Anesthesia: Height & Weight Height 5 ft 10 in 10/22/24 10:12 Weight: 97.3 kg 10/22/24 10:12 Body Mass Index (BMI) 30.7 10/22/24 10:12 Respiratory Assessment Respiratory Assessment - golf professional: Respiratory Tract Infection Hx - golf professional Hx Respiratory Tract Infection No 10/09/24 08:24 Any additional information?: Yes Hx Respiratory Tract Infection: Yes (Patient had a cold last week.) STOP Sleep Apnea STOP Sleep Apnea - golf professional: STOP Sleep Apnea - golf professional Hx Hypertension Yes: CONTROLLED WITH MEDS 10/09/24 08:24 Hx Sleep Apnea No 10/09/24 08:24 CPAP BIPAP Do you snore loudly (louder No 10/09/24 08:24 than talking or can be heard Do you often feel tired/ No 10/09/24 08:24 fatigued/ sleepy during daytime? Has anyone observed you stop No 10/09/24 08:24 breathing during sleep? STOP Results Negative 10/09/24 08:24 QUESTION #5 FULL TEXT : Do you snore loudly (louder than talking or can be heard through closed doors)? Tobacco Use History Tobacco Use History - golf professional: Tobacco Use History - golf professional Tobacco Use Non-smoker 10/29/20 09:45 Smoking Status Former smoker 10/09/24 08:24 Hx Tobacco Use No 10/09/24 08:24 Years Smoking Packs Smoked per Day Smoking Cessation Date was No - quit smoking greater 10/09/24 08:24 within the last 15 years than 15 years ago Hx Smoking Cessation Date 10/12/71 10/09/24 08:24 Hx Smoking Cessation No 10/09/24 08:24 Counseling Hematologic Medial History Hematologic Hx - golf professional: Hematologic Medical Hx - paper latcher Hx of Blood Transfusion No 10/09/24 08:24 Hx of Transfusion in last 3 No 10/09/24 08:24 Months Date of Last Transfusion (if within last 3 months) Ever experience any problems No 10/09/24 08:24 with transfusion(s)? Specify any problems Hx of Preganancy in last 3 N/A 10/09/24 08:24 Months Nurse Filling Out Transfusion DSCHRIBER 10/09/24 08:24 & Questions: Date: 10/09/24 10/09/24 08:24 Time: 08:26 10/09/24 08:24 Patient unable to answer at this time (ie. confused, unrespo /Reproduction History /Reproductive History - golf professional: /Reproductive Hx- golf professional Hx Now No 10/09/24 08:24 Gestational Age (in weeks): EDC: Hx Hx Para Hx Section SAB No 10/09/24 08:24 Active Medications Active Medications: Current Medications Generic Name Dose Route Start Last Admin Trade Name Freq PRN Reason Stop Dose Admin Cefazolin Sodium 2 gm/ Sodium 110 mls @ 150 mls/hr 10/22/24 11:35 Chloride IV 10/22/24 12:18 INTRAOP ONE Lactated Ringer's 1,000 mls @ 15 mls/hr 10/22/24 09:45 10/22/24 10:12 IV 15 mls/hr .Q48H APARNA Administration Sodium Chloride 1,000 mls @ 1 mls/hr 10/22/24 09:40 IV .Q48H PRN Saline Flush PFSH Medical History Bladder disease Shortness of breath on exertion History of pain when walking History of edema Bilateral carotid bruits CAD (coronary atherosclerotic disease) Wears dentures Wears hearing aid High cholesterol Dietary restriction History of heart attack Bowel obstruction Encounter for education Cardiology follow-up encounter Cancer Wears glasses History of alcohol use Hx of diarrhea Hx of echocardiogram Coronary artery disease Hx of cardiovascular stress test Diabetes Former smoker Hypertension Home Medications ?Medication ?Instructions ?Recorded ?Last Taken ?Type aspirin 81 mg tablet 81 mg PO DAILY heart health 10/13/20 10/21/24 History betamethasone dipropionate 0.05 % 1 applic topical ERICK LY PRN Itching 10/13/20 Unknown History topical cream ezetimibe 10 mg tablet (Zetia) 10 mg PO DAILY choleste rol 10/13/20 10/21/24 History glimepiride 4 mg tablet 8 mg PO DAILY DM 10/13/20 History lovastatin 20 mg tablet 20 mg PO QHS cholesterol 08/3110/21/24 History metoprolol tartrate 50 mg tablet 50 mg PO BID bp 10/1310/22/24 06:30 History eiyxbtvndwbr-zjjuqmpk-hovhlj tablet 1 tab PO DAILY sup plement 10/13/20 10/13/20 History niacinamide 500 mg tablet 1,000 mg PO QHS supplement 0 10/13/20 Unknown History nifedipine 90 mg tablet,extended 90 mg PO BID BP 10/1310/22/24 06:30 History release nitroglycerin 0.4 mg sublingual 0.4 mg sublingual Q5M PRN Chest 10/13/20 06/06/20 History tablet Pain ibuprofen 400 mg tablet 200 - 600 mg (0.5 - 1.5 x 40 0 mg) 11/02/20 Unknown Rx PO Q6H PRN PRN Pain Score 1-10 #0 tabs acetaminophen 500 mg tablet 500 mg PO Q6H PRN Pain Unknown History (Tylenol Extra Strength) sitagliptin 25 mg tablet 25 mg PO DAILY DIABETES 01/1210/21/24 History metformin 500 mg tablet,extended 500 mg PO DAILY diabe ramila 08/07/24 10/21/24 History release 24 hr Allergy/AdvReac Type Severity Reaction Status Date / Time metformin Allergy Hives Verified 10/22/24 10:08 repaglinide (From Prandin) AdvReac Other Verified 10/22/24 10:08 Family History Mother Asthma Diabetes Heart disease Hypertension Surgical History History of cholecystectomy History of bilateral cataract extraction History of colectomy History of tooth extraction Hx of colonoscopy History of coronary artery stent placement Social History Smoking Status: Former smoker quit date: 06/13/71 pack-years: 1 Tobacco: How many years used: 7 second hand exposure: No alcohol intake: current alcohol intake frequency: holidays/special occasions only Alcohol type: beer substance use type: does not use caffeine: Yes rahul/caodaism: Shinto seatbelt use: always do you feel safe at home: Yes Review of Systems (Anesthesia) ROS Narrative System reviewed and no additional complaints, except as documented. Physical Exam Resp Auscultation: wheezes expiratory wheezes (Will give nebulizer breathing treatment with DuoNeb.)
[2024-10-22] MEDS: Ipratropium/Albuterol Sulfate 3 ML AMPUL.NEB INHALATION (11:05)
--- NOTE | 2024-10-22 11:05 | CPS ---
nurse scanned meds prior to treatment
--- NOTE | 2024-10-22 11:35 | PLAQ_PTH ---
PATIENT: ALEXX RICHARDS LOC: ICU U#:[id number] AGE/SX: 79/M ROOM: [place] [address] RE10/22/[address]: Dr. Jose Fuentes MD : [id number] BED: 1 DIS: 10/23/2024 SPEC #: [id number] RECD: 10/22/24 18:15 STATUS: JOHNSON REQ #: [id number] LUCRECIA: 10/22/24 11:[address]: Jose Fuentes DEPT: SURGICAL PATHOLOGY RECD BY: Fabrizio Reddy ENTERED: 10/23/24 08:27 SP TYPE: PLAQUE OTHR DR: Dr. Santino Finnegan MD Tissues: A - PLAQUE Procedures: Decalcification bone/plaque Surgery Specimen Level III HEADER OPERATION: Right carotid endarterectomy PRE-OP DIAGNOSIS: Stenosis of right internal carotid artery TISSUE SUBMITTED: A- Right carotid plaque MICROSCOPIC DIAGNOSIS A. Right carotid artery, plaque, endarterectomy: * Fibrointimal hyperplasia with focal calcification, consistent with atherosclerotic plaque. GROSS DESCRIPTION A. Received in formalin in a container labeled with the patient's name, date of , and right carotid plaque are multiple white-yellow, membranous, and calcified fragments of tissue measuring 2.7 x 1.3 x 1.0 cm in aggregate. Sectioning reveals gritty white-yellow and firm surfaces. Cutter Gas sections are submitted in A1 following decalcification. [facility] 10-23-2024 CPT:61282,02024
[2024-10-22] MEDS: Cefazolin 2 GM in 0.9% Normal Saline (100mL Bag) 100 ML IV (12:00)
[2024-10-22] MEDS: Heparin 10,000 UNITS/10 ML Vial 10000 UNITS (13:32)
[2024-10-22] MEDS: Bupivacaine Mpf 0.5% 30 ML VIAL (14:03)
[2024-10-22 14:08] LABS: ACT Activated Clotting Time 233 sec (74-137)
[2024-10-22 14:08] LABS: ACT Activated Clotting Time 129 sec (74-137)
[2024-10-22 14:08] LABS: ACT Activated Clotting Time 279 sec (74-137)
--- NOTE | 2024-10-22 14:10 | OP.PCM_ITS ---
Operative Report (Standard) Operative Information Date of Procedure: 10/22/24 Pre-Operative Diagnosis: right carotid stenosis Post-Operative Diagnosis: same Surgery/Procedure Performed: right carotid endarterectomy zigzag machine operator: Yes Bulkhead Carpenter: Marissa Mo Tasks completed by information services assistant: Opening, Closing, Opening & closing, Hemostasis: Tie and Retracting Type of Anesthesia: General RN Documented Start/Stop Times: Operation Date: 10/22/24 11:35 Case Time Into Pre-Op 10/22/24 09:34 Anesthesia Start 10/22/24 11:45 Into Room 10/22/24 11:45 Procedure Start 10/22/24 12:16 Procedure Start Time: 12:15 Procedure Stop Time: 14:15 Select all DRAINS/GRAFTS/IMPLANTS that apply: Graft Graft details: bovine pericardial patch Estimated Blood Loss: 75 Specimen collected: Yes Description of specimen(s) removed: plaque Description of surgery: HPI: Patient is an 79-year-old male with severe right carotid artery stenosis who presents now for elective endarterectomy. Description of procedure: Upon obtaining informed consent and verification correct patient procedure and site the patient was taken the operating room where he was placed under general anesthesia. He was then positioned prepped and draped in usual sterile fashion time was performed. Oblique incision made along the anterior border the sternocleidomastoid Bovie electrocautery used to dissect down through subcutaneous tissue to the level of the platysma. The platysma was divided and self-retaining retractors moved deeper into the wound and dissection carried down to the anterior border the sternocleidomastoid. This was retracted posterior laterally exposing the carotid sheath at which point sharp dissection was used dissect the anterior border the internal jugular vein. The facial vein was identified, ligated with silk ties and divided and the vein retracted laterally exposing the carotid vessels. Sharp dissection was then used to dissect free the proximal common carotid artery with care taken to identify and protect the vagus nerve. A right angle was used to place a vessel loop proximally and attention then turned to the distal internal carotid artery. Sharp dissection was used to dissect beyond the area of palpable and visible plaque with care taken identify and protect the hypoglossal nerve. A right angle was used to place a vessel loop distally and the patient was then heparinized allowed to circulate for 3 minutes with subsequent heparin dosing based on ACT results. The external carotid artery was then dissected free and the right angle used to place a vessel loop. Vessels were then clamped first the internal followed by the common the external and longitudinal arteriotomy created with an 11 blade and extended with Null scissors. A 12 [place] shunt was then placed first distally in the internal carotid artery and allowed to backbleed before placing proximally in the common carotid artery. The shunt was then interrogated with Doppler and found to be patent with low resistance signal. We then performed endarterectomy with a freer elevator with satisfactory endpoint distally on the internal carotid artery and eversion endarterectomy of the external carotid artery. The lumen was then flushed with heparinized saline to clear debris in the distal endpoint tacked with 7-0 Prolene interrupted sutures. A bovine pericardial patch was then secured in position using a 6-0 Prolene in a running fashion. Prior to completing the suture line the shunt was withdrawn and the vessel was backbled and flushed. After completing suture line the internal carotid artery was released along the backbleed and the bifurcation and then reoccluded at the origin. Clamps were then released from the external and the common carotid artery allowing 10 heartbeats of antegrade flow to flush into the external carotid artery before reestablishing flow into the internal carotid artery. After clamps removed satisfactory hemostasis was noted the vessels were interrogated with Doppler. The internal carotid artery was patent with low resistance signal in the external carotid was patent with appropriate signal. Heparin was then reversed with protamine and the incision inspected for hemostasis. A 19 English channel PARKER was then placed via separate stab incision and the incision closed with 2-0 Vicryl, 3-0 Vicryl, 4-0 Monocryl and Dermabond for the skin. At the conclusion of the case the patient was awake from anesthesia moving all extremities to command with cranial nerves intact. He was then taken the recovery room with anticipated mission to the intensive care unit for hemodynamic and neurologic monitoring. Surgical Findings: see above Complications Complications: No
--- NOTE | 2024-10-22 14:37 | PCM.POST.ANE ---
Anesthesia: Postop Eval I Current Vital Signs Temperature: 97.9 F Pulse Rate: 84 Blood Pressure: 156/67 Respiratory Rate: 20 Pulse Ox: 95 Oxygen Delivery Method: Nasal Cannula Oxygen Flow Rate (L/min): 4 Assessment Airway patent: Yes Spontaneous unlabored respirations: Yes Mental status: Awake and Calm nausea: No Vomiting: No Anesthesia Complication: No Fluid Hydration Crystalloid volume administer (ml): 1,800 Total IV fluid infused: 1,800 Progress Note Anesthesia document: Postop Eval 1 completed: Yes
[2024-10-22] MEDS: Acetaminophen 500 MG Tablet 1000 MG PO ×2 (16:51→21:02)
[2024-10-22] MEDS: Insulin Lispro 100 UNIT/ML INSULN.PEN SC ×2 (17:55→21:02)
[2024-10-22 18:08] LABS: Bedside Glucose 237 mg/dL (74-106)
--- NOTE | 2024-10-22 18:28 | POSTOPAN2_ITS ---
Anesthesia Postop Eval I Sum Postop Eval Completion status Anesthesia document: Postop Eval 1 completed: Yes Anesthesia Postop Eval I Summary Anesthesia Postop Eval I Summary: Anesthesia Postop Eval I: Assessment Summary Airway patent Yes 10/22/24 14:38 SPACE OPERATIONS.[email or web address] Spontaneous unlabored Yes 10/22/24 14:38 SPACE OPERATIONS.[email or web address] respirations Mental status Awake,Calm 10/22/24 14:38 SPACE OPERATIONS.[email or web address] nausea No 10/22/24 14:38 SPACE OPERATIONS.[email or web address] Vomiting No 10/22/24 14:38 SPACE OPERATIONS.[email or web address] Anesthesia Postop Eval I: Fluid Summary Crystalloid volume administer 1,800 10/22/24 14:38 SPACE OPERATIONS.[email or web address] (ml) Colloids volume administered ( ml) Blood Product volume administered (ml) Total IV fluid infused 1,800 10/22/24 14:38 SPACE OPERATIONS.[email or web address] Anesthesia Postop Eval I: Summary Notes Anesthesia Complication No 10/22/24 14:38 SPACE OPERATIONS.[email or web address] Anesthesia Complication Comment: Post-operative progress note Anesthesia: Postop Eval II Evaluation Mental status: Awake and Calm Pain Level: 1 nausea: No Vomiting: No Complications Anesthesia Complication: No
--- NOTE | 2024-10-22 18:28 | PCM.POSTANE2 ---
Anesthesia Postop Eval I Sum Postop Eval Completion status Anesthesia document: Postop Eval 1 completed: Yes Anesthesia Postop Eval I Summary Anesthesia Postop Eval I Summary: Anesthesia Postop Eval I: Assessment Summary Airway patent Yes 10/22/24 14:38 MALT [employer]QUORS SALES REPRESENTATIVE.[email or web address] Spontaneous unlabored Yes 10/22/24 14:38 MALT LIQUORS SALES REPRESENTATIVE.PKEL respirations Mental status Awake,Calm 10/22/24 14:38 MALT LIQUORS SALES REPRESENTATIVE.[email or web address] nausea No 10/22/24 14:38 MALT LIQUORS SALES REPRESENTATIVE.[email or web address] Vomiting No 10/22/24 14:38 MALT LIQUORS SALES REPRESENTATIVE.[email or web address] Anesthesia Postop Eval I: Fluid Summary Crystalloid volume administer 1,800 10/22/24 14:38 MALT LIQUORS SALES REPRESENTATIVE.PKEL (ml) Colloids volume administered ( ml) Blood Product volume administered (ml) Total IV fluid infused 1,800 10/22/24 14:38 MALT LIQUORS SALES REPRESENTATIVE.PKEL Anesthesia Postop Eval I: Summary Notes Anesthesia Complication No 10/22/24 14:38 MALT LIQUORS SALES REPRESENTATIVE.PKEL Anesthesia Complication Comment: Post-operative progress note Anesthesia: Postop Eval II Evaluation Mental status: Awake and Calm Pain Level: 1 nausea: No Vomiting: No Complications Anesthesia Complication: No
[2024-10-22] MEDS: Cefazolin 1 GM/50 ML BAG IV (21:02)
[2024-10-22] MEDS: Atorvastatin Calcium 10 MG Tablet 5 MG PO (21:03)
[2024-10-22] MEDS: Ezetimibe 10 MG Tablet PO (21:03)
[2024-10-22 21:30] LABS: Bedside Glucose 288 mg/dL (74-106)
[2024-10-23] VITALS (13 sets, daily range): BP systolic 118–150; BP diastolic 44–82; PULSE 58–94; RESP 15–20; TEMP 35.8–36.1; O2SAT 95–100; BMI 31.9
[2024-10-23] MEDS: hydrALAZINE 20 MG/ML Vial 10 MG IV (02:28)
[2024-10-23] MEDS: Cefazolin 1 GM/50 ML BAG IV (03:49)
[2024-10-23] MEDS: 0.9% Normal Saline (250mL Bag) 250 ML 15 ML IV (03:55)
[2024-10-23 04:05] LABS: Absolute Lymphocyte Count 1.04 X10^3/uL (0.83-4.51); Absolute Neutrophil Count 7.2 X10^3/uL (2.0-7.7); Basophil# 0.01 X10^3/uL; Basophil% 0.1 % (0-1); Eosinophil# 0.01 X10^3/uL; Eosinophils% 0.1 % (0-5); Hemoglobin 13.4 g/dL (13.0-16.5); Lymphocyte # 1.04 X10^3/ul (0.83-4.51); Lymphocyte % 11.4 % (19-41); Mean Corp Hgb Conc 32.7 g/dL (32-36); Mean Corpuscular Hgb 30.7 pg (27.0-32.0); Mean Platelet Vol. 11.3 fl (6.2-12.0); Monocyte# 0.86 X10^3/uL; Monocyte% 9.4 % (0-10); NRBC Flagged by Analyzer 0 % (0-5); Neutrophil # 7.18 X10^3/uL (2.7-7.7); Neutrophil % 78.5 % (47-70); Platelet Count 178 K/mm3 (150-450); RBC Distribution Width CV 13.1 % (11.6-14.6); Red Blood Count 4.36 M/mm3 (4.6-6.2); White Blood Count 9.2 K/mm3 (4.4-11.0)
[2024-10-23] MEDS: Acetaminophen 500 MG Tablet 1000 MG PO (06:07)
[2024-10-23] MEDS: LINAGLIPTIN 5 MG TABLET PO (07:36)
[2024-10-23] MEDS: Multivitamins,Ther W-Minerals Tablet 1 TABLET PO (07:36)
[2024-10-23] MEDS: NIFEdipine 90 MG Tablet PO (07:36)
[2024-10-23] MEDS: metFORMIN (XR) 500 MG Tablet PO (07:36)
[2024-10-23] MEDS: Aspirin 81 MG TAB.CHEW PO (07:37)
[2024-10-23] MEDS: Enoxaparin 40 MG/0.4 ML Syringe SC (07:37)
[2024-10-23] MEDS: Glimepiride 4 MG Tablet 8 MG PO (07:37)
[2024-10-23 08:06] LABS: Bedside Glucose 123 mg/dL (74-106)
--- NOTE | 2024-10-23 09:36 | DS.PCM_ITS ---
Providers Date of Admission: 10/22/24 Primary Care Physician: Dr. Santino Finnegan MD Reason For Visit: Right Carotid Endarterectomy Medications at Discharge Home Medications aspirin 81 mg tablet 81 mg PO DAILY heart health 10/13/20 betamethasone dipropionate 0.05 % topical cream 1 applic topical DAILY PRN Itching 10/13/20 ezetimibe 10 mg tablet (Zetia) 10 mg PO DAILY cholesterol 10/13/20 glimepiride 4 mg tablet 8 mg PO DAILY DM 10/13/20 lovastatin 20 mg tablet 20 mg PO QHS cholesterol 10/13/20 metoprolol tartrate 50 mg tablet 50 mg PO BID bp 10/13/20 Held on 10/23/24. Instructions: Resume on 10/24/24. [id number] tablet 1 tab PO DAILY supplement 10/13/20 niacinamide 500 mg tablet 1,000 mg PO QHS supplement 10/13/20 nifedipine 90 mg tablet,extended release 90 mg PO BID BP 10/13/20 nitroglycerin 0.4 mg sublingual tablet 0.4 mg sublingual Q5M PRN Chest Pain 10/13/20 ibuprofen 400 mg tablet 200 - 600 mg (0.5 - 1.5 x 400 mg) PO Q6H PRN PRN Pain Score 1-10 #0 tabs 11/02/20 acetaminophen 500 mg tablet (Tylenol Extra Strength) 500 mg PO Q6H PRN Pain 12/30/20 sitagliptin 25 mg tablet 25 mg PO DAILY DIABETES 02/08/24 metformin 500 mg tablet,extended release 24 hr 500 mg PO DAILY diabetes 08/07/24 Hospital Course Operations - (R CEA) Summary of Care Provided Hospital Course: Mr. Popeye Quesada is an 79 y/o male who underwent R carotid endarterectomy on 10/22/24. The procedure was without complication and he tolerated it well. Postoperatively, he was routinely admitted to the ICU for ongoing hemodynamic and neurologic monitoring. He has remained hemodynamically stable and neurologically intact throughout admission. The PARKER drain was removed POD#1. The incision site is satisfactory in appearance without hematoma. He has tolerated a normal diet, ambulated to his baseline, been voiding without difficulty, and pain well controlled. He is stable for discharge home with scheduled outpatient follow-up in 2 weeks. Physical Exam Const oriented x3 and no apparent distress HEENT normocephalic, head/scalp atraumatic, hearing grossly normal bilaterally, external ears normal and external nose normal Eyes EOMs intact bilaterally General Eye: normal appearance of both eyes Neck Neck Narrative: R CEA incision site with skin glue intact, no dehiscence/hematoma/erythema. Small amount of ecchymosis. Minimal serosanguineous output in the PARKER drain. Resp normal respiratory effort Cardio regular rate and regular rhythm Extremity normal to inspection and no clubbing, cyanosis or edema Skin no rashes or lesions noted Neuro oriented x3, CN's II-XII intact bilaterally, moves all extremities, no focal motor deficits and no sensory deficits noted Speech: speech normal Psych mental status grossly normal Appearance: grossly normal Attitude: calm and engaged Activity / Motor Behavior: appropriate eye contact Speech: normal speech Weight / BMI Weight Weight: 222 lb 10.67 oz Body Mass Index (BMI) 31.9 ABG / Lab / Microbiology Data 10/23/24 03:55 10/10/24 12:04 Laboratory: Laboratory Results - last 24 hr 10/22/24 09:52: POC Glucose 206 H 10/22/24 11:08: Activated Clotting Time 129 10/22/24 11:45: Activated Clotting Time 279 H 10/22/24 12:22: Activated Clotting Time 233 H 10/22/24 17:45: POC Glucose 237 H 10/22/24 21:01: POC Glucose 288 H 10/23/24 03:55: WBC 9.2, RBC 4.36 L, Hgb 13.4, Hct 41.0, MCV 94.0, MCH 30.7, MCHC 32.7, RDW Std Deviation 45.0 H, RDW Coeff of Oskar 13.1, Plt Count 178, MPV 11.3, Immature Gran % (Auto) 0.500, Neut % (Auto) 78.5 H, Lymph % (Auto) 11.4 L, Garden % (Auto) 9.4, Eos % (Auto) 0.1, Baso % (Auto) 0.1, Absolute Neuts (auto) 7.2, Absolute Lymphs (auto) 1.04, Nucleated RBC % 0 10/23/24 07:33: POC Glucose 123 H D/C Instructions Discharge Diet: No restrictions May shower in (days): 1 Weight Bearing Status: Weight bearing as tolerated Lifting Restricted to (Lbs): 20 Lifting Restrictions: Do not lift greater than 20 pounds for 3 weeks Call your doctor if your incision/area has: Sudden Increased Bleeding, Increased Pain/ Swelling and Foul Smelling Discharge Call your doctor if you observe: Fever of 101 or Higher and Uncontrolled pain Remove Dressing in: 1 day DC O2, CPAP, BIPAP Needs Home O2 Discharge instructions: No Additional Instructions: INCISION CARE: You have a small bandage on your neck over the site from which the surgical drain was removed. You may remove this bandage tomorrow. As long as there is no residual drainage, you may leave this open to air. If you do notice some continued drainage, you may re-cover with a Band-Aid. Your neck incision site is covered with skin glue which will continue to protect it. The skin glue will peel/flake off on its own over the next few weeks. Please do not pick at it. You may shower tomorrow. It is okay for soap and water to rinse over the incision site, pat to dry. Do not submerge the incision site in water such as to take a bath or go swimming etc. for 3 weeks. MEDICATION INSTRUCTIONS Continue nifedipine 90 mg by mouth twice daily. Hold metoprolol tartrate 50 mg twice daily for now. Please check your blood pressure every morning and every evening or any time you feel dizzy/lightheaded or have other symptoms. When your systolic blood pressure (top number) is 140 mmHg then restart your metoprolol titrate 50 mg twice daily. I expect you will likely be able to restart this tomorrow morning. Your pain has been well-controlled with Tylenol 1000 mg by mouth every 8 hours as needed. You declined any prescription pain medications; however, if you feel you need this once you are home please call the office. Call the office at [phone] with any questions about your medications ACTIVITY INSTRUCTIONS Do not lift greater than 20 pounds for 3 weeks. Otherwise, please continue with activity as tolerated. Do not drive until you can turn your head well enough to safely check your blind spots. FOLLOW-UP INSTRUCTIONS You are scheduled for follow-up in the office on 11/07/2024 at 2:30 PM. If you need to change this appointment or have any other questions/concerns, please call the office at [phone]. Please Follow Up With: Carly Mon PA When: 11/07/2024 at 2:30 PM Meaningful Use Info Meaningful Use Meaningful Use Diagnoses (Choose all that apply): None applicable Ischemic Stroke Statin Dosing Therapy Reference: STATIN DOSE THERAPY REFERENCE: * Patients > 75 years receive moderate or high dose statin therapy. * Patients 75 years or YOUNGER should receive HIGH intensity statin dose unless contraindicated. You will be required to document reason for non-treatment if statin daily dose does not meet guidelines. HIGH DOSE STATIN THERAPY DAILY Atorvastatin > than or = to 40 mg Rosuvastatin > than or = to 20 mg Amlodipine + Atorvastatin > than or = to 2.5/40 mg Ezetimibe + Simvastatin 10/80 mg Simvastatin 80mg Discharge Plan Admission Admit Date/Time: 10/22/24 14:02 Attending Provider: Jose Fuentes Primary Care Provider: Santino Finnegan Instructions Additional Instructions / Restrictions: INCISION CARE: You have a small bandage on your neck over the site from which the surgical drain was removed. You may remove this bandage tomorrow. As long as there is no residual drainage, you may leave this open to air. If you do notice some continued drainage, you may re-cover with a Band-Aid. Your neck incision site is covered with skin glue which will continue to protect it. The skin glue will peel/flake off on its own over the next few weeks. Please do not pick at it. You may shower tomorrow. It is okay for soap and water to rinse over the incision site, pat to dry. Do not submerge the incision site in water such as to take a bath or go swimming etc. for 3 weeks. MEDICATION INSTRUCTIONS Continue nifedipine 90 mg by mouth twice daily. Hold metoprolol tartrate 50 mg twice daily for now. Please check your blood pressure every morning and every evening or any time you feel dizzy/lightheaded or have other symptoms. When your systolic blood pressure (top number) is 140 mmHg then restart your metoprolol titrate 50 mg twice daily. I expect you will likely be able to restart this tomorrow morning. Your pain has been well-controlled with Tylenol 1000 mg by mouth every 8 hours as needed. You declined any prescription pain medications; however, if you feel you need this once you are home please call the office. Call the office at [phone] with any questions about your medications ACTIVITY INSTRUCTIONS Do not lift greater than 20 pounds for 3 weeks. Otherwise, please continue with activity as tolerated. Do not drive until you can turn your head well enough to safely check your blind spots. FOLLOW-UP INSTRUCTIONS You are scheduled for follow-up in the office on 11/07/2024 at 2:30 PM. If you need to change this appointment or have any other questions/concerns, please call the office at [phone]. Discharge Orders/Prescriptions Prescriptions: Continued acetaminophen [Tylenol Extra Strength] 500 mg tablet 500 mg PO Q6H PRN (Reason: Pain) sitagliptin 25 mg tablet 25 mg PO DAILY metformin 500 mg tablet extended release 24 hr 500 mg PO DAILY betamethasone dipropionate 0.05 % Cream 1 applic TOPICAL DAILY PRN (Reason: Itching) ezetimibe [Zetia] 10 mg Tablet 10 mg PO DAILY Rx Instructions: in evening nifedipine 90 mg Tablet Extended Release 90 mg PO BID niacinamide 500 mg Tablet 1,000 mg PO QHS Rx Instructions: at night [id number] Tablet 1 tab PO DAILY glimepiride 4 mg Tablet 8 mg PO DAILY nitroglycerin 0.4 mg Tablet, Sublingual 0.4 mg SUBLINGUAL Q5M PRN (Reason: Chest Pain) aspirin 81 mg Tablet 81 mg PO DAILY lovastatin 20 mg Tablet 20 mg PO QHS ibuprofen 400 mg Tablet 200 - 600 mg PO Q6H PRN PRN (Reason: Pain Score 1-10) Qty: 0 0RF Held metoprolol tartrate 50 mg Tablet 50 mg PO BID Hold Instructions: Resume on 10/24/24. Referrals / Follow Up: Santino Finnegan MD [Primary Care Provider] - Disposition Disposition (needs filled in before D/C Order can be placed): Home, Self Care Charges/Coding Procedures Integumentary [id number]: [id number] Global Visit
--- NOTE | 2024-10-23 10:00 | CASEMGMT ---
MICHELE PEREZ Assessment Face to Face with patient for initial transition planning/care coordination assessment. MICHELE PEREZ introduced self and role at [facility], pt voices understanding. Pt is A&Ox4 and is resting comfortably in the chair and is calm. Care providers, pharmacy, and demographics verified. Admitting dx: Right Carotid Endarterectomy LACE Strata: 2 PCP: Santino Finnegan Specialists: Alfredo (Vascular), Olivia (Oncology), Safia (Gen Surgery) Preferred Pharmacy: [facility] Insurance: [facility] A/B, [employer] Prescription Benefit: Yes LNOK: Jessica (W) Living Arrangements: Pt lives with his and 21 y/o GD in a single story home with 3 steps to enter ADLs/IADLs: Ind. 6-Click score is 23. Pt denies concerns Transportation: Self, DIL today. Denies concerns. Pt states that he is calling for his ride to come in now as it is a [address] DME: [employer]ing [employer] with sufficient supplies. Cane. BP Machine. HHC/SNF: denies hx or needs Pt?s goal: home Plan: Home, no additional needs. Pt has an order for DC placed. Pt plans to f/u with vascular as an OP on 11/07. Pt states that he feels safe returning home today with his family support and denies further concerns. Pt MICHELE abel. Manuel Rangel RN, CM
== END 2024-10-23 12:04 | disposition home or self-care (01) | DRG 39 ==
PROVIDERS: Anesthesiology; Admitting Provider Surgery Trauma Surgery; PCP Family Medicine; Referring Provider Surgery Trauma Surgery; Visit Provider Surgery Trauma Surgery
PROC: 03CM0ZZ Extirpation of Matter from Right External Carotid Artery, Open Approach (ICD-10-PCS; CPT 35301; principal; 2024-10-22 11:15)
DX: I65.21 Occlusion and stenosis of right carotid artery (principal); E11.9 Type 2 diabetes mellitus without complications; I10 Essential (primary) hypertension; E78.00 Pure hypercholesterolemia, unspecified; I25.10 Atherosclerotic heart disease of native coronary artery without angina pectoris; I25.2 Old myocardial infarction; Z79.84 Long term (current) use of oral hypoglycemic drugs; Z79.82 Long term (current) use of aspirin; Z79.899 Other long term (current) drug therapy; Z87.891 Personal history of nicotine dependence; Z95.5 Presence of coronary angioplasty implant and graft
CPT/HCPCS: 36415; 80048; 82962; 83036; 85025; 85027; 85347; 86850; 86900; 86901; 88304; 88311; 94640; 94668; 99252; A4648; G0463; J2405

== ENCOUNTER → 2025-02-20 | Outpatient (CLI) | payer MEDICARE, OTHER, SELFPAY ==
--- NOTE | 2025-02-20 13:37 | CT_ITS ---
PROCEDURE: CT CHEST, ABD, PEL W/CONTRAST 02/20/2025 REASON FOR EXAM: HX OF COLON CA-IV ONLY TECHNIQUE: Chest, abdomen and pelvis CT with intravenous contrast. Coronal and Sagittal reconstruction series were provided. One or more dose reduction techniques were used (e.g., Automated exposure control, adjustment of the mA and/or kV according to patient size, use of iterative reconstruction technique. PATIENT PREPARATION: Per protocol ORAL CONTRAST TYPE: None. CONTRAST: Isovue-300 VOLUME: 100mL RADIATION DOSE SUMMARY: CTDlvol: 50.64 mGy DLP: 1941.50 mGycm COMPARISON: CT chest abdomen and pelvis, 02/20/2024. FINDINGS: CT CHEST: Lower neck:There are multiple, stable, small low-density nodules in the left thyroid lobe. There is no supraclavicular lymphadenopathy. Mediastinum:No abnormal masses or lymphadenopathy. Heart and Vasculature:The heart size is normal. There is no pericardial effusion. There is calcific vascular disease of the thoracic aorta and coronary arteries. Esophagus:Normal. Chest wall:The soft tissues of the chest wall are unremarkable. There is no axillary lymphadenopathy. Lungs, airways and pleura: There is chronic elevation of the right hemidiaphragm. There is mild upper lobe predominant centrilobular emphysema. There is stable linear scarring in the middle lobe and lower lobe of the right lung. There is a calcified granuloma in the upper lobe of the left lung. There are benign calcified left hilar lymph nodes. CT ABDOMEN/PELVIS: Liver: There are multiple stable low-density nodules in the liver consistent with cysts. There has been interval development of a low-density nodule, measuring 2.5 cm in diameter, in the medial segment of the left hepatic lobe (segment 4). Gallbladder: Surgically absent. Spleen: There is a low-density nodule with a calcified rim consistent with an old hematoma. Pancreas: Normal size without evidence of mass surrounding inflammation or ductal dilation. Adrenals: Normal. Kidneys: There are multiple stable cortical cysts in both kidneys. Bladder: Normal unenhanced appearance. Reproductive Organs: The prostate gland measures 4.9 cm in transverse dimension and contains coarse calcifications. The seminal vesicles are unremarkable. There is no free fluid in the pelvis. There are few stable reactive inguinal lymph nodes bilaterally. Bowel: There is a large amount of stool in the rectal vault. There is a staple line in the mid sigmoid colon consistent with partial colonic resection. The colo colonic anastomosis is unremarkable. There are scattered colonic diverticuli without evidence of acute inflammation. Appendix: Normal. Lymph nodes: There are no pathologically enlarged retroperitoneal, mesenteric or pelvic lymph nodes. Vasculature: There is calcific vascular disease of the abdominal aorta. The inferior vena cava and portal venous system are normal. Peritoneum / Retroperitoneum: There are no abnormal intra or retroperitoneal masses or fluid collections. There is an umbilical hernia containing normal fat measuring 2.6 cm in diameter. There is a right inguinal hernia containing normal fat measuring 2.3 cm in diameter. There is a left inguinal hernia containing normal fat measuring 2.0 cm in diameter. Bones: There is mild multilevel degenerative disc disease of the lumbar spine. There is a benign bone island in the L1 vertebral body. CT/CT Chest, Abd, Pel w/Contrast IMPRESSION: 1. Interval development of a suspicious nodule in the left hepatic lobe, worri some for metastatic disease. 2. Normal-appearing colo colonic anastomosis in the sigmoid colon. 3. There is a large amount of stool in the rectal vault. 4. Other findings as noted, not significantly changed. Recommendation: PET-CT versus tissue sampling. Reading Location: [place] [id number]
[2025-02-20 13:59] LABS: CREATININE FINGERSTICK < 1.0 mg/dL (0.70-1.30); EGFR FINGERSTICK > 60.0000 mL/min (>60)
[2025-02-22 04:07] LABS: Carcinoembryonic Antigen 6.0 ng/mL (0.0-4.7)
== END | disposition home or self-care (01) ==
LOC: CT 13:09
PROVIDERS: PCP Family Medicine; Referring Provider Internal Medicine Medical Oncology; Visit Provider Internal Medicine Medical Oncology
DX: C18.7 Malignant neoplasm of sigmoid colon (principal)
CPT/HCPCS: 36415; 71260; 74177; 82378; 82565; Q9967

== ENCOUNTER → 2025-03-11 | Outpatient (CLI) | payer MEDICARE, OTHER, SELFPAY ==
--- OUTSIDE RECORDS SUMMARY | 2025-01-15 07:22 | XMS RPT_ITS ---
Author Name Auto Generated Organization [facility] Care Team Providers Care Athletic Trainer Name Role Phone DAVION MULLEN Primary Care Unavailable DAVION MULLEN Attending Unavailable DAVION MULLEN Primary Care Unavailable DAVION MULLEN Attending Unavailable DAVION MULLEN Primary Care Unavailable DAVION MULLEN Attending Unavailable DAVION MULLEN Primary Care Unavailable DAVION MULLEN Referring Unavailable PROBLEMS DATE TYPE CONDITION / CODE ATTENDING STATUS [facility] 06/05/2023 Active Mixed hyperlipid emia / E78.2(ICD-10) DAVION MULLEN Active [facility] 06/05/2023 Active Essential hypert ension, benign / I10(ICD-10) DAVION MULLEN Active [facility] 06/05/2023 Active Type 2 diabetes mellitus without complication, without long-term current use of insulin (HCC) / E11.9(ICD-10) DAVION MULLEN Active [facility] 06/05/2023 Active Atherosclerosis of [place] coronary artery of [place] heart without angina pectoris / I25.10(ICD-10) DAVION MULLEN Active [facility] 01/15/2025 Active Aortic valve esme nosis, etiology of cardiac valve disease unspecified / I35.0(ICD-10) DAVION MULLEN Active [facility] 01/15/2025 Active Malignant neopla sm of sigmoid colon (HCC) / C18.7(ICD-10) DAVION MULLEN Active [facility] 10/16/2024 Active Edema of both lo wer legs / R60.0(ICD-10) DAVION MULLEN Active [facility] 10/16/2024 Active Screening for de pression / Z13.31(ICD-10) DAVION MULLEN Active [facility] 10/16/2024 Active Encounter for ms reening examination for other mental health and behavioral disorders / Z13.39(ICD-10) DAVION MULLEN Active [facility] PROCEDURES No Procedure Records Found RESULTS CNOV Observed: 01/15/2025 8:00 AM Status: COMPLETED Source: [facility] Office Visit (FAMPWS) ALEXX QUESADA ([id number]) 1945 M Date Time Provider Department 01/15/25 8:00 AM [facility] During your visit today, we recorded the following information about you: Pulse Respiration Blood pressure Weight 66/minute 16/minute 118/72 99.2 kg Davion Mullen MD 01/15/2025 9:04 AM Signed Chief Complaint Patient presents with: F/U 3 Month HPI Alexx Quesada is a 79 year old male who presents here today for 3 month follow up. Here with , [facility]. [facility]. Denies any bowel, Gi, or urinary issues. Following with [facility] for colon cancer yearly. Cancer free at this time, 4 years. Imaging done routinely. HTN: Checks BP occ at home reading yesterday was 126/70. No chest pains, dizziness, or Shortness of Breath. Follows with [facility] at [facility]. Taking HCTZ 25 mg daily, Lopressor 50 mg BID and Procardia 90 mg BID. Had carotid artery surgery done at [facility] on 10/22/24, right side. DM: checking BS at home with FBS 140-216. Denies any hypoglycemic episodes or neuropathy sx. Taking Metformin xr 500 mg daily, Amaryl 4 mg, 2 pills daily, and Jardiance 25 mg daily. Lipid: Taking Zetia 10 mg daily, Nicacin 500 mg 2 pills daily, and ASA 81 mg daily. Tries to watch diet and walks for some exercise. Edema: Amrit legs; stable with use of Compression stockings. Past medical history, appointments, medications, allergies reviewed. Previous Medical History PAST MEDICAL HISTORY Diagnosis Date Coronary atherosclerosis of unspecified type of vessel, [place] or graft Coronary artery disease Diabetes mellitus without mention of complication Diabetes mellitus Hypertensive kidney disease, benign Previous Surgical History PAST SURGICAL HISTORY Procedure Laterality Date COLONOSCOPY N/A 10/26/2021 Colonoscopy PAST SURGICAL HISTORY OF 10/30/2020 sigmoidectomy-[facility] PAST SURGICAL HISTORY OF Bilateral 09/2023 B/L cataract removal PAST SURGICAL HISTORY OF Right 10/22/2024 Carotid artery surgery, [facility] REMOVAL GALLBLADDER 10/30/2020 [facility] Family History FAMILY HISTORY Problem Relation Age of Onset Coronary Artery Disease Mother Coronary Artery Disease Father Coronary Artery Disease Brother Patient Allergies ALLERGIES Allergen Reactions Prandin [Repaglinid* Swelling Retaining water Metformin Hives Is able to tolerate the ER (time release) Current Medications Current Outpatient Medications on File Prior to Visit Medication Sig metFORMIN ER (GLUCOPHAGE XR) 500 mg 24 hr tablet Take 500 mg by mouth daily with breakfast. SITagliptin phosphate (JANUVIA) 25 mg tablet Take 1 tablet by mouth once daily. metoprolol tartrate, short acting, (LOPRESSOR) 50 mg tablet Take 1 tablet by mouth two times a day. lovastatin (MEVACOR) 20 mg tablet Take 1 tablet by mouth daily at bedtime. For cholesterol. glimepiride (AMARYL) 4 mg tablet TAKE 2 TABLETS BY MOUTH IN THE MORNING ezetimibe (ZETIA) 10 mg tablet Take 1 tablet by mouth once daily. nitroglycerin sublingual (NITROQUICK) 0.4 mg SL tablet DISSOLVE ON TONGUE FOR CHEST PAIN NEEDED IF NO PAIN RELIEF, CALL 911 empagliflozin (JARDIANCE) 25 mg tablet Take 1 tablet by mouth once daily. Take 1 tablet once daily in the morning niacin ER (NIASPAN) 500 mg tablet Take 2 tablets by mouth daily at bedtime. MV,Ca,Wda-Upnv-KI-Lycopene (CENTRUM MEN) 8 mg iron- 200 mcg-600 mcg tab Take 1 tablet by mouth once daily. blood sugar diagnostic test strip Use as directed to check blood sugar NIFEdipine SR (PROCARDIA XL) 90 mg 24 hr tablet Take 1 tablet by mouth twice daily. Aspirin 81 mg Tab Take 81 mg by mouth once daily. No current facility-administered medications on file prior to visit. Social History Social History Tobacco Use Smoking status: Former Smokeless tobacco: Never Tobacco comments: quit in 1971 Vaping Use Vaping status: Never Used Substance Use Topics Alcohol use: Never Drug use: Never EXAM: BP 118/72 Pulse 66 Resp 16 Wt 99.2 kg (218 lb 11.1 oz) BMI 31.38 kg/m? General Appearance: Well appearing, alert, in no acute distress, well-hydrated, well nourished.. Lungs: Lungs clear to auscultation. No wheezing, rhonchi, rales.. Heart: RRR with systolic aortic stenosis murmur. Health Maintenance List Medicare Annual Wellness Visit Never done Diabetic Foot Exam due on 08/04/2022 Dilated Retinal Exam due on 04/05/2024 Advance Directive Discussion due on 06/13/2024 HbA1C due on 07/06/2024 Urine Albumin:Creatinine Ratio due on 09/26/2024 RSV Vaccine(1 - 1-dose 75+ series) due on 04/18/2025 Influenza Vaccine(1) due on 02/11/2025 LDL Cholesterol due on 04/05/2025 Annual PCP Team Chronic Disease Visit due on 10/16/2025 Depression Screening due on 10/16/2025 Anxiety Screening due on 10/16/2025 DTaP,Tdap,Td Vaccine(4 - Td or Tdap) due on 08/04/2031 Shingrix Vaccine Completed Pneumococcal Vaccine: 50+ Completed Colorectal Cancer Screening Discontinued Data reviewed Brought in labs done at [facility] on 12/04/24 (updated in chart, sent to scanned doc) 1. Type 2 diabetes mellitus without complication, without long-term current use of insulin (HCC) (E11.9) Suboptimal glycemic control with recent blood glucose readings around 170 mg/dL. Hemoglobin A1c was 7.4% on December 04. Currently on Januvia 25 mg, Jardiance 25 mg, Metformin 500 mg once daily, and Glimepiride 8 mg. - Increase Metformin to 1000 mg daily, monitor for gastrointestinal side effects. - Prescribed Metformin XR 500 mg BID. - Consider GLP-1 receptor agonist therapy if glycemic control remains inadequate or does not tolerate higher dose of metformin. - Follow-up in 6 months to reassess glycemic control. 2. Essential hypertension, benign (I10) Blood pressure is well-controlled. 3. Mixed hyperlipidemia (E78.2) Cholesterol levels are well-controlled with a total cholesterol of 158 mg/dL. 4. Atherosclerosis of [place] coronary artery of [place] heart without angina pectoris (I25.10) Aortic valve stenosis, etiology of cardiac valve disease unspecified (I35.0) Under management by city auditor Dr. Torres at [facility]. Recent carotid endarterectomy performed by Dr. Schneider on October 22 with well-healed scar. 5. Malignant neoplasm of sigmoid colon (HCC) (C18.7) Upcoming surveillance with upper and lower endoscopies scheduled for February 19 at [facility]. Patient approaching 5-year cancer-free milestone. - Ensure results of upcoming endoscopies and lab tests are sent to our office. - Follow-up with oncologist Dr. Baker. Follow up in 6 months I agree with the Chief Complaint, ROS, and Past Histories independently gathered by the clinical support representative and the remaining scribed note accurately describes my personal service to the patient. Recording using Real Time Translation software for draft documentation of the visit was discussed with the patient/authorized support representative; all questions welcomed and answered. Patient/authorized support representative agreed to proceed Medical Decision Making: Problems: Moderate: 2+ stable chronic illnesses Data: Unique test result(s) reviewed: 3+ Risk: Moderate: Drug management Medical Decision Making Level: 4 - Moderate Davion Mullen MD The documentation for this note was completed by Iona Barker MA acting as scribe for Davion Mullen MD. January 15, 2025 8:03 AM. Iona Barker MA Allergies As of Date: 01/15/2025 Noted Allergy Reaction PRANDIN (REPAGLINIDE) 04/12/2016 7 - Swelling Comments: Retaining water METFORMIN 07/19/2011 4 - Hives Comments: Is able to tolerate the ER (time release) Date Reviewed: 01/15/2025 Reviewed by: Iona Barker MA - Fully Assessed Reason for Visit: F/U 3 Month [443] Primary Visit Diagnosis:Type 2 diabetes mellitus without complication, without long-term current use of insulin (HCC) [E11.9] Other Visit Diagnoses:Essential hypertension, benign [I10] Mixed hyperlipidemia [E78.2] Atherosclerosis of [place] coronary artery of [place] heart without angina pectoris [I25.10] Aortic valve stenosis, etiology of cardiac valve disease unspecified [I35.0] Malignant neoplasm of sigmoid colon (HCC) [C18.7] Order(s):metFORMIN ER (GLUCOPHAGE XR) 500 mg 24 hr tabletTake 2 tablets by mouth daily with breakfast.Disp: 180 tabletRfl: 3 HBA1C (OUTSIDE) [4245221] Order #: [id number] CBCDIF (EXTERNAL) [[id number]] Order #: [id number] LIPID PANEL (EXTERNAL) [[id number]] Order #: [id number] CMP (EXTERNAL) [[id number]] Order #: [id number] TSH (EXTERNAL) [[id number]] Order #: [id number] Prescriptions as of 01/15/2025 - metFORMIN ER (GLUCOPHAGE XR) 500 mg 24 hr tablet Take 2 tablets by mouth daily with breakfast. - SITagliptin phosphate (JANUVIA) 25 mg tablet Take 1 tablet by mouth once daily. - metoprolol tartrate, short acting, (LOPRESSOR) 50 mg tablet Take 1 tablet by mouth two times a day. - lovastatin (MEVACOR) 20 mg tablet Take 1 tablet by mouth daily at bedtime. For cholesterol. - glimepiride (AMARYL) 4 mg tablet TAKE 2 TABLETS BY MOUTH IN THE MORNING - ezetimibe (ZETIA) 10 mg tablet Take 1 tablet by mouth once daily. - nitroglycerin sublingual (NITROQUICK) 0.4 mg SL tablet DISSOLVE ON TONGUE FOR CHEST PAIN NEEDED IF NO PAIN RELIEF, CALL 911 - empagliflozin (JARDIANCE) 25 mg tablet Take 1 tablet by mouth once daily. Take 1 tablet once daily in the morning - niacin ER (NIASPAN) 500 mg tablet Take 2 tablets by mouth daily at bedtime. - MV,Ca,Pwe-Znzr-RF-Lycopene (CENTRUM MEN) 8 mg iron- 200 mcg-600 mcg tab Take 1 tablet by mouth once daily. - blood sugar diagnostic test strip Use as directed to check blood sugar - NIFEdipine SR (PROCARDIA XL) 90 mg 24 hr tablet Take 1 tablet by mouth twice daily. - Aspirin 81 mg Tab Take 81 mg by mouth once daily. Problem List As Of Date 01/15/2025 Noted Resolved Essential hypertension, benign [I10] 12/01/2006 Type 2 diabetes mellitus without complication (*12/01/2006 Mixed hyperlipidemia [E78.2] 12/01/2006 Coronary atherosclerosis [I25.10] 01/16/2007 Chest pain [R07.9] 06/07/2020 Malignant neoplasm of sigmoid colon (HCC) [C18.*01/16/2021 10/06/2023 Community acquired pneumonia of right lower lob*06/03/2023 Acute hypoxemic respiratory failure (HCC) [J96.*06/03/2023 06/05/2023 Leukocytosis [D72.829] 06/03/2023 06/05/2023 Prescriptions ordered this encounter Disp Refills Start End METFORMIN ER 500 MG TABLET,EXTENDED * 180 * 3 01/15/2025 Route: PO Sig: Take 2 tablets by mouth daily with breakfast. Medications Discontinued During This Encounter Prescriptions - metFORMIN ER (GLUCOPHAGE XR) 500 mg 24 hr tablet (Discontinued) Take 500 mg by mouth daily with breakfast. Level of Service: OFFICE/OUTPATIENT ESTABLISHED MOD MDM 30 MIN [44175] Additional E/M codes: VISIT CPLX INHERENT EANDM ASSOC WITH MED * Disposition: Return in about 6 months (around 07/18/2025). Follow-up and Disposition History for Encounter Date Provider Department Center 01/15/2025 [id number] [facility] Encounter Status:Closed by DAVION MULLEN on 01/15/25 PROGRESS Observed: 01/15/2025 8:00 AM Status: COMPLETED Source: [facility] HNO ID: [id number] Author: DAVION MULLEN MD Service: ? Author Type: Physician Type: Progress Notes Filed: 01/15/2025 09:04 Note Text: Chief Complaint Patient presents with: F/U 3 Month HPI Alexx Quesada is a 79 year old male who presents here today for 3 month follow up. Here with , Jessica. [facility]. Denies any bowel, Gi, or urinary issues. Following with [facility] for colon cancer yearly. Cancer free at this time, 4 years. Imaging done routinely. HTN: Checks BP occ at home reading yesterday was 126/70. No chest pains, dizziness, or Shortness of Breath. Follows with [facility] at [facility]. Taking HCTZ 25 mg daily, Lopressor 50 mg BID and Procardia 90 mg BID. Had carotid artery surgery done at [facility] on 10/22/24, right side. DM: checking BS at home with FBS 140-216. Denies any hypoglycemic episodes or neuropathy sx. Taking Metformin xr 500 mg daily, Amaryl 4 mg, 2 pills daily, and Jardiance 25 mg daily. Lipid: Taking Zetia 10 mg daily, Nicacin 500 mg 2 pills daily, and ASA 81 mg daily. Tries to watch diet and walks for some exercise. Edema: Amrit legs; stable with use of Compression stockings. Past medical history, appointments, medications, allergies reviewed. Previous Medical History PAST MEDICAL HISTORY Diagnosis Date Coronary atherosclerosis of unspecified type of vessel, [place] or graft Coronary artery disease Diabetes mellitus without mention of complication Diabetes mellitus Hypertensive kidney disease, benign Previous Surgical History PAST SURGICAL HISTORY Procedure Laterality Date COLONOSCOPY N/A 10/26/2021 Colonoscopy PAST SURGICAL HISTORY OF 10/30/2020 sigmoidectomy-[facility] PAST SURGICAL HISTORY OF Bilateral 09/2023 B/L cataract removal PAST SURGICAL HISTORY OF Right 10/22/2024 Carotid artery surgery, [facility] REMOVAL GALLBLADDER 10/30/2020 [facility] Family History FAMILY HISTORY Problem Relation Age of Onset Coronary Artery Disease Mother Coronary Artery Disease Father Coronary Artery Disease Brother Patient Allergies ALLERGIES Allergen Reactions Prandin [Repaglinid* Swelling Retaining water Metformin Hives Is able to tolerate the ER (time release) Current Medications Current Outpatient Medications on File Prior to Visit Medication Sig metFORMIN ER (GLUCOPHAGE XR) 500 mg 24 hr tablet Take 500 mg by mouth daily with breakfast. SITagliptin phosphate (JANUVIA) 25 mg tablet Take 1 tablet by mouth once daily. metoprolol tartrate, short acting, (LOPRESSOR) 50 mg tablet Take 1 tablet by mouth two times a day. lovastatin (MEVACOR) 20 mg tablet Take 1 tablet by mouth daily at bedtime. For cholesterol. glimepiride (AMARYL) 4 mg tablet TAKE 2 TABLETS BY MOUTH IN THE MORNING ezetimibe (ZETIA) 10 mg tablet Take 1 tablet by mouth once daily. nitroglycerin sublingual (NITROQUICK) 0.4 mg SL tablet DISSOLVE ON TONGUE FOR CHEST PAIN NEEDED IF NO PAIN RELIEF, CALL 911 empagliflozin (JARDIANCE) 25 mg tablet Take 1 tablet by mouth once daily. Take 1 tablet once daily in the morning niacin ER (NIASPAN) 500 mg tablet Take 2 tablets by mouth daily at bedtime. MV,Ca,Yra-Emid-KO-Lycopene (CENTRUM MEN) 8 mg iron- 200 mcg-600 mcg tab Take 1 tablet by mouth once daily. blood sugar diagnostic test strip Use as directed to check blood sugar NIFEdipine SR (PROCARDIA XL) 90 mg 24 hr tablet Take 1 tablet by mouth twice daily. Aspirin 81 mg Tab Take 81 mg by mouth once daily. No current facility-administered medications on file prior to visit. Social History Social History Tobacco Use Smoking status: Former Smokeless tobacco: Never Tobacco comments: quit in 1971 Vaping Use Vaping status: Never Used Substance Use Topics Alcohol use: Never Drug use: Never EXAM: BP 118/72 Pulse 66 Resp 16 Wt 99.2 kg (218 lb 11.1 oz) BMI 31.38 kg/m? General Appearance: Well appearing, alert, in no acute distress, well-hydrated, well nourished.. Lungs: Lungs clear to auscultation. No wheezing, rhonchi, rales.. Heart: RRR with systolic aortic stenosis murmur. CreatiVasc Medical Maintenance List Medicare Annual Wellness Visit Never done Diabetic Foot Exam due on 08/04/2022 Dilated Retinal Exam due on 04/05/2024 Advance Directive Discussion due on 06/13/2024 HbA1C due on 07/06/2024 Urine Albumin:Creatinine Ratio due on 09/26/2024 RSV Vaccine(1 - 1-dose 75+ series) due on 04/18/2025 Influenza Vaccine(1) due on 02/11/2025 LDL Cholesterol due on 04/05/2025 Annual PCP Team Chronic Disease Visit due on 10/16/2025 Depression Screening due on 10/16/2025 Anxiety Screening due on 10/16/2025 DTaP,Tdap,Td Vaccine(4 - Td or Tdap) due on 08/04/2031 Shingrix Vaccine Completed Pneumococcal Vaccine: 50+ Completed Colorectal Cancer Screening Discontinued Data reviewed Brought in labs done at [facility] on 12/04/24 (updated in chart, sent to scanned doc) 1. Type 2 diabetes mellitus without complication, without long-term current use of insulin (HCC) (E11.9) Suboptimal glycemic control with recent blood glucose readings around 170 mg/dL. Hemoglobin A1c was 7.4% on December 04. Currently on Januvia 25 mg, Jardiance 25 mg, Metformin 500 mg once daily, and Glimepiride 8 mg. - Increase Metformin to 1000 mg daily, monitor for gastrointestinal side effects. - Prescribed Metformin XR 500 mg BID. - Consider GLP-1 receptor agonist therapy if glycemic control remains inadequate or does not tolerate higher dose of metformin. - Follow-up in 6 months to reassess glycemic control. 2. Essential hypertension, benign (I10) Blood pressure is well-controlled. 3. Mixed hyperlipidemia (E78.2) Cholesterol levels are well-controlled with a total cholesterol of 158 mg/dL. 4. Atherosclerosis of [place] coronary artery of [place] heart without angina pectoris (I25.10) Aortic valve stenosis, etiology of cardiac valve disease unspecified (I35.0) Under management by city auditor Dr. Torres at [facility]. Recent carotid endarterectomy performed by Dr. Schneider on October 22 with well-healed scar. 5. Malignant neoplasm of sigmoid colon (HCC) (C18.7) Upcoming surveillance with upper and lower endoscopies scheduled for February 19 at [facility]. Patient approaching 5-year cancer-free milestone. - Ensure results of upcoming endoscopies and lab tests are sent to our office. - Follow-up with oncologist Dr. Baker. Follow up in 6 months I agree with the Chief Complaint, ROS, and Past Histories independently gathered by the clinical support representative and the remaining scribed note accurately describes my personal service to the patient. Recording using Real Time Translation software for draft documentation of the visit was discussed with the patient/authorized support representative; all questions welcomed and answered. Patient/authorized support representative agreed to proceed Medical Decision Making: Problems: Moderate: 2+ stable chronic illnesses Data: Unique test result(s) reviewed: 3+ Risk: Moderate: Drug management Medical Decision Making Level: 4 - Moderate Davion Mullen MD The documentation for this note was completed by Iona Barker MA acting as scribe for Davion Mullen MD. January 15, 2025 8:03 AM. Iona Barker MA PROGRESS Observed: 10/16/2024 9:00 AM Status: COMPLETED [id number] Author: DAVION MULLEN MD Service: ? Author Type: Physician Type: Progress Notes Filed: 10/16/2024 11:37 Note Text: Chief Complaint Patient presents with: F/U 6 Month HPI Alexx Quesada is a 79 year old male who presents here today for 6 month follow up. [facility] Here today with his . Denies any bowel, Gi, or urinary issues. Following with [facility] for colon cancer yearly. Cancer free at this time, 4 years. Imaging done routinely. Edema: Amrit legs; stable with use of Compression stockings. DM: Taking Jardiance 25 mg daily, Metformin XR 500 mg once daily, and Amaryl 4 mg, 2 pills once daily. Checks BS at home with FBS 140-149, this am was 190, but he didn't eat well last night and had a beer. Denies any neuropathy or low sugars. Doesn't really like shots or wanting to give himself shots. Lipid: Walks some for exercise and tries to watch diet, but could improve. Does eat some sweets when grandkids are around. Taking Zetia 10 mg daily, ASA 81 mg daily and Niacin 500 mg 2 pills at bedtime. HTN: Checks BP at home occasionally. Denies any chest pains, dizziness, or SOB. Taking HCTZ 25 mg daily, Lopressor 50 mg BID and Procardia 90 mg BID. Follows with Cardio Dr. Torres at [facility]. Knee - Has issues with b/l knee's. Is focusing on one thing at a time. reports they don't work well. Is scheduled to have surgery from Dr. Fuentes on 10/22/24 for R carotid artery. Is asking about the procedure and asking what to expect. Surgery should take 3.5 hours. VL/Carotid Duplex Ultrasound Interpretation Summary Severe (>70%) stenosis right extracranial internal carotid. Moderate (50-69%) stenosis left extracranial internal carotid. Patent and antegrade vertebrals bilaterally. HM - Declines Covid vaccine today. RSV through Pharmacy due to insurance. Anxiety/Depression screening completed, negative. Has Adv Dir/Living Will paperwork, just not yet completed. Last eye visit when cataracts were removed, about due for a follow up. Past medical history, appointments, medications, allergies reviewed. Previous Medical History PAST MEDICAL HISTORY Diagnosis Date Coronary atherosclerosis of unspecified type of vessel, [place] or graft Coronary artery disease Diabetes mellitus without mention of complication Diabetes mellitus Hypertensive kidney disease, benign Previous Surgical History PAST SURGICAL HISTORY Procedure Laterality Date COLONOSCOPY N/A 10/26/2021 Colonoscopy PAST SURGICAL HISTORY OF 10/30/2020 sigmoidectomy-[facility] PAST SURGICAL HISTORY OF Bilateral 09/2023 B/L cataract removal REMOVAL GALLBLADDER 10/30/2020 [facility] Family History FAMILY HISTORY Problem Relation Age of Onset Coronary Artery Disease Mother Coronary Artery Disease Father Coronary Artery Disease Brother Patient Allergies ALLERGIES Allergen Reactions Prandin [Repaglinid* Swelling Retaining water Metformin Hives Current Medications Current Outpatient Medications on File Prior to Visit Medication Sig metoprolol tartrate, short acting, (LOPRESSOR) 50 mg tablet Take 1 tablet by mouth two times a day. lovastatin (MEVACOR) 20 mg tablet Take 1 tablet by mouth daily at bedtime. For cholesterol. glimepiride (AMARYL) 4 mg tablet TAKE 2 TABLETS BY MOUTH IN THE MORNING ezetimibe (ZETIA) 10 mg tablet Take 1 tablet by mouth once daily. nitroglycerin sublingual (NITROQUICK) 0.4 mg SL tablet DISSOLVE ON TONGUE FOR CHEST PAIN NEEDED IF NO PAIN RELIEF, CALL 911 empagliflozin (JARDIANCE) 25 mg tablet Take 1 tablet by mouth once daily. Take 1 tablet once daily in the morning niacin ER (NIASPAN) 500 mg tablet Take 2 tablets by mouth daily at bedtime. MV,Ca,[place]-Sota-YM-Lycopene (CENTRUM MEN) 8 mg iron- 200 mcg-600 mcg tab Take 1 tablet by mouth once daily. blood sugar diagnostic test strip Use as directed to check blood sugar NIFEdipine SR (PROCARDIA XL) 90 mg 24 hr tablet Take 1 tablet by mouth twice daily. Aspirin 81 mg Tab Take 81 mg by mouth once daily. No current facility-administered medications on file prior to visit. Social History Social History Tobacco Use Smoking status: Former Smokeless tobacco: Never Tobacco comments: quit in 1971 Vaping Use Vaping status: Never Used Substance Use Topics Alcohol use: Never Drug use: Never EXAM: BP 110/60 (BP Site: Left Arm, BP Position: Sitting, BP Cuff Size: Large Adult) Pulse (!) 56 Resp 16 Wt 100.2 kg (220 lb 14.4 oz) SpO2 97% BMI 31.70 kg/m? Physical Exam Constitutional: Appearance: Normal appearance. Cardiovascular: Rate and Rhythm: Normal rate and regular rhythm. Pulses: Normal pulses. Heart sounds: Normal heart sounds. No murmur heard. Pulmonary: Effort: Pulmonary effort is normal. No respiratory distress. Breath sounds: Normal breath sounds. No wheezing, rhonchi or rales. Neurological: General: No focal deficit present. Mental Status: He is alert. Psychiatric: Mood and Affect: Mood normal. Health Maintenance List RSV Vaccine(1 - 1-dose 75+ series) Never done Diabetic Foot Exam due on 08/04/2022 Dilated Retinal Exam due on 04/05/2024 Advance Directive Discussion due on 06/13/2024 HbA1C due on 07/06/2024 Covid-19 Vaccine() due on 10/11/2024 Urine Albumin:Creatinine Ratio due on 09/26/2024 Depression Screening due on 10/05/2024 Anxiety Screening due on 10/05/2024 LDL Cholesterol due on 04/05/2025 Annual PCP Team Chronic Disease Visit due on 04/13/2025 BP Controlled (<130/80) due on 04/13/2025 DTaP,Tdap,Td Vaccine(4 - Td or Tdap) due on 08/04/2031 Influenza Vaccine Completed Shingrix Vaccine Completed Pneumococcal Vaccine: 50+ Completed Colorectal Cancer Screening Discontinued Data reviewed External labs - CBCD - Will await more labs from [facility]. Microalbumin/Creatine Ratio 31.20 04/30/24 Chol - 155 04/30/24 A1c 8.3 04/30[facility] PSA 0.82 04/30/24 TSH 1.859 04/30/24 ASSESSMENT/PLAN: 1. Essential hypertension, benign - ICD9: 401.1, ICD10: I10 (primary diagnosis) - Controlled - Continue current medications - Recommend home blood pressure monitoring, to bring results to next visit - Encouraged sodium restriction, DASH or Mediterranean diet - Recommend regular aerobic exercise - COMPREHENSIVE METABOLIC PANEL - LIPID PANEL, FASTING - COMPLETE BLOOD COUNT AND DIFFERENTIAL 2. Type 2 diabetes mellitus without complication, without long-term current use of insulin (HCC) - ICD9: 250.00, ICD10: E11.9 Await A1c - Continue current medications - Counseled on healthy diet and regular exercise - COMPREHENSIVE METABOLIC PANEL - LIPID PANEL, FASTING - HEMOGLOBIN A1C 3. Mixed hyperlipidemia - ICD9: 272.2, ICD10: E78.2 - Await results - Continue current medications - Counseled on healthy diet and regular exercise - COMPREHENSIVE METABOLIC PANEL - LIPID PANEL, FASTING 4. Atherosclerosis of [place] coronary artery of [place] heart without angina pectoris - ICD9: 414.01, ICD10: I25.10 - Stable, Continue current medication regimen. - LIPID PANEL, FASTING 5. Edema of both lower legs - ICD9: 782.3, ICD10: R60.0 - Stable 6. Screening for depression - ICD9: V79.0, ICD10: Z13.31 - Negative - DEPRESSION SCREENING 7. Encounter for screening examination for other mental health and behavioral disorders - ICD9: V79.8, ICD10: Z13.39 - Negative - ANXIETY SCREENING 3 mo f/u with fasting labs. I agree with the Chief Complaint, ROS, and Past Histories independently gathered by the clinical support representative and the remaining scribed note accurately describes my personal service to the patient. Medical Decision Making: Problems: Moderate: 2+ stable chronic illnesses Data: Unique test(s) ordered: 3+ Risk: Moderate: Drug management Medical Decision Making Level: 4 - Moderate Davion Mullen MD The documentation for this note was completed by Anne-Marie Aparicio MA acting as scribe for Davion Mullen MD. October 16, 2024 9:22 AM. Anne-Marie Aparicio MA CNOV Observed: 10/16/2024 9:00 AM Status: COMPLETED Source: [facility] ALEXX QUESADA ([id number]) 1945 M Date Time Provider Department 10/16/24 9:00 AM DAVION MULLENWS During your visit today, we recorded the following information about you: Pulse Respiration Blood pressure Weight 56/minute 16/minute 110/60 100.2 kg Davion Mullen MD 10/16/2024 11:37 AM Signed Chief Complaint Patient presents with: F/U 6 Month HPI Alexx Barton Dipak is a 79 year old male who presents here today for 6 month follow up. [facility] Here today with his . Denies any bowel, Gi, or urinary issues. Following with [facility] for colon cancer yearly. Cancer free at this time, 4 years. Imaging done routinely. Edema: Amrit legs; stable with use of Compression stockings. DM: Taking Jardiance 25 mg daily, Metformin XR 500 mg once daily, and Amaryl 4 mg, 2 pills once daily. Checks BS at home with FBS 140-149, this am was 190, but he didn't eat well last night and had a beer. Denies any neuropathy or low sugars. Doesn't really like shots or wanting to give himself shots. Lipid: Walks some for exercise and tries to watch diet, but could improve. Does eat some sweets when grandkids are around. Taking Zetia 10 mg daily, ASA 81 mg daily and Niacin 500 mg 2 pills at bedtime. HTN: Checks BP at home occasionally. Denies any chest pains, dizziness, or SOB. Taking HCTZ 25 mg daily, Lopressor 50 mg BID and Procardia 90 mg BID. Follows with Cardio Dr. Torres at [facility]. Knee - Has issues with b/l knee's. Is focusing on one thing at a time. reports they don't work well. Is scheduled to have surgery from Dr. Fuentes on 10/22/24 for R carotid artery. Is asking about the procedure and asking what to expect. Surgery should take 3.5 hours. VL/Carotid Duplex Ultrasound Interpretation Summary Severe (>70%) stenosis right extracranial internal carotid. Moderate (50-69%) stenosis left extracranial internal carotid. Patent and antegrade vertebrals bilaterally. HM - Declines Covid vaccine today. RSV through Pharmacy due to insurance. Anxiety/Depression screening completed, negative. Has Adv Dir/Living Will paperwork, just not yet completed. Last eye visit when cataracts were removed, about due for a follow up. Past medical history, appointments, medications, allergies reviewed. Previous Medical History PAST MEDICAL HISTORY Diagnosis Date Coronary atherosclerosis of unspecified type of vessel, [place] or graft Coronary artery disease Diabetes mellitus without mention of complication Diabetes mellitus Hypertensive kidney disease, benign Previous Surgical History PAST SURGICAL HISTORY Procedure Laterality Date COLONOSCOPY N/A 10/26/2021 Colonoscopy PAST SURGICAL HISTORY OF 10/30/2020 sigmoidectomy-[facility] PAST SURGICAL HISTORY OF Bilateral 09/2023 B/L cataract removal REMOVAL GALLBLADDER 10/30/2020 [facility] Family History FAMILY HISTORY Problem Relation Age of Onset Coronary Artery Disease Mother Coronary Artery Disease Father Coronary Artery Disease Brother Patient Allergies ALLERGIES Allergen Reactions Prandin [Repaglinid* Swelling Retaining water Metformin Hives Current Medications Current Outpatient Medications on File Prior to Visit Medication Sig metoprolol tartrate, short acting, (LOPRESSOR) 50 mg tablet Take 1 tablet by mouth two times a day. lovastatin (MEVACOR) 20 mg tablet Take 1 tablet by mouth daily at bedtime. For cholesterol. glimepiride (AMARYL) 4 mg tablet TAKE 2 TABLETS BY MOUTH IN THE MORNING ezetimibe (ZETIA) 10 mg tablet Take 1 tablet by mouth once daily. nitroglycerin sublingual (NITROQUICK) 0.4 mg SL tablet DISSOLVE ON TONGUE FOR CHEST PAIN NEEDED IF NO PAIN RELIEF, CALL 911 empagliflozin (JARDIANCE) 25 mg tablet Take 1 tablet by mouth once daily. Take 1 tablet once daily in the morning niacin ER (NIASPAN) 500 mg tablet Take 2 tablets by mouth daily at bedtime. MV,Ca,Nro-Xour-FE-Lycopene (CENTRUM MEN) 8 mg iron- 200 mcg-600 mcg tab Take 1 tablet by mouth once daily. blood sugar diagnostic test strip Use as directed to check blood sugar NIFEdipine SR (PROCARDIA XL) 90 mg 24 hr tablet Take 1 tablet by mouth twice daily. Aspirin 81 mg Tab Take 81 mg by mouth once daily. No current facility-administered medications on file prior to visit. Social History Social History Tobacco Use Smoking status: Former Smokeless tobacco: Never Tobacco comments: quit in 1971 Vaping Use Vaping status: Never Used Substance Use Topics Alcohol use: Never Drug use: Never EXAM: BP 110/60 (BP Site: Left Arm, BP Position: Sitting, BP Cuff Size: Large Adult) Pulse (!) 56 Resp 16 Wt 100.2 kg (220 lb 14.4 oz) SpO2 97% BMI 31.70 kg/m? Physical Exam Constitutional: Appearance: Normal appearance. Cardiovascular: Rate and Rhythm: Normal rate and regular rhythm. Pulses: Normal pulses. Heart sounds: Normal heart sounds. No murmur heard. Pulmonary: Effort: Pulmonary effort is normal. No respiratory distress. Breath sounds: Normal breath sounds. No wheezing, rhonchi or rales. Neurological: General: No focal deficit present. Mental Status: He is alert. Psychiatric: Mood and Affect: Mood normal. Health Maintenance List RSV Vaccine(1 - 1-dose 75+ series) Never done Diabetic Foot Exam due on 08/04/2022 Dilated Retinal Exam due on 04/05/2024 Advance Directive Discussion due on 06/13/2024 HbA1C due on 07/06/2024 Covid-19 Vaccine( season) due on 10/11/2024 Urine Albumin:Creatinine Ratio due on 09/26/2024 Depression Screening due on 10/05/2024 Anxiety Screening due on 10/05/2024 LDL Cholesterol due on 04/05/2025 Annual PCP Team Chronic Disease Visit due on 04/13/2025 BP Controlled (<130/80) due on 04/13/2025 DTaP,Tdap,Td Vaccine(4 - Td or Tdap) due on 08/04/2031 Influenza Vaccine Completed Shingrix Vaccine Completed Pneumococcal Vaccine: 50+ Completed Colorectal Cancer Screening Discontinued Data reviewed External labs - CBCD - Will await more labs from [facility]. Microalbumin/Creatine Ratio 31.20 04/30/24 Chol - 155 04/30/24 A1c 8.3 04/30[facility] PSA 0.82 04/30/24 TSH 1.859 04/30/24 ASSESSMENT/PLAN: 1. Essential hypertension, benign - ICD9: 401.1, ICD10: I10 (primary diagnosis) - Controlled - Continue current medications - Recommend home blood pressure monitoring, to bring results to next visit - Encouraged sodium restriction, DASH or Mediterranean diet - Recommend regular aerobic exercise - COMPREHENSIVE METABOLIC PANEL - LIPID PANEL, FASTING - COMPLETE BLOOD COUNT AND DIFFERENTIAL 2. Type 2 diabetes mellitus without complication, without long-term current use of insulin (HCC) - ICD9: 250.00, ICD10: E11.9 Await A1c - Continue current medications - Counseled on healthy diet and regular exercise - COMPREHENSIVE METABOLIC PANEL - LIPID PANEL, FASTING - HEMOGLOBIN A1C 3. Mixed hyperlipidemia - ICD9: 272.2, ICD10: E78.2 - Await results - Continue current medications - Counseled on healthy diet and regular exercise - COMPREHENSIVE METABOLIC PANEL - LIPID PANEL, FASTING 4. Atherosclerosis of [place] coronary artery of [place] heart without angina pectoris - ICD9: 414.01, ICD10: I25.10 - Stable, Continue current medication regimen. - LIPID PANEL, FASTING 5. Edema of both lower legs - ICD9: 782.3, ICD10: R60.0 - Stable 6. Screening for depression - ICD9: V79.0, ICD10: Z13.31 - Negative - DEPRESSION SCREENING 7. Encounter for screening examination for other mental health and behavioral disorders - ICD9: V79.8, ICD10: Z13.39 - Negative - ANXIETY SCREENING 3 mo f/u with fasting labs. I agree with the Chief Complaint, ROS, and Past Histories independently gathered by the clinical support representative and the remaining scribed note accurately describes my personal service to the patient. Medical Decision Making: Problems: Moderate: 2+ stable chronic illnesses Data: Unique test(s) ordered: 3+ Risk: Moderate: Drug management Medical Decision Making Level: 4 - Moderate Davion Mullen MD The documentation for this note was completed by Anne-Marie Aparicio MA acting as scribe for Davion Mullen MD. October 16, 2024 9:22 AM. Anne-Marie Aparicio MA Allergies As of Date: 10/16/2024 Noted Allergy Reaction PRANDIN (REPAGLINIDE) 04/12/2016 7 - Swelling Comments: Retaining water METFORMIN 07/19/2011 4 - Hives Comments: Is able to tolerate the ER (time release) Date Reviewed: 10/16/2024 Reviewed by: Anne-Marie Aparicio MA - Fully Assessed Reason for Visit: F/U 6 Month [444] Primary Visit Diagnosis:Essential hypertension, benign [I10] Other Visit Diagnoses:Type 2 diabetes mellitus without complication, without long-term current use of insulin (HCC) [E11.9] Mixed hyperlipidemia [E78.2] Atherosclerosis of [place] coronary artery of [place] heart without angina pectoris [I25.10] Edema of both lower legs [R60.0] Screening for depression [Z13.31] Encounter for screening examination for other mental health and behavioral disorders [Z13.39] Order(s):DEPRESSION SCREENING [] Order #: [id number]: 1 ANXIETY SCREENING [] Order #: [id number]: 1 COMPREHENSIVE METABOLIC PANEL [SQCMP] Order #: [id number] FUTURE LIPID PANEL, FASTING [SQLIPB] Order #: [id number] FUTURE HEMOGLOBIN A1C [PDKKA8S] Order #: [id number] FUTURE COMPLETE BLOOD COUNT AND DIFFERENTIAL [SQCBCDIF] Order #: [id number] FUTURE Prescriptions as of 10/16/2024 - metFORMIN ER (GLUCOPHAGE XR) 500 mg 24 hr tablet Take 500 mg by mouth daily with breakfast. - SITagliptin phosphate (JANUVIA) 25 mg tablet Take 1 tablet by mouth once daily. - metoprolol tartrate, short acting, (LOPRESSOR) 50 mg tablet Take 1 tablet by mouth two times a day. - lovastatin (MEVACOR) 20 mg tablet Take 1 tablet by mouth daily at bedtime. For cholesterol. - glimepiride (AMARYL) 4 mg tablet TAKE 2 TABLETS BY MOUTH IN THE MORNING - ezetimibe (ZETIA) 10 mg tablet Take 1 tablet by mouth once daily. - nitroglycerin sublingual (NITROQUICK) 0.4 mg SL tablet DISSOLVE ON TONGUE FOR CHEST PAIN NEEDED IF NO PAIN RELIEF, CALL 911 - empagliflozin (JARDIANCE) 25 mg tablet Take 1 tablet by mouth once daily. Take 1 tablet once daily in the morning - niacin ER (NIASPAN) 500 mg tablet Take 2 tablets by mouth daily at bedtime. - MV,Ca,Tcw-Hfgy-DP-Lycopene (CENTRUM MEN) 8 mg iron- 200 mcg-600 mcg tab Take 1 tablet by mouth once daily. - blood sugar diagnostic test strip Use as directed to check blood sugar - NIFEdipine SR (PROCARDIA XL) 90 mg 24 hr tablet Take 1 tablet by mouth twice daily. - Aspirin 81 mg Tab Take 81 mg by mouth once daily. Problem List As Of Date 10/16/2024 Noted Resolved Essential hypertension, benign [I10] 12/01/2006 Type 2 diabetes mellitus without complication (*12/01/2006 Mixed hyperlipidemia [E78.2] 12/01/2006 Coronary atherosclerosis [I25.10] 01/16/2007 Chest pain [R07.9] 06/07/2020 Malignant neoplasm of sigmoid colon (HCC) [C18.*01/16/2021 10/06/2023 Community acquired pneumonia of right lower lob*06/03/2023 Acute hypoxemic respiratory failure (HCC) [J96.*06/03/2023 06/05/2023 Leukocytosis [D72.829] 06/03/2023 06/05/2023 Level of Service: OFFICE/OUTPATIENT ESTABLISHED MOD MDM 30 MIN [15979] Additional E/M codes: VISIT CPLX INHERENT EANDM ASSOC WITH MED * Disposition: Return in about 3 months (around 01/16/2025). Follow-up and Disposition History for Encounter Date Provider Department Center 10/16/2024 [id number] MULLEN [facility] Encounter Status:Closed by DAVION MULLEN on 10/16/24 CNOV Observed: 04/13/2024 9:20 AM Status: COMPLETED Source: [facility] Office Visit ([facility]) ALEXX QUESADA ([id number]) 1945 M Date Time Provider Department 04/13/24 9:20 AM DAVION MULLEN During your visit today, we recorded the following information about you: Pulse Respiration Blood pressure Weight 59/minute 16/minute 128/74 99.5 kg Iona Barker MA 04/13/2024 8:52 AM Signed Call office or mychart office with new medication that MA changed in December. Need dosage and how it is taken. Davion Mullen MD 04/13/2024 11:18 AM Signed Chief Complaint Patient presents with: 6 Month Exam HPI Alexx Quesada is a 79 year old male who presents here today for 6 month follow up. [facility] Has routine DM care through them, including foot exams. Needs handicap placard renewed. No bowel, Gi, or urinary issues. Follows with [facility] for colon cancer, seeing them annually. Cancer free. Had CT scan and labs done in Feb 2024. HTN: Follows with Cardio Dr. Torres annually at [facility]. Checks BP at home. No chest pains, dizziness, or SOB. Taking HCTZ 25 mg daily, Lopressor 50 mg BID and Procardia 90 mg BID. They are watching his carotid arteries. DM: Check BS 2-3 x per week, FBS 171. Taking Jardiance 25 mg daily, and Amaryl 4 mg 2 pills once daily. Denies any hypoglycemic episodes or neuropathy sx. Follows with [facility] in [place], had both cataracts removed in September. [facility] one [facility] but pt is not sure what it was so he will notify office. Lipid: Taking Zetia 10 mg daily, ASA 81 mg daily and Niacin 500 mg 2 pills at bedtime. Tries to watch diet and walks a little. Edema: Amrit legs; stable with use of Compression stockings. Past medical history, appointments, medications, allergies reviewed. Previous Medical History PAST MEDICAL HISTORY Diagnosis Date Coronary atherosclerosis of unspecified type of vessel, [place] or graft Coronary artery disease Diabetes mellitus without mention of complication Diabetes mellitus Hypertensive kidney disease, benign Previous Surgical History PAST SURGICAL HISTORY Procedure Laterality Date COLONOSCOPY N/A 10/26/2021 Colonoscopy PAST SURGICAL HISTORY OF 10/30/2020 sigmoidectomy-[facility] PAST SURGICAL HISTORY OF Bilateral 09/2023 B/L cataract removal REMOVAL GALLBLADDER 10/30/2020 [facility] Family History FAMILY HISTORY Problem Relation Age of Onset Coronary Artery Disease Mother Coronary Artery Disease Father Coronary Artery Disease Brother Patient Allergies ALLERGIES Allergen Reactions Prandin [Repaglinid* Swelling Retaining water Metformin Hives Current Medications Current Outpatient Medications on File Prior to Visit Medication Sig metoprolol tartrate, short acting, (LOPRESSOR) 50 mg tablet Take 1 tablet by mouth two times a day. lovastatin (MEVACOR) 20 mg tablet Take 1 tablet by mouth daily at bedtime. For cholesterol. glimepiride (AMARYL) 4 mg tablet take 2 tablets by mouth in the morning ezetimibe (ZETIA) 10 mg tablet take 1 tablet by mouth once daily nitroglycerin sublingual (NITROQUICK) 0.4 mg SL tablet DISSOLVE ON TONGUE FOR CHEST PAIN NEEDED IF NO PAIN RELIEF, CALL 911 empagliflozin (JARDIANCE) 25 mg tablet Take 1 tablet by mouth once daily. Take 1 tablet once daily in the morning niacin ER (NIASPAN) 500 mg tablet Take 2 tablets by mouth daily at bedtime. MV,Ca,Zdp-Pzta-IE-Lycopene (CENTRUM MEN) 8 mg iron- 200 mcg-600 mcg tab Take 1 tablet by mouth once daily. blood sugar diagnostic test strip Use as directed to check blood sugar NIFEdipine SR (PROCARDIA XL) 90 mg 24 hr tablet Take 1 tablet by mouth twice daily. Aspirin 81 mg Tab Take 81 mg by mouth once daily. No current facility-administered medications on file prior to visit. Social History Social History Tobacco Use Smoking status: Former Smokeless tobacco: Never Tobacco comments: quit in 1971 Vaping Use Vaping status: Never Used Substance Use Topics Alcohol use: Never Drug use: Never EXAM: BP 128/74 Pulse (!) 59 Resp 16 Wt 99.5 kg (219 lb 5.7 oz) SpO2 95% BMI 31.47 kg/m? General Appearance: Well appearing, alert, in no acute distress, well-hydrated, well nourished. and Overweight. Lungs: Lungs clear to auscultation. No wheezing, rhonchi, rales.. Heart: RRR with high pitched systolic murmur Health Maintenance List Pneumococcal Vaccine: 65+(1 of 2 - PCV) Never done BP Controlled (<130/80) Never done RSV Vaccine(1 - 1-dose 75+ series) Never done Diabetic Foot Exam due on 08/04/2022 Advance Directive Discussion due on 06/13/2023 Influenza Vaccine(1) due on 02/12/2024 Covid-19 Vaccine( season) due on 02/12/2024 Dilated Retinal Exam due on 04/05/2024 HbA1C due on 07/06/2024 Urine Albumin:Creatinine Ratio due on 09/26/2024 Depression Screening due on 10/05/2024 Anxiety Screening due on 10/05/2024 LDL Cholesterol due on 04/05/2025 Annual PCP Team Chronic Disease Visit due on 04/13/2025 DTaP,Tdap,Td Vaccine(4 - Td or Tdap) due on 08/04/2031 Shingrix Vaccine Completed HPV Vaccine Aged Out Colorectal Cancer Screening Discontinued Data reviewed Appointment on 04/05/2024 Component Date Value Protein, Total 04/05/2024 7.0 Albumin 04/05/2024 4.2 Calcium, Total 04/05/2024 9.0 Bilirubin, Total 04/05/2024 0.5 Alkaline Phosphatase 04/05/2024 95 AST 04/05/2024 21 ALT 04/05/2024 18 Glucose 04/05/2024 171 (H) BUN 04/05/2024 15 Creatinine 04/05/2024 0.98 Sodium 04/05/2024 140 Potassium 04/05/2024 4.0 Chloride 04/05/2024 104 CO2 04/05/2024 25 Anion Gap 04/05/2024 11 Estimated Glomerular Benoit* 04/05/2024 78 Cholesterol, Total 04/05/2024 156 Triglyceride 04/05/2024 179 (H) HDL Cholesterol 04/05/2024 47 Non HDL Cholesterol 04/05/2024 109 Fasting Time 04/05/2024 12 VLDL Cholesterol 04/05/2024 36 (H) TC:HDL Ratio 04/05/2024 3.32 LDL Cholesterol 04/05/2024 73 LDL:HDL Ratio 04/05/2024 1.55 Hemoglobin A1C 04/05/2024 8.4 (H) Estimated Average Glucose 04/05/2024 194 ASSESSMENT/PLAN: 1. Essential hypertension, benign - ICD9: 401.1, ICD10: I10 (primary diagnosis) - Controlled - Continue current medications - Recommend home blood pressure monitoring, to bring results to next visit - Encouraged sodium restriction, DASH or Mediterranean diet - Recommend regular aerobic exercise Continue with Cardio - Discussed need for and benefit of weight loss. BMI 31.47 kg/(m2) 2. Mixed hyperlipidemia - ICD9: 272.2, ICD10: E78.2 - Controlled - Continue current medications - Counseled on healthy diet and regular exercise - Discussed need for and benefit of weight loss. BMI 31.47 kg/(m2) - continue with Cardio - LOVASTATIN 20 MG TABLET - EZETIMIBE 10 MG TABLET 3. Type 2 diabetes mellitus without complication, without long-term current use of insulin (HCC) - ICD9: 250.00, ICD10: E11.9 - Controlled - Continue current medications - Counseled on healthy diet and regular exercise - Discussed need for and benefit of weight loss. BMI 31.47 kg/(m2) - GLIMEPIRIDE 4 MG TABLET 4. Atherosclerosis of [place] coronary artery of [place] heart without angina pectoris - ICD9: 414.01, ICD10: I25.10 Continue current medications. Continue with Cardio 5. Need for vaccination - ICD9: V05.9, ICD10: Z23 - INFLUENZA VACCINE, PRSV FREE, AGE 65+ YR, HIGH DOSE, TRIVALENT (FLUZONE HIGH-DOSE) Covid vaccine given as well 6. Aortic stenosis Followed by Cardiology Follow up in 6 months with fasting labs and urine test prior. I agree with the Chief Complaint, ROS, and Past Histories independently gathered by the clinical support representative and the remaining scribed note accurately describes my personal service to the patient. Medical Decision Making: Problems: Moderate: 2+ stable chronic illnesses Data: Unique test(s) ordered: 3+ Risk: Moderate: Drug management Medical Decision Making Level: 4 - Moderate Davion Mullen MD The documentation for this note was completed by Iona Barker MA acting as scribe for Davion Mullen MD. April 13, 2024 9:20 AM. Iona Barker MA Allergies As of Date: 04/13/2024 Noted Allergy Reaction PRANDIN (REPAGLINIDE) 04/12/2016 7 - Swelling Comments: Retaining water METFORMIN 07/19/2011 4 - Hives Date Reviewed: 04/13/2024 Reviewed by: Iona Barker MA - Fully Assessed Reason for Visit: 6 Month Exam [189] Primary Visit Diagnosis:Essential hypertension, benign [I10] Other Visit Diagnoses:Mixed hyperlipidemia [E78.2] Type 2 diabetes mellitus without complication, without long-term current use of insulin (HCC) [E11.9] Atherosclerosis of [place] coronary artery of [place] heart without angina pectoris [I25.10] Need for vaccination [Z23] Aortic valve stenosis, etiology of cardiac valve disease unspecified [I35.0] Order(s):lovastatin (MEVACOR) 20 mg tabletTake 1 tablet by mouth daily at bedtime. For cholesterol.Disp: 30 tabletRfl: 11 glimepiride (AMARYL) 4 mg tabletTAKE 2 TABLETS BY MOUTH IN THE MORNINGDisp: 60 tabletRfl: 11 ezetimibe (ZETIA) 10 mg tabletTake 1 tablet by mouth once daily.Disp: 30 tabletRfl: 11 INFLUENZA VACCINE, PRSV FREE, AGE 65+ YR, HIGH DOSE, TRIVALENT (FLUZONE HIGH-DOSE) [86080CSJ] Order #: [id number] Qpyn COVID-19 VACCINE AGE 12+ YR (COMIRNATY) [49050MBF] Order #: [id number] LIPID PANEL BASIC [SQLIPB] Order #: [id number] FUTURE COMPREHENSIVE METABOLIC PANEL [SQCMP] Order #: [id number] FUTURE HEMOGLOBIN A1C [ZSPKA8E] Order #: [id number] FUTURE ALBUMIN/CREATININE RATIO, URINE [SQUACR] Order #: [id number] FUTURE COMPLETE BLOOD COUNT AND DIFFERENTIAL [SQCBCDIF] Order #: [id number] FUTURE Prescriptions as of 04/13/2024 - lovastatin (MEVACOR) 20 mg tablet Take 1 tablet by mouth daily at bedtime. For cholesterol. - glimepiride (AMARYL) 4 mg tablet TAKE 2 TABLETS BY MOUTH IN THE MORNING - ezetimibe (ZETIA) 10 mg tablet Take 1 tablet by mouth once daily. - metoprolol tartrate, short acting, (LOPRESSOR) 50 mg tablet Take 1 tablet by mouth two times a day. - nitroglycerin sublingual (NITROQUICK) 0.4 mg SL tablet DISSOLVE ON TONGUE FOR CHEST PAIN NEEDED IF NO PAIN RELIEF, CALL 911 - empagliflozin (JARDIANCE) 25 mg tablet Take 1 tablet by mouth once daily. Take 1 tablet once daily in the morning - niacin ER (NIASPAN) 500 mg tablet Take 2 tablets by mouth daily at bedtime. - MV,Ca,Nbq-Mkic-DF-Lycopene (CENTRUM MEN) 8 mg iron- 200 mcg-600 mcg tab Take 1 tablet by mouth once daily. - blood sugar diagnostic test strip Use as directed to check blood sugar - NIFEdipine SR (PROCARDIA XL) 90 mg 24 hr tablet Take 1 tablet by mouth twice daily. - Aspirin 81 mg Tab Take 81 mg by mouth once daily. Problem List As Of Date 04/13/2024 Noted Resolved Essential hypertension, benign [I10] 12/01/2006 Type 2 diabetes mellitus without complication (*12/01/2006 Mixed hyperlipidemia [E78.2] 12/01/2006 Coronary atherosclerosis [I25.10] 01/16/2007 Chest pain [R07.9] 06/07/2020 Malignant neoplasm of sigmoid colon (HCC) [C18.*01/16/2021 10/06/2023 Community acquired pneumonia of right lower lob*06/03/2023 Acute hypoxemic respiratory failure (HCC) [J96.*06/03/2023 06/05/2023 Leukocytosis [D72.829] 06/03/2023 06/05/2023 Other instructions from your clinician: Call office or mychart office with [facility]. Need dosage and how it is taken. Prescriptions ordered this encounter Disp Refills Start End LOVASTATIN 20 MG TABLET 30 t* 11 04/13/2024 Route: ORAL Sig: Take 1 tablet by mouth daily at bedtime. For cholesterol. GLIMEPIRIDE 4 MG TABLET 60 t* 11 04/13/2024 Sig: TAKE 2 TABLETS BY MOUTH IN THE MORNING EZETIMIBE 10 MG TABLET 30 t* 11 04/13/2024 Route: ORAL Sig: Take 1 tablet by mouth once daily. Medications Discontinued During This Encounter Prescriptions - ezetimibe (ZETIA) 10 mg tablet (Discontinued) take 1 tablet by mouth once daily - lovastatin (MEVACOR) 20 mg tablet (Discontinued) Take 1 tablet by mouth daily at bedtime. For cholesterol. - glimepiride (AMARYL) 4 mg tablet (Discontinued) take 2 tablets by mouth in the morning Disposition: Return in about 6 months (around 10/11/2024). Follow-up and Disposition History for Encounter Date Provider Department Center 04/13/2024 [id number] [facility]ULL[facility] Letter Text Encounter Status:Closed by DAVION MULLEN on 04/13/24 PROGRESS Observed: 04/13/2024 9:20 AM Status: COMPLETED Source: [facility] ID: [id number] Author: DAVION MULLEN MD Service: ? Author Type: Physician Type: Progress Notes Filed: 04/13/2024 11:18 Note Text: Chief Complaint Patient presents with: 6 Month Exam HPI Alexx Quesada is a 79 year old male who presents here today for 6 month follow up. [facility] Has routine DM care through them, including foot exams. Needs handicap placard renewed. No bowel, Gi, or urinary issues. Follows with [facility] for colon cancer, seeing them annually. Cancer free. Had CT scan and labs done in Feb 2024. HTN: Follows with Cardio Dr. Torres annually at [facility]. Checks BP at home. No chest pains, dizziness, or SOB. Taking HCTZ 25 mg daily, Lopressor 50 mg BID and Procardia 90 mg BID. They are watching his carotid arteries. DM: Check BS 2-3 x per week, FBS 171. Taking Jardiance 25 mg daily, and Amaryl 4 mg 2 pills once daily. Denies any hypoglycemic episodes or neuropathy sx. Follows with [facility] in [place], had both cataracts removed in September. [facility] one [facility] but pt is not sure what it was so he will notify office. Lipid: Taking Zetia 10 mg daily, ASA 81 mg daily and Niacin 500 mg 2 pills at bedtime. Tries to watch diet and walks a little. Edema: Amrit legs; stable with use of Compression stockings. Past medical history, appointments, medications, allergies reviewed. Previous Medical History PAST MEDICAL HISTORY Diagnosis Date Coronary atherosclerosis of unspecified type of vessel, otoe-[place]ou[place] or graft Coronary artery disease Diabetes mellitus without mention of complication Diabetes mellitus Hypertensive kidney disease, benign Previous Surgical History PAST SURGICAL HISTORY Procedure Laterality Date COLONOSCOPY N/A 10/26/2021 Colonoscopy PAST SURGICAL HISTORY OF 10/30/2020 sigmoidectomy-[facility] PAST SURGICAL HISTORY OF Bilateral 09/2023 B/L cataract removal REMOVAL GALLBLADDER 10/30/2020 [facility] Family History FAMILY HISTORY Problem Relation Age of Onset Coronary Artery Disease Mother Coronary Artery Disease Father Coronary Artery Disease Brother Patient Allergies ALLERGIES Allergen Reactions Prandin [Repaglinid* Swelling Retaining water Metformin Hives Current Medications Current Outpatient Medications on File Prior to Visit Medication Sig metoprolol tartrate, short acting, (LOPRESSOR) 50 mg tablet Take 1 tablet by mouth two times a day. lovastatin (MEVACOR) 20 mg tablet Take 1 tablet by mouth daily at bedtime. For cholesterol. glimepiride (AMARYL) 4 mg tablet take 2 tablets by mouth in the morning ezetimibe (ZETIA) 10 mg tablet take 1 tablet by mouth once daily nitroglycerin sublingual (NITROQUICK) 0.4 mg SL tablet DISSOLVE ON TONGUE FOR CHEST PAIN NEEDED IF NO PAIN RELIEF, CALL 911 empagliflozin (JARDIANCE) 25 mg tablet Take 1 tablet by mouth once daily. Take 1 tablet once daily in the morning niacin ER (NIASPAN) 500 mg tablet Take 2 tablets by mouth daily at bedtime. MV,Ca,Wgq-Imyr-WD-Lycopene (CENTRUM MEN) 8 mg iron- 200 mcg-600 mcg tab Take 1 tablet by mouth once daily. blood sugar diagnostic test strip Use as directed to check blood sugar NIFEdipine SR (PROCARDIA XL) 90 mg 24 hr tablet Take 1 tablet by mouth twice daily. Aspirin 81 mg Tab Take 81 mg by mouth once daily. No current facility-administered medications on file prior to visit. Social History Social History Tobacco Use Smoking status: Former Smokeless tobacco: Never Tobacco comments: quit in 1971 Vaping Use Vaping status: Never Used Substance Use Topics Alcohol use: Never Drug use: Never EXAM: BP 128/74 Pulse (!) 59 Resp 16 Wt 99.5 kg (219 lb 5.7 oz) SpO2 95% BMI 31.47 kg/m? General Appearance: Well appearing, alert, in no acute distress, well-hydrated, well nourished. and Overweight. Lungs: Lungs clear to auscultation. No wheezing, rhonchi, rales.. Heart: RRR with high pitched systolic murmur Health Maintenance List Pneumococcal Vaccine: 65+(1 of 2 - PCV) Never done BP Controlled (<130/80) Never done RSV Vaccine(1 - 1-dose 75+ series) Never done Diabetic Foot Exam due on 08/04/2022 Advance Directive Discussion due on 06/13/2023 Influenza Vaccine(1) due on 02/12/2024 Covid-19 Vaccine( season) due on 02/12/2024 Dilated Retinal Exam due on 04/05/2024 HbA1C due on 07/06/2024 Urine Albumin:Creatinine Ratio due on 09/26/2024 Depression Screening due on 10/05/2024 Anxiety Screening due on 10/05/2024 LDL Cholesterol due on 04/05/2025 Annual PCP Team Chronic Disease Visit due on 04/13/2025 DTaP,Tdap,Td Vaccine(4 - Td or Tdap) due on 08/04/2031 Shingrix Vaccine Completed HPV Vaccine Aged Out Colorectal Cancer Screening Discontinued Data reviewed Appointment on 04/05/2024 Component Date Value Protein, Total 04/05/2024 7.0 Albumin 04/05/2024 4.2 Calcium, Total 04/05/2024 9.0 Bilirubin, Total 04/05/2024 0.5 Alkaline Phosphatase 04/05/2024 95 AST 04/05/2024 21 ALT 04/05/2024 18 Glucose 04/05/2024 171 (H) BUN 04/05/2024 15 Creatinine 04/05/2024 0.98 Sodium 04/05/2024 140 Potassium 04/05/2024 4.0 Chloride 04/05/2024 104 CO2 04/05/2024 25 Anion Gap 04/05/2024 11 Estimated Glomerular Benoit* 04/05/2024 78 Cholesterol, Total 04/05/2024 156 Triglyceride 04/05/2024 179 (H) HDL Cholesterol 04/05/2024 47 Non HDL Cholesterol 04/05/2024 109 Fasting Time 04/05/2024 12 VLDL Cholesterol 04/05/2024 36 (H) TC:HDL Ratio 04/05/2024 3.32 LDL Cholesterol 04/05/2024 73 LDL:HDL Ratio 04/05/2024 1.55 Hemoglobin A1C 04/05/2024 8.4 (H) Estimated Average Glucose 04/05/2024 194 ASSESSMENT/PLAN: 1. Essential hypertension, benign - ICD9: 401.1, ICD10: I10 (primary diagnosis) - Controlled - Continue current medications - Recommend home blood pressure monitoring, to bring results to next visit - Encouraged sodium restriction, DASH or Mediterranean diet - Recommend regular aerobic exercise Continue with Cardio - Discussed need for and benefit of weight loss. BMI 31.47 kg/(m2) 2. Mixed hyperlipidemia - ICD9: 272.2, ICD10: E78.2 - Controlled - Continue current medications - Counseled on healthy diet and regular exercise - Discussed need for and benefit of weight loss. BMI 31.47 kg/(m2) - continue with Cardio - LOVASTATIN 20 MG TABLET - EZETIMIBE 10 MG TABLET 3. Type 2 diabetes mellitus without complication, without long-term current use of insulin (HCC) - ICD9: 250.00, ICD10: E11.9 - Controlled - Continue current medications - Counseled on healthy diet and regular exercise - Discussed need for and benefit of weight loss. BMI 31.47 kg/(m2) - GLIMEPIRIDE 4 MG TABLET 4. Atherosclerosis of otoe-missouria coronary artery of otoe-missou[place] heart without angina pectoris - ICD9: 414.01, ICD10: I25.10 Continue current medications. Continue with Cardio 5. Need for vaccination - ICD9: V05.9, ICD10: Z23 - INFLUENZA VACCINE, PRSV FREE, AGE 65+ YR, HIGH DOSE, TRIVALENT (FLUZONE HIGH-DOSE) Covid vaccine given as well 6. Aortic stenosis Followed by Cardiology Follow up in 6 months with fasting labs and urine test prior. I agree with the Chief Complaint, ROS, and Past Histories independently gathered by the clinical support representative and the remaining scribed note accurately describes my personal service to the patient. Medical Decision Making: Problems: Moderate: 2+ stable chronic illnesses Data: Unique test(s) ordered: 3+ Risk: Moderate: Drug management Medical Decision Making Level: 4 - Moderate Davion Mullen MD The documentation for this note was completed by Iona Barker MA acting as scribe for Davion Mullen MD. April 13, 2024 9:20 AM. Iona Barker MA COMP METAB 1999 PNL SERPL Collected: 8:55 AM Status: F Source: [facility] Order Comment: Specimen Type : BLOOD SPECIMEN Ordering Facility: [facility] Address: [address] [place], [place] [address] [address] TYPE CODE TESTS RESULT OUT OF RANGE REFERENCE UNITS LAB 2885-2(LOINC) Prot SerPl-mCnc 7.0 6.3-8.0 g/dL LAB 1751-7(LOINC) Albumin SerPl-mCnc 4.2 3.9-4.9 g/dL LAB 16214-7(LOINC) Calcium SerPl-mCnc 9.0 8.5-10.2 mg/dL LAB 1975-2(LOINC) Bilirub SerPl-mCnc 0.5 0.2-1.3 mg/dL LAB 6768-6(LOINC) ALP SerPl-cCnc 95 38-113 U/L LAB 1920-8(LOINC) AST SerPl-cCnc 21 14-40 U/L LAB 1742-6(LOINC) ALT SerPl-cCnc 18 10-54 U/L LAB 2345-7(LOINC) Glucose SerPl-mCnc 171 High 74-99 mg/dL Result Comment: The [place] Diabetes Association (ADA) provides guidance for cutoff values for fasting glucose and random glucose. The ADA defines fasting as no caloric intake for at least 8 hours. Fasting plasma glucose results between 100 to 125 mg/dL indicate increased risk for diabetes (prediabetes). Fasting plasma glucose results greater than or equal to 126 mg/dL meet the criteria for diagnosis of diabetes. In the absence of unequivocal hyperglycemia, results should be confirmed by repeat testing. In a patient with classic symptoms of hyperglycemia or hyperglycemic crisis, random plasma glucose results greater than or equal to 200 mg/dL meet the criteria for diagnosis of diabetes. Reference: Standards of Medical Care in Diabetes 2016, [place] Diabetes Association. Diabetes Care. 2016.39(Suppl 1). LAB 3094-0(LOINC) BUN SerPl-mCnc 15 9-24 mg/ dL LAB 2160-0(LOINC) Creat SerPl-mCnc 0.98 0.73-1.22 mg/dL LAB 2951-2(LOINC) Sodium SerPl-sCnc 140 136-144 mmol/L LAB 2823-3(LOINC) Potassium SerPl-sCnc 4.0 3.7-5.1 mmol/L LAB 2075-0(LOINC) Chloride SerPl-sCnc 104 98-107 mmol/L LAB 2027-9(LOINC) CO2 SerPl-sCnc 25 22-30 mmo l/L LAB 13328-2(LOINC) Anion Gap SerPl-sCnc 11 8-15 mmol/L LAB 52370-3(LOINC) Creatinine + eGFR Pnl SerPlBld 78 >=60 mL/min/1 .73m??? Result Comment: Estimated Gl omerular Filtration Rate (eGFR) is calculated using the 2020 CKD-EPI creatinine equation. This equation utilizes serum creatinine, sex, and age as parameters. The creatinine assay has traceable calibration to isotope dilution-mass spectrometry. Refer to KDIGO guidelines for clinical interpretation. In patients with unstable renal function, e.g. those with acute kidney injury, the eGFR may not accurately reflect actual GFR. Performed By: #### 37834-3, 12658-2 #### [facility] CLIA [id number] [address] [place] [address] [place] LIPID 1996 PNL SERPL Collected: 024 8:55 AM Status: F Source: [facility] Order Comment: Specimen Type : BLOOD SPECIMEN Ordering Facility: [facility] Address: [address] [place] [address] TYPE CODE TESTS RESULT OUT OF RANGE REFERENCE UNITS LAB 2093-3(LOINC) Cholest SerPl-mCnc 156 <200 mg/dL Result Comment: <200 mg/dL, Desirable 200-239 mg/dL, Borderline high >239 mg/dL, High LAB 2571-8(LOINC) Trigl SerPl-mCnc 179 High <150 mg/dL Result Comment: <150 mg/dL, Normal 150-199 mg/dL, Borderline high 200-499 mg/dL, High >499 mg/dL, Very high LAB 2085-9(LOINC) HDLc SerPl-mCnc 47 >39 mg/dL Result Comment: 40-59 mg/dL, Acceptable >59 mg/dL, High: Negative risk factor for coronary heart disease <40 mg/dL, Low: Positive risk factor for coronary heart disease LAB 05248-3(LOINC) NonHDLc SerPl-mCnc 109 <130 mg/dL Result Comment: <130 mg/dL, Optimal 130-159 mg/dL, Near optimal/above optimal 160-189 mg/dL, Borderline high 190-219 mg/dL, High >219 mg/dL, Very high Secondary prevention optimal non HDL Cholesterol levels are recommended to be <100 mg/dL LAB FT FASTING TIME 12 hrs LAB 19959-2(LOINC) VLDLc SerPl Calc-mCnc 36 High <30 mg/dL LAB 9830-1(LOINC) Cholest/HDLc SerPl 3.32 <5.10 LAB 2089-1(LOINC) LDLc SerPl-mCnc 73 <100 mg/dL Result Comment: <100 mg/dL, Optimal 100-129 mg/dL, Near optimal/above optimal 130-159 mg/dL, Borderline high 160-189 mg/dL, High >189 mg/dL, Very high Secondary prevention optimal LDL Cholesterol levels are recommended to be < 70 mg/dL LAB 32825-6(LOINC) LDLc/HDLc SerPl 1.55 <2.54 Result Comment: Reference: 1. National Cholesterol Education Program ATP III Guideline At-A-Glance Quick Desk Reference: National Heart, Lung, and Blood [place]. National Institutes of Health. 2001: NIH Publication No. 01-3305. 2. An International Atherosclerosis Society position paper: global recommendations for the management of dyslipidemia: executive summary, Atherosclerosis. 2014: 232(2):410-413. Performed By: #### 79744-3, 22011-6 #### [facility] CLIA [id number] [address] [place] [address] [place] DEPRECATED HGB A1C BLD Collected: 04/05 8:55 AM Status: F Source: [facility] Order Comment: Specimen Type : BLOOD SPECIMEN Ordering Facility: [facility] Address: [address] [place] [address] TYPE CODE TESTS RESULT OUT OF RANGE REFERENCE UNITS LAB 4548-4(LOINC) HbA1c MFr Bld 8.4 High 4.3-5.6 % Result Comment: [place] Alie betes Association guidelines indicate that patients with HgbA1c in the range 5.7-6.4% are at increased risk for development of diabetes, and intervention by lifestyle modification may be beneficial. HgbA1c greater or equal to 6.5% is considered diagnostic of diabetes. LAB 26933-9(LOINC) Est. average glucose Bld gHb Est-mCnc 194 mg/dL Result Comment: eAG: (Estima foster average glucose) is a calculated value from HgbA1c and is support representative of the average blood glucose level in the last 2-3 month period. Performed By: #### 49050-9 # ### [facility] CLIA [id number] [address] [place] [address] [place] ALLERGIES DATE TYPE / CODE NAME / CODE REACTION SEVERITY SOURCE 04/12/2016 DRUG INGREDI/[id number](SN OMED CT) REPAGLINIDE SWELLING High [facility] 07/19/2011 DRUG INGREDI/[id number](SN OMED CT) METFORMIN HIVES [facility] ENCOUNTERS ADMIT/DISCHARGE ACCOUNT NUMBER ADMITTING ENCOUNTER CLASS LOC ATION SOURCE 01/15/2025/ 5 [id number] Ambulatory [facility] 10/16/2024/ 5 [id number] Ambulatory [facility] 04/13/2024/ 4 [id number] [facility] 4 [id number] Ambulatory [facility] PAYERS ENCOUNTER GUARANTOR PAYER SUBSCRIBER SOURCE 01/15/2025 Primary Insurance:MEDICARE A AND BPolicy Number: [id number] Date:1302-09-10Dpxr Name:Tiki ZULETAOB: [id number] [address] [address] [facility] 01/15/2025 Secondary Insurance:AETNA PPOPolicy Number: [id number] Date:3790-16-90Hrhf Name:Enmanuel ZULETAOB: [id number] [place] [id number] [facility] 10/16/2024 Primary Insurance:MEDICARE A AND BPolicy Number: [id number] Date:4071-01-52Hzza Name:Tiki ZULETAOB: [id number] [place] [id number] [facility] 10/16/2024 Secondary Insurance:AETNA PPOPolicy Number: [id number] Date:9135-53-47Jwhr Name:Enmanuel ZULETAOB: [id number] [place] [id number] [facility] 04/13/2024 Primary Insurance:MEDICARE A AND BPolicy Number: [id number] Date:2134-69-00Udhy Name:Tiki ZULETAOB: [id number] [place] [id number] [facility] 04/13/2024 Secondary Insurance:AETNA PPOPolicy Number: [id number] Date:9129-15-97Qkrg Name:Enmanuel ZULETAOB: [id number] [place] [id number] [facility] 04/05/2024 Primary Insurance:MEDICARE A AND BPolicy Number: [id number] Date:2715-87-92Zirs Name:Tiki ZULETAOB: [id number] [place] [id number] [facility] 04/05/2024 Secondary Insurance:AETNA PPOPolicy Number: [id number] Date:6630-23-89Fpwc Name:Enmanuel ZULETAOB: [id number] STATE [address] [address] [facility]
--- OUTSIDE RECORDS SUMMARY | 2025-01-15 07:22 | XMS RPT_ITS ---
Author Name Auto Generated Organization OH[facility] Care Team Providers Care Bosom Presser Name Role Phone DAVION MULLEN Primary Care Unavailable DAVION MULLEN Attending Unavailable DAVION MULLEN Primary Care Unavailable DAVION MULLEN Attending Unavailable DAVION MULLEN Primary Care Unavailable DAVION MULLEN Attending Unavailable DAVION MULLEN Primary Care Unavailable DAVION MULLEN Referring Unavailable PROBLEMS DATE TYPE CONDITION / CODE ATTENDING STATUS [facility] 06/05/2023 Active Mixed hyperlipid emia / E78.2(ICD-10) DAVION MULLEN Active [facility] 06/05/2023 Active Essential hypert ension, benign / I10(ICD-10) DAVION MULLEN Active [facility] 06/05/2023 Active Type 2 diabetes mellitus without complication, without long-term current use of insulin (HCC) / E11.9(ICD-10) DAVION MULLEN Active [facility] 06/05/2023 Active Atherosclerosis of tetlin coronary artery of tetlin heart without angina pectoris / I25.10(ICD-10) DAVION MULLEN Active [facility] 01/15/2025 Active Aortic valve esme nosis, etiology of cardiac valve disease unspecified / I35.0(ICD-10) DAVION MULLEN Active [facility] 01/15/2025 Active Malignant neopla sm of sigmoid colon (HCC) / C18.7(ICD-10) DAVION MULLEN Active [facility] 10/16/2024 Active Edema of both lo wer legs / R60.0(ICD-10) DAVION MULLEN Active [facility] 10/16/2024 Active Screening for de pression / Z13.31(ICD-10) DAVION MULLEN Active [facility] 10/16/2024 Active Encounter for sd reening examination for other mental health and behavioral disorders / Z13.39(ICD-10) DAVION MULLEN Active [facility] PROCEDURES No Procedure Records Found RESULTS CNOV Observed: 01/15/2025 8:00 AM Status: COMPLETED Source: [facility] Office Visit (FAMPWS) ALEXX QUESADA ([id number]) 1945 M Date Time Provider Department 01/15/25 8:00 AM [facility] During your visit today, we recorded [...] bowel, Gi, or urinary issues. Following with [facility] for colon cancer yearly. Cancer free at this time, 4 years. Imaging done routinely. HTN: Checks BP occ at home reading yesterday was 126/70. No chest pains, dizziness, or Shortness of Breath. Follows with Plate Inspector at [facility]. Taking HCTZ 25 mg daily, Lopressor 50 mg BID and Procardia 90 mg BID. Had carotid artery surgery done at [facility] on 10/22/24, right side. DM: checking BS [...] Coronary atherosclerosis of unspecified type of vessel, tetlin or graft Coronary artery disease Diabetes mellitus without mention of complication Diabetes mellitus Hypertensive kidney disease, benign Previous Surgical History PAST SURGICAL HISTORY Procedure Laterality Date COLONOSCOPY N/A 10/26/2021 Colonoscopy PAST SURGICAL HISTORY OF 10/30/2020 sigmoidectomy-[facility] PAST SURGICAL HISTORY OF Bilateral 09/2023 B/L cataract removal PAST SURGICAL HISTORY OF Right 10/22/2024 Carotid artery surgery, [facility] REMOVAL GALLBLADDER 10/30/2020 [facility] Family History FAMILY HISTORY Problem Relation Age [...] 2 tablets by mouth daily at bedtime. MV,Ca,Pxd-Aclb-ZZ-Lycopene (CENTRUM MEN) 8 mg iron- 200 mcg-600 [...] Data reviewed Br[facility] (updated in chart, sent to [...] cholesterol of 158 mg/dL. 4. Atherosclerosis of tetlin coronary artery of tetlin heart without angina pectoris (I25.10) Aortic valve stenosis, etiology of cardiac valve disease unspecified (I35.0) Under management by [employer] division manager Dr. Torres at [facility]. Recent carotid endarterectomy performed by Dr. Schneider on October 22 with well-healed scar. 5. Malignant neoplasm of sigmoid colon (HCC) (C18.7) Upcoming surveillance with upper and lower endoscopies scheduled for February 19 at [place]. Patient approaching 5-year cancer-free milestone. - Ensure results of upcoming endoscopies and lab tests are sent to our office. - Follow-up with oncologist Dr. Baker. Follow up in 6 months I agree with the Chief Complaint, ROS, and Past Histories independently gathered by the clinical program support specialist and the remaining scribed note accurately describes my personal service to the patient. Recording using [employer] software for draft documentation of the visit was discussed with the patient/authorized equal opportunity representative; all questions welcomed and answered. Patient/authorized equal opportunity representative agreed to proceed Medical Decision Making: [...] benign [I10] Mixed hyperlipidemia [E78.2] Atherosclerosis of tetlin coronary artery of tetlin heart without angina pectoris [I25.10] Aortic valve stenosis, etiology of cardiac valve disease unspecified [I35.0] Malignant neoplasm of sigmoid colon (HCC) [C18.7] Order(s):metFORMIN ER (GLUCOPHAGE XR) 500 mg 24 hr tabletTake 2 tablets by mouth daily with breakfast.Disp: 180 tabletRfl: 3 HBA1C (OUTSIDE) [[id number]] Order #: [id number] CBCDIF (EXTERNAL) [[id number]] Order #: [id number] LIPID PANEL (EXTERNAL) [3531545] Order #: [id number] CMP (EXTERNAL) [2880669] Order #: [id number] TSH (EXTERNAL) [5790895] Order #: [id number] Prescriptions as of 01/15/2025 - metFORMIN ER [...] tablets by mouth daily at bedtime. - MV,Ca,Gvs-Seuf-LH-Lycopene (CENTRUM MEN) 8 mg iron- 200 mcg-600 [...] Service: OFFICE/OUTPATIENT ESTABLISHED MOD MDM 30 MIN [87596] Additional E/M codes: VISIT CPLX INHERENT EANDM ASSOC WITH MED * Disposition: Return in about 6 months (around 07/18/2025). Follow-up and Disposition History for Encounter Date Provider Department Center 01/15/2025 [id number][facility]AV[facility] Encounter Status:Closed by DAVION MULLEN on 01/15/25 PROGRESS Observed: 01/15/2025 8:00 AM Status: COMPLETED Source: [facility] HNO ID: [id number] Author: DAVION MULLEN MD Service: ? Author Type: Physician Type: Progress Notes Filed: 01/15/2025 09:04 Note Text: Chief Complaint Patient presents with: F/U 3 Month HPI Alexx Quesada is a 79 year old male who presents here today for 3 month follow up. Here with , [facility]. [facility]. Denies any bowel, Gi, or urinary issues. Following with [facility] for colon cancer yearly. Cancer free at this time, 4 years. Imaging done routinely. HTN: Checks BP occ at home reading yesterday was 126/70. No chest pains, dizziness, or Shortness of Breath. Follows with Plate Inspector at [facility]. Taking HCTZ 25 mg daily, Lopressor 50 mg BID and Procardia 90 mg BID. Had carotid artery surgery done at [facility] on 10/22/24, right side. DM: checking BS [...] Coronary atherosclerosis of unspecified type of vessel, tetlin or graft Coronary artery disease Diabetes mellitus without mention of complication Diabetes mellitus Hypertensive kidney disease, benign Previous Surgical History PAST SURGICAL HISTORY Procedure Laterality Date COLONOSCOPY N/A 10/26/2021 Colonoscopy PAST SURGICAL HISTORY OF 10/30/2020 sigmoidectomy-[facility] PAST SURGICAL HISTORY OF Bilateral 09/2023 B/L cataract removal PAST SURGICAL HISTORY OF Right 10/22/2024 Carotid artery surgery, [facility] REMOVAL GALLBLADDER 10/30/2020 [facility] Family History FAMILY HISTORY Problem Relation Age [...] 2 tablets by mouth daily at bedtime. MV,Ca,Dfx-Nwfo-CI-Lycopene (CENTRUM MEN) 8 mg iron- 200 mcg-600 [...] Heart: RRR with systolic aortic stenosis murmur. [employer] Maintenance List Medicare Annual Wellness Visit Never [...] Data reviewed Brought in labs [facility] (updated in chart, sent to [...] cholesterol of 158 mg/dL. 4. Atherosclerosis of tetlin coronary artery of tetlin heart without angina pectoris (I25.10) Aortic valve stenosis, etiology of cardiac valve disease unspecified (I35.0) Under management by [employer] division manager Dr. Torres at [facility]. Recent carotid endarterectomy performed by Dr. Schneider on October 22 with well-healed scar. 5. Malignant neoplasm of sigmoid colon (HCC) (C18.7) Upcoming surveillance with upper and lower endoscopies scheduled for February 19 at [place]. Patient approaching 5-year cancer-free milestone. - Ensure results of upcoming endoscopies and lab tests are sent to our office. - Follow-up with oncologist Dr. Baker. Follow up in 6 months I agree with the Chief Complaint, ROS, and Past Histories independently gathered by the clinical program support specialist and the remaining scribed note accurately describes my personal service to the patient. Recording using [employer] software for draft documentation of the visit was discussed with the patient/authorized equal opportunity representative; all questions welcomed and answered. Patient/authorized equal opportunity representative agreed to proceed Medical Decision Making: [...] Observed: 10/16/2024 9:00 AM Status: COMPLETED [id number] Author: DAVION MULLEN MD Service: ? Author Type: Physician Type: Progress Notes Filed: 10/16/2024 11:37 Note Text: Chief Complaint Patient presents with: F/U 6 Month HPI Alexx Quesada is a 79 year old male who presents here today for 6 month follow up. [facility] Here today with his . Denies any bowel, Gi, or urinary issues. Following with [facility] for colon cancer yearly. Cancer [...] BID. Follows with Cardio Dr. Torres at [facility]. Knee - Has issues with [...] Coronary atherosclerosis of unspecified type of vessel, tetlin or graft Coronary artery disease Diabetes mellitus without mention of complication Diabetes mellitus Hypertensive kidney disease, benign Previous Surgical History PAST SURGICAL HISTORY Procedure Laterality Date COLONOSCOPY N/A 10/26/2021 Colonoscopy PAST SURGICAL HISTORY OF 10/30/2020 sigmoidectomy-[facility] PAST SURGICAL HISTORY OF Bilateral 09/2023 B/L cataract removal REMOVAL GALLBLADDER 10/30/2020 [facility] Family History FAMILY HISTORY Problem Relation Age [...] 2 tablets by mouth daily at bedtime. MV,Ca,Ohs-Fxdn-YA-Lycopene (CENTRUM MEN) 8 mg iron- 200 mcg-600 [...] CBCD - Will await more labs from [facility]. Microalbumin/Creatine Ratio 31.20 04/30/24 Chol - 155 [...] - LIPID PANEL, FASTING 4. Atherosclerosis of tetlin coronary artery of tetlin heart without angina pectoris - ICD9: 414.01, [...] Past Histories independently gathered by the clinical program support specialist and the remaining scribed note accurately describes [...] Observed: 10/16/2024 9:00 AM Status: COMPLETED Source: [facility] ALEXX QUESADA ([id number]) 1945 M Date Time Provider Department 10/16/24 [...] bowel, Gi, or urinary issues. Following with [facility] for colon cancer yearly. Cancer [...] BID. Follows with Cardio Dr. Torres at [facility]. Knee - Has issues with [...] Coronary atherosclerosis of unspecified type of vessel, tetlin or graft Coronary artery disease Diabetes mellitus without mention of complication Diabetes mellitus Hypertensive kidney disease, benign Previous Surgical History PAST SURGICAL HISTORY Procedure Laterality Date COLONOSCOPY N/A 10/26/2021 Colonoscopy PAST SURGICAL HISTORY OF 10/30/2020 sigmoidectomy-[facility] PAST SURGICAL HISTORY OF Bilateral 09/2023 B/L cataract removal REMOVAL GALLBLADDER 10/30/2020 [facility] Family History FAMILY HISTORY Problem Relation Age [...] 2 tablets by mouth daily at bedtime. MV,Ca,Kri-Horj-NB-Lycopene (CENTRUM MEN) 8 mg iron- 200 mcg-600 [...] CBCD - Will await more labs from [facility]. Microalbumin/Creatine Ratio 31.20 04/30/24 Chol - 155 [...] - LIPID PANEL, FASTING 4. Atherosclerosis of tetlin coronary artery of tetlin heart without angina pectoris - ICD9: 414.01, [...] Past Histories independently gathered by the clinical program support specialist and the remaining scribed note accurately describes [...] (HCC) [E11.9] Mixed hyperlipidemia [E78.2] Atherosclerosis of tetlin coronary artery of tetlin heart without angina pectoris [I25.10] Edema of both lower legs [R60.0] Screening for depression [Z13.31] Encounter for screening examination for other mental health and behavioral disorders [Z13.39] Order(s):DEPRESSION SCREENING [] Order #: [id number]: 1 ANXIETY SCREENING [] Order #: [id number]: 1 COMPREHENSIVE METABOLIC PANEL [SQCMP] Order #: [id number] FUTURE LIPID PANEL, FASTING [SQLIPB] Order #: [id number] FUTURE HEMOGLOBIN A1C [ELLOL6F] Order #: [id number] FUTURE COMPLETE BLOOD COUNT AND DIFFERENTIAL [SQCBCDIF] Order #: [id number] FUTURE Prescriptions as of 10/16/2024 - metFORMIN [...] tablets by mouth daily at bedtime. - MV,Ca,Fgs-Gsvm-OO-Lycopene (CENTRUM MEN) 8 mg iron- 200 mcg-600 [...] Service: OFFICE/OUTPATIENT ESTABLISHED MOD MDM 30 MIN [57882] Additional E/M codes: VISIT CPLX INHERENT EANDM ASSOC WITH MED * Disposition: Return in about 3 months (around 01/16/2025). Follow-up and Disposition History for Encounter Date Provider Department Center 10/16/2024 [id number] MULLEN [facility] Encounter Status:Closed by DAVION MULLEN on 10/16/24 CNOV Observed: 04/13/2024 9:20 AM Status: COMPLETED Source: [facility] Office Visit ([place]) ALEXX QUESADA ([id number]) 1945 M Date Time Provider Department 04/13/24 9:20 AM DAVION MULLEN During your visit today, we recorded the following information about you: Pulse Respiration Blood pressure Weight 59/minute 16/minute 128/74 99.5 kg Iona Barker MA 04/13/2024 8:52 AM Signed Call office or mychart office with new medication that [facility] changed in December. Need dosage and how [...] bowel, Gi, or urinary issues. Follows with [facility] for colon cancer, seeing them annually. Cancer free. Had CT scan and labs done in Feb 2024. HTN: Follows with Cardio Dr. Torres annually at [facility]. Checks BP at home. No chest pains, dizziness, or SOB. Taking HCTZ 25 mg daily, Lopressor 50 mg BID and Procardia 90 mg BID. They are watching his carotid arteries. DM: Check BS 2-3 x per week, FBS 171. Taking Jardiance 25 mg daily, and Amaryl 4 mg 2 pills once daily. Denies any hypoglycemic episodes or neuropathy sx. Follows with [facility] in [place], had both cataracts removed in September. [facility] [...] Coronary atherosclerosis of unspecified type of vessel, tetlin or graft Coronary artery disease Diabetes mellitus without mention of complication Diabetes mellitus Hypertensive kidney disease, benign Previous Surgical History PAST SURGICAL HISTORY Procedure Laterality Date COLONOSCOPY N/A 10/26/2021 Colonoscopy PAST SURGICAL HISTORY OF 10/30/2020 sigmoidectomy-[facility] PAST SURGICAL HISTORY OF Bilateral 09/2023 B/L cataract removal REMOVAL GALLBLADDER 10/30/2020 [facility] Family History FAMILY HISTORY Problem Relation Age [...] 2 tablets by mouth daily at bedtime. MV,Ca,Qnw-Entx-PY-Lycopene (CENTRUM MEN) 8 mg iron- 200 mcg-600 [...] GLIMEPIRIDE 4 MG TABLET 4. Atherosclerosis of tetlin coronary artery of tetlin heart without angina pectoris - ICD9: 414.01, [...] Past Histories independently gathered by the clinical program support specialist and the remaining scribed note accurately describes [...] use of insulin (HCC) [E11.9] Atherosclerosis of tetlin coronary artery of tetlin heart without angina pectoris [I25.10] Need for [...] 65+ YR, HIGH DOSE, TRIVALENT (FLUZONE HIGH-DOSE) [80071MYQ] Order #: [id number] Al Detal COVID-19 VACCINE AGE 12+ YR (COMIRNATY) [01595KNM] Order #: [id number] LIPID PANEL BASIC [SQLIPB] Order #: [id number] FUTURE COMPREHENSIVE METABOLIC PANEL [SQCMP] Order #: [id number] FUTURE HEMOGLOBIN A1C [PULMK4Q] Order #: [id number] FUTURE ALBUMIN/CREATININE RATIO, URINE [SQUACR] Order #: [id number] FUTURE COMPLETE BLOOD COUNT AND DIFFERENTIAL [SQCBCDIF] Order #: [id number] FUTURE Prescriptions as of 04/13/2024 - lovastatin [...] tablets by mouth daily at bedtime. - MV,Ca,Ozh-Lyzi-KS-Lycopene (CENTRUM MEN) 8 mg iron- 200 mcg-600 [...] for Encounter Date Provider Department Center 04/13/2024 [id number] [facility] Letter Text Encounter Status:Closed by DAVION MULLEN on 04/13/24 PROGRESS Observed: 04/13/2024 9:20 AM Status: COMPLETED Source: [facility] ID: [id number] Author: DAVION MULLEN MD Service: ? Author [...] bowel, Gi, or urinary issues. Follows with [facility] for colon cancer, seeing them annually. Cancer free. Had CT scan and labs done in Feb 2024. HTN: Follows with Cardio Dr. Torres annually at [facility]. Checks BP at home. No chest pains, dizziness, or SOB. Taking HCTZ 25 mg daily, Lopressor 50 mg BID and Procardia 90 mg BID. They are watching his carotid arteries. DM: Check BS 2-3 x per week, FBS 171. Taking Jardiance 25 mg daily, and Amaryl 4 mg 2 pills once daily. Denies any hypoglycemic episodes or neuropathy sx. Follows with [facility] in [place], had both cataracts removed in September. [facility] [...] Coronary atherosclerosis of unspecified type of vessel, tetlin or graft Coronary artery disease Diabetes mellitus without mention of complication Diabetes mellitus Hypertensive kidney disease, benign Previous Surgical History PAST SURGICAL HISTORY Procedure Laterality Date COLONOSCOPY N/A 10/26/2021 Colonoscopy PAST SURGICAL HISTORY OF 10/30/2020 sigmoidectomy-[facility] PAST SURGICAL HISTORY OF Bilateral 09/2023 B/L cataract removal REMOVAL GALLBLADDER 10/30/2020 [facility] Family History FAMILY HISTORY Problem Relation Age [...] 2 tablets by mouth daily at bedtime. MV,Ca,Vjm-Cizp-GW-Lycopene (CENTRUM MEN) 8 mg iron- 200 mcg-600 [...] GLIMEPIRIDE 4 MG TABLET 4. Atherosclerosis of tetlin coronary artery of tetlin heart without angina pectoris - ICD9: 414.01, [...] Past Histories independently gathered by the clinical program support specialist and the remaining scribed note accurately describes [...] SERPL Collected: 8:55 AM Status: F Source: [facility] Order Comment: Specimen Type : BLOOD SPECIMEN Ordering Facility: [facility] Address: [address] [place], [place] [address] [address] TYPE CODE TESTS RESULT OUT OF RANGE REFERENCE UNITS LAB 2885-2(LOINC) Prot SerPl-mCnc 7.0 6.3-8.0 g/dL LAB 1751-7(LOINC) Albumin SerPl-mCnc 4.2 3.9-4.9 g/dL LAB 45738-8(LOINC) Calcium SerPl-mCnc 9.0 8.5-10.2 mg/dL LAB 1975-2(LOINC) Bilirub SerPl-mCnc 0.5 0.2-1.3 mg/dL LAB 6768-6(LOINC) ALP SerPl-cCnc 95 38-113 U/L LAB 1920-8(LOINC) AST SerPl-cCnc 21 14-40 U/L LAB 1742-6(LOINC) ALT SerPl-cCnc 18 10-54 U/L LAB 2345-7(LOINC) Glucose SerPl-mCnc 171 High 74-99 mg/dL Result Comment: The [place] Diabetes Association (ADA) provides guidance for cutoff [...] Standards of Medical Care in Diabetes 2016, [place] Diabetes Association. Diabetes Care. 2016.39(Suppl 1). LAB 3094-0(LOINC) BUN SerPl-mCnc 15 9-24 mg/ dL LAB 2160-0(LOINC) Creat SerPl-mCnc 0.98 0.73-1.22 mg/dL LAB 2951-2(LOINC) Sodium SerPl-sCnc 140 136-144 mmol/L LAB 2823-3(LOINC) Potassium SerPl-sCnc 4.0 3.7-5.1 mmol/L LAB 2075-0(LOINC) Chloride SerPl-sCnc 104 98-107 mmol/L LAB 2027-9(LOINC) CO2 SerPl-sCnc 25 22-30 mmo l/L LAB 10497-8(LOINC) Anion Gap SerPl-sCnc 11 8-15 mmol/L LAB 95840-6(LOINC) Creatinine + eGFR Pnl SerPlBld 78 >=60 [...] accurately reflect actual GFR. Performed By: #### 88838-0, 89166-2 #### [facility] CLIA [id number] [address] [place] [address] [place] LIPID 1996 PNL SERPL Collected: 024 8:55 AM Status: F Source: [facility] Order Comment: Specimen Type : BLOOD SPECIMEN Ordering Facility: [facility] Address: [address] [place] [address] TYPE CODE TESTS RESULT OUT OF RANGE [...] risk factor for coronary heart disease LAB 33441-4(LOINC) NonHDLc SerPl-mCnc 109 <130 mg/dL Result Comment: <130 mg/dL, Optimal 130-159 mg/dL, Near optimal/above optimal 160-189 mg/dL, Borderline high 190-219 mg/dL, High >219 mg/dL, Very high Secondary prevention optimal non HDL Cholesterol levels are recommended to be <100 mg/dL LAB FT FASTING TIME 12 hrs LAB 07655-9(LOINC) VLDLc SerPl Calc-mCnc 36 High <30 mg/dL LAB 9830-1(LOINC) Cholest/HDLc SerPl 3.32 <5.10 LAB 2089-1(LOINC) LDLc SerPl-mCnc 73 <100 mg/dL Result Comment: <100 mg/dL, Optimal 100-129 mg/dL, Near optimal/above optimal 130-159 mg/dL, Borderline high 160-189 mg/dL, High >189 mg/dL, Very high Secondary prevention optimal LDL Cholesterol levels are recommended to be < 70 mg/dL LAB 74796-9(LOINC) LDLc/HDLc SerPl 1.55 <2.54 Result Comment: Reference: 1. National Cholesterol Education Program ATP III Guideline At-A-Glance Quick Desk Reference: National Heart, Lung, and Blood [place]. National Institutes of Health. 2001: NIH Publication No. 01-3305. 2. An International Atherosclerosis Society position paper: global recommendations for the management of dyslipidemia: executive summary, Atherosclerosis. 2014: 232(2):410-413. Performed By: #### 23620-0, 54954-0 #### [facility] CLIA [id number] [address] [place] [address] [place] DEPRECATED HGB A1C BLD Collected: 04/05 8:55 AM Status: F Source: [facility] Order Comment: Specimen Type : BLOOD SPECIMEN Ordering Facility: [facility] Address: [address] [place] [address] TYPE CODE TESTS RESULT OUT OF RANGE REFERENCE UNITS LAB 4548-4(LOINC) HbA1c MFr Bld 8.4 High 4.3-5.6 % Result Comment: [place] Alie betes Association guidelines indicate that patients with HgbA1c in the range 5.7-6.4% are at increased risk for development of diabetes, and intervention by lifestyle modification may be beneficial. HgbA1c greater or equal to 6.5% is considered diagnostic of diabetes. LAB 12282-5(LOINC) Est. average glucose Bld gHb Est-mCnc 194 mg/dL Result Comment: eAG: (Estima foster average glucose) is a calculated value from HgbA1c and is equal opportunity representative of the average blood glucose level in the last 2-3 month period. Performed By: #### 38130-9 # ### [facility] CLIA [id number] [address] [place] [address] [place] ALLERGIES DATE TYPE / CODE NAME / CODE REACTION SEVERITY SOURCE 04/12/2016 DRUG INGREDI/[id number](SN OMED CT) REPAGLINIDE SWELLING High [facility] 07/19/2011 DRUG INGREDI/[id number](SN OMED CT) METFORMIN HIVES [facility] ENCOUNTERS ADMIT/DISCHARGE ACCOUNT NUMBER ADMITTING ENCOUNTER CLASS LOC ATION SOURCE 01/15/2025/ 5 [id number] Ambulatory [facility] 10/16/2024/ 5 [id number] Ambulatory [facility] 04/13/2024/ 4 [id number] [facility] 4 [id number] Ambulatory [facility] ing:[facility] PAYERS ENCOUNTER GUARANTOR PAYER SUBSCRIBER SOURCE 01/15/2025 Primary Insurance:MEDICARE A AND BPolicy Number: [id number] Date:[id number] Name:Tiki ZULETAOB: [id number] [address] [address] [facility] 01/15/2025 Secondary Insurance:[employer]ET[employer] PPOPolicy Number: [id number] Date:6820-11-96Lkir Name:Enmanuel ZULETAOB: [id number] STATE [place] [id number] [facility] 10/16/2024 Primary Insurance:MEDICARE A AND BPolicy Number: [id number] Date:8176-84-83Kuvm Name:Tiki ZULETAOB: [id number] [place] [id number] [facility] 10/16/2024 Secondary Insurance:AETNA PPOPolicy Number: [id number] Date:5400-40-96Csxt Name:Enmanuel ZULETAOB: [id number] [place] [id number] [facility] 04/13/2024 Primary Insurance:MEDICARE A AND BPolicy Number: [id number] Date:9732-53-66Wluo Name:Tiki ZULETAOB: [id number] [place] [id number] [facility] 04/13/2024 Secondary Insurance:AETNA PPOPolicy Number: [id number] Date:1036-70-58Ggae Name:Enmanuel ZULETAOB: [id number] [place] [id number] [facility] 04/05/2024 Primary Insurance:MEDICARE A AND BPolicy Number: [id number] Date:4390-86-37Erco Name:Tiki ZULETAOB: [id number] [place] [id number] [facility] 04/05/2024 Secondary Insurance:AETNA PPOPolicy Number: [id number] Date:2123-05-27Vbxv Name:Enmanuel ZULETAOB: [id number] [place] [address] [address] [facility]
--- NOTE | 2025-03-11 12:55 | ECHOD_ITS ---
Reason For Study Reason For Study: AORTIC STENOSIS Procedure This was a 2D Doppler, Color Flow transthoracic echocardiogram. The study was technically difficult. Exam performed in department. Left Ventricle Normal LV size. Left ventricular systolic function is normal. Stage 1 diastolic dysfunction. The left ventricular ejection fraction is 60 %. No regional wall motion abnormalities noted. Right Ventricle Normal RV size. Normal systolic function. Tricuspid Valve Normal tricuspid valve. Mild (1+) tricuspid valve insufficiency. Pulmonary artery systolic pressure is 28 mmHg. Aortic Valve Trisinus/trileaflet aortic valve. Moderate focal aortic valve calcification. Peak aortic valve gradient 53 mmHg. Mean aortic valve gradient 35 mmHg. Moderate aortic stenosis. Pulmonic Valve Normal pulmonic valve. Pericardium/Pleural No pericardial effusion. MMode/2D Measurements & Calculations LVIDd: 4.7 cm IVSd: 1.2 cm LVOT diam: 2.0 cm LVIDs: 2.9 cm LVPWd: 1.1 cm RVDd: 3.1 cm FS: 39.6 % LVOT area: 3.3 cm2 asc Aorta Diam: 3.2 cm LAV(MOD-bp): 33.4 ml LVAd ap4: 19.8 cm2 LAV(MOD-bp) Indexed: 15.4 ml/m2 LVLd ap4: 7.4 cm LAV(MOD-sp2): 34.7 ml EDV(MOD-sp4): 43.6 ml LAV(MOD-sp4): 31.9 ml EDV(sp4-el): 44.7 ml LVAs ap4: 11.4 cm2 LVLs ap4: 6.4 cm ESV(MOD-sp4): 17.5 ml ESV(sp4-el): 17.3 ml EF(MOD-sp4): 59.8 % EF(sp4-el): 61.2 % LVAd ap2: 20.4 cm2 SV(MOD-sp4): 26.1 ml SV(MOD-sp2): 27.2 ml LVLd ap2: 7.7 cm SI(MOD-sp4): 12.0 ml/m2 SI(MOD-sp2): 12.6 ml/m2 EDV(MOD-sp2): 45.6 ml EDV(sp2-el): 46.3 ml LVAs ap2: 11.6 cm2 LVLs ap2: 6.4 cm ESV(MOD-sp2): 18.4 ml ESV(sp2-el): 17.8 ml EF(MOD-sp2): 59.7 % SV(sp4-el): 27.4 ml Ao sinus diam: 3.[address] Junction: 2.7 cm LA A4 area: 14.9 cm2 LA dimension(2D): 4.0 cm RA A4 area: 8.7 cm2 TAPSE: 1.7 cm Time Measurements MV dec time: 0.24 sec Doppler Measurements & Calculations MV E max bogdan: 67.0 cm/sec Lat Peak E' Bogdan: 7.8 cm/sec Med Peak E' Bogdan: 6.0 cm/sec MV A max bogdan: 101.7 cm/sec E/E' lat: 8.6 E/E' med: 11.2 MV E/A: 0.66 MV dec slope: 274.3 cm/sec2 Ao V2 max: 362.6 cm/sec LV V1 max: 94.5 cm/sec Ao max P.8 mmHg LV V1 max P.6 mmHg Ao V2 mean: 281.9 cm/sec LV V1 mean P.5 mmHg Ao mean P.5 mmHg LV V1 mean: 76.4 cm/sec Ao V2 VTI: 83.9 cm LV V1 VTI: 21.6 cm AV (velocity ratio): 0.26 MIRNA(I,D): 0.84 cm2 MIRNA(V,D): 0.85 cm2 SV(LVOT): 70.7 ml PA V2 max: 97.2 cm/sec TR max bogdan: 248.7 cm/sec TR max P.8 mmHg ECHO/Echo Complete Interpretation Summary Normal LV size. Left ventricular systolic function is normal. Stage 1 diastolic dysfunction. The left ventricular ejection fraction is 60 %. Pulmonary artery systolic pressure is 28 mmHg. Moderate focal aortic valve calcification. Peak aortic valve gradient 53 mmHg. Mean aortic valve gradient 35 mmHg. Moderate aortic stenosis. Ordering Physician: Elias Rodriguez Referring Physician: MD Sivan Santino Performed By: Alida Grimaldo, RDADOLFO
== END | disposition home or self-care (01) ==
LOC: CVS 12:50
PROVIDERS: PCP Family Medicine; Referring Provider Nurse Practitioner Family; Visit Provider Nurse Practitioner Family
DX: I35.0 Nonrheumatic aortic (valve) stenosis (principal); I65.21 Occlusion and stenosis of right carotid artery; E78.00 Pure hypercholesterolemia, unspecified
CPT/HCPCS: 93306

== ENCOUNTER → 2025-04-12 | Outpatient (CLI) | payer MEDICARE, OTHER, SELFPAY ==
--- NOTE | 2025-04-12 12:58 | CDU_ITS ---
Reason For Study Reason For Study: S/P Right CEA Rt. Velocities/BP Lt. Velocities/BP Prox CCA 57.9/9.7 cm/sec. Prox CCA 69.2/10.7 cm/sec. Mid CCA 54.1/11.6 cm/sec. Mid CCA 65.7/10.7 cm/sec. Dist CCA 59.8/14.5 cm/sec. Dist CCA 73.5/11.6 cm/sec. Prox ICA 44.8/10.7 cm/sec. Prox ICA 132.1/33.4 cm/sec. Mid ICA 66.6/17.7 cm/sec. Mid ICA 70.4/11.4 cm/sec. Dist ICA 68.3/16 cm/sec. Dist ICA 63/16.3 cm/sec. Rt. ICA/CCA = 1.26. Lt. ICA/CCA = 2.01. Prox ECA 617.6/85.3 cm/sec. Prox ECA 196/9.4 cm/sec. Rt. Vert. 56.1/11.6 cm/sec. Lt. Vert. 43.7/11.6 cm/sec. Right Extracranial There is heterogeneous, irregular atherosclerotic plaque noted in the right common carotid artery. There is intimal thickening but no significant atherosclerotic plaque noted in the right internal carotid artery. There is heterogeneous, irregular atherosclerotic plaque noted in the right external carotid artery. Antegrade flow is noted in the right vertebral artery. Left Extracranial There is heterogeneous, irregular atherosclerotic plaque noted in the left common carotid artery. There is heterogeneous, irregular atherosclerotic plaque noted in the left internal carotid artery. There is heterogeneous, irregular atherosclerotic plaque noted in the left external carotid artery. Antegrade flow is noted in the left vertebral artery. Procedure Carotid Duplex 81723. This is a Carotid Duplex examination using B-mode, color flow and specral Doppler. Exam performed in department. VL/Carotid Duplex Ultrasound Interpretation Summary Mild (<50%) stenosis right extracranial internal carotid. Moderate (50-69%) stenosis left extracranial internal carotid. Patent and antegrade vertebrals bilaterally. Ordering Physician: Carly Mon Referring Physician: MD Sivan Santino Performed By: Lyndsay Jeffrey RVT
== END | disposition home or self-care (01) ==
LOC: CVS 12:54
PROVIDERS: PCP Family Medicine; Referring Provider Physician Assistant; Visit Provider Physician Assistant
DX: Z48.812 Encounter for surgical aftercare following surgery on the circulatory system (principal); I65.21 Occlusion and stenosis of right carotid artery
CPT/HCPCS: 93880

== ENCOUNTER 2025-04-24 07:51 | Day surgery (SDC) | payer MEDICARE, OTHER, SELFPAY ==
--- NOTE | 2025-04-23 12:51 | PAT.ANE_ITS ---
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 When Was Last Pacemaker Check QUESTION #4 FULL TEXT: You/Your Family Experience fever (hyperthermia) with Anesthesia Last Oral Intake Last Oral intake: Last Oral Intake NPO since Meds taken in AM with sips of water? Meds patient instructed to take am of surgery PONV PONV - mortgage branch manager: PONV - mortgage branch manager Female No 04/23/25 09:31 HX of Motion Sickness No 04/23/25 09:31 HX of N/V After Surgery No 04/23/25 09:31 Non-Smoker Yes 04/23/25 09:31 Duration of Surgery greater No 04/23/25 09:31 than 60 minutes Number of Risk Factors 1 04/23/25 09:31 PONV Score Low Risk 04/23/25 09:31 Height & Weight Height & Weight: Anesthesia: Height & Weight Height 5 ft 10 in 04/12/25 14:23 Respiratory Assessment Respiratory Assessment - mortgage branch manager: Respiratory Tract Infection Hx - mortgage branch manager Hx Respiratory Tract Infection No 04/23/25 09:31 STOP Sleep Apnea STOP Sleep Apnea - mortgage branch manager: STOP Sleep Apnea - mortgage branch manager Hx Hypertension Yes: CONTROLLED WITH MEDS 04/23/25 09:31 Hx Sleep Apnea No 04/23/25 09:31 CPAP BIPAP Do you snore loudly (louder No 04/23/25 09:31 than talking or can be heard Do you often feel tired/ No 04/23/25 09:31 fatigued/ sleepy during daytime? Has anyone observed you stop No 04/23/25 09:31 breathing during sleep? STOP Results Negative 04/23/25 09:31 QUESTION #5 FULL TEXT : Do you snore loudly (louder than talking or can be heard through closed doors)? Tobacco Use History Tobacco Use History - mortgage branch manager: Tobacco Use History - mortgage branch manager Tobacco Use Non-smoker 10/29/20 09:45 Smoking Status Former smoker 04/23/25 09:31 Hx Tobacco Use No 04/23/25 09:31 Years Smoking Packs Smoked per Day Smoking Cessation Date was No - quit smoking greater 04/23/25 09:31 within the last 15 years than 15 years ago Hx Smoking Cessation Date 10/12/71 04/23/25 09:31 Hx Smoking Cessation No 04/23/25 09:31 Counseling Hematologic Medial History Hematologic Hx - mortgage branch manager: Hematologic Medical Hx - development officer Hx of Blood Transfusion No 04/23/25 09:31 Hx of Transfusion in last 3 No 04/23/25 09:31 Months Date of Last Transfusion (if within last 3 months) Ever experience any problems No 04/23/25 09:31 with transfusion(s)? Specify any problems Hx of Preganancy in last 3 N/A 04/23/25 09:31 Months Nurse Filling Out Transfusion [id number] 04/23/25 09:31 & Questions: Date: 04/23/25 04/23/25 09:31 Time: 09:34 04/23/25 09:31 Patient unable to answer at this time (ie. confused, unrespo /Reproduction History /Reproductive History - mortgage branch manager: /Reproductive Hx- mortgage branch manager Hx Now No 04/23/25 09:31 Gestational Age (in weeks): EDC: Hx Hx Para Hx Section SAB No 04/23/25 09:31 Does the father of the baby or his family experience fever w Father of the baby Malignant Hypertension history comment PFSH Medical History (Updated 04/23/25 @ 09:36 by Jared Marrero) Preop cardiovascular exam Bladder disease Shortness of breath on exertion History of pain when walking History of edema Bilateral carotid bruits CAD (coronary atherosclerotic disease) Wears dentures Wears hearing aid High cholesterol Dietary restriction History of heart attack Bowel obstruction Encounter for education Cardiology follow-up encounter Cancer Wears glasses History of alcohol use Hx of diarrhea Hx of echocardiogram Coronary artery disease Hx of cardiovascular stress test Acute cholecystitis Diabetes Former smoker Hypertension Home Medications Medication Instructions Recorded Last Taken Type aspirin 81 mg tablet 81 mg PO DAILY heart health 10/13/20 04/18/25 History betamethasone dipropionate 0.05 % 1 applic topical ERICK LY PRN Itching 10/13/20 Unknown History topical cream ezetimibe 10 mg tablet (Zetia) 10 mg PO DAILY choleste rol 10/13/20 10/21/24 History glimepiride 4 mg tablet 8 mg PO DAILY DM 10/13/20 History lovastatin 20 mg tablet 20 mg PO QHS cholesterol 08/3110/21/24 History metoprolol tartrate 50 mg tablet 50 mg PO BID bp 10/1310/22/24 06:30 History vzgvppymktgt-ncoggerd-upwaye tablet 1 tab PO DAILY sup plement 10/13/20 10/13/20 History niacinamide 500 mg tablet 1,000 mg PO QHS supplement 0 10/13/20 Unknown History nifedipine 90 mg tablet,extended 90 mg PO BID BP 10/1310/22/24 06:30 History release nitroglycerin 0.4 mg sublingual 0.4 mg sublingual Q5M PRN Chest 10/13/20 06/06/20 History tablet Pain ibuprofen 400 mg tablet 200 - 600 mg (0.5 - 1.5 x 40 0 mg) 11/02/20 Unknown Rx PO Q6H PRN PRN Pain Score 1-10 #0 tabs acetaminophen 500 mg tablet 500 mg PO Q6H PRN Pain Unknown History (Tylenol Extra Strength) semaglutide 0.25 mg or 0.5 mg (2 0.25 mg subcut QWEEK 02/27/25 04/16/25 History mg/3 mL) subcutaneous pen injector (Ozempic) empagliflozin 25 mg tablet 25 mg PO QAM 04/12/2504/21 07:00 History (Jardiance) Allergy/AdvReac Type Severity Reaction Status Date / Time metformin Allergy Hives Verified 04/23/25 09:23 repaglinide (From Prandin) AdvReac Other Verified 04/23/25 09:23 Family History Mother Asthma Diabetes Heart disease Hypertension Surgical History History of carotid endarterectomy (~10/2024) History of cholecystectomy History of bilateral cataract extraction History of colectomy History of tooth extraction Hx of colonoscopy History of coronary artery stent placement Social History Smoking Status: Former smoker quit date: 06/13/71 pack-years: 1 Tobacco: How many years used: 7 second hand exposure: No alcohol intake: current alcohol intake frequency: holidays/special occasions only Alcohol type: beer substance use type: does not use caffeine: Yes rahul/alevism: Christian seatbelt use: always do you feel safe at home: Yes Audit: Pertinent Findings HISTORY of Pertinent Findings History of Pertinent Findings: 80-year-old white male he does have a history of coronary artery disease with remote stenting to his circumflex in 2001, moderate aortic stenosis, hypertension and hyperlipidemia. Patient has a history of calcific aortic valve stenosis. Last echocardiogram December 2023 showed a peak gradient of 50 mean of 31. He does not have any symptoms of worsening valve function. He will undergo repeat echocardiogram to evaluate aortic valve disease. Depending on results, further recommendations will be made. Pertinent Findings Stress test pertinent findings: Stress Test 07/13/2020 Summary 1. Normal pharmacologic stress SPECT myocardial perfusion imaging study. 2. No diagnostic ECG changes with regadenoson infusion. 3. No definitive fixed or reversible defects noted on perfusion imaging. 4. Normal left ventricular size, wall motion, and systolic function with post stress LVEF 76%, rest LVEF greater than 75%. Echo (EF%) pertinent findings: Echocardiogram 02/2025: Normal LV size, LVSF normal, stage 1 diastolic dysfxn. LVEF 60%. PASP 28. Peak aortic valve gradient 53, mean aortic valve gradient 35. Moderate aortic stenosis Echocardiogram 01/04/2024 Interpretation Summary Normal LV size. The left ventricular ejection fraction is 70 %. Stage 1 diastolic dysfunction. Moderate diffuse aortic valve calcification. Moderate aortic stenosis. Calculated aortic valve area (continuity equation) is 0.9 cm2. Additional pertinent findings: Carotid duplex 04/2025: Mild stenosis on right of ICA, moderate stenosis on left ICA. s/p R CEA 10/2024 Recommendation Anesthesia Recommendation Anesthesia recommendation: OPTIMIZED for anesthesia
[2025-04-24 08:22] VITALS: BP 150/70; PULSE 82; RESP 16; TEMP 36.6; O2SAT 96; BMI 29.7
[2025-04-24] MEDS: Lactated Ringers 1,000 ML 15 ML IV (08:30)
--- NOTE | 2025-04-24 08:52 | PCM.PRE.AN2 ---
ASA Classification* ASA Classification ASA Classification: 3 (CAD x 1 stent, aortic stenosis, ICA stenosis hx) Assessment & Plan Anesthesia* Anesthesia Assessment Anesthesia Assessment: Discussed sedation and/or anesthesia options, risks, benefits, and alternatives with patient/parents/legal guardian/POA. Questions invited. The patient/parents/legal guardian/POA seems to understand and agrees to proceed with anesthesia plan. Reviewed the physical assessment, medical history, allergy history and patient home medications list prior to surgery/procedure/anesthetic and documented any changes. Performed airway and anesthesia risk assessments. Anesthesia Type Anesthesia Type: MAC History Source History Obtained from:: Patient and Chart Anesthesia Focused Assessment* Temperature: 97.8 F Pulse Rate: 82 Blood Pressure: 150/70 Respiratory Rate: 16 Pulse Ox: 96 Oxygen Delivery Method: Room Air Airway Assessment Mouth opens: >3 cm Mallampati Score: II Teeth Condition: Intact Neck Range of motion (ROM): Full ROM Labs Anesthesia Preop lab: CBC WBC, (4.4-11.0) 9.2 K/mm3 10/23/24, 03:55 RBC, (4.6-6.2) 4.36 M/mm3 L 10/23/24, 03:55 Hgb, (13.0-16.5) 13.4 g/dL 10/23/24, 03:55 Hct, (40-54) 41.0 % 10/23/24, 03:55 Plt Count, (150-450) 178 K/mm3 10/23/24, 03:55 CHEMISTRY Potassium, (3.3-5.1) 4.6 mmol/L 10/10/24, 12:04 Sodium, (133-145) 141 mmol/L 10/10/24, 12:04 Magnesium, (1.6-2.6) 1.9 mg/dL 01/01/21, 09:22 Phosphorus, (2.5-4.9) 2.7 mg/dL 01/01/21, 09:22 BUN, (4-19) 14 mg/dL 10/10/24, 12:04 Creatinine, (0.70-1.20) 0.99 mg/dL 02/20/25, 13:14 Glucose, (70-99) 209 mg/dL H 10/10/24, 12:04 POC Glucose, (74-106) 123 mg/dL H 10/23/24, 07:33 COAG PT, (11.7-14.9) 16.5 SECONDS H 10/14/20, 08:00 Pre-Assessment Diagnosis/Proposed Procedure Planned Operative Procedure(s): COLONOSCOPY Anesthesia History Anesthesia History - remote sensing analyst: Anesthesia History - remote sensing analyst Hx Hospitalization Yes: RIGHT CAROTID 10/202404/23/25 09:31 Any Problems With Anesthesia No 04/23/25 09:31 Cholinesterase deficiency No 04/23/25 09:31 You/Your Family Experience No 04/23/25 09:31 fever (hyperthermia) with Relationship Recent Exposure to Contagious No 10/22/24 10:12 Disease Does patient have nerve No 04/23/25 09:31 stimulator Patient instructed to have device shut off --Does patient have Pacemaker No 04/24/25 08:22 or ICD? When Was Last Pacemaker Check QUESTION #4 FULL TEXT: You/Your Family Experience fever (hyperthermia) with Anesthesia Last Oral Intake Last Oral intake: Last Oral Intake NPO since 06:00 04/24/25 08:22 Meds taken in AM with sips of Yes 04/24/25 08:22 water? Meds patient instructed to see med list 04/24/25 08:22 take am of surgery PONV PONV - remote sensing analyst: PONV - remote sensing analyst Female No 04/23/25 09:31 HX of Motion Sickness No 04/23/25 09:31 HX of N/V After Surgery No 04/23/25 09:31 Non-Smoker Yes 04/23/25 09:31 Duration of Surgery greater No 04/23/25 09:31 than 60 minutes Number of Risk Factors 1 04/23/25 09:31 PONV Score Low Risk 04/23/25 09:31 Height & Weight Height & Weight: Anesthesia: Height & Weight Height 5 ft 10 in 04/24/25 08:22 Weight: 94 kg 04/24/25 08:22 Body Mass Index (BMI) 29.7 04/24/25 08:22 Respiratory Assessment Respiratory Assessment - remote sensing analyst: Respiratory Tract Infection Hx - remote sensing analyst Hx Respiratory Tract Infection No 04/23/25 09:31 STOP Sleep Apnea STOP Sleep Apnea - remote sensing analyst: STOP Sleep Apnea - remote sensing analyst Hx Hypertension Yes: CONTROLLED WITH MEDS 04/23/25 09:31 Hx Sleep Apnea No 04/23/25 09:31 CPAP BIPAP Do you snore loudly (louder No 04/23/25 09:31 than talking or can be heard Do you often feel tired/ No 04/23/25 09:31 fatigued/ sleepy during daytime? Has anyone observed you stop No 04/23/25 09:31 breathing during sleep? STOP Results Negative 04/23/25 09:31 QUESTION #5 FULL TEXT : Do you snore loudly (louder than talking or can be heard through closed doors)? Tobacco Use History Tobacco Use History - remote sensing analyst: Tobacco Use History - remote sensing analyst Tobacco Use Non-smoker 10/29/20 09:45 Smoking Status Former smoker 04/23/25 09:31 Hx Tobacco Use No 04/23/25 09:31 Years Smoking Packs Smoked per Day Smoking Cessation Date was No - quit smoking greater 04/23/25 09:31 within the last 15 years than 15 years ago Hx Smoking Cessation Date 10/12/71 04/23/25 09:31 Hx Smoking Cessation No 04/23/25 09:31 Counseling Hematologic Medial History Hematologic Hx - remote sensing analyst: Hematologic Medical Hx - documentation improvement specialist Hx of Blood Transfusion No 04/23/25 09:31 Hx of Transfusion in last 3 No 04/23/25 09:31 Months Date of Last Transfusion (if within last 3 months) Ever experience any problems No 04/23/25 09:31 with transfusion(s)? Specify any problems Hx of Preganancy in last 3 N/A 04/23/25 09:31 Months Nurse Filling Out Transfusion [email or web address] 04/23/25 09:31 & Questions: Date: 04/23/25 04/23/25 09:31 Time: 09:34 04/23/25 09:31 Patient unable to answer at this time (ie. confused, unrespo /Reproduction History /Reproductive History - remote sensing analyst: /Reproductive Hx- remote sensing analyst Hx Now No 04/23/25 09:31 Gestational Age (in weeks): EDC: Hx Hx Para Hx Section SAB No 04/23/25 09:31 Does the father of the baby or his family experience fever w Father of the baby Malignant Hypertension history comment Active Medications Active Medications: Current Medications Generic Name Dose Route Start Last Admin Trade Name Freq PRN Reason Stop Dose Admin Lactated Ringer's 1,000 mls @ 15 mls/hr 04/24/25 08:15 04/24/25 08:30 IV 15 mls/hr .Q48H APARNA Administration PFSH Medical History (Updated 04/23/25 @ 09:36 by Jared Marrero) Preop cardiovascular exam Bladder disease Shortness of breath on exertion History of pain when walking History of edema Bilateral carotid bruits CAD (coronary atherosclerotic disease) Wears dentures Wears hearing aid High cholesterol Dietary restriction History of heart attack Bowel obstruction Encounter for education Cardiology follow-up encounter Cancer Wears glasses History of alcohol use Hx of diarrhea Hx of echocardiogram Coronary artery disease Hx of cardiovascular stress test Acute cholecystitis Diabetes Former smoker Hypertension Home Medications Medication Instructions Recorded Last Taken Type aspirin 81 mg tablet 81 mg PO DAILY heart health 10/13/20 04/18/25 History betamethasone dipropionate 0.05 % 1 applic topical DAILY PRN Itching 10/13/20 Unknown History topical cream ezetimibe 10 mg tablet (Zetia) 10 mg PO DAILY cholesterol 10/13/20 10/21/24 History glimepiride 4 mg tablet 8 mg PO DAILY DM 10/13/20 10/21/24 History lovastatin 20 mg tablet 20 mg PO QHS cholesterol 10/13/20 10/21/24 History metoprolol tartrate 50 mg tablet 50 mg PO BID bp 10/13/20 04/24/25 06:00 History rgizicvasmme-mqifeflh-lojpyi tablet 1 tab PO DAILY supplement 10/13/20 10/13/20 History niacinamide 500 mg tablet 1,000 mg PO QHS supplement 10/13/20 Unknown History nifedipine 90 mg tablet,extended 90 mg PO BID BP 10/13/20 04/24/25 06:00 History release nitroglycerin 0.4 mg sublingual 0.4 mg sublingual Q5M PRN Chest 10/13/20 06/06/20 History tablet Pain ibuprofen 400 mg tablet 200 - 600 mg (0.5 - 1.5 x 400 mg) 11/02/20 Unknown Rx PO Q6H PRN PRN Pain Score 1-10 #0 tabs acetaminophen 500 mg tablet 500 mg PO Q6H PRN Pain 12/30/20 Unknown History (Tylenol Extra Strength) semaglutide 0.25 mg or 0.5 mg (2 0.25 mg subcut QWEEK 02/27/25 04/16/25 History mg/3 mL) subcutaneous pen injector (Ozempic) empagliflozin 25 mg tablet 25 mg PO QAM 04/12/25 04/21/25 07:00 History (Jardiance) Allergy/AdvReac Type Severity Reaction Status Date / Time metformin Allergy Hives Verified 04/24/25 08:16 repaglinide (From Prandin) AdvReac Other Verified 04/24/25 08:16 Family History Mother Asthma Diabetes Heart disease Hypertension Surgical History History of carotid endarterectomy (~10/2024) History of cholecystectomy History of bilateral cataract extraction History of colectomy History of tooth extraction Hx of colonoscopy History of coronary artery stent placement Social History Smoking Status: Former smoker quit date: 06/13/71 pack-years: 1 Tobacco: How many years used: 7 second hand exposure: No alcohol intake: current alcohol intake frequency: holidays/special occasions only Alcohol type: beer substance use type: does not use caffeine: Yes rahul/congregation: Nondenominational seatbelt use: always do you feel safe at home: Yes Review of Systems (Anesthesia) ROS Narrative System reviewed and no additional complaints, except as documented.
--- NOTE | 2025-04-24 08:52 | PCM.HP.BLA ---
History and Physical Date of Admission: 04/24/25 Date of Service: 04/12/25 MR#: [id number] Acct: [id number] Name: ALEXX RICHARDS Rep #: [id number] : 1945 Provider: Dr. Kamini Baig MD Age/Sex: 80/M Location: [facility] Status: Signed Intake Vital Signs 03/19/2508:25 04/12/2514:23 Height 5 ft 10 in 5 ft 10 in Weight: 217 lb 215 lb BMI 31.1 30.8 BP 137/70 H 138/73 H Blood Pressure Location Lt brachial Rt brachial Position Sitting Sitting Respiration 18 17 Pulse 85 82 Pulse Source Monitor Monitor Temp 98.2 F Pulse Oximetry (%) 93 95 Oxygen Delivery Method room air room air Intake Visit Reasons: COLONOSCOPY Chief Complaint: colonoscopy Is patient in pain?: No Allergies metformin Allergy (Verified 04/12/25 14:24) Hives repaglinide (From Prandin) Adverse Reaction (Verified 04/12/25 14:24) Other Medications Medication Instructions Recorded Confirmed Type aspirin 81 mg tablet 81 mg PO DAILY heart health 10/13/20 04/12/25 History betamethasone dipropionate 0.05 % 1 applic topical DAILY PRN Itching 10/13/20 04/12/25 History topical cream ezetimibe 10 mg tablet (Zetia) 10 mg PO DAILY cholesterol 10/13/20 04/12/25 History glimepiride 4 mg tablet 8 mg PO DAILY DM 10/13/20 04/12/25 History lovastatin 20 mg tablet 20 mg PO QHS cholesterol 10/13/20 04/12/25 History metoprolol tartrate 50 mg tablet 50 mg PO BID bp 10/13/20 04/12/25 History ttecbcnvjdxt-mioieoiv-saefff tablet 1 tab PO DAILY supplement 10/13/20 04/12/25 History niacinamide 500 mg tablet 1,000 mg PO QHS supplement 10/13/20 04/12/25 History nifedipine 90 mg tablet,extended 90 mg PO BID BP 10/13/20 04/12/25 History release nitroglycerin 0.4 mg sublingual 0.4 mg sublingual Q5M PRN Chest 10/13/20 04/12/25 History tablet Pain ibuprofen 400 mg tablet 200 - 600 mg (0.5 - 1.5 x 400 mg) 11/02/20 04/12/25 Rx PO Q6H PRN PRN Pain Score 1-10 #0 tabs acetaminophen 500 mg tablet 500 mg PO Q6H PRN Pain 12/30/20 04/12/25 History (Tylenol Extra Strength) semaglutide 0.25 mg or 0.5 mg (2 0.25 mg subcut QWEEK 02/27/25 04/12/25 History mg/3 mL) subcutaneous pen injector (Ozempic) empagliflozin 25 mg tablet 25 mg PO QAM 04/12/25 04/12/25 History (Jardiance) Have you fallen in the past year?: No PFSH Medical History Preop cardiovascular exam Acute cholecystitis Bladder disease Shortness of breath on exertion History of pain when walking History of edema Bilateral carotid bruits CAD (coronary atherosclerotic disease) Wears dentures Wears hearing aid High cholesterol Dietary restriction History of heart attack Bowel obstruction Encounter for education Cardiology follow-up encounter Cancer Wears glasses History of alcohol use Hx of diarrhea Hx of echocardiogram Coronary artery disease Hx of cardiovascular stress test Diabetes Former smoker Hypertension Surgical History History of carotid endarterectomy (~10/2024) History of cholecystectomy History of bilateral cataract extraction History of colectomy History of tooth extraction Hx of colonoscopy History of coronary artery stent placement Family History Mother Asthma Diabetes Heart disease Hypertension Social History Smoking Status: Former smoker quit date: 06/13/71 pack-years: 1 Tobacco: How many years used: 7 second hand exposure: No alcohol intake: current alcohol intake frequency: holidays/special occasions only Alcohol type: beer substance use type: does not use caffeine: Yes rahul/voodoo: Mosque seatbelt use: always do you feel safe at home: Yes HPI HPI HPI: 80-year-old male status post sigmoidectomy and subtotal cholecystectomy and 2020 for sigmoid cancer as well as acute cholecystitis status post Nathaly tube. Patient's last colonoscopy was 10/2021 no masses or polyps were seen only and some hemorrhoids and diverticulosis told to repeat in 3 years. Patient did have increase of his tumor markers and a PET scan was done and showed 2 liver masses. Patient is seeing Dr. Baltazar Hernandez at [facility] for possible ablation or surgery as he did not tolerate chemotherapy well when he had previously-MRI is scheduled to evaluate further. ROS General General: Yes weight change and colon cancer; No appetite, fatigue, breast cancer or weakness HEENT HEENT: Yes eye surgery; No difficulty swallowing, eye injury, swollen glands or hoarseness Endo Endocrine: Yes diabetes mellitus; No thyroid disease, thyroid cancer, Hair loss, heat intolerance or cold intolerance Skin Skin: No rash or changing moles Musc Musculoskeletal: Yes joint pain; No back problems, arthritis, rheumatoid arthritis or gout Cardio Cardiovascular: Yes murmur, high blood pressure and heart stent; No pacemaker, heart disease, atrial fibrillation, heart attack, palpitations, shortness of breath with exertion or chest pain Psych Psychiatric: No depression, anxiety or hearing voices Resp Respiratory: No shortness of breath, No sleep apnea, Yes cough (comes and goes), No COPD, No asthma, No emphysema and No wheezing Gastro Gastrointestinal: No abdominal pain, No nausea or vomiting, No diarrhea, No constipation, No blood in stool, No acid reflux, Yes hemorrhoids, No ulcers, No gallbladder problem and No black,tarry stools [place] Hematologic: Yes blood thinners, No blood disorders, No bleeding, No anemia and No blood clots Neuro Neurologic: No system reviewed and no additional complaints, except as documented, No as per HPI, No abnormal gait, Yes abnormal hearing, No abnormal movements, No abnormal speech, No behavioral changes, No burning sensations, No confusion, No convulsions, No disequilibrium, No dizziness, No localized weakness, No frequent falls, No headache(s), No lack of coordination, No loss of vision, No memory loss, No numbness, No other visual disturbances, No radicular pain, No restless legs, No sensory deficit, No syncope, No tingling, No tremor(s), No weakness and No other Exam Const General: cooperative, healthy appearing, comfortable and no acute distress [facility] Head: normocephalic and atraumatic Neck Neck: supple Resp Effort & Inspection: normal respiratory effort Cardio Rate: regular rate GI Inspection: non-distended Palpation: soft, hernia (Incisional hernia at umbilicus-reducible) and nontender Skin General: no rashes or lesions noted Neuro General: CN's II-XI intact bilaterally Extrem General: normal to inspection Psych Mental Status: mental status grossly normal Attitude: cooperative Assessment and Plan Assessment and Plan (1) Encounter for colonoscopy due to history of colon cancer: Status: Acute (2) Colon cancer: Status: Chronic Qualifiers: Colon location: sigmoid Qualified Code(s): C18.7 - Malignant neoplasm of sigmoid colon Comment: S/P Sigmoid resection on 10/30/2020. Stage IIIB(pT3 pN1c M0). Began adjuvant adjuvant Xeloda 12/03/20 at 2000mg bid, experienced grade 2 Hand/Foot syndrome-erythema and diarrhea after C1. Received adjuvant Xeloda 1000mg bid x 14 days from 12/03/2022 to 03/02/2023. Started C4 on 02/25/2021, developed Hand foot syndrome so stopped on 03/02/2021. Circulating tumor cells are positive on 06/17/2021. CT c/a/p on 02/22/2022 shows no evidence of disease. CT c/a/p on 08/23/2022 reviewed, no evidence of disease. CEA on 08/13/[address] 02/20/2025 reviewed, new Liver lesion. CEA on 02/20/2025 was 6. Comes for follow up. PET/CT on 03/05/2025 reviewed, shows 3cm L lobe liver lesion, and 7mm R lobe liver lesion Discussed options surgery, RFA, SBRT VS chemotherapy. He did not tolerate chemotherapy previously so he wants to look at localized therapy first. (3) Liver masses: Status: Acute Comment: R/O Metastatic disease vs new Primary. Plan Patient will be scheduled April 24, 2025 for colonoscopy. Will plan to send report and pathology to Dr. Baltazar Hernandez at [facility] fax number is [phone]. I have discussed the above with the patient. I have offered the patient colonoscopy for evaluation. I have explained the risks/benefits of the procedure and described the procedure. I have discussed the risks with the patient, including but not limited to: infection, bleeding, perforation of the GI tract requiring emergency surgery, inability to complete the procedure, injury to any internal organs, complications of anesthesia, etc. - the patient understands and agrees to proceed. I have answered all the patient's questions to the patient's satisfaction and the patient has no further questions. The patient has been given instructions for the colon cleansing preparation. 1 day of clears MiraLAX Dulcolax. Kamini Baig M.D. Pager: [phone] [facility] [address] [place] [address], [address] [place] [address] Office: [phone] Coding Level of Care Code Off vis,est,level 3 Diagnoses Encounter for colonoscopy due to history of colon cancer Z12.11; Z85.038 Malignant neoplasm of sigmoid colon C18.7 Colon location: sigmoid Liver masses R16.0 Clinical Quality Measures Falls Risk Screening/Assistive Devices Have you fallen in the past year?: No 04/12/25 1449 <Electronically signed by Kamini Baig MD> Date Kamini Baig MD
[2025-04-24 08:55] VITALS: BP 150/70; PULSE 82; RESP 16; TEMP 36.6; O2SAT 96
[2025-04-24 09:59] VITALS: BP 118/62; BP 150/70; PULSE 73; RESP 16; TEMP 36.1; O2SAT 95
--- NOTE | 2025-04-24 10:04 | PCM.POST.ANE ---
Anesthesia: Postop Eval I Current Vital Signs Temperature: 97 F Pulse Rate: 72 Blood Pressure: 118/62 Respiratory Rate: 16 Pulse Ox: 96 Oxygen Delivery Method: Room Air Assessment Airway patent: Yes Spontaneous unlabored respirations: Yes Mental status: Awake and Calm nausea: No Vomiting: No Anesthesia Complication: No Fluid Hydration Crystalloid volume administer (ml): 600 Total IV fluid infused: 600 Progress Note Anesthesia document: Postop Eval 1 completed: Yes
[2025-04-24 10:05] VITALS: BP 118/62; BP 122/65; BP 150/70; PULSE 65; PULSE 72; RESP 16; TEMP 36.1; O2SAT 93; O2SAT 96
--- NOTE | 2025-04-24 10:06 | OP.PROVAT_ITS ---
04/24/2025 Baltazar Hernandez Re : Colonoscopy procedure for Popeye Landis Dear Dr. Hernandez This procedure was performed on Thursday, April 24, 2025. My impressions and recommendations are as follows: Impressions : - Hemorrhoids found on perianal exam. - Patent end-to-end colo-colonic anastomosis, characterized by healthy appearing mucosa. - The examination was otherwise normal on direct and retroflexion views. - No specimens collected. Recommendations : - Discharge patient to home. - Resume previous diet. - Continue present medications. - Repeat colonoscopy in 3 - 5 years for surveillance. My findings are described in the full procedure note, which is enclosed. If I can be of further assistance, please feel free to contact me at Doctor phone number(s): , Work: . Sincerely, MD Kamini Bunn MD 04/24/2025 10:06:00 AM This report has been signed electronically.
--- NOTE | 2025-04-24 10:06 | OP.COLON_ITS ---
Patient Name: Popeye Landis Procedure Date: 04/24/2025 9:29 AM Date of : 1945 Age: 80 Procedure: Colonoscopy Indications: High risk colon cancer surveillance: Personal history of colon cancer Providers: Kamini Baig MD Referring MD: Tej Santiago Medicines: Monitored Anesthesia Care Patient Profile: This is an 80 year old male. Last Colonoscopy: October 2021. He is status post segmental resection of the sigmoid colon 2020. Complications: No immediate complications. Procedure: Pre-Anesthesia Assessment: - Prior to the procedure, a History and Physical was performed, and patient medications and allergies were reviewed. The patient's tolerance of previous anesthesia was also reviewed. The risks and benefits of the procedure and the sedation options and risks were discussed with the patient. All questions were answered, and informed consent was obtained. Prior Anticoagulants: The patient has taken no anticoagulant or antiplatelet agents. ASA Grade Assessment: Per anesthesia. After reviewing the risks and benefits, the patient was deemed in satisfactory condition to undergo the procedure. After I obtained informed consent, the scope was passed under direct vision. Throughout the procedure, the patient's blood pressure, pulse, and oxygen saturations were monitored continuously. The Colonoscope was introduced through the anus and advanced to the cecum, identified by the appendiceal orifice, ileocecal valve and palpation. The colonoscopy was performed without difficulty. The patient tolerated the procedure well. The quality of the bowel preparation was good. Scope In: 9:40:11 AM Scope Withdrawal Time 0 hours 11 minutes 11 seconds Scope Out: 9:55:20 AM Total Procedure Duration Time 0 hours 15 minutes 9 seconds Findings: Hemorrhoids were found on perianal exam. There was evidence of a prior end-to-end colo-colonic anastomosis in the recto-sigmoid colon. This was patent and was characterized by healthy appearing mucosa. The anastomosis was traversed. The exam was otherwise without abnormality on direct and retroflexion views. Impression: - Hemorrhoids found on perianal exam. - Patent end-to-end colo-colonic anastomosis, characterized by healthy appearing mucosa. - The examination was otherwise normal on direct and retroflexion views. - No specimens collected. Recommendation: - Discharge patient to home. - Resume previous diet. - Continue present medications. - Repeat colonoscopy in 3 - 5 years for surveillance. Procedure Code(s): --- Professional --- G0105, PT, Colorectal cancer screening; colonoscopy on individual at high risk Diagnosis Code(s): --- Professional --- Z85.038, Personal history of other malignant neoplasm of large intestine K64.9, Unspecified hemorrhoids Z98.0, Intestinal bypass and anastomosis status CPT copyright 2021 [employer]. All rights reserved. The codes documented in this report are preliminary and upon supervisor hanging and trimming review may be revised to meet current compliance requirements. MD Kamini Bunn MD 04/24/2025 10:06:00 AM This report has been signed electronically. Number of Addenda: 0 Note Initiated On: 04/24/2025 9:29 AM
[2025-04-24 10:10] VITALS: BP 135/65; BP 150/70; PULSE 78; RESP 16; TEMP 36.1; O2SAT 95
--- NOTE | 2025-04-24 10:27 | PCM.POSTANE2 ---
Anesthesia Postop Eval I Sum Postop Eval Completion status Anesthesia document: Postop Eval 1 completed: Yes Anesthesia Postop Eval I Summary Anesthesia Postop Eval I Summary: Anesthesia Postop Eval I: Assessment Summary Airway patent Yes 04/24/25 10:05 [email or web address] Spontaneous unlabored Yes 04/24/25 10:05 [email or web address] respirations Mental status Awake,Calm 04/24/25 10:05 [email or web address] nausea No 04/24/25 10:05 [email or web address] Vomiting No 04/24/25 10:05 [email or web address] Anesthesia Postop Eval I: Fluid Summary Crystalloid volume administer 600 04/24/25 10:05 [email or web address] (ml) Colloids volume administered ( ml) Blood Product volume administered (ml) Total IV fluid infused 600 04/24/25 10:05 [email or web address] Anesthesia Postop Eval I: Summary Notes Anesthesia Complication No 04/24/25 10:05 [email or web address] Anesthesia Complication Comment: Post-operative progress note Anesthesia: Postop Eval II Evaluation Mental status: Awake Pain Level: 0 nausea: No Vomiting: No Complications Anesthesia Complication: No
[2025-04-24 10:35] VITALS: BP 150/70
--- NOTE | 2025-04-24 10:42 | SUR.PHASEII ---
dr. hale; patient to notify PCP about dose to restart ozempic. patient agrees.
== END 2025-04-24 10:43 | disposition home or self-care (01) ==
LOC: EN 07:53 → AC 08:51
PROVIDERS: PCP Family Medicine; Referring Provider Family Medicine; Visit Provider Surgery
DX: Z12.11 Encounter for screening for malignant neoplasm of colon (principal); E11.9 Type 2 diabetes mellitus without complications; I10 Essential (primary) hypertension; E78.00 Pure hypercholesterolemia, unspecified; I25.10 Atherosclerotic heart disease of native coronary artery without angina pectoris; Z87.891 Personal history of nicotine dependence; Z79.899 Other long term (current) drug therapy; Z79.01 Long term (current) use of anticoagulants; Z90.49 Acquired absence of other specified parts of digestive tract; Z85.038 Personal history of other malignant neoplasm of large intestine; Z98.0 Intestinal bypass and anastomosis status; Z79.82 Long term (current) use of aspirin; Z79.84 Long term (current) use of oral hypoglycemic drugs; Z79.85 Long-term (current) use of injectable non-insulin antidiabetic drugs
CPT/HCPCS: G0105; 82962; J2405